=== PATIENT | female | born 1955 | race American Indian/Alaskan Native ===

== ENCOUNTER 2016-12-26 00:27 | Emergency (ER) | payer MEDICARE, MEDICAID ==
[2016-12-26] MEDS ORDERED: Morphine 2 MG/ML Syringe IVPUSH ONE (00:45)
[2016-12-26] MEDS ORDERED: Sodium Chloride 0.9% 250 ML IV SCH (00:45)
[2016-12-26 00:46] VITALS: BP 116/73
--- NOTE | 2016-12-26 00:49 | EDM.PDOC ---
ED HISTORY OF PRESENT ILLNESS - General Chief Complaint: General Stated Complaint: CHEST,BACK,SHOULDER PAIN PROBLEMS BREATHING Time Seen by Provider: 12/26/16 00:44 Source of Information: Reports: Patient History Limitations: Reports: No limitations - History of Present Illness INITIAL COMMENTS - FREE TEXT/NARRATIVE: 60 yo [place] Female w/ PMHx. Renal failure and Anemia. Pt. recently had blood transfusion last week for severe anemia Symptom Onset Date: 12/25/16 Symptom Onset Time: 17:00 Timing/Duration: Reports: Hour(s): Severity: moderate Location, General: Reports: chest Quality: Reports: Ache Worsens with: Reports: Breathing Associated Symptoms (General): Reports: shortness of breath - Related Data Allergies/ADRs: Allergies Allergy/AdvReac Type Severity Reaction Status Date / Time lidocaine Allergy Intermediate Swelling Verified 12/26/16 00:46 amoxicillin trihydrate Allergy Rash Verified 12/26/16 00:46 [From Amoxil] latex Allergy Rash Verified 12/26/16 00:46 lisinopril Allergy Headache Verified 12/26/16 00:46 Home Meds: Home Meds Bumetanide 2 mg PO BID 12/21/15 [History] atorvaSTATin [Lipitor] 20 mg PO BEDTIME 12/21/15 [History] Calcium Acetate [Phoslo] 2 cap PO TID 03/29/16 [History] Insulin Aspart [Novolog Flexpen] 5 unit SQ ASDIRECTED PRN 05/17/16 [History] Metoprolol Succinate [Toprol XL 100mg] 100 mg PO BID 05/17/16 [History] Diltiazem HCl [Cartia Xt] 1 tab PO DAILY 06/26/16 [History] Amarilys.Dialysis Soln28 &Ico 7.5% [Extraneal Icodextrin Dialysis] 1,500 ml IP BEDTIME 08/31/16 [History] Valsartan [Diovan] 80 mg PO DAILY 08/31/16 [History] Acetaminophen [Tylenol] 325 mg PO Q6H PRN 11/03/16 [History] Calcitriol [Rocaltrol] 1 cap PO DAILY 11/03/16 [History] Mupirocin Cream [Bactroban Crm] 1 applic TOP DAILY 11/03/16 [History] Warfarin Sodium [Jantoven] 2.5 mg PO DAILY 11/03/16 [History] amLODIPine [Norvasc] 10 mg PO DAILY 11/03/16 [History] hydrALAZINE [Apresoline] 50 mg PO DAILY 11/03/16 [History] Past Medical History HEENT History: Reports: Impaired vision Cardiovascular History: Reports: Afib, CAD, Heart Failure, High cholesterol, Hypertension, Pacemaker, Other (see below) Other Cardiovascular History: hx of bilateral lower extremity edema Respiratory History: Reports: SOB Other Respiratory History: From CHF Gastrointestinal History: Reports: Other (see below) Other Gastrointestinal History: gastroparesis diabeticorum Genitourinary History: Reports: Dialysis, Diabetic nephropathy, Other (see below ) Other Genitourinary History: chronic kidney disease stage 4, nephrotic syndrome [employer] History: Reports: Other OB/BYN History: 5 nvd Musculoskeletal History: Reports: Arthritis, Other (see below) Other Musculoskeletal History: 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 lower leg. Dry and scaley about 3inches in diameter. Non draining. Also has dry area to left marie area. 1 diameter to left marie area. - Infectious Disease History Infectious Disease History: Reports: Chicken pox - Past Surgical History Other HEENT Surgeries/Procedures: eye surgery for tear Cardiovascular Surgical History: Reports: Other (see below) Other Cardiovascular Surgeries/Procedures: angiogram GI Surgical History: Reports: Appendectomy, Colonoscopy Social & Family History - Family History Family Medical History: Noncontributory Cardiac: Reports: [place] Other Cardiac Family History: father from [place] in his 50s Endocrine/Metabolic: Reports: Diabetes, type II Other Hematologic Family History: mother has h/o DVT and is on blood thinners - per pt report - Tobacco Use Smoking Status *Q: Never Smoker Years of Tobacco use: 20 Packs/Tins Daily: 0.2 Used Tobacco, but Quit: Yes Month Tobacco Last Used: december Second Hand Smoke Exposure: No - Caffeine Use Caffeine Use: Reports: None - Recreational Drug Use Recreational Drug Use: No - Living Situation & Occupation Living situation: Reports: with family Occupation: employed ED ROS GENERAL - Review of Systems Review Of Systems: See Below Constitutional: Reports: no symptoms, malaise, weakness HEENT: Reports: No symptoms Respiratory: Reports: Pleuritic Chest Pain Cardiovascular: Reports: No symptoms Endocrine: Reports: no symptoms GI/Abdominal: Reports: No symptoms : Reports: no symptoms Musculoskeletal: Reports: no symptoms Skin: Reports: no symptoms Neurological: Reports: No Symptoms Psychiatric: Reports: No symptoms Hematologic/Lymphatic: Reports: no symptoms Immunologic: Reports: no symptoms ED EXAM, GENERAL - Physical Exam Exam: See Below Exam Limited By: No limitations General Appearance: alert, no apparent distress Eye Exam: bilateral eye: PERRL Ears: normal external exam Nose: normal inspection Throat/Mouth: Normal inspection Head: atraumatic, normocephalic Neck: normal inspection, supple Respiratory/Chest: no respiratory distress, normal breath sounds, no accessory muscle use Cardiovascular: normal peripheral pulses, tachycardia GI/Abdominal: normal bowel sounds Back Exam: normal inspection, full range of motion Extremities: normal inspection, normal range of motion Neurological: alert, oriented, CN II-XII intact Psychiatric: normal affect, normal mood Skin Exam: Warm, Dry Lymphatic: no adenopathy Course - Vital Signs Last Recorded V/S: Last Vital Signs Temp 36.3 C 12/26/16 00:30 Pulse 120 H 12/26/16 00:30 Resp 22 H 12/26/16 00:30 BP 116/73 12/26/16 00:30 Pulse Ox 100 12/26/16 00:30 - Orders/Labs/Meds Labs: Laboratory Tests 12/26/16 12/26/16 12/26/16 Range/Units 01:04 01:04 01:04 WBC 9.8 (5.0-10.0) 10^3/uL RBC 3.14 L (4.2-5.4) 10^6/uL Hgb 9.8 L (12.0-16.0) g/dL Hct 29.8 L (37.0-47.0) % MCV 94.9 (80-100) fL MCH 31.2 (27.0-34.0) pg MCHC 32.9 L (33.0-35.0) g/dL Plt Count 143 L (150-450) 10^3/uL Neut % (Auto) 81.6 H (42.2-75.2) % Lymph % (Auto) 6.3 L (20.5-50.1) % Oliver % (Auto) 10.1 H (2-8) % Eos % (Auto) 1.7 (1.0-3.0) % Baso % (Auto) 0.3 (0.0-1.0) % D-Dimer, Quantitative 655 H (0-400) ng/mL Sodium 133 L (135-145) mmol/L Potassium 4.3 (3.6-5.0) mmol/L Chloride 95 L (101-111) mmol/L Carbon Dioxide 25.0 (21.0-31.0) mmol/L Anion Gap 17.3 BUN 75 H (7-18) mg/dL Creatinine 10.2 H (0.6-1.3) mg/dL Est Cr Clr Drug Dosing TNP Estimated GFR (MDRD) 4 BUN/Creatinine Ratio 7.35 Glucose 237 H (74-105) mg/dL Lactic Acid (0.5-2.2) mmol/L Calcium 8.3 L (8.4-10.2) mg/dl Total Bilirubin 0.7 (0.2-1.0) mg/dL AST 17 (10-42) IU/L ALT 16 (10-60) IU/L Alkaline Phosphatase 132 H (42-121) IU/L B-Natriuretic Peptide 2790 H (0-100) pg/ml Total Protein 7.2 (6.7-8.2) g/dl Albumin 3.7 (3.2-5.5) g/dl Globulin 3.5 Albumin/Globulin Ratio 1.06 12/26/16 Range/Units 01:04 WBC (5.0-10.0) 10^3/uL RBC (4.2-5.4) 10^6/uL Hgb (12.0-16.0) g/dL Hct (37.0-47.0) % MCV (80-100) fL MCH (27.0-34.0) pg MCHC (33.0-35.0) g/dL Plt Count (150-450) 10^3/uL Neut % (Auto) (42.2-75.2) % Lymph % (Auto) (20.5-50.1) % Oliver % (Auto) (2-8) % Eos % (Auto) (1.0-3.0) % Baso % (Auto) (0.0-1.0) % D-Dimer, Quantitative (0-400) ng/mL Sodium (135-145) mmol/L Potassium (3.6-5.0) mmol/L Chloride (101-111) mmol/L Carbon Dioxide (21.0-31.0) mmol/L Anion Gap BUN (7-18) mg/dL Creatinine (0.6-1.3) mg/dL Est Cr Clr Drug Dosing Estimated GFR (MDRD) BUN/Creatinine Ratio Glucose (74-105) mg/dL Lactic Acid 1.3 (0.5-2.2) mmol/L Calcium (8.4-10.2) mg/dl Total Bilirubin (0.2-1.0) mg/dL AST (10-42) IU/L ALT (10-60) IU/L Alkaline Phosphatase (42-121) IU/L B-Natriuretic Peptide (0-100) pg/ml Total Protein (6.7-8.2) g/dl Albumin (3.2-5.5) g/dl Globulin Albumin/Globulin Ratio Meds: Medications Discontinued Medications Generic Name Dose Route Start Last Admin Trade Name Alexq PRN Reason Stop Dose Admin Sodium Chloride 250 mls @ 50 mls/hr 12/26/16 00:45 12/26/16 01:06 Normal Saline IV 50 mls/hr ASDIRECTED BERYL Administration Morphine Sulfate 2 mg 12/26/16 00:45 12/26/16 01:07 Morphine IVPUSH 12/26/16 00:46 2 mg ONETIME ONE Administration Departure - Departure Time of Disposition: 02:05 Disposition: DC/Tfer to Other 70 Reason for Transfer *Q: Other Condition: fair Clinical Impression: Renal failure, Elevated d-dimer Pulmonary edema Qualifiers: Chronicity: acute Qualified Code(s): J81.0 - Acute pulmonary edema Referrals: Carmen Chino MD [Primary Care Provider] - Forms: Interfacility Transfer EMTALA, ED Department Discharge
[2016-12-26 01:32] LABS: CHLORIDE,CL 95 mmol/L (101-111); SODIUM,NA 133 mmol/L (135-145)
--- NOTE | 2017-01-16 08:17 | EKG ---
12/26/2016- MARINA GORDON - This is a 12-lead EKG. This is showing atrial fibrillation with ventricular rate 127 beats per minute. No significant ST-T changes with left axis deviation. [facility] /[id number] MTDD
== END 2016-12-26 02:50 | disposition other institution (70) ==
LOC: DL.ED 00:27
DX: I13.0 Hypertensive heart and chronic kidney disease with heart failure and stage 1 through stage 4 chronic kidney disease, or unspecified chronic kidney disease (principal); N18.4 Chronic kidney disease, stage 4 (severe); I50.9 Heart failure, unspecified; R79.1 Abnormal coagulation profile; D63.1 Anemia in chronic kidney disease; I48.91 Unspecified atrial fibrillation; I25.10 Atherosclerotic heart disease of native coronary artery without angina pectoris; Z90.49 Acquired absence of other specified parts of digestive tract; E78.00 Pure hypercholesterolemia, unspecified; E11.21 Type 2 diabetes mellitus with diabetic nephropathy; Z79.4 Long term (current) use of insulin; Z79.01 Long term (current) use of anticoagulants; Z79.899 Other long term (current) drug therapy; Z91.040 Latex allergy status; Z88.8 Allergy status to other drugs, medicaments and biological substances; Z88.1 Allergy status to other antibiotic agents
CPT/HCPCS: 36415; 71020; 80053; 83605; 83880; 85025; 85379; 87040; 96361; 96374; 99285; J2270; J7050

== ENCOUNTER 2017-02-19 16:13 | Emergency (ER) | payer MEDICARE, MEDICAID ==
[2017-02-19 16:24] VITALS: BP 147/80
--- NOTE | 2017-02-19 16:26 | EDM.PDOC ---
ED HPI GENERAL MEDICAL PROBLEM - General Chief Complaint: General Time Seen by Provider: 02/19/17 16:17 Source of Information: Reports: Patient - History of Present Illness INITIAL COMMENTS - FREE TEXT/NARRATIVE: Aracely Ceballos is a 61 year old female with a past medical history of afib, CAD , CHF, HTN, pacemaker, DMT2, CKD Stage 4 on dialysis, arthritis, gastroparesis, and anemia presenting to the ED via ambulance with abdominal pain and bilateral shoulder pain. Aracely has a peritoneal dialysis line and she tells me it needs to be drained. She has her supplies with her and initiates drainage in the ED. She reports having the peritoneal dialysis line for the last one year. She does her dialysis at home every 3 hours. She reports increased swelling in her bilateral extremities. The pain in her abdomen is generalized and has been worse over the last one hour. Her shoulder pain correlates with the same time of onset (last one hour). She notices the pain is worse with use of the red peritoneal dialysis bags versus the green bags. Bilateral Shoulder Pain Score (Numeric/FACES): 10 - Related Data Allergies Allergy/AdvReac Type Severity Reaction Status Date / Time lidocaine Allergy Intermediate Swelling Verified 02/19/17 16:18 amoxicillin trihydrate Allergy Rash Verified 02/19/17 16:18 [From Amoxil] latex Allergy Rash Verified 02/19/17 16:18 lisinopril Allergy Headache Verified 02/19/17 16:18 Home Meds: Home Meds Bumetanide 2 mg PO BID 12/21/15 [History] atorvaSTATin [Lipitor] 20 mg PO BEDTIME 12/21/15 [History] Calcium Acetate [Phoslo] 2 cap PO TID 03/29/16 [History] Insulin Aspart [Novolog Flexpen] 5 unit SQ ASDIRECTED PRN 05/17/16 [History] Metoprolol Succinate [Toprol XL 100mg] 100 mg PO BID 05/17/16 [History] Diltiazem HCl [Cartia Xt] 1 tab PO DAILY 06/26/16 [History] Amarilys.Dialysis Soln28 &Ico 7.5% [Extraneal Icodextrin Dialysis] 1,500 ml IP BEDTIME 08/31/16 [History] Valsartan [Diovan] 80 mg PO DAILY 08/31/16 [History] Acetaminophen [Tylenol] 325 mg PO Q6H PRN 11/03/16 [History] Calcitriol [Rocaltrol] 1 cap PO DAILY 11/03/16 [History] Mupirocin Cream [Bactroban Crm] 1 applic TOP DAILY 11/03/16 [History] Warfarin Sodium [Jantoven] 2.5 mg PO DAILY 11/03/16 [History] amLODIPine [Norvasc] 10 mg PO DAILY 11/03/16 [History] hydrALAZINE [Apresoline] 50 mg PO DAILY 11/03/16 [History] Past Medical History HEENT History: Reports: Impaired vision Cardiovascular History: Reports: Afib, CAD, Heart Failure, High cholesterol, Hypertension, Pacemaker, Other (see below) Other Cardiovascular History: hx of bilateral lower extremity edema Respiratory History: Reports: SOB Other Respiratory History: From CHF Gastrointestinal History: Reports: Other (see below) Other Gastrointestinal History: gastroparesis diabeticorum Genitourinary History: Reports: Dialysis, Diabetic nephropathy, Other (see below ) Other Genitourinary History: chronic kidney disease stage 4, nephrotic syndrome [employer] History: Reports: Other OB/BYN History: 5 nvd Musculoskeletal History: Reports: Arthritis, Other (see below) Other Musculoskeletal History: 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 lower leg. Dry and scaley about 3inches in diameter. Non draining. Also has dry area to left marie area. 1 diameter to left marie area. - Infectious Disease History Infectious Disease History: Reports: Chicken pox - Past Surgical History Other HEENT Surgeries/Procedures: eye surgery for tear Cardiovascular Surgical History: Reports: Other (see below) Other Cardiovascular Surgeries/Procedures: angiogram GI Surgical History: Reports: Appendectomy, Colonoscopy Social & Family History - Family History Family Medical History: Noncontributory Cardiac: Reports: [place] Other Cardiac Family History: father from [place] in his 50s Endocrine/Metabolic: Reports: Diabetes, type II Other Hematologic Family History: mother has h/o DVT and is on blood thinners - per pt report - Tobacco Use Smoking Status *Q: Never Smoker Years of Tobacco use: 20 Packs/Tins Daily: 0.2 Used Tobacco, but Quit: Yes Month Tobacco Last Used: december Second Hand Smoke Exposure: No - Caffeine Use Caffeine Use: Reports: None - Recreational Drug Use Recreational Drug Use: No - Living Situation & Occupation Living situation: Reports: with family Occupation: employed ED ROS GENERAL - Review of Systems Review Of Systems: See Below Constitutional: Reports: malaise, weakness. Denies: fever, chills HEENT: Reports: No symptoms Respiratory: Reports: Shortness of Breath. Denies: Wheezing, Pleuritic Chest Pain, Cough, Sputum Cardiovascular: Reports: Dyspnea on exertion, Edema. Denies: Chest pain Endocrine: Reports: no symptoms GI/Abdominal: Reports: Other (see HPI) : Reports: no symptoms Musculoskeletal: Reports: shoulder pain (bilateral upper shoulder pain R>L) Skin: Reports: rash Neurological: Reports: No Symptoms Psychiatric: Reports: No symptoms Hematologic/Lymphatic: Reports: no symptoms, anemia (history of anemia) Immunologic: Reports: no symptoms ED EXAM, GENERAL - Physical Exam Exam: See Below Exam Limited By: Other (pain) General Appearance: alert, severe distress (tachypnea due to pain; moaning in pain) Eye Exam: bilateral eye: PERRL Ears: normal external exam Nose: normal inspection, normal mucosa Throat/Mouth: Normal inspection, Normal oropharynx Head: atraumatic, normocephalic Neck: supple, non-tender Respiratory/Chest: decreased breath sounds (throughout), crackles, rales ( bilateral bases), other (tachypnea that responded to fentanyl for pain control) . No: rhonchi, wheezing, stridor Cardiovascular: regular rate, rhythm (following fentanyl) GI/Abdominal: normal bowel sounds, soft, tender (surrounding the peritoneal dialysis line), other (large scaling patches around the dialysis line without erythema or drainage; appears dry). No: distended, rebound Extremities: other (2+ pitting edema; scaling annular rashes throughout) Neurological: alert, oriented, CN II-XII intact Psychiatric: other (once pain is controlled mood is normal) Skin Exam: Rash Lymphatic: no adenopathy EKG INTERPRETATION EKG Interpretation Comments: Initial EKG showed what appeared to afib with rate of 126; difficult to see any p waves due to rapid rate Fentanyl administered for pain and rate decreased into the 80s with repeat EKG showed NSR Course - Vital Signs Last Recorded V/S: Last Vital Signs Temp 97.6 F 02/19/17 16:23 Pulse 134 H 02/19/17 16:23 Resp 25 H 02/19/17 16:23 BP 147/80 H 02/19/17 16:23 Pulse Ox 100 02/19/17 16:23 - Orders/Labs/Meds Orders: Active Orders 24 hr Category Date Time Status EKG 12 Lead [EKG Documentation Completion] [RC] ROUTINE Care 02/19/17 17:32 Active EKG 12 Lead [EKG Documentation Completion] [RC] STAT Care 02/19/17 17:00 Active Chest 1V Frontal [CR] Urgent Exams 02/19/17 17:04 Taken Labs: Laboratory Tests 02/19/17 02/19/17 02/19/17 Range/Units 16:55 16:55 16:55 WBC 5.6 (5.0-10.0) 10^3/uL RBC 3.64 L (4.2-5.4) 10^6/uL Hgb 11.0 L (12.0-16.0) g/dL Hct 34.3 L (37.0-47.0) % MCV 94.2 (80-100) fL MCH 30.2 (27.0-34.0) pg MCHC 32.1 L (33.0-35.0) g/dL Plt Count 162 (150-450) 10^3/uL Neut % (Auto) 70.0 (42.2-75.2) % Lymph % (Auto) 12.7 L (20.5-50.1) % Delta % (Auto) 7.5 (2-8) % Eos % (Auto) 9.1 H (1.0-3.0) % Baso % (Auto) 0.7 (0.0-1.0) % Sodium 136 (135-145) mmol/L Potassium 4.1 (3.6-5.0) mmol/L Chloride 99 L (101-111) mmol/L Carbon Dioxide 20.0 L (21.0-31.0) mmol/L Anion Gap 21.1 BUN 71 H (7-18) mg/dL Creatinine 10.2 H (0.6-1.3) mg/dL Est Cr Clr Drug Dosing 5.06 mL/min Estimated GFR (MDRD) 4 BUN/Creatinine Ratio 6.96 Glucose 194 H (74-105) mg/dL Lactic Acid 2.1 (0.5-2.2) mmol/L Calcium 8.1 L (8.4-10.2) mg/dl Total Bilirubin 1.0 (0.2-1.0) mg/dL AST 20 (10-42) IU/L ALT 13 (10-60) IU/L Alkaline Phosphatase 138 H (42-121) IU/L Ammonia (11-35) umol/L B-Natriuretic Peptide (0-100) pg/ml Total Protein 6.6 L (6.7-8.2) g/dl Albumin 3.2 (3.2-5.5) g/dl Globulin 3.4 Albumin/Globulin Ratio 0.94 02/19/17 02/19/17 Range/Units 16:55 17:15 WBC (5.0-10.0) 10^3/uL RBC (4.2-5.4) 10^6/uL Hgb (12.0-16.0) g/dL Hct (37.0-47.0) % MCV (80-100) fL MCH (27.0-34.0) pg MCHC (33.0-35.0) g/dL Plt Count (150-450) 10^3/uL Neut % (Auto) (42.2-75.2) % Lymph % (Auto) (20.5-50.1) % Delta % (Auto) (2-8) % Eos % (Auto) (1.0-3.0) % Baso % (Auto) (0.0-1.0) % Sodium (135-145) mmol/L Potassium (3.6-5.0) mmol/L Chloride (101-111) mmol/L Carbon Dioxide (21.0-31.0) mmol/L Anion Gap BUN (7-18) mg/dL Creatinine (0.6-1.3) mg/dL Est Cr Clr Drug Dosing mL/min Estimated GFR (MDRD) BUN/Creatinine Ratio Glucose (74-105) mg/dL Lactic Acid (0.5-2.2) mmol/L Calcium (8.4-10.2) mg/dl Total Bilirubin (0.2-1.0) mg/dL AST (10-42) IU/L ALT (10-60) IU/L Alkaline Phosphatase (42-121) IU/L Ammonia 15 (11-35) umol/L B-Natriuretic Peptide 4290 H (0-100) pg/ml Total Protein (6.7-8.2) g/dl Albumin (3.2-5.5) g/dl Globulin Albumin/Globulin Ratio Meds: Medications Discontinued Medications Generic Name Dose Route Start Last Admin Trade Name Freq PRN Reason Stop Dose Admin Fentanyl 50 mcg 02/19/17 16:27 02/19/17 17:00 Sublimaze IVPUSH 02/19/17 16:28 50 mcg ONETIME ONE Administration Departure - Departure Time of Disposition: 17:51 Disposition: Home, Self-Care 01 Condition: fair Clinical Impression: Peritoneal irritation Instructions: Peritoneal Dialysis, [id number] Forms: ED Department Discharge Additional Instructions: Please keep your follow-up appointment with Dr. Chino on Monday. Please call Dr. Street office on Monday to get his recommendations on your peritoneal dialysis bags. You may use your PRN nausea medications at home if needed. Please return to the ED for fever or if pain returns. - My Orders Last 24 Hours: My Active Orders 02/19/17 17:00 EKG 12 Lead [EKG Documentation Completion] [RC] STAT 02/19/17 17:04 Chest 1V Frontal [CR] Urgent - Assessment/Plan Last 24 Hours: My Active Orders 02/19/17 17:00 EKG 12 Lead [EKG Documentation Completion] [RC] STAT 02/19/17 17:04 Chest 1V Frontal [CR] Urgent Assessment:: peritoneal irritation Plan: Aracely is presenting with signs/symptoms of an aseptic peritoneal irritation. She has abdominal pain radiating to the bilateral shoulders relieved by fentanyl and peritoneal drainage (patient performed with help of her granddaughters). She does not have SIRS criteria or elevation of the WBCs or lactic acid. Her BNP is elevated above her baseline but her chest x-ray is clear. She is improved and appropriate for discharge with close outpatient management. She has an appointment with Dr. Chino on [place] and she will contact Dr. Rodriguez's office tomorrow regarding her dialysis bags. Questions were answered and she and her son were comfortable with the plan.
[2017-02-19] MEDS ORDERED: fentaNYL 100 MCG/2 ML SDV IVPUSH ONE (16:27)
--- NOTE | 2017-02-21 13:51 | EKG ---
02/19/2017 - MARINA GORDON - TIME: 1659 hours. Shows atrial fibrillation with rapid ventricular response. Heart rate of 143. No significant ST elevation or ST depression noted on this 12-lead EKG. Questionable ST depression in lead V3, but does not meet the criteria, nonspecific changes. [facility] /[id number]
--- NOTE | 2017-02-21 14:18 | EKG ---
02/19/2017 - MARINA GORDON - TIME: 1706 hours. Twelve-lead EKG shows normal sinus rhythm with a heart rate of 87. No significant ST elevation or ST depression noted on this 12-lead EKG. [facility] /[id number]
== END 2017-02-19 18:07 | disposition home or self-care (01) ==
LOC: DL.ED 16:13
DX: K65.9 Peritonitis, unspecified (principal); I48.91 Unspecified atrial fibrillation; I25.10 Atherosclerotic heart disease of native coronary artery without angina pectoris; I13.0 Hypertensive heart and chronic kidney disease with heart failure and stage 1 through stage 4 chronic kidney disease, or unspecified chronic kidney disease; N18.4 Chronic kidney disease, stage 4 (severe); D63.1 Anemia in chronic kidney disease; I50.9 Heart failure, unspecified; E78.00 Pure hypercholesterolemia, unspecified; M19.90 Unspecified osteoarthritis, unspecified site; E11.21 Type 2 diabetes mellitus with diabetic nephropathy; Z79.4 Long term (current) use of insulin; Z79.01 Long term (current) use of anticoagulants; Z79.899 Other long term (current) drug therapy; Z90.49 Acquired absence of other specified parts of digestive tract; Z91.040 Latex allergy status; Z88.8 Allergy status to other drugs, medicaments and biological substances; Z88.1 Allergy status to other antibiotic agents
CPT/HCPCS: 36415; 71010; 80053; 82140; 83605; 83880; 85025; 93005; 93010; 96374; 99283; J3010; 99284

== ENCOUNTER 2017-03-14 19:28 | Emergency (ER) | payer MEDICARE, MEDICAID ==
[2017-03-14 21:43] VITALS: BP 150/66
[2017-03-14] MEDS ORDERED: Ondansetron 4 MG/2 ML SDV IV ONE (21:48)
[2017-03-14] MEDS ORDERED: fentaNYL 100 MCG/2 ML SDV IVPUSH ONE ×2 (21:51→23:22)
[2017-03-14 22:41] LABS: CHLORIDE,CL 96 mmol/L (101-111); SODIUM,NA 133 mmol/L (135-145)
[2017-03-14] MEDS ORDERED: Bumetanide 1 MG/4 ML MDV IVPUSH ONE (23:26)
[2017-03-15] MEDS ORDERED: fentaNYL 100 MCG/2 ML SDV IVPUSH ONE (01:39)
--- NOTE | 2017-03-15 01:49 | EDM.PDOC ---
ED HPI GENERAL MEDICAL PROBLEM - General Chief Complaint: Abdominal Pain Stated Complaint: TROUBLE BREATHING Time Seen by Provider: 03/14/17 21:41 Source of Information: Reports: Patient History Limitations: Reports: No Limitations - History of Present Illness INITIAL COMMENTS - FREE TEXT/NARRATIVE: ED with complaint of abdominal pain radiating to chest, worse with movement, describes as sharp. Pain worsening over past week, no fever, Was seen recenntly by Dr. Ac. Notes high phosphate levels. Onset: Gradual Abdominal Pain Score (Numeric/FACES): 8 - Related Data Allergies Allergy/AdvReac Type Severity Reaction Status Date / Time lidocaine Allergy Intermediate Swelling Verified 03/14/17 23:05 amoxicillin trihydrate Allergy Rash Verified 03/14/17 23:05 [From Amoxil] latex Allergy Rash Verified 03/14/17 23:05 lisinopril Allergy Headache Verified 03/14/17 23:05 Home Meds: Home Meds Bumetanide 2 mg PO BID 12/21/15 [History] Calcium Acetate [Phoslo] 2 cap PO TID 03/29/16 [History] Insulin Aspart [Novolog Flexpen] 5 unit SQ ASDIRECTED PRN 05/17/16 [History] Metoprolol Succinate [Toprol XL 100mg] 75 mg PO BID 05/17/16 [History] Diltiazem HCl [Cartia Xt] 1 tab PO DAILY 06/26/16 [History] Amarilys.Dialysis Soln28 &Ico 7.5% [Extraneal Icodextrin Dialysis] 1,500 ml IP BEDTIME 08/31/16 [History] Valsartan [Diovan] 80 mg PO DAILY 08/31/16 [History] Acetaminophen [Tylenol] 325 mg PO Q6H PRN 11/03/16 [History] Calcitriol [Rocaltrol] 2 cap PO DAILY 11/03/16 [History] Mupirocin Cream [Bactroban Crm] 1 applic TOP DAILY 11/03/16 [History] amLODIPine [Norvasc] 10 mg PO DAILY 11/03/16 [History] Metoclopramide [Reglan] 1 tab PO TIDAC 03/14/17 [History] Sodium Bicarbonate 1 tab PO BID 03/14/17 [History] Warfarin Sodium [Jantoven] 1.5 tab PO DAILY 03/14/17 [History] Past Medical History HEENT History: Reports: Impaired Vision Cardiovascular History: Reports: Afib, CAD, Heart Failure, High Cholesterol, Hypertension, Pacemaker, Other (See Below) Other Cardiovascular History: hx of bilateral lower extremity edema Respiratory History: Reports: SOB Other Respiratory History: From CHF Gastrointestinal History: Reports: Other (See Below) Other Gastrointestinal History: gastroparesis diabeticorum Genitourinary History: Reports: Dialysis, Diabetic Nephropathy, Other (See Below ) Other Genitourinary History: chronic kidney disease stage 4, nephrotic syndrome INFORMATION SYSTEMS MANAGER 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 lower leg. Dry and scaley about 3inches in diameter. Non draining. Also has dry area to left marie area. 1 diameter to left marie area. - Infectious Disease History Infectious Disease History: Reports: Chicken Pox - Past Surgical History Cardiovascular Surgical History: Reports: Other (See Below) Dermatological Surgical History: Reports: Skin Biopsy Social & Family History - Family History Family Medical History: Noncontributory Cardiac: Reports: [place] Other Cardiac Family History: father from [place] in his 50s Endocrine/Metabolic: Reports: Diabetes, type II Other Hematologic Family History: mother has h/o DVT and is on blood thinners - per pt report - Tobacco Use Smoking Status *Q: Unknown Ever Smoked Years of Tobacco use: 20 Packs/Tins Daily: 0.2 Used Tobacco, but Quit: Yes Month Tobacco Last Used: december Second Hand Smoke Exposure: No - Caffeine Use Caffeine Use: Reports: None - Recreational Drug Use Recreational Drug Use: No - Living Situation & Occupation Living situation: Reports: with Family Occupation: Employed [employer] [facility] [employer] [facility] GENER[facility] - Review of Systems Review Of Systems: See Below Constitutional: Reports: No Symptoms, Decreased Appetite HEENT: Reports: No Symptoms Respiratory: Reports: Shortness of Breath Cardiovascular: Reports: Dyspnea on Exertion, Other (chronic atrial fibrillation ) GI/Abdominal: Reports: Abdominal Pain, Anorexia, Decreased Appetite, Nausea, Vomiting : Reports: No Symptoms Musculoskeletal: Reports: Other (generalized pain) Skin: Reports: No Symptoms Neurological: Reports: No Symptoms ED EXAM, GI/ABD - Physical Exam Exam: See Below General Appearance: Alert, Moderate Distress (colicky type pain) Eyes: Bilateral: EOMI Ears: Normal External Exam Nose: Normal Inspection Throat/Mouth: Normal Inspection Head: Atraumatic, Normocephalic Neck: Normal Inspection Respiratory/Chest: No Respiratory Distress, Decreased Breath Sounds (bases), Rales (fine bases). No: Rhonchi, Wheezing Cardiovascular: Normal Peripheral Pulses, Tachycardia (on admission, decreased 80's after administration of pain medication), Irregularly Irregular GI/Abdominal: Normal Bowel Sounds, Soft, Tenderness (general), Other (pertoneal diaysis shunt). No: Distention, Guarding, Rebound, Rigidity Back Exam: Normal Inspection, Full Range of Motion Extremities: Pedal Edema (left greater than right) Neurological: Alert, Oriented Psychiatric: Anxious Skin Exam: Warm, Dry, Other (annular plaques to abdomen and lower legs). No: Jaundice Course - Vital Signs Last Recorded V/S: Last Vital Signs Temp 97.4 F 03/14/17 21:42 Pulse 88 03/14/17 21:42 Resp 20 03/14/17 21:42 BP 150/66 H 03/14/17 21:42 Pulse Ox 100 03/14/17 21:42 - Orders/Labs/Meds Orders: Active Orders 24 hr Category Date Time Status EKG 12 Lead [EKG Documentation Completion] [RC] URGENT Care 03/14/17 21:48 Active CULTURE BLOOD [BC] Stat Lab 03/14/17 22:10 Results CULTURE BLOOD [BC] Stat Lab 03/14/17 22:12 Received Blood Culture x2 Reflex Set [OM.PC] Stat Oth 03/14/17 21:49 Ordered Labs: Laboratory Tests 03/14/17 03/14/17 03/14/17 Range/Units 22:10 22:12 22:12 WBC 8.3 (5.0-10.0) 10^3/uL RBC 3.77 L (4.2-5.4) 10^6/uL Hgb 11.3 L (12.0-16.0) g/dL Hct 35.7 L (37.0-47.0) % MCV 94.7 (80-100) fL MCH 30.0 (27.0-34.0) pg MCHC 31.7 L (33.0-35.0) g/dL Plt Count 160 (150-450) 10^3/uL Neut % (Auto) 76.1 H (42.2-75.2) % Lymph % (Auto) 9.6 L (20.5-50.1) % [place] % (Auto) 11.4 H (2-8) % Eos % (Auto) 2.7 (1.0-3.0) % Baso % (Auto) 0.2 (0.0-1.0) % PT 11.1 (9.0-12.0) SEC INR 1.1 (0.9-1.2) D-Dimer, Quantitative (0-400) ng/mL Sodium 133 L (135-145) mmol/L Potassium 4.3 (3.6-5.0) mmol/L Chloride 96 L (101-111) mmol/L Carbon Dioxide 24.0 (21.0-31.0) mmol/L Anion Gap 17.3 BUN 61 H (7-18) mg/dL Creatinine 10.4 H (0.6-1.3) mg/dL Est Cr Clr Drug Dosing TNP Estimated GFR (MDRD) 4 BUN/Creatinine Ratio 5.86 Glucose 183 H (74-105) mg/dL Lactic Acid (0.5-2.2) mmol/L Calcium 8.4 (8.4-10.2) mg/dl Total Bilirubin 0.7 (0.2-1.0) mg/dL AST 18 (10-42) IU/L ALT 19 (10-60) IU/L Alkaline Phosphatase 137 H (42-121) IU/L Troponin I 0.04 H* (0.00-0.02) ng/ml B-Natriuretic Peptide 3050 H (0-100) pg/ml Total Protein 6.5 L (6.7-8.2) g/dl Albumin 3.3 (3.2-5.5) g/dl Globulin 3.2 Albumin/Globulin Ratio 1.03 Amylase 6 L (28-100) U/L Lipase 30 (22-51) U/L Urine Color (YELLOW) Urine Appearance (CLEAR) Urine pH (5.0-9.0) Ur Specific [place] (1.005-1.030) Urine Protein (NEGATIVE) Urine Glucose (UA) (NEGATIVE) Urine Ketones (NEGATIVE) Urine Occult Blood (NEGATIVE) Urine Nitrite (NEGATIVE) Urine Bilirubin (NEGATIVE) Urine Urobilinogen (0.2-1.0) mg/dL Ur Leukocyte Esterase (NEGATIVE) Urine RBC /HPF Urine WBC (0-5/HPF) /HPF Ur Epithelial Cells /HPF Urine Bacteria (0-FEW/HPF) /HPF 03/14/17 03/14/17 03/14/17 Range/Units 22:12 22:50 22:54 WBC (5.0-10.0) 10^3/uL RBC (4.2-5.4) 10^6/uL Hgb (12.0-16.0) g/dL Hct (37.0-47.0) % MCV (80-100) fL MCH (27.0-34.0) pg MCHC (33.0-35.0) g/dL Plt Count (150-450) 10^3/uL Neut % (Auto) (42.2-75.2) % Lymph % (Auto) (20.5-50.1) % [place] % (Auto) (2-8) % Eos % (Auto) (1.0-3.0) % Baso % (Auto) (0.0-1.0) % PT (9.0-12.0) SEC INR (0.9-1.2) D-Dimer, Quantitative 902 H (0-400) ng/mL Sodium (135-145) mmol/L Potassium (3.6-5.0) mmol/L Chloride (101-111) mmol/L Carbon Dioxide (21.0-31.0) mmol/L Anion Gap BUN (7-18) mg/dL Creatinine (0.6-1.3) mg/dL Est Cr Clr Drug Dosing Estimated GFR (MDRD) BUN/Creatinine Ratio Glucose (74-105) mg/dL Lactic Acid 2.1 (0.5-2.2) mmol/L Calcium (8.4-10.2) mg/dl Total Bilirubin (0.2-1.0) mg/dL AST (10-42) IU/L ALT (10-60) IU/L Alkaline Phosphatase (42-121) IU/L Troponin I (0.00-0.02) ng/ml B-Natriuretic Peptide (0-100) pg/ml Total Protein (6.7-8.2) g/dl Albumin (3.2-5.5) g/dl Globulin Albumin/Globulin Ratio Amylase (28-100) U/L Lipase (22-51) U/L Urine Color Yellow (YELLOW) Urine Appearance Clear (CLEAR) Urine pH 8.5 (5.0-9.0) Ur Specific [place] 1.020 (1.005-1.030) Urine Protein >=300 H (NEGATIVE) Urine Glucose (UA) 250 H (NEGATIVE) Urine Ketones Negative (NEGATIVE) Urine Occult Blood Trace-intact H (NEGATIVE) Urine Nitrite Negative (NEGATIVE) Urine Bilirubin Negative (NEGATIVE) Urine Urobilinogen 0.2 (0.2-1.0) mg/dL Ur Leukocyte Esterase Negative (NEGATIVE) Urine RBC 0-5 /HPF Urine WBC 0-5 (0-5/HPF) /HPF Ur Epithelial Cells Occasional /HPF Urine Bacteria Occasional (0-FEW/HPF) /HPF Meds: Medications Discontinued Medications Generic Name Dose Route Start Last Admin Trade Name Freq PRN Reason Stop Dose Admin Bumetanide 1 mg 03/14/17 23:26 03/15/17 00:09 Bumex IVPUSH 03/14/17 23:27 1 mg ONETIME ONE Administration Fentanyl 50 mcg 03/14/17 21:51 03/14/17 22:23 Sublimaze IVPUSH 03/14/17 21:52 50 mcg ONETIME ONE Administration Fentanyl 25 mcg 03/14/17 23:22 03/14/17 23:59 Sublimaze IVPUSH 03/14/17 23:23 25 mcg ONETIME ONE Administration Fentanyl 25 mcg 03/15/17 01:39 03/15/17 01:51 Sublimaze IVPUSH 03/15/17 01:40 25 mcg ONETIME ONE Administration Ondansetron HCl 4 mg 03/14/17 21:48 03/14/17 22:24 Zofran IV 03/14/17 21:49 4 mg ONETIME ONE Administration - Radiology Interpretation Free Text/Narrative:: CT abdomen, mild pancreatitis, bilateral pleural effusions, tiny right pericardial effusion - Re-Assessments/Exams Free Text/Narrative Re-Assessment/Exam: 03/15/17 02:01 Vitals remain stable, Atrial fib rate controlled following initial pain medication. Pain colicky type. No vomiting. family here. Peretoneal drainge done by son prior to CT. TC dr Kam, accepting of patient in transfer, further eval and management. Tx via [facility]. Departure - Departure Time of Disposition: 02:30 Disposition: DC/Tfer to Acute Hospital 02 Condition: fair Clinical Impression: Peritoneal dialysis catheter in place, Pericardial effusion, Bilateral pleural effusion, Chronic atrial fibrillation, Elevated troponin Pancreatitis Qualifiers: Chronicity: acute Pancreatitis type: unspecified pancreatitis type Acute pancreatitis complication: unspecified Qualified Code(s): K85.90 - Acute pancreatitis without necrosis or infection, unspecified Abdominal pain Qualifiers: Abdominal location: lower abdomen, unspecified Qualified Code(s): R10.30 - Lower abdominal pain, unspecified - Discharge Information Forms: ED Department Discharge - My Orders Last 24 Hours: My Active Orders 03/14/17 21:48 EKG 12 Lead [EKG Documentation Completion] [RC] URGENT 03/14/17 21:49 Blood Culture x2 Reflex Set [OM.PC] Stat 03/14/17 22:10 CULTURE BLOOD [BC] Stat 03/14/17 22:12 CULTURE BLOOD [BC] Stat - Assessment/Plan Last 24 Hours: My Active Orders 03/14/17 21:48 EKG 12 Lead [EKG Documentation Completion] [RC] URGENT 03/14/17 21:49 Blood Culture x2 Reflex Set [OM.PC] Stat 03/14/17 22:10 CULTURE BLOOD [BC] Stat 03/14/17 22:12 CULTURE BLOOD [BC] Stat
--- NOTE | 2017-03-15 12:06 | EKG ---
03/14/2017 - MARINA GORDON I reviewed the EKG and agree with the machine's reading. [facility] /[id number]
== END 2017-03-15 02:38 ==
LOC: DL.ED 19:28
DX: K85.90 Acute pancreatitis without necrosis or infection, unspecified (principal); I48.91 Unspecified atrial fibrillation; I13.0 Hypertensive heart and chronic kidney disease with heart failure and stage 1 through stage 4 chronic kidney disease, or unspecified chronic kidney disease; E78.00 Pure hypercholesterolemia, unspecified; I50.9 Heart failure, unspecified; N18.4 Chronic kidney disease, stage 4 (severe); E11.9 Type 2 diabetes mellitus without complications; Z99.2 Dependence on renal dialysis; Z88.8 Allergy status to other drugs, medicaments and biological substances; Z88.1 Allergy status to other antibiotic agents
CPT/HCPCS: 36415; 71010; 74176; 80053; 81001; 82150; 83605; 83690; 83880; 84484; 85025; 85379; 85610; 87040; 93005; 93010; 96374; 96375; 96376; 99285; J2405; J3010; S0171

== ENCOUNTER 2017-04-08 15:17 | Emergency (ER) | payer MEDICARE, MEDICAID ==
--- NOTE | 2017-04-08 15:22 | EDM.PDOC ---
ED HPI GENERAL MEDICAL PROBLEM - General Chief Complaint: Respiratory Problem Stated Complaint: TONYA, [id number] Time Seen by Provider: 04/08/17 15:22 Source of Information: Reports: Patient, RN, RN Notes Reviewed History Limitations: Reports: No Limitations - History of Present Illness INITIAL COMMENTS - FREE TEXT/NARRATIVE: Complains of mild cold symptoms last week and increasing cough since yesterday. She feels her cough is wet but no sputum comes up. 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 Denies fever. Admits to chills. Feels very anxious. Denies chest pain, but complaining of sharp pain with breathing and coughing. - Related Data Allergies Allergy/AdvReac Type Severity Reaction Status Date / Time lidocaine Allergy Intermediate Swelling Verified 04/08/17 15:22 amoxicillin trihydrate Allergy Rash Verified 04/08/17 15:22 [From Amoxil] latex Allergy Rash Verified 04/08/17 15:22 lisinopril Allergy Headache Verified 04/08/17 15:22 Home Meds: Home Meds Bumetanide 2 mg PO BID 12/21/15 [History] Calcium Acetate [Phoslo] 2 cap PO TID 03/29/16 [History] Insulin Aspart [Novolog Flexpen] 5 unit SQ ASDIRECTED PRN 05/17/16 [History] Metoprolol Succinate [Toprol XL 100mg] 75 mg PO BID 05/17/16 [History] Diltiazem HCl [Cartia Xt] 1 tab PO DAILY 06/26/16 [History] Amarilys.Dialysis Soln28 &Ico 7.5% [Extraneal Icodextrin Dialysis] 1,500 ml IP BEDTIME 08/31/16 [History] Valsartan [Diovan] 80 mg PO DAILY 08/31/16 [History] Acetaminophen [Tylenol] 325 mg PO Q6H PRN 11/03/16 [History] Calcitriol [Rocaltrol] 2 cap PO DAILY 11/03/16 [History] Mupirocin Cream [Bactroban Crm] 1 applic TOP DAILY 11/03/16 [History] amLODIPine [Norvasc] 10 mg PO DAILY 11/03/16 [History] Metoclopramide [Reglan] 1 tab PO TIDAC 03/14/17 [History] Sodium Bicarbonate 1 tab PO BID 03/14/17 [History] Warfarin Sodium [Jantoven] 1.5 tab PO DAILY 03/14/17 [History] Past Medical History HEENT History: Reports: Impaired Vision Cardiovascular History: Reports: Afib, CAD, Heart Failure, High Cholesterol, Hypertension, Pacemaker, Other (See Below) Other Cardiovascular History: hx of bilateral lower extremity edema Respiratory History: Reports: SOB Other Respiratory History: From CHF Gastrointestinal History: Reports: Other (See Below) Other Gastrointestinal History: gastroparesis diabeticorum Genitourinary History: Reports: Dialysis, Diabetic Nephropathy, Other (See Below ) Other Genitourinary History: chronic kidney disease stage 4, nephrotic syndrome 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 lower leg. Dry and scaley about 3inches in diameter. Non draining. Also has dry area to left marie area. 1 diameter to left marie area. - Infectious Disease History Infectious Disease History: Reports: Chicken Pox - Past Surgical History Cardiovascular Surgical History: Reports: Other (See Below) Dermatological Surgical History: Reports: Skin Biopsy Social & Family History - Family History Family Medical History: Noncontributory Cardiac: Reports: [place] Other Cardiac Family History: father from [place] in his 50s Endocrine/Metabolic: Reports: Diabetes, type II Other Hematologic Family History: mother has h/o DVT and is on blood thinners - per pt report - Tobacco Use Smoking Status *Q: Unknown Ever Smoked Years of Tobacco use: 20 Packs/Tins Daily: 0.2 Used Tobacco, but Quit: Yes Month Tobacco Last Used: december Second Hand Smoke Exposure: No - Caffeine Use Caffeine Use: Reports: None - Recreational Drug Use Recreational Drug Use: No - Living Situation & Occupation Living situation: Reports: with Family Occupation: Employed ED ROS GENERAL - Review of Systems Review Of Systems: ROS reveals no pertinent complaints other than HPI. ED EXAM, GENERAL - Physical Exam Exam: See Below Exam Limited By: No Limitations General Appearance: Anxious, Other (chronically ill appearing. ) Eye Exam: Bilateral Eye: Normal Inspection Ears: Normal External Exam, Normal Canal, Hearing Grossly Normal, Normal TMs Nose: Normal Inspection, Normal Mucosa, No Blood Throat/Mouth: Normal Inspection, Normal Lips, Normal Teeth, Normal Gums, Normal Oropharynx, Normal Voice, No Airway Compromise Head: Atraumatic, Normocephalic Neck: Normal Inspection, Supple, Non-Tender, Full Range of Motion Respiratory/Chest: No Respiratory Distress, Rales (bibasilar), Other (decreased breath sounds in bilateral bases with wheezing, rhonchi and moist cough. ) Cardiovascular: Tachycardia, Irregularly Irregular GI/Abdominal: Normal Bowel Sounds, Soft, Non-Tender, No Organomegaly, No Distention, No Abnormal Bruit, No Mass (Female) Exam: Deferred Rectal (Female) Exam: Deferred Back Exam: Normal Inspection, Full Range of Motion, NT Extremities: Other (bilateral pitting edema, 1+ left, trace right.) Neurological: Alert, Oriented, CN II-XII Intact, Normal Cognition, Normal Gait, Normal Reflexes, No Motor/Sensory Deficits Psychiatric: Anxious Skin Exam: Other (chronic psoriasis plaques.) EKG INTERPRETATION EKG Date: 04/08/17 Time: 15:26 Rhythm: a-fib Rate (beats/min): 144 [place]: LAD-left axis deviation QRS: other (abnormal R wave) ST-T: normal QT: prolonged (borderline) Course - Vital Signs Last Recorded V/S: Last Vital Signs Temp 36.1 C 04/08/17 16:28 Pulse 78 04/08/17 16:28 Resp 24 H 04/08/17 16:28 BP 150/63 H 04/08/17 16:28 Pulse Ox 100 04/08/17 16:28 - Orders/Labs/Meds Orders: Active Orders 24 hr Category Date Time Status EKG 12 Lead [EKG Documentation Completion] [RC] STAT Care 04/08/17 15:28 Active Peripheral IV Care [RC] . DIRECTED Care 04/08/17 15:29 Active Chest 1V Frontal [CR] Stat Exams 04/08/17 15:28 Ordered CULTURE BLOOD [BC] Stat Lab 04/08/17 15:29 Ordered CULTURE BLOOD [BC] Stat Lab 04/08/17 15:35 Received INR,PT,PROTHROMBIN TIME [COAG] Stat Lab 04/08/17 15:35 Received PTT,PARTIAL THROMBOPLSTIN TIME [COAG] Stat Lab 04/08/17 15:35 Received TSH ULTRASENSITIVE [CHEM] Stat Lab 04/08/17 15:35 Received UA W/MICROSCOPIC [URIN] Stat Lab 04/08/17 15:28 Uncollected Diltiazem [Cardizem] 100 mg Med 04/08/17 15:45 Active Sodium Chloride 0.9% [Normal Saline] 100 ml IV TITRATE Sodium Chloride 0.9% [Saline Flush] Med 04/08/17 15:28 Active 10 ml FLUSH ASDIRECTED PRN Blood Culture x2 Reflex Set [OM.PC] Stat Oth 04/08/17 15:28 Ordered Peripheral IV Insertion Adult [OM.PC] Stat Oth 04/08/17 15:28 Ordered RT Supplemental Oxygen Titration [RESPCARE] Stat Oth 04/08/17 15:28 Active Medication Orders Diltiazem HCl 100 mg/ Sodium (Chloride) 100 mls @ 10 mls/hr IV TITRATE BERYL; 10 MG/HR PRN Reason: Protocol Last Admin: 04/08/17 15:40 Dose: 10 mls/hr Sodium Chloride (Saline Flush) 10 ml FLUSH ASDIRECTED PRN PRN Reason: Keep Vein Open Last Admin: 04/08/17 15:52 Dose: 10 ml Admin: 04/08/17 15:35 Dose: 10 ml Labs: Laboratory Tests 04/08/17 04/08/17 04/08/17 Range/Units 15:35 15:35 15:35 WBC 3.4 L (5.0-10.0) 10^3/uL RBC 3.57 L (4.2-5.4) 10^6/uL Hgb 10.5 L (12.0-16.0) g/dL Hct 32.9 L (37.0-47.0) % MCV 92.2 (80-100) fL MCH 29.4 (27.0-34.0) pg MCHC 31.9 L (33.0-35.0) g/dL Plt Count 149 L (150-450) 10^3/uL Neut % (Auto) 66.5 (42.2-75.2) % Lymph % (Auto) 12.6 L (20.5-50.1) % [place] % (Auto) 16.5 H (2-8) % Eos % (Auto) 3.8 H (1.0-3.0) % Baso % (Auto) 0.6 (0.0-1.0) % Sodium 132 L (135-145) mmol/L Potassium 4.9 (3.6-5.0) mmol/L Chloride 94 L (101-111) mmol/L Carbon Dioxide 23.0 (21.0-31.0) mmol/L Anion Gap 19.9 BUN 61 H (7-18) mg/dL Creatinine 10.4 H (0.6-1.3) mg/dL Est Cr Clr Drug Dosing TNP Estimated GFR (MDRD) 4 BUN/Creatinine Ratio 5.86 Glucose 228 H (74-105) mg/dL Lactic Acid 1.8 (0.5-2.2) mmol/L Calcium 8.4 (8.4-10.2) mg/dl Magnesium 1.9 (1.8-2.5) mg/dL Total Bilirubin 0.7 (0.2-1.0) mg/dL AST 15 (10-42) IU/L ALT 12 (10-60) IU/L Alkaline Phosphatase 140 H (42-121) IU/L Troponin I 0.04 H* (0.00-0.02) ng/ml B-Natriuretic Peptide > 5000 H (0-100) pg/ml Total Protein 6.6 L (6.7-8.2) g/dl Albumin 3.2 (3.2-5.5) g/dl Globulin 3.4 Albumin/Globulin Ratio 0.94 Meds: Medications Generic Name Dose Route Start Last Admin Trade Name Freq PRN Reason Stop Dose Admin Diltiazem HCl 100 mg/ Sodium 100 mls @ 10 mls/hr 04/08/17 15:45 04/08/17 15: 40 Chloride IV 10 mls/hr TITRATE BERYL Administration Protocol 10 MG/HR Sodium Chloride 10 ml 04/08/17 15:28 04/08/17 15:52 Saline Flush FLUSH 10 ml ASDIRECTED PRN Administration Keep Vein Open Discontinued Medications Generic Name Dose Route Start Last Admin Trade Name Freq PRN Reason Stop Dose Admin Diltiazem HCl 20 mg 04/08/17 15:30 04/08/17 15:35 Diltiazem IVPUSH 04/08/17 15:31 20 mg ONETIME ONE Administration Lorazepam 0.5 mg 04/08/17 15:43 04/08/17 15:51 Ativan IVPUSH 04/08/17 15:44 0.5 mg ONETIME ONE Administration - Radiology Interpretation Free Text/Narrative:: Chest x-ray: Per rad report no active disease of the chest. - Re-Assessments/Exams Free Text/Narrative Re-Assessment/Exam: 04/08/17 16:28 Patient converted to sinus rhythm rate 70s after Diltiazem 20mg IVP and diltiazem drip at 10mg/hr. Departure - Departure Time of Disposition: 16:36 Disposition: DC/Tfer to Acute Hospital 02 Condition: serious Clinical Impression: Atrial fibrillation with rapid ventricular response, End stage renal disease on dialysis CHF (congestive heart failure) Qualifiers: Congestive heart failure type: unspecified congestive heart failure type Congestive heart failure chronicity: acute on chronic Qualified Code(s): I50.9 - Heart failure, unspecified - Discharge Information Forms: ED Department Discharge, Interfacility Transfer EMTALA - My Orders Last 24 Hours: My Active Orders 04/08/17 15:28 EKG 12 Lead [EKG Documentation Completion] [RC] STAT Chest 1V Frontal [CR] Stat UA W/MICROSCOPIC [URIN] Stat Sodium Chloride 0.9% [Saline Flush] 10 ml FLUSH ASDIRECTED PRN Blood Culture x2 Reflex Set [OM.PC] Stat Peripheral IV Insertion Adult [OM.PC] Stat RT Supplemental Oxygen Titration [RESPCARE] Stat 04/08/17 15:29 Peripheral IV Care [RC] . DIRECTED CULTURE BLOOD [BC] Stat 04/08/17 15:35 CULTURE BLOOD [BC] Stat INR,PT,PROTHROMBIN TIME [COAG] Stat PTT,PARTIAL THROMBOPLSTIN TIME [COAG] Stat TSH ULTRASENSITIVE [CHEM] Stat 04/08/17 15:45 Diltiazem [Cardizem] 100 mg Sodium Chloride 0.9% [Normal Saline] 100 ml IV TITRATE - Assessment/Plan Last 24 Hours: My Active Orders 04/08/17 15:28 EKG 12 Lead [EKG Documentation Completion] [RC] STAT Chest 1V Frontal [CR] Stat UA W/MICROSCOPIC [URIN] Stat Sodium Chloride 0.9% [Saline Flush] 10 ml FLUSH ASDIRECTED PRN Blood Culture x2 Reflex Set [OM.PC] Stat Peripheral IV Insertion Adult [OM.PC] Stat RT Supplemental Oxygen Titration [RESPCARE] Stat 04/08/17 15:29 Peripheral IV Care [RC] . DIRECTED CULTURE BLOOD [BC] Stat 04/08/17 15:35 CULTURE BLOOD [BC] Stat INR,PT,PROTHROMBIN TIME [COAG] Stat PTT,PARTIAL THROMBOPLSTIN TIME [COAG] Stat TSH ULTRASENSITIVE [CHEM] Stat 04/08/17 15:45 Diltiazem [Cardizem] 100 mg Sodium Chloride 0.9% [Normal Saline] 100 ml IV TITRATE
[2017-04-08] MEDS ORDERED: Diltiazem 25 MG/5 ML SDV IVPUSH ONE (15:30)
[2017-04-08] MEDS: Sodium Chloride 0.9% 10 ML Syringe FLUSH PRN ×2 (15:35→15:52)
[2017-04-08] MEDS: Diltiazem 100 MG in Sodium Chloride 0.9% 100 ML IV SCH ×2 (15:40→17:19)
[2017-04-08] MEDS ORDERED: LORazepam 2 MG/ML Syringe IVPUSH ONE ×2 (15:43→17:11)
[2017-04-08 16:09] LABS: CHLORIDE,CL 94 mmol/L (101-111); SODIUM,NA 132 mmol/L (135-145)
[2017-04-08 17:20] VITALS: BP 163/85
--- NOTE | 2017-05-01 08:49 | EKG ---
04/08/2017- MARINA GORDON - This is a standard 12-lead EKG showing atrial fibrillation with a ventricular rate 144 beats per minute. Left axis deviation borderline repolarization abnormality. Abnormal EKG. [facility] /[id number]
== END 2017-04-08 17:36 ==
LOC: DL.ED 15:17
DX: I48.91 Unspecified atrial fibrillation (principal); N18.6 End stage renal disease; I13.2 Hypertensive heart and chronic kidney disease with heart failure and with stage 5 chronic kidney disease, or end stage renal disease; I50.9 Heart failure, unspecified; I25.10 Atherosclerotic heart disease of native coronary artery without angina pectoris; E78.00 Pure hypercholesterolemia, unspecified; M19.90 Unspecified osteoarthritis, unspecified site; E11.21 Type 2 diabetes mellitus with diabetic nephropathy; Z99.2 Dependence on renal dialysis; Z95.0 Presence of cardiac pacemaker; Z79.4 Long term (current) use of insulin; Z79.01 Long term (current) use of anticoagulants; Z79.899 Other long term (current) drug therapy; Z88.1 Allergy status to other antibiotic agents; Z88.8 Allergy status to other drugs, medicaments and biological substances; Z91.040 Latex allergy status; Z86.2 Personal history of diseases of the blood and blood-forming organs and certain disorders involving the immune mechanism
CPT/HCPCS: 36415; 71010; 80053; 83605; 83735; 83880; 84443; 84484; 85025; 85610; 85730; 87040; 93005; 93010; 96365; 96366; 96375; 96376; 99285; J2060; J7050; 99284; J3490

== ENCOUNTER 2017-05-08 18:21 | Emergency (ER) | payer MEDICARE, MEDICAID ==
[2017-05-08] MEDS ORDERED: Albuterol/Ipratropium 3.0-0.5 MG/3 ML Neb Soln NEB ONE (18:54)
--- NOTE | 2017-05-08 19:03 | EDM.PDOC ---
ED HPI GENERAL MEDICAL PROBLEM - General Chief Complaint: Respiratory Problem Stated Complaint: HARD TO BREATH, [id number] Time Seen by Provider: 05/08/17 18:59 Source of Information: Reports: Patient History Limitations: Reports: No Limitations - History of Present Illness INITIAL COMMENTS - FREE TEXT/NARRATIVE: states does daily peritoneal dialysis at home q3h, last week got more swollen and called GF told her to use the red bag which is stronger than her usual green bag. but not working well and psat few days got more SOB and worsened swelling so came in today. denies chest pain but does hurt a little on deep breathing. also had pneumonia last month admitted @ GF. Bilateral Feet Pain Score (Numeric/FACES): 8 - Related Data Allergies Allergy/AdvReac Type Severity Reaction Status Date / Time lidocaine Allergy Intermediate Swelling Verified 04/08/17 15:22 amoxicillin trihydrate Allergy Rash Verified 04/08/17 15:22 [From Amoxil] latex Allergy Rash Verified 04/08/17 15:22 lisinopril Allergy Headache Verified 04/08/17 15:22 Home Meds: Home Meds Bumetanide 2 mg PO BID 12/21/15 [History] Calcium Acetate [Phoslo] 2 cap PO TID 03/29/16 [History] Insulin Aspart [Novolog Flexpen] 5 unit SQ ASDIRECTED PRN 05/17/16 [History] Metoprolol Succinate [Toprol XL 100mg] 75 mg PO BID 05/17/16 [History] Diltiazem HCl [Cartia Xt] 1 tab PO DAILY 06/26/16 [History] Amarilys.Dialysis Soln28 &Ico 7.5% [Extraneal Icodextrin Dialysis] 1,500 ml IP BEDTIME 08/31/16 [History] Valsartan [Diovan] 80 mg PO DAILY 08/31/16 [History] Acetaminophen [Tylenol] 325 mg PO Q6H PRN 11/03/16 [History] Calcitriol [Rocaltrol] 2 cap PO DAILY 11/03/16 [History] Mupirocin Cream [Bactroban Crm] 1 applic TOP DAILY 11/03/16 [History] amLODIPine [Norvasc] 10 mg PO DAILY 11/03/16 [History] Metoclopramide [Reglan] 1 tab PO TIDAC 03/14/17 [History] Sodium Bicarbonate 1 tab PO BID 03/14/17 [History] Warfarin Sodium [Jantoven] 1.5 tab PO DAILY 03/14/17 [History] Past Medical History HEENT History: Reports: Impaired Vision Cardiovascular History: Reports: Afib, CAD, Heart Failure, High Cholesterol, Hypertension, Pacemaker, Other (See Below) Other Cardiovascular History: hx of bilateral lower extremity edema Respiratory History: Reports: SOB Other Respiratory History: From CHF Gastrointestinal History: Reports: Other (See Below) Other Gastrointestinal History: gastroparesis diabeticorum Genitourinary History: Reports: Dialysis, Diabetic Nephropathy, Dialysis, Peritoneal, Other (See Below) Other Genitourinary History: chronic kidney disease stage 4, 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 lower leg. Dry and scaley about 3inches in diameter. Non draining. Also has dry area to left marie area. 1 diameter to left marie area. - Infectious Disease History Infectious Disease History: Reports: Chicken Pox - Past Surgical History Dermatological Surgical History: Reports: Skin Biopsy Social & Family History - Family History Family Medical History: Noncontributory Cardiac: Reports: [place] Other Cardiac Family History: father from [place] in his 50s Endocrine/Metabolic: Reports: Diabetes, type II Other Hematologic Family History: mother has h/o DVT and is on blood thinners - per pt report - Tobacco Use Smoking Status *Q: Never Smoker Years of Tobacco use: 20 Packs/Tins Daily: 0.2 Used Tobacco, but Quit: Yes Month Tobacco Last Used: december Second Hand Smoke Exposure: No - Caffeine Use Caffeine Use: Reports: None - Recreational Drug Use Recreational Drug Use: No - Living Situation & Occupation Living situation: Reports: with Family Occupation: Employed ED ROS GENERAL - Review of Systems Review Of Systems: ROS reveals no pertinent complaints other than HPI. ED EXAM, GENERAL - Physical Exam Exam: See Below Exam Limited By: No Limitations General Appearance: Alert, WD/WN, Mild Distress, Other (sob) Ears: Hearing Grossly Normal Throat/Mouth: Normal Voice, No Airway Compromise Head: Atraumatic Neck: Non-Tender, Full Range of Motion Respiratory/Chest: No Respiratory Distress, No Accessory Muscle Use, Rales, Rhonchi, Wheezing. No: Retractions, Splinting Cardiovascular: Regular Rate, Rhythm GI/Abdominal: Soft, Non-Tender Extremities: Pedal Edema, Increased Warmth, Other (3+ bilateral) Neurological: Alert, Normal Cognition, Normal Gait, No Motor/Sensory Deficits Psychiatric: Tearful Skin Exam: Warm, Dry Lymphatic: No Adenopathy Course - Vital Signs Last Recorded V/S: Last Vital Signs Temp 36.6 C 05/08/17 20:20 Pulse 76 05/08/17 20:20 Resp 20 05/08/17 20:20 BP 166/60 H 05/08/17 20:20 Pulse Ox 100 05/08/17 20:20 - Orders/Labs/Meds Orders: Active Orders 24 hr Category Date Time Status EKG 12 Lead [EKG Documentation Completion] [RC] STAT Care 05/08/17 18:42 Active RT Aerosol Therapy [RC] ASDIRECTED Care 05/08/17 18:55 Active Labs: Laboratory Tests 05/08/17 05/08/17 05/08/17 Range/Units 19:05 19:05 19:05 WBC 4.7 L (5.0-10.0) 10^3/uL RBC 3.13 L (4.2-5.4) 10^6/uL Hgb 9.4 L (12.0-16.0) g/dL Hct 29.3 L (37.0-47.0) % MCV 93.6 (80-100) fL MCH 30.0 (27.0-34.0) pg MCHC 32.1 L (33.0-35.0) g/dL Plt Count 151 (150-450) 10^3/uL Neut % (Auto) 58.7 (42.2-75.2) % Lymph % (Auto) 16.3 L (20.5-50.1) % [place] % (Auto) 15.4 H (2-8) % Eos % (Auto) 9.0 H (1.0-3.0) % Baso % (Auto) 0.6 (0.0-1.0) % Sodium 137 (135-145) mmol/L Potassium 5.1 H (3.6-5.0) mmol/L Chloride 96 L (101-111) mmol/L Carbon Dioxide 25.0 (21.0-31.0) mmol/L Anion Gap 21.1 BUN 67 H (7-18) mg/dL Creatinine 9.9 H (0.6-1.3) mg/dL Est Cr Clr Drug Dosing TNP Estimated GFR (MDRD) 4 BUN/Creatinine Ratio 6.76 Glucose 131 H (74-105) mg/dL Calcium 7.8 L (8.4-10.2) mg/dl Total Bilirubin 0.8 (0.2-1.0) mg/dL AST 16 (10-42) IU/L ALT 14 (10-60) IU/L Alkaline Phosphatase 204 H (42-121) IU/L Ammonia 24 (11-35) umol/L Troponin I 0.04 H* (0.00-0.02) ng/ml B-Natriuretic Peptide 3840 H (0-100) pg/ml Total Protein 6.4 L (6.7-8.2) g/dl Albumin 3.1 L (3.2-5.5) g/dl Globulin 3.3 Albumin/Globulin Ratio 0.94 Meds: Medications Discontinued Medications Generic Name Dose Route Start Last Admin Trade Name Freq PRN Reason Stop Dose Admin Albuterol/Ipratropium 3 ml 05/08/17 18:54 05/08/17 19:03 Duoneb 3.0-0.5 Mg/3 Ml NEB 05/08/17 18:55 3 ml ONETIME ONE Administration Furosemide 20 mg 05/08/17 19:14 05/08/17 19:32 Lasix IVPUSH 05/08/17 19:15 20 mg ONETIME ONE Administration Morphine Sulfate 2 mg 05/08/17 20:14 05/08/17 20:19 Morphine IVPUSH 05/08/17 20:15 2 mg ONETIME ONE Administration - Re-Assessments/Exams Free Text/Narrative Re-Assessment/Exam: 05/08/17 20:[address] Ko @ who kindly accepted Pt. Departure - Departure Time of Disposition: 20:22 Disposition: DC/Tfer to Acute Hospital 02 Condition: Fair Clinical Impression: CKD (chronic kidney disease) stage 4, GFR 15-29 ml/min CHF (congestive heart failure) Qualifiers: Congestive heart failure type: unspecified congestive heart failure type Congestive heart failure chronicity: acute on chronic Qualified Code(s): I50.9 - Heart failure, unspecified - Discharge Information Forms: Interfacility Transfer EMTALA - My Orders Last 24 Hours: My Active Orders 05/08/17 18:42 EKG 12 Lead [EKG Documentation Completion] [RC] STAT 05/08/17 18:55 RT Aerosol Therapy [RC] ASDIRECTED - Assessment/Plan Last 24 Hours: My Active Orders 05/08/17 18:42 EKG 12 Lead [EKG Documentation Completion] [RC] STAT 05/08/17 18:55 RT Aerosol Therapy [RC] ASDIRECTED
[2017-05-08] MEDS ORDERED: Furosemide 20 MG/2 ML VIAL IVPUSH ONE (19:14)
[2017-05-08 19:32] LABS: CHLORIDE,CL 96 mmol/L (101-111); SODIUM,NA 137 mmol/L (135-145)
[2017-05-08] MEDS ORDERED: Morphine 2 MG/ML Syringe IVPUSH ONE (20:14)
[2017-05-08 20:21] VITALS: BP 166/60
--- NOTE | 2017-05-09 14:04 | EKG ---
05/08/2017- MARINA GORDON - A 12-lead EKG shows normal sinus rhythm with no significant ST elevation or an ST depression, left axis deviation, heart rate of 63. [facility] /[id number]
== END 2017-05-08 21:11 ==
LOC: DL.ED 18:21
DX: I13.0 Hypertensive heart and chronic kidney disease with heart failure and stage 1 through stage 4 chronic kidney disease, or unspecified chronic kidney disease (principal); I50.9 Heart failure, unspecified; N18.4 Chronic kidney disease, stage 4 (severe); Z91.040 Latex allergy status; H54.7 Unspecified visual loss; I48.91 Unspecified atrial fibrillation; M19.90 Unspecified osteoarthritis, unspecified site; E78.00 Pure hypercholesterolemia, unspecified; E11.22 Type 2 diabetes mellitus with diabetic chronic kidney disease; E11.21 Type 2 diabetes mellitus with diabetic nephropathy; Z99.2 Dependence on renal dialysis; Z88.1 Allergy status to other antibiotic agents; Z88.8 Allergy status to other drugs, medicaments and biological substances; Z79.4 Long term (current) use of insulin; Z79.899 Other long term (current) drug therapy; Z79.01 Long term (current) use of anticoagulants; Z86.2 Personal history of diseases of the blood and blood-forming organs and certain disorders involving the immune mechanism
CPT/HCPCS: 36415; 71010; 80053; 82140; 83880; 84484; 85025; 93005; 93010; 94640; 96374; 96375; 99285; J1940; J2270

== ENCOUNTER 2017-06-14 17:18 | Emergency (ER) | payer MEDICARE, MEDICAID ==
--- NOTE | 2017-06-14 20:08 | EDM.PDOC ---
ED HPI GENERAL MEDICAL PROBLEM - General Chief Complaint: Lower Extremity Injury/Pain Stated Complaint: FEET PAIN, [id number] Time Seen by Provider: 06/14/17 20:00 Source of Information: Reports: Patient History Limitations: Reports: No Limitations - History of Present Illness INITIAL COMMENTS - FREE TEXT/NARRATIVE: ED with c/o bilateral foot pain worse with walking x 2 weeks. Unable to get in to see any one at clinic since PCP moved. Notes 27 # weight gain in last month. Perotoneal dialysis at home and last at 5pm. Trying tylenol 100mg every 4 -5 hours without relief. Patient SOB but states is not changed . Bilateral Feet Pain Score (Numeric/FACES): 10 - Related Data Allergies Allergy/AdvReac Type Severity Reaction Status Date / Time lidocaine Allergy Intermediate Swelling Verified 04/08/17 15:22 amoxicillin trihydrate Allergy Rash Verified 04/08/17 15:22 [From Amoxil] latex Allergy Rash Verified 04/08/17 15:22 lisinopril Allergy Headache Verified 04/08/17 15:22 Home Meds: Home Meds Bumetanide 2 mg PO BID 12/21/15 [History] Calcium Acetate [Phoslo] 2 cap PO BID 03/29/16 [History] Insulin Aspart [Novolog Flexpen] 5 unit SQ ASDIRECTED PRN 05/17/16 [History] Metoprolol Succinate [Toprol XL 100mg] 75 mg PO BID 05/17/16 [History] Amarilys.Dialysis Soln28 &Ico 7.5% [Extraneal Icodextrin Dialysis] 1,500 ml IP ASDIRECTED 08/31/16 [History] Acetaminophen [Tylenol] 325 mg PO Q6H PRN 11/03/16 [History] Calcitriol [Rocaltrol] 2 cap PO DAILY 11/03/16 [History] Mupirocin Cream [Bactroban Crm] 1 applic TOP DAILY 11/03/16 [History] amLODIPine [Norvasc] 10 mg PO DAILY 11/03/16 [History] Metoclopramide [Reglan] 1 tab PO TIDAC 03/14/17 [History] Sodium Bicarbonate 1 tab PO BID 03/14/17 [History] Past Medical History HEENT History: Reports: Impaired Vision Cardiovascular History: Reports: Afib, CAD, Heart Failure, High Cholesterol, Hypertension, Pacemaker, Other (See Below) Other Cardiovascular History: hx of bilateral lower extremity edema Respiratory History: Reports: SOB Other Respiratory History: From CHF Gastrointestinal History: Reports: Other (See Below) Other Gastrointestinal History: gastroparesis diabeticorum Genitourinary History: Reports: Dialysis, Diabetic Nephropathy, Dialysis, Peritoneal, Other (See Below) Other Genitourinary History: 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 lower leg. Dry and scaley about 3inches in diameter. Non draining. Also has dry area to left marie area. 1 diameter to left marie area. - Infectious Disease History Infectious Disease History: Reports: Chicken Pox - Past Surgical History Dermatological Surgical History: Reports: Skin Biopsy Social & Family History - Family History Family Medical History: Noncontributory Cardiac: Reports: [place] Other Cardiac Family History: father from [place] in his 50s Endocrine/Metabolic: Reports: Diabetes, type II Other Hematologic Family History: mother has h/o DVT and is on blood thinners - per pt report - Tobacco Use Smoking Status *Q: Never Smoker Years of Tobacco use: 20 Packs/Tins Daily: 0.2 Used Tobacco, but Quit: Yes Month Tobacco Last Used: december Second Hand Smoke Exposure: No - Caffeine Use Caffeine Use: Reports: None - Recreational Drug Use Recreational Drug Use: No - Living Situation & Occupation Living situation: Reports: with Family Occupation: Employed Review of Systems - Review of Systems Review Of Systems: See Below Constitutional: Reports: No Symptoms Eyes: Reports: No Symptoms Ears: Reports: No Symptoms Nose: Reports: No Symptoms Mouth/Throat: Reports: No Symptoms Respiratory: Reports: Shortness of Breath. Denies: Cough Cardiovascular: Reports: Edema, Irregular Heart Rate (hx of ). Denies: Chest Pain GI/Abdominal: Reports: No Symptoms Musculoskeletal: Reports: Foot Pain (bialteral) Skin: Reports: Change in Color (bilateral below ankle) Neurological: Reports: No Symptoms ED EXAM, GENERAL - Physical Exam Exam: See Below Exam Limited By: No Limitations General Appearance: Alert, Mild Distress, Moderate Distress (increased SOB with conversation, more animated when staff present. ) Eye Exam: Bilateral Eye: EOMI Ears: Normal External Exam Nose: Normal Inspection Throat/Mouth: Normal Inspection Head: Atraumatic, Normocephalic Respiratory/Chest: Rhonchi (bilateral mid to base), Wheezing (left). No: Retractions Cardiovascular: Normal Peripheral Pulses, Regular Rate, Rhythm Peripheral Pulses: 1+: Posterior Tibial (L), Posterior Tibial (R), Dorsalis Pedis (L), Dorsalis Pedis (R) GI/Abdominal: Normal Bowel Sounds Back Exam: Normal Inspection Extremities: Normal Inspection Neurological: Alert, Oriented, Normal Cognition Psychiatric: Anxious Skin Exam: Warm, Dry, Wound/Incision (psoritic patch left lower marie minimal erythema at base, scaling.) Course - Vital Signs Last Recorded V/S: Last Vital Signs Temp 97.4 F 06/14/17 22:20 Pulse 82 06/14/17 22:20 Resp 20 06/14/17 22:20 BP 172/61 H 06/14/17 22:20 Pulse Ox 99 06/14/17 22:20 - Orders/Labs/Meds Orders: Active Orders 24 hr Category Date Time Status EKG 12 Lead [EKG Documentation Completion] [RC] URGENT Care 06/14/17 21:40 Active RT Aerosol Therapy [RC] ASDIRECTED Care 06/14/17 21:52 Active CULTURE BLOOD [BC] Stat Lab 06/14/17 20:20 Received CULTURE BLOOD [BC] Stat Lab 06/14/17 20:21 Ordered Blood Culture x2 Reflex Set [OM.PC] Stat Oth 06/14/17 20:21 Ordered Labs: Laboratory Tests 06/14/17 06/14/17 06/14/17 Range/Units 20:20 20:20 20:20 WBC 4.7 L (5.0-10.0) 10^3/uL RBC 3.46 L (4.2-5.4) 10^6/uL Hgb 10.6 L (12.0-16.0) g/dL Hct 33.1 L (37.0-47.0) % MCV 95.7 (80-100) fL MCH 30.6 (27.0-34.0) pg MCHC 32.0 L (33.0-35.0) g/dL Plt Count 153 (150-450) 10^3/uL Neut % (Auto) 64.3 (42.2-75.2) % Lymph % (Auto) 16.9 L (20.5-50.1) % [place] % (Auto) 9.4 H (2-8) % Eos % (Auto) 8.1 H (1.0-3.0) % Baso % (Auto) 1.3 H (0.0-1.0) % PT 10.5 (9.0-12.0) SEC INR 1.0 (0.9-1.2) Sodium 136 (135-145) mmol/L Potassium 5.2 H (3.6-5.0) mmol/L Chloride 99 L (101-111) mmol/L Carbon Dioxide 22.0 (21.0-31.0) mmol/L Anion Gap 20.2 BUN 80 H (7-18) mg/dL Creatinine 11.2 H (0.6-1.3) mg/dL Est Cr Clr Drug Dosing 4.61 mL/min Estimated GFR (MDRD) 3 BUN/Creatinine Ratio 7.14 Glucose 164 H (74-105) mg/dL Lactic Acid (0.5-2.2) mmol/L Calcium 7.9 L (8.4-10.2) mg/dl Magnesium 2.0 (1.8-2.5) mg/dL Total Bilirubin 0.9 (0.2-1.0) mg/dL AST 18 (10-42) IU/L ALT 10 (10-60) IU/L Alkaline Phosphatase 175 H (42-121) IU/L Troponin I (0.00-0.02) ng/ml B-Natriuretic Peptide (0-100) pg/ml Total Protein 6.4 L (6.7-8.2) g/dl Albumin 3.3 (3.2-5.5) g/dl Globulin 3.1 Albumin/Globulin Ratio 1.06 06/14/17 06/14/17 06/14/17 Range/Units 20:20 20:20 20:20 WBC (5.0-10.0) 10^3/uL RBC (4.2-5.4) 10^6/uL Hgb (12.0-16.0) g/dL Hct (37.0-47.0) % MCV (80-100) fL MCH (27.0-34.0) pg MCHC (33.0-35.0) g/dL Plt Count (150-450) 10^3/uL Neut % (Auto) (42.2-75.2) % Lymph % (Auto) (20.5-50.1) % [place] % (Auto) (2-8) % Eos % (Auto) (1.0-3.0) % Baso % (Auto) (0.0-1.0) % PT (9.0-12.0) SEC INR (0.9-1.2) Sodium (135-145) mmol/L Potassium (3.6-5.0) mmol/L Chloride (101-111) mmol/L Carbon Dioxide (21.0-31.0) mmol/L Anion Gap BUN (7-18) mg/dL Creatinine (0.6-1.3) mg/dL Est Cr Clr Drug Dosing mL/min Estimated GFR (MDRD) BUN/Creatinine Ratio Glucose (74-105) mg/dL Lactic Acid 1.3 (0.5-2.2) mmol/L Calcium (8.4-10.2) mg/dl Magnesium (1.8-2.5) mg/dL Total Bilirubin (0.2-1.0) mg/dL AST (10-42) IU/L ALT (10-60) IU/L Alkaline Phosphatase (42-121) IU/L Troponin I 0.04 H* (0.00-0.02) ng/ml B-Natriuretic Peptide 4190 H (0-100) pg/ml Total Protein (6.7-8.2) g/dl Albumin (3.2-5.5) g/dl Globulin Albumin/Globulin Ratio Meds: Medications Discontinued Medications Generic Name Dose Route Start Last Admin Trade Name Freq PRN Reason Stop Dose Admin Albuterol 2.5 mg 06/14/17 21:52 06/14/17 21:55 Proventil Neb Soln NEB 06/14/17 21:53 2.5 mg ONETIME ONE Administration Morphine Sulfate 2 mg 08/16/17 21:51 06/14/17 21:55 Morphine IVPUSH 06/14/17 21:52 2 mg ONETIME ONE Administration Morphine Sulfate 2 mg 06/14/17 23:38 06/14/17 23:43 Morphine IVPUSH 06/14/17 23:39 2 mg ONETIME ONE Administration Oxycodone/Acetaminophen 1 tab 06/14/17 20:53 06/14/17 20:57 Percocet 325-5 Mg PO 06/14/17 20:54 1 tab ONETIME ONE Administration - Radiology Interpretation Free Text/Narrative:: TC consult Dr Nikhil Conteh, accepting of patient for further eval and management of CHF volume overload in dialysis patient. Patient denies improvement in pain in feet but is sitting upright conversing with family, . Does not appear to be in the degree of distress as was on presentation. Tx via [facility] Departure - Departure Time of Disposition: 23:06 Disposition: DC/Tfer to Acute Hospital 02 Condition: Fair Clinical Impression: Bilateral foot pain, Volume overload, CHF (congestive heart failure), End stage renal disease on dialysis - Discharge Information Referrals: PCP,None [Primary Care Provider] - Forms: ED Department Discharge - My Orders Last 24 Hours: My Active Orders 06/14/17 20:20 CULTURE BLOOD [BC] Stat 06/14/17 20:21 CULTURE BLOOD [BC] Stat Blood Culture x2 Reflex Set [OM.PC] Stat 06/14/17 21:40 EKG 12 Lead [EKG Documentation Completion] [RC] URGENT 06/14/17 21:52 RT Aerosol Therapy [RC] ASDIRECTED - Assessment/Plan Last 24 Hours: My Active Orders 06/14/17 20:20 CULTURE BLOOD [BC] Stat 06/14/17 20:21 CULTURE BLOOD [BC] Stat Blood Culture x2 Reflex Set [OM.PC] Stat 06/14/17 21:40 EKG 12 Lead [EKG Documentation Completion] [RC] URGENT 06/14/17 21:52 RT Aerosol Therapy [RC] ASDIRECTED
[2017-06-14] MEDS ORDERED: Acetaminophen/oxyCODONE 325-5 MG Tab PO ONE (20:53)
[2017-06-14] MEDS ORDERED: Morphine 2 MG/ML Syringe IVPUSH ONE ×2 (21:51→23:38)
[2017-06-14] MEDS ORDERED: Albuterol 0.083% 2.5 MG/3 ML Neb Soln NEB ONE (21:52)
[2017-06-14 22:21] VITALS: BP 172/61
--- NOTE | 2017-06-16 10:45 | EKG ---
06/14/2017- MARINA GORDON - EKG done on a 61-year-old female showing sinus rhythm with heart rate of 79 beats per minute. Normal intervals. No acute ST wave changes. [facility] /[id number]
== END 2017-06-14 23:47 ==
LOC: DL.ED 17:18
DX: M79.672 Pain in left foot (principal); M79.671 Pain in right foot; I13.2 Hypertensive heart and chronic kidney disease with heart failure and with stage 5 chronic kidney disease, or end stage renal disease; I50.9 Heart failure, unspecified; N18.6 End stage renal disease; H54.7 Unspecified visual loss; I48.91 Unspecified atrial fibrillation; I25.10 Atherosclerotic heart disease of native coronary artery without angina pectoris; E11.22 Type 2 diabetes mellitus with diabetic chronic kidney disease; E11.21 Type 2 diabetes mellitus with diabetic nephropathy; M19.90 Unspecified osteoarthritis, unspecified site; D63.1 Anemia in chronic kidney disease; Z88.1 Allergy status to other antibiotic agents; Z91.040 Latex allergy status; Z88.8 Allergy status to other drugs, medicaments and biological substances; Z79.4 Long term (current) use of insulin; Z79.899 Other long term (current) drug therapy; Z99.2 Dependence on renal dialysis
CPT/HCPCS: 36415; 71010; 73620; 80053; 83605; 83735; 83880; 84484; 85025; 85610; 87040; 93005; 93010; 94640; 96374; 96375; 99285; A9270; J2270; J7620

== ENCOUNTER 2017-08-24 19:38 | Emergency (ER) | payer MEDICARE, MEDICAID ==
[2017-08-24 19:44] VITALS: BP 145/59
--- NOTE | 2017-08-24 20:08 | EDM.PDOC ---
ED HPI GENERAL MEDICAL PROBLEM - General Chief Complaint: Abdominal Pain Stated Complaint: ABD PAIN Time Seen by Provider: 08/24/17 19:41 Source of Information: Reports: Patient History Limitations: Reports: No Limitations - History of Present Illness INITIAL COMMENTS - FREE TEXT/NARRATIVE: c/o sudden onset LLQ pain tonight. feels like something inside is torn. EMS gave fentenyl + MS en route. 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) Left Lower Abdomen Pain Score (Numeric/FACES): 9 - Related Data Allergies Allergy/AdvReac Type Severity Reaction Status Date / Time lidocaine Allergy Intermediate Swelling Verified 08/24/17 19:54 amoxicillin trihydrate Allergy Rash Verified 08/24/17 19:54 [From Amoxil] latex Allergy Rash Verified 08/24/17 19:54 lisinopril Allergy Headache Verified 08/24/17 19:54 Home Meds: Home Meds Bumetanide 2 mg PO BID 12/21/15 [History] Calcium Acetate [Phoslo] 2 cap PO BID 03/29/16 [History] Insulin Aspart [Novolog Flexpen] 5 unit SQ ASDIRECTED PRN 05/17/16 [History] Metoprolol Succinate [Toprol XL 100mg] 75 mg PO BID 05/17/16 [History] Amarilys.Dialysis Soln28 &Ico 7.5% [Extraneal Icodextrin Dialysis] 1,500 ml IP ASDIRECTED 08/31/16 [History] Acetaminophen [Tylenol] 325 mg PO Q6H PRN 11/03/16 [History] Calcitriol [Rocaltrol] 2 cap PO DAILY 11/03/16 [History] Mupirocin Cream [Bactroban Crm] 1 applic TOP DAILY 11/03/16 [History] amLODIPine [Norvasc] 10 mg PO DAILY 11/03/16 [History] Metoclopramide [Reglan] 1 tab PO TIDAC 03/14/17 [History] Sodium Bicarbonate 1 tab PO BID 03/14/17 [History] Past Medical History HEENT History: Reports: Impaired Vision Cardiovascular History: Reports: Afib, CAD, Heart Failure, High Cholesterol, Hypertension, Pacemaker, Other (See Below) Other Cardiovascular History: hx of bilateral lower extremity edema Respiratory History: Reports: SOB Other Respiratory History: From CHF Gastrointestinal History: Reports: Other (See Below) Other Gastrointestinal History: gastroparesis diabeticorum Genitourinary History: Reports: Dialysis, Diabetic Nephropathy, Dialysis, Peritoneal, Other (See Below) Other Genitourinary History: chronic kidney disease stage 4, nephrotic syndrome 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 lower leg. Dry and scaley about 3inches in diameter. Non draining. Also has dry area to left marie area. 1 diameter to left marie area. - Infectious Disease History Infectious Disease History: Reports: Chicken Pox - Past Surgical History Dermatological Surgical History: Reports: Skin Biopsy Social & Family History - Family History Family Medical History: Noncontributory Cardiac: Reports: [place] Other Cardiac Family History: father from [place] in his 50s Endocrine/Metabolic: Reports: Diabetes, type II Other Hematologic Family History: mother has h/o DVT and is on blood thinners - per pt report - Tobacco Use Smoking Status *Q: Unknown Ever Smoked Years of Tobacco use: 20 Packs/Tins Daily: 0.2 Used Tobacco, but Quit: Yes Month Tobacco Last Used: december Second Hand Smoke Exposure: No - Caffeine Use Caffeine Use: Reports: None - Recreational Drug Use Recreational Drug Use: No - Living Situation & Occupation Living situation: Reports: with Family Occupation: Employed ED ROS GENERAL - Review of Systems Review Of Systems: ROS reveals no pertinent complaints other than HPI. ED EXAM, GI/ABD - Physical Exam Exam: See Below Exam Limited By: No Limitations General Appearance: Alert, WD/WN, Mild Distress, Moderate Distress, Other ( crying) Ears: Hearing Grossly Normal Throat/Mouth: Normal Voice, No Airway Compromise Head: Atraumatic Neck: Non-Tender, Full Range of Motion Respiratory/Chest: No Respiratory Distress Cardiovascular: Regular Rate, Rhythm GI/Abdominal Exam: Guarding, Tender, Other (genralized LLQ>). No: Rigid, Rebound Neurological: Alert, Oriented, Normal Cognition, Normal Gait, No Motor/Sensory Deficits Psychiatric: Tearful Skin Exam: Warm, Dry, Normal Color Lymphatic: No Adenopathy Course - Vital Signs Last Recorded V/S: Last Vital Signs Temp 36.3 C 08/24/17 19:41 Pulse 67 08/24/17 19:41 Resp 24 H 08/24/17 19:41 BP 145/59 H 08/24/17 19:41 Pulse Ox 97 08/24/17 19:41 - Orders/Labs/Meds Orders: Active Orders 24 hr Category Date Time Status CULTURE BLOOD [BC] Stat Lab 08/24/17 19:52 Received Labs: Laboratory Tests 08/24/17 08/24/17 08/24/17 Range/Units 19:52 19:52 19:52 WBC 6.7 (5.0-10.0) 10^3/uL RBC 3.10 L (4.2-5.4) 10^6/uL Hgb 9.4 L (12.0-16.0) g/dL Hct 30.8 L (37.0-47.0) % MCV 99.4 D (80-100) fL MCH 30.3 (27.0-34.0) pg MCHC 30.5 L (33.0-35.0) g/dL Plt Count 218 (150-450) 10^3/uL Neut % (Auto) 74.2 (42.2-75.2) % Lymph % (Auto) 8.1 L (20.5-50.1) % [place] % (Auto) 10.3 H (2-8) % Eos % (Auto) 7.0 H (1.0-3.0) % Baso % (Auto) 0.4 (0.0-1.0) % Sodium 140 (135-145) mmol/L Potassium 6.1 H (3.6-5.0) mmol/L Chloride 100 L (101-111) mmol/L Carbon Dioxide 23.0 (21.0-31.0) mmol/L Anion Gap 23.1 BUN 67 H (7-18) mg/dL Creatinine 8.4 H D (0.6-1.3) mg/dL Est Cr Clr Drug Dosing 6.15 mL/min Estimated GFR (MDRD) 5 BUN/Creatinine Ratio 7.97 Glucose 139 H (74-105) mg/dL Lactic Acid 1.3 (0.5-2.2) mmol/L Calcium 7.3 L (8.4-10.2) mg/dl Total Bilirubin 0.8 (0.2-1.0) mg/dL AST 18 (10-42) IU/L ALT 12 (10-60) IU/L Alkaline Phosphatase 245 H (42-121) IU/L Total Protein 6.3 L (6.7-8.2) g/dl Albumin 2.9 L (3.2-5.5) g/dl Globulin 3.4 Albumin/Globulin Ratio 0.85 08/24/17 08/24/17 Range/Units 21:48 21:48 WBC 6.2 (5.0-10.0) 10^3/uL RBC 3.25 L (4.2-5.4) 10^6/uL Hgb 9.9 L (12.0-16.0) g/dL Hct 32.3 L (37.0-47.0) % MCV 99.4 (80-100) fL MCH 30.5 (27.0-34.0) pg MCHC 30.7 L (33.0-35.0) g/dL Plt Count 212 (150-450) 10^3/uL Neut % (Auto) 73.0 (42.2-75.2) % Lymph % (Auto) 9.2 L (20.5-50.1) % [place] % (Auto) 10.4 H (2-8) % Eos % (Auto) 6.8 H (1.0-3.0) % Baso % (Auto) 0.6 (0.0-1.0) % Sodium 138 (135-145) mmol/L Potassium 6.4 H (3.6-5.0) mmol/L Chloride 101 (101-111) mmol/L Carbon Dioxide 24.0 (21.0-31.0) mmol/L Anion Gap 19.4 BUN 67 H (7-18) mg/dL Creatinine 8.3 H (0.6-1.3) mg/dL Est Cr Clr Drug Dosing 6.22 mL/min Estimated GFR (MDRD) 5 BUN/Creatinine Ratio Glucose 216 H (74-105) mg/dL Lactic Acid (0.5-2.2) mmol/L Calcium 7.1 L (8.4-10.2) mg/dl Total Bilirubin (0.2-1.0) mg/dL AST (10-42) IU/L ALT (10-60) IU/L Alkaline Phosphatase (42-121) IU/L Total Protein (6.7-8.2) g/dl Albumin (3.2-5.5) g/dl Globulin Albumin/Globulin Ratio Meds: Medications Discontinued Medications Generic Name Dose Route Start Last Admin Trade Name Ezequiel PRN Reason Stop Dose Admin Cyclobenzaprine HCl 10 mg 08/24/17 22:21 08/24/17 22:26 Flexeril PO 08/24/17 22:22 10 mg ONETIME ONE Administration - Re-Assessments/Exams Free Text/Narrative Re-Assessment/Exam: 08/24/17 21:38 results discussed with who just finished her daily dialysis 20 minutes ago. 08/24/17 22:21 results discussed with pt who is feeling better except when she tries to sit up and sharp pain returns. Departure - Departure Time of Disposition: 22:33 Disposition: Home, Self-Care 01 Condition: Good Clinical Impression: Abdominal muscle strain Qualifiers: Encounter type: initial encounter Qualified Code(s): S39.011A - Strain of muscle, fascia and tendon of abdomen, initial encounter - Discharge Information Instructions: Abdominal Pain, Adult, [id number] Forms: ED Department Discharge Additional Instructions: 1) continue home meds 2) follow up at clinic or recheck as needed - My Orders Last 24 Hours: My Active Orders 08/24/17 19:52 CULTURE BLOOD [BC] Stat - Assessment/Plan Last 24 Hours: My Active Orders 08/24/17 19:52 CULTURE BLOOD [BC] Stat
[2017-08-24] MEDS ORDERED: Cyclobenzaprine 10 MG Tab PO ONE (22:21)
== END 2017-08-24 22:33 | disposition home or self-care (01) ==
LOC: DL.ED 19:38
DX: S39.011A Strain of muscle, fascia and tendon of abdomen, initial encounter (principal); I13.0 Hypertensive heart and chronic kidney disease with heart failure and stage 1 through stage 4 chronic kidney disease, or unspecified chronic kidney disease; I50.9 Heart failure, unspecified; E11.22 Type 2 diabetes mellitus with diabetic chronic kidney disease; N18.4 Chronic kidney disease, stage 4 (severe); D63.1 Anemia in chronic kidney disease; I25.10 Atherosclerotic heart disease of native coronary artery without angina pectoris; E78.00 Pure hypercholesterolemia, unspecified; Z88.1 Allergy status to other antibiotic agents; Z88.8 Allergy status to other drugs, medicaments and biological substances; Z91.040 Latex allergy status; Z79.4 Long term (current) use of insulin; Z79.899 Other long term (current) drug therapy
CPT/HCPCS: 36415; 74176; 80048; 80053; 83605; 85025; 87040; 99285; A9270; 99284

== ENCOUNTER 2017-08-28 20:00 | Emergency (ER) | payer MEDICARE, MEDICAID ==
[2017-08-28] MEDS ORDERED: LORazepam 1 MG Tab PO ONE (20:01)
[2017-08-28] MEDS ORDERED: Acetaminophen/HYDROcodone 325-10 MG Tab PO ONE (20:01)
[2017-08-28] MEDS ORDERED: Morphine 2 MG/ML Syringe IVPUSH ONE ×2 (20:27→21:40)
[2017-08-28 22:17] VITALS: BP 174/66
[2017-08-28] MEDS ORDERED: LORazepam 2 MG/ML Syringe IVPUSH ONE (22:52)
--- NOTE | 2017-08-28 23:20 | EDM.PDOC ---
ED HPI GENERAL MEDICAL PROBLEM - General Chief Complaint: Abdominal Pain Stated Complaint: HURTS BY TUBING Time Seen by Provider: 08/28/17 20:15 Source of Information: Reports: Patient History Limitations: Reports: No Limitations - History of Present Illness INITIAL COMMENTS - FREE TEXT/NARRATIVE: C/o left lower abdominal pain since Monday. has been unable to sleep. Has tried tylenol and not helping. Seen in ED on Monday and evaluated. Was tod to follow up in clinic and could not get in until later this week. Patient on peritoneal dialysis. Noted increased pain starting last night after sneezing. Describes feeling like a ball in lower abdomen. Worse with movement or touching area. Hurts to even have clothing or brief touching area. Denies fever or chills, Appetite ok. No vomiting. BM's normal. 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 Right Lower Abdomen Pain Score (Numeric/FACES): 8 - Related Data Allergies Allergy/AdvReac Type Severity Reaction Status Date / Time lidocaine Allergy Intermediate Swelling Verified 08/28/17 20:17 amoxicillin trihydrate Allergy Rash Verified 08/28/17 20:17 [From Amoxil] latex Allergy Rash Verified 08/28/17 20:17 lisinopril Allergy Headache Verified 08/28/17 20:17 Home Meds: Home Meds Bumetanide 2 mg PO BID 12/21/15 [History] Calcium Acetate [Phoslo] 2 cap PO BID 03/29/16 [History] Insulin Aspart [Novolog Flexpen] 5 unit SQ ASDIRECTED PRN 05/17/16 [History] Metoprolol Succinate [Toprol XL 100mg] 75 mg PO BID 05/17/16 [History] Amarilys.Dialysis Soln28 &Ico 7.5% [Extraneal Icodextrin Dialysis] 1,500 ml IP ASDIRECTED 08/31/16 [History] Acetaminophen [Tylenol] 1,000 mg PO Q6H PRN 11/03/16 [History] Calcitriol [Rocaltrol] 2 cap PO DAILY 11/03/16 [History] Mupirocin Cream [Bactroban Crm] 1 applic TOP DAILY 11/03/16 [History] amLODIPine [Norvasc] 10 mg PO DAILY 11/03/16 [History] Metoclopramide [Reglan] 1 tab PO TIDAC 03/14/17 [History] Sodium Bicarbonate 1 tab PO BID 03/14/17 [History] Past Medical History HEENT History: Reports: Cataract Cardiovascular History: Reports: Afib, CAD, Heart Failure, High Cholesterol, Hypertension, Pacemaker, Other (See Below) Other Cardiovascular History: hx of bilateral lower extremity edema Respiratory History: Reports: SOB Other Respiratory History: From CHF Gastrointestinal History: Reports: Other (See Below) Other Gastrointestinal History: gastroparesis diabeticorum Genitourinary History: Reports: Dialysis, Diabetic Nephropathy, Dialysis, Peritoneal, Other (See Below) Other Genitourinary History: chronic kidney disease stage 4, nephrotic syndrome 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 lower leg. Dry and scaley about 3inches in diameter. Non draining. Also has dry area to left marie area. 1 diameter to left marie area. - Infectious Disease History Infectious Disease History: Reports: Chicken Pox - Past Surgical History HEENT Surgical History: Reports: Cataract Surgery Dermatological Surgical History: Reports: Skin Biopsy Social & Family History - Family History Family Medical History: Noncontributory Cardiac: Reports: [place] Other Cardiac Family History: father from [place] in his 50s Endocrine/Metabolic: Reports: Diabetes, type II Other Hematologic Family History: mother has h/o DVT and is on blood thinners - per pt report - Tobacco Use Smoking Status *Q: Former Smoker Years of Tobacco use: 20 Packs/Tins Daily: 0.2 Used Tobacco, but Quit: Yes Month Tobacco Last Used: yrn Second Hand Smoke Exposure: No - Caffeine Use Caffeine Use: Reports: None - Recreational Drug Use Recreational Drug Use: No - Living Situation & Occupation Living situation: Reports: with Family Occupation: Employed ED ROS GENERAL - Review of Systems Review Of Systems: See Below Constitutional: Reports: No Symptoms HEENT: Reports: No Symptoms Respiratory: Reports: No Symptoms Cardiovascular: Reports: No Symptoms Endocrine: Reports: No Symptoms GI/Abdominal: Reports: Abdominal Pain (left lowerabdomen, pointing to lower left fatty aporon) : Reports: No Symptoms Musculoskeletal: Reports: No Symptoms Skin: Reports: No Symptoms Neurological: Reports: No Symptoms ED EXAM, GI/ABD - Physical Exam Exam: See Below Exam Limited By: No Limitations General Appearance: Alert, Moderate Distress, Obese Eyes: Bilateral: EOMI Ears: Normal External Exam Nose: Nasal Deformity Throat/Mouth: Normal Oropharynx Head: Atraumatic, Normocephalic Neck: Normal Inspection Respiratory/Chest: No Respiratory Distress, Decreased Breath Sounds (bases), Other (poor inspiratory effort) Cardiovascular: Regular Rate, Rhythm GI/Abdominal Exam: Normal Bowel Sounds (active throughout), Soft, Guarding, Tender (left lower with light touch to skin, reporduces pain. ), Other ( peritoneal dialysis catheter left abdomen) Extremities: Normal Inspection, Normal Range of Motion Neurological: Alert, Oriented, Normal Cognition Psychiatric: Anxious Skin Exam: Warm, Dry, Intact Course - Vital Signs Last Recorded V/S: Last Vital Signs Temp 96.2 F 08/28/17 20:09 Pulse 74 08/28/17 22:15 Resp 16 08/28/17 22:15 BP 174/66 H 08/28/17 22:15 Pulse Ox 90 L 08/28/17 22:15 - Orders/Labs/Meds Orders: Active Orders 24 hr Category Date Time Status CULTURE BLOOD [BC] Stat Lab 08/28/17 20:41 Received CULTURE BLOOD [BC] Stat Lab 08/28/17 21:55 Results Blood Culture x2 Reflex Set [OM.PC] Stat Oth 08/28/17 20:24 Ordered Labs: Laboratory Tests 08/28/17 08/28/17 08/28/17 Range/Units 20:41 20:41 20:41 WBC 6.2 (5.0-10.0) 10^3/uL RBC 3.15 L (4.2-5.4) 10^6/uL Hgb 9.6 L (12.0-16.0) g/dL Hct 30.7 L (37.0-47.0) % MCV 97.5 (80-100) fL MCH 30.5 (27.0-34.0) pg MCHC 31.3 L (33.0-35.0) g/dL Plt Count 205 (150-450) 10^3/uL Neut % (Auto) 71.1 (42.2-75.2) % Lymph % (Auto) 10.1 L (20.5-50.1) % [place] % (Auto) 9.5 H (2-8) % Eos % (Auto) 8.8 H (1.0-3.0) % Baso % (Auto) 0.5 (0.0-1.0) % Sodium 135 (135-145) mmol/L Potassium 6.6 H (3.6-5.0) mmol/L Chloride 98 L (101-111) mmol/L Carbon Dioxide 23.0 (21.0-31.0) mmol/L Anion Gap 20.6 BUN 73 H (7-18) mg/dL Creatinine 9.2 H (0.6-1.3) mg/dL Est Cr Clr Drug Dosing 5.62 mL/min Estimated GFR (MDRD) 4 BUN/Creatinine Ratio 7.93 Glucose 217 H (74-105) mg/dL Lactic Acid 1.2 (0.5-2.2) mmol/L Calcium 7.5 L (8.4-10.2) mg/dl Total Bilirubin 1.0 (0.2-1.0) mg/dL AST 20 (10-42) IU/L ALT 16 (10-60) IU/L Alkaline Phosphatase 259 H (42-121) IU/L Total Protein 6.6 L (6.7-8.2) g/dl Albumin 3.1 L (3.2-5.5) g/dl Globulin 3.5 Albumin/Globulin Ratio 0.89 Amylase 10 L (28-100) U/L Lipase 39 (22-51) U/L Meds: Medications Discontinued Medications Generic Name Dose Route Start Last Admin Trade Name Freq PRN Reason Stop Dose Admin Hydrocodone Bitart/Acetaminophen Confirm 08/28/17 23:25 08/28/17 23:35 [place] 325-10 Mg Administered 08/28/17 23:26 Not Given Dose 1 tab .ROUTE .STK-MED ONE Lorazepam 1 mg 08/28/17 22:52 08/28/17 23:00 Ativan IVPUSH 08/28/17 22:53 1 mg ONETIME ONE Administration Lorazepam Confirm 08/28/17 23:25 08/28/17 23:34 Ativan Administered 08/28/17 23:26 Not Given Dose 1 mg .ROUTE .STK-MED ONE Morphine Sulfate 2 mg 08/28/17 20:27 08/28/17 20:46 Morphine IVPUSH 08/28/17 20:28 2 mg ONETIME ONE Administration Morphine Sulfate 2 mg 08/28/17 21:40 08/28/17 21:58 Morphine IVPUSH 08/28/17 21:41 2 mg ONETIME ONE Administration - Radiology Interpretation Free Text/Narrative:: CT abdomen, no acute findings, Unchanged from previous. Departure - Departure Time of Disposition: 23:14 Disposition: Home, Self-Care 01 Condition: Fair Clinical Impression: Peritoneal dialysis catheter in place Abdominal pain Qualifiers: Abdominal location: left lower quadrant Qualified Code(s): R10.32 - Left lower quadrant pain - Discharge Information Referrals: PCP,Unobtain [Primary Care Provider] - Forms: ED Department Discharge Additional Instructions: ativan 1mg may repeat in 8 hours as needed for pain , anxiety #1 Hydrocodone 10/325 one in 6 hours if needed for severe pain Follow up in clinic in am if continued discomfort - My Orders Last 24 Hours: My Active Orders 08/28/17 20:24 Blood Culture x2 Reflex Set [OM.PC] Stat 08/28/17 20:41 CULTURE BLOOD [BC] Stat 08/28/17 21:55 CULTURE BLOOD [BC] Stat - Assessment/Plan Last 24 Hours: My Active Orders 08/28/17 20:24 Blood Culture x2 Reflex Set [OM.PC] Stat 08/28/17 20:41 CULTURE BLOOD [BC] Stat 08/28/17 21:55 CULTURE BLOOD [BC] Stat
[2017-08-28] MEDS ORDERED: LORazepam 1 MG Tab ONE (23:25)
[2017-08-28] MEDS ORDERED: Acetaminophen/HYDROcodone 325-10 MG Tab ONE (23:25)
== END 2017-08-28 23:44 | disposition home or self-care (01) ==
LOC: DL.ED 20:00
DX: R10.32 Left lower quadrant pain (principal); I13.0 Hypertensive heart and chronic kidney disease with heart failure and stage 1 through stage 4 chronic kidney disease, or unspecified chronic kidney disease; E11.22 Type 2 diabetes mellitus with diabetic chronic kidney disease; N18.4 Chronic kidney disease, stage 4 (severe); I50.9 Heart failure, unspecified; Z99.2 Dependence on renal dialysis; E78.00 Pure hypercholesterolemia, unspecified; Z87.891 Personal history of nicotine dependence; Z79.4 Long term (current) use of insulin; Z79.899 Other long term (current) drug therapy; Z88.1 Allergy status to other antibiotic agents; Z91.040 Latex allergy status; Z88.6 Allergy status to analgesic agent; Z98.890 Other specified postprocedural states
CPT/HCPCS: 36415; 74176; 80053; 82150; 83605; 83690; 85025; 87040; 96374; 96375; 96376; 99283; 99284; A9270; J2060; J2270

== ENCOUNTER 2017-09-04 00:37 | Emergency (ER) | payer MEDICARE, MEDICAID ==
--- NOTE | 2017-09-04 00:49 | EDM.PDOC ---
ED HPI GENERAL MEDICAL PROBLEM - General Chief Complaint: General Stated Complaint: AMBULANCE Time Seen by Provider: 09/04/17 00:47 Source of Information: Reports: Patient, EMS Notes Reviewed History Limitations: Reports: No Limitations - History of Present Illness INITIAL COMMENTS - FREE TEXT/NARRATIVE: 61 yo [place] Female c/o SOB, and Bilat Leg pain w/ chills since 6pm Bilateral Lower Leg Pain Score (Numeric/FACES): 8 - Related Data Allergies Allergy/AdvReac Type Severity Reaction Status Date / Time lidocaine Allergy Intermediate Swelling Verified 09/04/17 00:47 amoxicillin trihydrate Allergy Rash Verified 09/04/17 00:47 [From Amoxil] latex Allergy Rash Verified 09/04/17 00:47 lisinopril Allergy Headache Verified 09/04/17 00:47 Home Meds: Home Meds Bumetanide 2 mg PO BID 12/21/15 [History] Calcium Acetate [Phoslo] 2 cap PO BID 03/29/16 [History] Insulin Aspart [Novolog Flexpen] 5 unit SQ ASDIRECTED PRN 05/17/16 [History] Metoprolol Succinate [Toprol XL 100mg] 75 mg PO BID 05/17/16 [History] Amarilys.Dialysis Soln28 &Ico 7.5% [Extraneal Icodextrin Dialysis] 1,500 ml IP ASDIRECTED 08/31/16 [History] Acetaminophen [Tylenol] 1,000 mg PO Q6H PRN 11/03/16 [History] Calcitriol [Rocaltrol] 2 cap PO DAILY 11/03/16 [History] Mupirocin Cream [Bactroban Crm] 1 applic TOP DAILY 11/03/16 [History] amLODIPine [Norvasc] 10 mg PO DAILY 11/03/16 [History] Metoclopramide [Reglan] 1 tab PO TIDAC 03/14/17 [History] Sodium Bicarbonate 1 tab PO BID 03/14/17 [History] Past Medical History HEENT History: Reports: Cataract Cardiovascular History: Reports: Afib, CAD, Heart Failure, High Cholesterol, Hypertension, Pacemaker, Other (See Below) Other Cardiovascular History: hx of bilateral lower extremity edema Respiratory History: Reports: SOB Other Respiratory History: From CHF Gastrointestinal History: Reports: Other (See Below) Other Gastrointestinal History: gastroparesis diabeticorum Genitourinary History: Reports: Dialysis, Diabetic Nephropathy, Dialysis, Peritoneal, Other (See Below) Other Genitourinary History: chronic kidney disease stage 4, nephrotic syndrome 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 lower leg. Dry and scaley about 3inches in diameter. Non draining. Also has dry area to left marie area. 1 diameter to left marie area. - Infectious Disease History Infectious Disease History: Reports: Chicken Pox - Past Surgical History HEENT Surgical History: Reports: Cataract Surgery Dermatological Surgical History: Reports: Skin Biopsy Social & Family History - Family History Family Medical History: Noncontributory Cardiac: Reports: [place] Other Cardiac Family History: father from [place] in his 50s Endocrine/Metabolic: Reports: Diabetes, type II Other Hematologic Family History: mother has h/o DVT and is on blood thinners - per pt report - Tobacco Use Smoking Status *Q: Former Smoker Years of Tobacco use: 20 Packs/Tins Daily: 0.2 Used Tobacco, but Quit: Yes Month Tobacco Last Used: oct Second Hand Smoke Exposure: No - Caffeine Use Caffeine Use: Reports: None - Recreational Drug Use Recreational Drug Use: No - Living Situation & Occupation Living situation: Reports: with Family Occupation: Employed ED ROS GENERAL - Review of Systems Review Of Systems: See Below Constitutional: Reports: Malaise, Weakness, Decreased Appetite HEENT: Reports: No Symptoms Respiratory: Reports: Shortness of Breath Cardiovascular: Reports: No Symptoms Endocrine: Reports: No Symptoms GI/Abdominal: Reports: Abdominal Pain : Reports: No Symptoms Musculoskeletal: Reports: Leg Pain (bilat) Skin: Reports: No Symptoms Neurological: Reports: No Symptoms Psychiatric: Reports: Anxiety, Depression Hematologic/Lymphatic: Reports: No Symptoms Immunologic: Reports: No Symptoms ED EXAM, GENERAL - Physical Exam Exam: See Below Exam Limited By: No Limitations General Appearance: Alert, No Apparent Distress Eye Exam: Bilateral Eye: EOMI, PERRL Ears: Normal External Exam Nose: Normal Inspection Throat/Mouth: Normal Inspection Head: Atraumatic Neck: Normal Inspection Respiratory/Chest: No Respiratory Distress, Rales Cardiovascular: Normal Peripheral Pulses Peripheral Pulses: 2+: Radial (L), Radial (R) GI/Abdominal: Soft, No Abnormal Bruit, Abnormal Bowel Sounds Back Exam: Normal Inspection Extremities: Normal Inspection, Normal Range of Motion Neurological: Alert, Oriented, CN II-XII Intact, Normal Cognition Psychiatric: Anxious, Depressed Mood Skin Exam: Warm, Dry, Intact, Normal Color, No Rash Lymphatic: No Adenopathy Course - Vital Signs Last Recorded V/S: Last Vital Signs Temp 36.8 C 09/04/17 00:37 Pulse 77 09/04/17 00:37 Resp 20 09/04/17 00:37 BP 156/67 H 09/04/17 00:37 Pulse Ox 99 09/04/17 00:37 - Orders/Labs/Meds Orders: Active Orders 24 hr Category Date Time Status EKG 12 Lead [EKG Documentation Completion] [RC] STAT Care 09/04/17 01:59 Active CULTURE BLOOD [BC] Stat Lab 09/04/17 01:00 Results CULTURE BLOOD [BC] Stat Lab 09/04/17 01:08 Received DRUG SCREEN, URINE [URCHEM] Stat Lab 09/04/17 01:33 Uncollected UA W/MICROSCOPIC [URIN] Stat Lab 09/04/17 00:48 Uncollected Ondansetron [Zofran] Med 09/04/17 02:05 Once 4 mg IV ONETIME ONE Sodium Polystyrene Sulfonate [Kayexalate] Med 09/04/17 02:05 Once 45 gm PO NOW ONE Labs: Laboratory Tests 09/04/17 09/04/17 09/04/17 Range/Units 01:08 01:08 01:08 WBC 6.8 (5.0-10.0) 10^3/uL RBC 3.07 L (4.2-5.4) 10^6/uL Hgb 9.4 L (12.0-16.0) g/dL Hct 29.8 L (37.0-47.0) % MCV 97.1 (80-100) fL MCH 30.6 (27.0-34.0) pg MCHC 31.5 L (33.0-35.0) g/dL Plt Count 212 (150-450) 10^3/uL Neut % (Auto) 69.5 (42.2-75.2) % Lymph % (Auto) 11.2 L (20.5-50.1) % [place] % (Auto) 9.7 H (2-8) % Eos % (Auto) 9.0 H (1.0-3.0) % Baso % (Auto) 0.6 (0.0-1.0) % D-Dimer, Quantitative (0-400) ng/mL Sodium 138 (135-145) mmol/L Potassium 6.4 H (3.6-5.0) mmol/L Chloride 98 L (101-111) mmol/L Carbon Dioxide 23.0 (21.0-31.0) mmol/L Anion Gap 23.4 BUN 75 H (7-18) mg/dL Creatinine 9.0 H (0.6-1.3) mg/dL Est Cr Clr Drug Dosing 5.74 mL/min Estimated GFR (MDRD) 4 BUN/Creatinine Ratio 8.33 Glucose 123 H (74-105) mg/dL Lactic Acid 1.4 (0.5-2.2) mmol/L Calcium 7.3 L (8.4-10.2) mg/dl Total Bilirubin 0.7 (0.2-1.0) mg/dL AST 23 (10-42) IU/L ALT 19 (10-60) IU/L Alkaline Phosphatase 272 H (42-121) IU/L B-Natriuretic Peptide 3510 H (0-100) pg/ml Total Protein 6.8 (6.7-8.2) g/dl Albumin 3.0 L (3.2-5.5) g/dl Globulin 3.8 Albumin/Globulin Ratio 0.79 09/04/17 Range/Units 01:08 WBC (5.0-10.0) 10^3/uL RBC (4.2-5.4) 10^6/uL Hgb (12.0-16.0) g/dL Hct (37.0-47.0) % MCV (80-100) fL MCH (27.0-34.0) pg MCHC (33.0-35.0) g/dL Plt Count (150-450) 10^3/uL Neut % (Auto) (42.2-75.2) % Lymph % (Auto) (20.5-50.1) % [place] % (Auto) (2-8) % Eos % (Auto) (1.0-3.0) % Baso % (Auto) (0.0-1.0) % D-Dimer, Quantitative 2390 H (0-400) ng/mL Sodium (135-145) mmol/L Potassium (3.6-5.0) mmol/L Chloride (101-111) mmol/L Carbon Dioxide (21.0-31.0) mmol/L Anion Gap BUN (7-18) mg/dL Creatinine (0.6-1.3) mg/dL Est Cr Clr Drug Dosing mL/min Estimated GFR (MDRD) BUN/Creatinine Ratio Glucose (74-105) mg/dL Lactic Acid (0.5-2.2) mmol/L Calcium (8.4-10.2) mg/dl Total Bilirubin (0.2-1.0) mg/dL AST (10-42) IU/L ALT (10-60) IU/L Alkaline Phosphatase (42-121) IU/L B-Natriuretic Peptide (0-100) pg/ml Total Protein (6.7-8.2) g/dl Albumin (3.2-5.5) g/dl Globulin Albumin/Globulin Ratio Departure - Departure Time of Disposition: 02:12 Disposition: DC/Tfer to [facility] 02 Condition: Fair Clinical Impression: CKD (chronic kidney disease) stage 5, GFR less than 15 ml/min, Hyperkalemia, Elevated d-dimer Pulmonary edema Qualifiers: Chronicity: acute Qualified Code(s): J81.0 - Acute pulmonary edema - Discharge Information Forms: ED Department Discharge, Interfacility Transfer EMTALA - My Orders Last 24 Hours: My Active Orders 09/04/17 00:48 UA W/MICROSCOPIC [URIN] Stat 09/04/17 01:00 CULTURE BLOOD [BC] Stat 09/04/17 01:08 CULTURE BLOOD [BC] Stat 09/04/17 01:33 DRUG SCREEN, URINE [URCHEM] Stat 09/04/17 01:59 EKG 12 Lead [EKG Documentation Completion] [RC] STAT 09/04/17 02:05 Ondansetron [Zofran] 4 mg IV ONETIME ONE Sodium Polystyrene Sulfonate [Kayexalate] 45 gm PO NOW ONE - Assessment/Plan Last 24 Hours: My Active Orders 09/04/17 00:48 UA W/MICROSCOPIC [URIN] Stat 09/04/17 01:00 CULTURE BLOOD [BC] Stat 09/04/17 01:08 CULTURE BLOOD [BC] Stat 09/04/17 01:33 DRUG SCREEN, URINE [URCHEM] Stat 09/04/17 01:59 EKG 12 Lead [EKG Documentation Completion] [RC] STAT 09/04/17 02:05 Ondansetron [Zofran] 4 mg IV ONETIME ONE Sodium Polystyrene Sulfonate [Kayexalate] 45 gm PO NOW ONE
[2017-09-04] MEDS ORDERED: Ondansetron 4 MG/2 ML SDV IV ONE (02:05)
[2017-09-04] MEDS ORDERED: Sodium Polystyrene Sulfonate 15 GM/60 ML Susp 60 ML Bot PO ONE (02:05)
[2017-09-04 02:31] VITALS: BP 161/62
--- NOTE | 2017-09-05 11:53 | EKG ---
09/04/2017- MARINA GORDON - EKG done on a 61-year-old female showing sinus rhythm, heart rate of 77 beats per minute, left anterior fascicular block. No acute ST wave changes. [facility] /[id number]
== END 2017-09-04 02:48 ==
LOC: DL.ED 00:37
DX: J81.0 Acute pulmonary edema (principal); I13.2 Hypertensive heart and chronic kidney disease with heart failure and with stage 5 chronic kidney disease, or end stage renal disease; E11.22 Type 2 diabetes mellitus with diabetic chronic kidney disease; N18.5 Chronic kidney disease, stage 5; I50.9 Heart failure, unspecified; R79.1 Abnormal coagulation profile; E87.5 Hyperkalemia; E78.00 Pure hypercholesterolemia, unspecified; I25.10 Atherosclerotic heart disease of native coronary artery without angina pectoris; Z87.891 Personal history of nicotine dependence; Z79.4 Long term (current) use of insulin; Z99.2 Dependence on renal dialysis; Z79.899 Other long term (current) drug therapy; Z88.1 Allergy status to other antibiotic agents; Z88.8 Allergy status to other drugs, medicaments and biological substances; Z91.040 Latex allergy status; Z86.2 Personal history of diseases of the blood and blood-forming organs and certain disorders involving the immune mechanism
CPT/HCPCS: 36415; 71020; 80053; 83605; 83880; 85025; 85379; 87040; 93005; 93010; 96374; 99285; A9270; J2405

== ENCOUNTER 2017-11-07 16:37 | Emergency (ER) | payer MEDICARE, MEDICAID | END 2017-11-07 17:57 | disposition left against medical advice (07) | LOC: DL.ED 16:37 | DX: Z53.21 Procedure and treatment not carried out due to patient leaving prior to being seen by health care provider (principal) ==

== ENCOUNTER 2017-11-25 16:16 | Emergency (ER) | payer MEDICARE, MEDICAID ==
[2017-11-25] MEDS ORDERED: Sodium Chloride 0.9% 10 ML Syringe FLUSH PRN (16:31)
[2017-11-25] MEDS ORDERED: Diltiazem 25 MG/5 ML SDV IVPUSH ONE (16:34)
[2017-11-25] MEDS ORDERED: Diltiazem 25 MG/5 ML SDV ONE (16:47)
[2017-11-25] MEDS ORDERED: Diltiazem 100 MG in Sodium Chloride 0.9% 100 ML IV SCH (17:00)
[2017-11-25] MEDS ORDERED: Diltiazem 100 MG AdvVial ONE (17:07)
[2017-11-25] MEDS ORDERED: Sodium Chloride 0.9% 100 ML ONE (17:08)
[2017-11-25] MEDS ORDERED: Ondansetron 4 MG/2 ML SDV ONE (17:09)
[2017-11-25] MEDS ORDERED: Ondansetron 4 MG/2 ML SDV IV ONE (17:13)
[2017-11-25 17:16] VITALS: BP 132/74
[2017-11-25 17:52] LABS: ANION GAP 23.4
--- NOTE | 2017-11-29 07:38 | EDM.PDOC ---
ED HPI GENERAL MEDICAL PROBLEM - General Chief Complaint: Cardiovascular Problem Stated Complaint: BY AMBULANCE Time Seen by Provider: 11/25/17 16:35 Source of Information: Reports: Patient, EMS, EMS Notes Reviewed, RN, RN Notes Reviewed History Limitations: Reports: No Limitations - History of Present Illness INITIAL COMMENTS - FREE TEXT/NARRATIVE: Pt presents to ER with c/o chest pain and sob. She states she does peritoneal dialysis at home. She states she has not been feeling well for the past few days. Admits to chest pain, sob, fever/chills, N/V. Denies any diarrhea. Onset: Gradual Chest Pain Score (Numeric/FACES): 8 - Related Data Allergies Allergy/AdvReac Type Severity Reaction Status Date / Time lidocaine Allergy Intermediate Swelling Verified 11/25/17 16:42 amoxicillin trihydrate Allergy Rash Verified 11/25/17 16:42 [From Amoxil] latex Allergy Rash Verified 11/25/17 16:42 lisinopril Allergy Headache Verified 11/25/17 16:42 Home Meds: Home Meds Bumetanide 2 mg PO BID 12/21/15 [History] Calcium Acetate [Phoslo] 2 cap PO BID 03/29/16 [History] Insulin Aspart [Novolog Flexpen] 5 unit SQ ASDIRECTED PRN 05/17/16 [History] Metoprolol Succinate [Toprol XL 100mg] 75 mg PO BID 05/17/16 [History] Amarilys.Dialysis Soln28 &Ico 7.5% [Extraneal Icodextrin Dialysis] 1,500 ml IP ASDIRECTED 08/31/16 [History] Acetaminophen [Tylenol] 1,000 mg PO Q6H PRN 11/03/16 [History] Calcitriol [Rocaltrol] 2 cap PO DAILY 11/03/16 [History] Mupirocin Cream [Bactroban Crm] 1 applic TOP DAILY 11/03/16 [History] amLODIPine [Norvasc] 10 mg PO DAILY 11/03/16 [History] Metoclopramide [Reglan] 1 tab PO TIDAC 03/14/17 [History] Sodium Bicarbonate 1 tab PO BID 03/14/17 [History] Past Medical History HEENT History: Reports: Cataract Cardiovascular History: Reports: Afib, CAD, Heart Failure, High Cholesterol, Hypertension, Pacemaker, Other (See Below) Other Cardiovascular History: hx of bilateral lower extremity edema Respiratory History: Reports: SOB Other Respiratory History: From CHF Gastrointestinal History: Reports: Other (See Below) Other Gastrointestinal History: gastroparesis diabeticorum Genitourinary History: Reports: Dialysis, Diabetic Nephropathy, Dialysis, Peritoneal, Other (See Below) Other Genitourinary History: chronic kidney disease stage 4, nephrotic syndrome [employer] 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 lower leg. Dry and scaley about 3inches in diameter. Non draining. Also has dry area to left marie area. 1 diameter to left marie area. - Infectious Disease History Infectious Disease History: Reports: Chicken Pox - Past Surgical History HEENT Surgical History: Reports: Cataract Surgery Dermatological Surgical History: Reports: Skin Biopsy Social & Family History - Family History Family Medical History: Noncontributory Cardiac: Reports: [place] Other Cardiac Family History: father from [place] in his 50s Endocrine/Metabolic: Reports: Diabetes, type II Other Hematologic Family History: mother has h/o DVT and is on blood thinners - per pt report - Tobacco Use Smoking Status *Q: Never Smoker Years of Tobacco use: 20 Packs/Tins Daily: 0.2 Used Tobacco, but Quit: Yes Month Tobacco Last Used: oct Second Hand Smoke Exposure: No - Caffeine Use Caffeine Use: Reports: None - Recreational Drug Use Recreational Drug Use: No - Living Situation & Occupation Living situation: Reports: with Family Occupation: Employed ED ROS GENERAL - Review of Systems Review Of Systems: ROS reveals no pertinent complaints other than HPI. ED EXAM, GENERAL - Physical Exam Exam: See Below Exam Limited By: Other (anxiety) General Appearance: Alert, WD/WN, Anxious, Moderate Distress Eye Exam: Bilateral Eye: EOMI, Normal Inspection, PERRL Ears: Normal External Exam, Hearing Grossly Normal Nose: Normal Inspection Throat/Mouth: Normal Inspection, Normal Voice, No Airway Compromise Head: Atraumatic, Normocephalic Neck: Normal Inspection, Supple, Non-Tender, Full Range of Motion Respiratory/Chest: Respiratory Distress, Crackles (bilaterally) Cardiovascular: Normal Peripheral Pulses, Irregularly Irregular Peripheral Pulses: 1+: Radial (L), Radial (R) GI/Abdominal: Normal Bowel Sounds, No Distention, Other (peritoneal dialysis catheter in place, dressing clean and intact) (Female) Exam: Deferred Rectal (Female) Exam: Deferred Back Exam: Normal Inspection, Decreased Range of Motion Extremities: Normal Inspection, No Pedal Edema, Normal Capillary Refill, Limited Range of Motion Neurological: Alert, Oriented, CN II-XII Intact, Normal Cognition, No Motor/ Sensory Deficits Psychiatric: Anxious, Tearful Skin Exam: Warm, Other (small patches of open sores and discoloration all over the face. ). No: Intact Lymphatic: No Adenopathy EKG INTERPRETATION EKG Date: 11/25/17 Rhythm: A-Fib Course - Vital Signs Last Recorded V/S: Last Vital Signs Temp 99.1 F 11/25/17 16:33 Pulse 129 H 11/25/17 17:17 Resp 29 H 11/25/17 16:33 BP 132/74 11/25/17 17:17 Pulse Ox 95 11/25/17 16:33 - Orders/Labs/Meds Labs: Laboratory Tests 11/25/17 11/25/17 11/25/17 Range/Units 17:18 17:18 17:18 WBC 19.8 H (5.0-10.0) 10^3/uL RBC 3.23 L (4.2-5.4) 10^6/uL Hgb 9.7 L (12.0-16.0) g/dL Hct 30.2 L (37.0-47.0) % MCV 93.5 D (80-100) fL MCH 30.0 (27.0-34.0) pg MCHC 32.1 L (33.0-35.0) g/dL Plt Count 141 L (150-450) 10^3/uL Neut % (Auto) 93.9 H (42.2-75.2) % Lymph % (Auto) 2.2 L (20.5-50.1) % [place] % (Auto) 3.8 (2-8) % Eos % (Auto) 0.0 L (1.0-3.0) % Baso % (Auto) 0.1 (0.0-1.0) % Sodium 130 L (135-145) mmol/L Potassium 4.4 D (3.6-5.0) mmol/L Chloride 95 L (101-111) mmol/L Carbon Dioxide 16.0 L (21.0-31.0) mmol/L Anion Gap 23.4 BUN 76 H (7-18) mg/dL Creatinine 9.8 H (0.6-1.3) mg/dL Est Cr Clr Drug Dosing 4.83 mL/min Estimated GFR (MDRD) 4 BUN/Creatinine Ratio 7.75 Glucose 198 H (74-105) mg/dL Lactic Acid 5.1 H (0.5-2.2) mmol/L Calcium 7.1 L (8.4-10.2) mg/dl Magnesium 1.4 L (1.8-2.5) mg/dL Total Bilirubin 1.6 H (0.2-1.0) mg/dL AST 33 (10-42) IU/L ALT 19 (10-60) IU/L Alkaline Phosphatase 242 H (42-121) IU/L Troponin I 0.05 H* (0.00-0.02) ng/ml Total Protein 6.2 L (6.7-8.2) g/dl Albumin 3.1 L (3.2-5.5) g/dl Globulin 3.1 Albumin/Globulin Ratio 1.00 Ethyl Alcohol 5 mg/dL Meds: Medications Discontinued Medications Generic Name Dose Route Start Last Admin Trade Name Freq PRN Reason Stop Dose Admin Diltiazem HCl 25 mg 11/25/17 16:34 11/25/17 16:48 Diltiazem IVPUSH 11/25/17 16:35 25 mg ONETIME ONE Administration Diltiazem HCl Confirm 11/25/17 16:47 11/25/17 16:54 Diltiazem Administered 11/25/17 16:48 Not Given Dose 25 mg .ROUTE .STK-MED ONE Diltiazem HCl Confirm 11/25/17 17:07 11/25/17 17:17 Cardizem Administered 11/25/17 17:08 Not Given Dose 100 mg .ROUTE .STK-MED ONE Diltiazem HCl 100 mg/ Sodium 100 mls @ 5 mls/hr 11/25/17 17:00 11/25/17 17:15 Chloride IV 5 mg/hr TITRATE BERYL 5 mls/hr Protocol Administration 5 MG/HR Sodium Chloride Confirm 11/25/17 17:08 11/25/17 17:17 Normal Saline Administered 11/25/17 17:09 Not Given Dose 100 mls @ as directed .ROUTE .STK-MED ONE Ondansetron HCl Confirm 11/25/17 17:09 11/25/17 17:23 Zofran Administered 11/25/17 17:10 Not Given Dose 4 mg .ROUTE .STK-MED ONE Ondansetron HCl 4 mg 11/25/17 17:13 11/25/17 17:14 Zofran IV 11/25/17 17:14 4 mg ONETIME ONE Administration Sodium Chloride 10 ml 11/25/17 16:31 Saline Flush FLUSH ASDIRECTED PRN Keep Vein Open Departure - Departure Time of Disposition: 18:36 Disposition: DC/Tfer to Acute Hospital 02 Reason for Transfer *Q: Primary PCI Indicated Condition: Poor, Serious Clinical Impression: CKD (chronic kidney disease) stage 4, GFR 15-29 ml/min, Hyperkalemia, Atrial fibrillation with RVR Referrals: PCP,None [Primary Care Provider] - Forms: ED Department Discharge, Interfacility Transfer [facility]
--- NOTE | 2017-12-12 13:59 | EKG ---
11/25/2017 - MARINA GORDON - TIME: 6:06 p.m. EKG done on this 61-year-old female, shows junctional rhythm, left axis deviation. Heart rate of 76 beats per minute, prolonged QT interval. [facility] /[id number]
--- NOTE | 2017-12-12 14:01 | EKG ---
11/25/2017 - MARINA GORDON - TIME: 6:06 p.m. FINDINGS: EKG showed junctional rhythm, heart rate 76 beats per minute, left axis deviation, prolonged QT intervals. [facility] /[id number]
--- NOTE | 2017-12-12 14:26 | EKG ---
11/25/2017 - MARINA GORDON - TIME: 1646 hours. EKG done on a 61-year-old female, showing atrial flutter with 2:1 block. Heart rate of 131 beats per minute, left anterior fascicular block noted. Questionable ST depressions noted on inferior leads. [facility] /[id number]
== END 2017-11-25 18:28 ==
LOC: DL.ED 16:16
DX: I48.91 Unspecified atrial fibrillation (principal); I13.0 Hypertensive heart and chronic kidney disease with heart failure and stage 1 through stage 4 chronic kidney disease, or unspecified chronic kidney disease; I50.9 Heart failure, unspecified; N18.4 Chronic kidney disease, stage 4 (severe); D63.1 Anemia in chronic kidney disease; E87.5 Hyperkalemia; E11.22 Type 2 diabetes mellitus with diabetic chronic kidney disease; E11.21 Type 2 diabetes mellitus with diabetic nephropathy; Z88.8 Allergy status to other drugs, medicaments and biological substances; Z91.040 Latex allergy status; Z79.4 Long term (current) use of insulin; Z87.891 Personal history of nicotine dependence; Z99.2 Dependence on renal dialysis; Z79.899 Other long term (current) drug therapy
CPT/HCPCS: 36415; 71045; 80053; 83605; 83735; 84484; 85025; 87040; 87077; 93005; 93010; 99284; G0480; J2405; J3490; J7050

== ENCOUNTER 2017-12-20 16:42 | Emergency (ER) | payer MEDICARE, MEDICAID ==
[2017-12-20 16:54] VITALS: BP 168/71
[2017-12-20 17:29] LABS: CHLORIDE,CL 96 mmol/L (101-111); SODIUM,NA 133 mmol/L (135-145)
[2017-12-20] MEDS: Ondansetron 4 MG/2 ML SDV IV ONE (18:36)
[2017-12-20] MEDS: HYDROmorphone 0.5 MG/0.5 ML Syringe IVPUSH ONE (18:39)
--- NOTE | 2017-12-20 18:39 | EDM.PDOC ---
ED HPI GENERAL MEDICAL PROBLEM - General Chief Complaint: Lower Extremity Injury/Pain Stated Complaint: COMING FROM DIALYSIS Time Seen by Provider: 12/20/17 18:00 Source of Information: Reports: Patient, Provider History Limitations: Reports: No Limitations - History of Present Illness INITIAL COMMENTS - FREE TEXT/NARRATIVE: This 61 yo female patient reports to the ED from telemed with Dr. Barnhart. The patient reports she has been experiencing increased pain in her left calf over the past 1-2 weeks. The patient reports she has had nausea/vomiting over the past 2 days. The patient has been seen for the calf pain and had an ultrasound done on Monday (negative for clot). The patient reports she is supposed to have peritoneal dialysis tonight. Duration: Day(s): (nausea/vomiting), Week(s): (left calf pain) Location: Reports: Lower Extremity, Left Quality: Reports: Ache, Sharp Severity: Severe Improves with: Reports: None Worsens with: Reports: None Associated Symptoms: Reports: Nausea/Vomiting, Other (pain) Left Lower Leg Pain Score (Numeric/FACES): 9 - Related Data Allergies Allergy/AdvReac Type Severity Reaction Status Date / Time lidocaine Allergy Intermediate Swelling Verified 12/03/17 11:32 amoxicillin trihydrate Allergy Rash Verified 12/03/17 11:32 [From Amoxil] latex Allergy Rash Verified 12/03/17 11:32 lisinopril Allergy Headache Verified 12/03/17 11:32 Home Meds: Home Meds Bumetanide 2 mg PO BID 12/21/15 [History] Calcium Acetate [Phoslo] 2 cap PO BID 03/29/16 [History] Insulin Aspart [Novolog Flexpen] 5 unit SQ ASDIRECTED PRN 05/17/16 [History] Metoprolol Succinate [Toprol XL 100mg] 75 mg PO BID 05/17/16 [History] Amarilys.Dialysis Soln28 &Ico 7.5% [Extraneal Icodextrin Dialysis] 1,500 ml IP ASDIRECTED 08/31/16 [History] Acetaminophen [Tylenol] 1,000 mg PO Q6H PRN 11/03/16 [History] Calcitriol [Rocaltrol] 2 cap PO DAILY 11/03/16 [History] Mupirocin Cream [Bactroban Crm] 1 applic TOP DAILY 11/03/16 [History] amLODIPine [Norvasc] 10 mg PO DAILY 11/03/16 [History] Metoclopramide [Reglan] 1 tab PO TIDAC 03/14/17 [History] Sodium Bicarbonate 1 tab PO BID 03/14/17 [History] Past Medical History HEENT History: Reports: Cataract Cardiovascular History: Reports: Afib, CAD, Heart Failure, High Cholesterol, Hypertension, Pacemaker, Other (See Below) Other Cardiovascular History: hx of bilateral lower extremity edema Respiratory History: Reports: SOB Other Respiratory History: From CHF Gastrointestinal History: Reports: Other (See Below) Other Gastrointestinal History: gastroparesis diabeticorum Genitourinary History: Reports: Dialysis, Diabetic Nephropathy, Dialysis, Peritoneal, Other (See Below) Other Genitourinary History: chronic kidney disease stage 4, nephrotic syndrome SAND FILLER 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 lower leg. Dry and scaley about 3inches in diameter. Non draining. Also has dry area to left marie area. 1 diameter to left marie area. - Infectious Disease History Infectious Disease History: Reports: Chicken Pox Other Infectious Disease History: patient unsure - Past Surgical History HEENT Surgical History: Reports: Cataract Surgery Other Cardiovascular Surgeries/Procedures: Angiogram 2015 Oncologic Surgical History: Reports: None Dermatological Surgical History: Reports: Skin Biopsy Social & Family History - Family History Family Medical History: Noncontributory Cardiac: Reports: [place] Other Cardiac Family History: father from [place] in his 50s Endocrine/Metabolic: Reports: Diabetes, type II Other Hematologic Family History: mother has h/o DVT and is on blood thinners - per pt report - Tobacco Use Smoking Status *Q: Never Smoker Years of Tobacco use: 20 Packs/Tins Daily: 0.2 Used Tobacco, but Quit: Yes Month Tobacco Last Used: 20 years Second Hand Smoke Exposure: No - Caffeine Use Caffeine Use: Reports: None - Recreational Drug Use Recreational Drug Use: No - Living Situation & Occupation Living situation: Reports: with Family Occupation: Employed Review of Systems - Review of Systems Review Of Systems: ROS reveals no pertinent complaints other than HPI. ED EXAM, GENERAL - Physical Exam Exam: Not Obtained Exam Limited By: No Limitations General Appearance: Alert, WD/WN, Severe Distress Eye Exam: Bilateral Eye: EOMI, Normal Inspection, PERRL Ears: Normal External Exam, Normal Canal, Hearing Grossly Normal, Normal TMs Nose: Normal Inspection, Normal Mucosa, No Blood Throat/Mouth: Normal Inspection, Normal Lips, Normal Teeth, Normal Gums, Normal Oropharynx, Normal Voice, No Airway Compromise Head: Atraumatic, Normocephalic Neck: Normal Inspection, Supple, Non-Tender, Full Range of Motion Respiratory/Chest: No Respiratory Distress, Lungs Clear, Normal Breath Sounds, No Accessory Muscle Use, Chest Non-Tender Cardiovascular: Normal Peripheral Pulses, Regular Rate, Rhythm, No Edema, No Gallop, No JVD, No Murmur, No Rub GI/Abdominal: Normal Bowel Sounds, Soft, Non-Tender, No Organomegaly, No Distention, No Abnormal Bruit, No Mass (Female) Exam: Deferred Rectal (Female) Exam: Deferred Back Exam: Normal Inspection, Full Range of Motion, NT Extremities: Leg Pain (left calf pain) Neurological: Alert, Oriented, CN II-XII Intact, Normal Cognition, Normal Gait, Normal Reflexes, No Motor/Sensory Deficits Psychiatric: Normal Affect, Normal Mood Skin Exam: Warm, Dry, Intact, Normal Color, No Rash Lymphatic: No Adenopathy Course - Vital Signs Last Recorded V/S: Last Vital Signs Temp 36.8 C 12/20/17 16:48 Pulse 58 L 12/20/17 16:48 Resp 18 12/20/17 16:48 BP 168/71 H 12/20/17 16:48 Pulse Ox 95 12/20/17 16:48 - Orders/Labs/Meds Labs: Laboratory Tests 12/20/17 12/20/17 12/20/17 Range/Units 17:01 17:01 17:01 WBC 4.8 L (5.0-10.0) 10^3/uL RBC 3.46 L (4.2-5.4) 10^6/uL Hgb 10.6 L (12.0-16.0) g/dL Hct 33.9 L (37.0-47.0) % MCV 98.0 D (80-100) fL MCH 30.6 (27.0-34.0) pg MCHC 31.3 L (33.0-35.0) g/dL Plt Count 205 (150-450) 10^3/uL Neut % (Auto) 61.1 (42.2-75.2) % Lymph % (Auto) 16.3 L (20.5-50.1) % Ray % (Auto) 12.3 H (2-8) % Eos % (Auto) 8.8 H (1.0-3.0) % Baso % (Auto) 1.5 H (0.0-1.0) % Add Manual Diff Yes Neutrophils % (Manual) 65 (42-75) % Lymphocytes % (Manual) 19 L (20-50) % Monocytes % (Manual) 6 (2-8) % Eosinophils % (Manual) 10 H (1-3) % D-Dimer, Quantitative 1180 H (0-400) ng/mL Sodium 133 L (135-145) mmol/L Potassium 5.8 H (3.6-5.0) mmol/L Chloride 96 L (101-111) mmol/L Carbon Dioxide 21.0 (21.0-31.0) mmol/L Anion Gap 21.8 BUN 61 H (7-18) mg/dL Creatinine 10.4 H (0.6-1.3) mg/dL Est Cr Clr Drug Dosing 4.97 mL/min Estimated GFR (MDRD) 4 BUN/Creatinine Ratio 5.86 Glucose 116 H (74-105) mg/dL Calcium 7.7 L (8.4-10.2) mg/dl Total Bilirubin 1.3 H (0.2-1.0) mg/dL AST 19 (10-42) IU/L ALT 6 L (10-60) IU/L Alkaline Phosphatase 248 H (42-121) IU/L Troponin I 0.03 H* (0.00-0.02) ng/ml B-Natriuretic Peptide > 5000 H (0-100) pg/ml Total Protein 6.9 (6.7-8.2) g/dl Albumin 2.9 L (3.2-5.5) g/dl Globulin 4.0 Albumin/Globulin Ratio 0.73 Meds: Medications Discontinued Medications Generic Name Dose Route Start Last Admin Trade Name Ezequiel PRN Reason Stop Dose Admin Hydromorphone HCl 0.5 mg 12/20/17 18:21 Dilaudid IVPUSH 12/20/17 18:22 ONETIME ONE Ondansetron HCl 4 mg 12/20/17 18:21 Zofran IV 12/20/17 18:22 ONETIME ONE Departure - Departure Time of Disposition: 18:43 Disposition: DC/Tfer to Acute Hospital 02 Condition: Poor Clinical Impression: Pain of left calf, Hyperkalemia, Elevated d-dimer Kidney failure Qualifiers: Renal failure chronicity: chronic Chronic kidney disease stage: on chronic dialysis Qualified Code(s): N18.6 - End stage renal disease; Z99.2 - Dependence on renal dialysis; Z99.2 - Dependence on renal dialysis; Z99.2 - Dependence on renal dialysis; Z99.2 - Dependence on renal dialysis - Discharge Information Care Plan Goals: Discussed the examination, history and lab results with Dr. Alcala (Hospitalist with [facility] in [place]). Dr. Alcala accepted the patient for continued evaluation and management. The patient will be transported by [facility].
== END 2017-12-20 19:04 ==
LOC: DL.ED 16:42
DX: I13.2 Hypertensive heart and chronic kidney disease with heart failure and with stage 5 chronic kidney disease, or end stage renal disease (principal); N18.6 End stage renal disease; I50.9 Heart failure, unspecified; E87.5 Hyperkalemia; M79.605 Pain in left leg; R79.1 Abnormal coagulation profile; E11.22 Type 2 diabetes mellitus with diabetic chronic kidney disease; E78.00 Pure hypercholesterolemia, unspecified; Z88.1 Allergy status to other antibiotic agents; Z91.040 Latex allergy status; Z88.8 Allergy status to other drugs, medicaments and biological substances; Z79.899 Other long term (current) drug therapy; Z99.2 Dependence on renal dialysis
CPT/HCPCS: 36415; 80053; 83880; 84484; 85025; 85379; 96374; 96375; 99284; J1170; J2405

== ENCOUNTER 2018-01-08 20:43 | Emergency (ER) | payer MEDICARE, MEDICAID ==
[~2018-01-08 20:43] MED LIST: Sodium Chloride 0.9% 10 ML Syringe FLUSH PRN
[2018-01-08] MEDS ORDERED: HYDROmorphone 0.5 MG/0.5 ML Syringe IVPUSH ONE (21:19)
[2018-01-08] MEDS ORDERED: Ondansetron 4 MG/2 ML SDV IV ONE (21:20)
[2018-01-08] MEDS ORDERED: Albuterol/Ipratropium 3.0-0.5 MG/3 ML Neb Soln NEB ONE (21:21)
[2018-01-08 21:45] VITALS: BP 131/67
--- NOTE | 2018-01-08 22:24 | EDM.PDOC ---
ED HPI GENERAL MEDICAL PROBLEM - General Chief Complaint: Skin Complaint Stated Complaint: BY AMBULANCE Time Seen by Provider: 01/08/18 20:45 Source of Information: Reports: Patient, EMS, EMS Notes Reviewed, Family, RN, RN Notes Reviewed History Limitations: Reports: No Limitations - History of Present Illness INITIAL COMMENTS - FREE TEXT/NARRATIVE: Pt presents to the ER per [facility]. She states she has been having increased SOB. She states she was seen in the clinic last week by JASON Price. She states she was diagnosed with pneumonia and started on abx. She states the SOB has increasingly gotten worse, and c/o pain in the left lung area. She states she does Peritoneal dialysis at home. She admits to nausea, dry heaves, chills and sob. SHe denies cough, diarrhea, or fever. She also c/o pain to the left lower leg. Onset: Gradual Duration: Getting Worse Location: Reports: Lower Extremity, Left Quality: Reports: Pressure Severity: Moderate Improves with: Reports: None Worsens with: Reports: None Associated Symptoms: Reports: Fever/Chills, Nausea/Vomiting. Denies: Cough Treatments MUSEUM OR ZOO DIRECTOR: Reports: Acetaminophen Left Lower Leg Pain Score (Numeric/FACES): 6 - Related Data Allergies Allergy/AdvReac Type Severity Reaction Status Date / Time lidocaine Allergy Intermediate Swelling Verified 01/08/18 21:35 amoxicillin trihydrate Allergy Rash Verified 01/08/18 21:35 [From Amoxil] latex Allergy Rash Verified 01/08/18 21:35 lisinopril Allergy Headache Verified 01/08/18 21:35 Home Meds: Home Meds Bumetanide 2 mg PO BID 12/21/15 [History] Calcium Acetate [Phoslo] 2 cap PO BID 03/29/16 [History] Insulin Aspart [Novolog Flexpen] 5 unit SQ ASDIRECTED PRN 05/17/16 [History] Metoprolol Succinate [Toprol XL 100mg] 100 mg PO BID 05/17/16 [History] Amarilys.Dialysis Soln28 &Ico 7.5% [Extraneal Icodextrin Dialysis] 1,500 ml IP ASDIRECTED 08/31/16 [History] Acetaminophen [Tylenol] 1,000 mg PO Q6H PRN 11/03/16 [History] Mupirocin Cream [Bactroban Crm] 1 applic TOP DAILY 11/03/16 [History] Metoclopramide [Reglan] 1 tab PO TIDAC PRN 03/14/17 [History] Sodium Bicarbonate 1 tab PO BID 03/14/17 [History] Aspirin [Halfprin] 81 mg PO DAILY 01/08/18 [History] Doxycycline [Vibramycin] 100 mg PO DAILY 01/08/18 [History] Past Medical History HEENT History: Reports: Cataract Cardiovascular History: Reports: Afib, CAD, Heart Failure, High Cholesterol, Hypertension, Pacemaker, Other (See Below) Other Cardiovascular History: hx of bilateral lower extremity edema Respiratory History: Reports: SOB Other Respiratory History: From CHF Gastrointestinal History: Reports: Other (See Below) Other Gastrointestinal History: gastroparesis diabeticorum Genitourinary History: Reports: Dialysis, Diabetic Nephropathy, Dialysis, Peritoneal, Other (See Below) Other Genitourinary History: chronic kidney disease stage 4, nephrotic syndrome. also has a fistula in left arm. MANAGER PACU 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 lower leg. Dry and scaley about 3inches in diameter. Non draining. Also has dry area to left marie area. 1 diameter to left marie area. - Infectious Disease History Infectious Disease History: Reports: Chicken Pox Other Infectious Disease History: patient unsure - Past Surgical History HEENT Surgical History: Reports: Cataract Surgery Other Cardiovascular Surgeries/Procedures: Angiogram 2014 Oncologic Surgical History: Reports: None Dermatological Surgical History: Reports: Skin Biopsy Social & Family History - Family History Family Medical History: Noncontributory Cardiac: Reports: [place] Other Cardiac Family History: father from [place] in his 50s Endocrine/Metabolic: Reports: Diabetes, type II Other Hematologic Family History: mother has h/o DVT and is on blood thinners - per pt report - Tobacco Use Smoking Status *Q: Never Smoker Years of Tobacco use: 20 Packs/Tins Daily: 0.2 Used Tobacco, but Quit: Yes Month Tobacco Last Used: 20 years Second Hand Smoke Exposure: No - Caffeine Use Caffeine Use: Reports: None - Recreational Drug Use Recreational Drug Use: No - Living Situation & Occupation Living situation: Reports: with Family Occupation: Employed ED ROS GENERAL - Review of Systems Review Of Systems: ROS reveals no pertinent complaints other than HPI. ED EXAM, SKIN/RASH Exam: See Below Exam Limited By: No Limitations General Appearance: Alert, Moderate Distress Eye Exam: Bilateral Eye: EOMI, Normal Inspection, PERRL (4) Ears: Normal External Exam, Hearing Grossly Normal Nose: Normal Inspection Throat/Mouth: Normal Inspection, Normal Voice, No Airway Compromise Head: Atraumatic, Normocephalic Neck: Normal Inspection, Supple, Non-Tender, Limited Range of Motion Respiratory/Chest: Respiratory Distress, Rales (bilaterally) Cardiovascular: Normal Peripheral Pulses, Regular Rate, Rhythm, No Gallop, No JVD, No Murmur, No Rub Peripheral Pulses: 1+: Dorsalis Pedis (L), Dorsalis Pedis (R), 2+: Radial (L), Radial (R) GI/Abdominal: Normal Bowel Sounds, Soft, Non-Tender, No Organomegaly, No Distention, No Abnormal Bruit, No Mass, Other (PD catheter \) (Female) Exam: Deferred Rectal (Female) Exam: Deferred Back Exam: Normal Inspection, Full Range of Motion Extremities: Leg Pain (LLL), Limited Range of Motion, Increased Warmth ( Darkening of skin in lower legs bilaterally) Neurological: Alert, Oriented, CN II-XII Intact, Normal Cognition, Normal Reflexes, No Motor/Sensory Deficits Psychiatric: Normal Affect, Normal Mood Skin: Warm, Other (hyperpigmented spots on the face, multiple old scarring all over the body) Location, Skin: Generalized Characteristics: Macular, Patchy Lymphatic: No Adenopathy EKG INTERPRETATION EKG Date: 01/08/18 Time: 19:39 Rhythm: A-Flutter Rate (Beats/Min): 132 Comparison: Change From Previous EKG EKG Interpretation Comments: A flutter with 2:1 AV block, Prolonged QT interval Course - Vital Signs Last Recorded V/S: Last Vital Signs Temp 98 F 01/08/18 21:44 Pulse 120 H 01/08/18 21:44 Resp 27 H 01/08/18 21:44 BP 131/67 01/08/18 21:44 Pulse Ox 100 01/08/18 21:44 - Orders/Labs/Meds Orders: Active Orders 24 hr Category Date Time Status EKG Documentation Completion [RC] STAT Care 01/08/18 20:40 Active Peripheral IV Care [RC] . DIRECTED Care 01/08/18 20:43 Active RT Aerosol Therapy [RC] ASDIRECTED Care 01/08/18 21:21 Active CULTURE BLOOD [BC] Stat Lab 01/08/18 21:04 Received CULTURE BLOOD [BC] Stat Lab 01/08/18 21:10 Received Blood Culture x2 Reflex Set [OM.PC] Stat Oth 01/08/18 20:43 Ordered Peripheral IV Insertion Adult [OM.PC] Stat Oth 01/08/18 20:40 Ordered Labs: Laboratory Tests 01/08/18 01/08/18 01/08/18 Range/Units 21:04 21:04 21:04 WBC 6.2 (5.0-10.0) 10^3/uL RBC 3.26 L (4.2-5.4) 10^6/uL Hgb 9.9 L (12.0-16.0) g/dL Hct 31.4 L (37.0-47.0) % MCV 96.3 (80-100) fL MCH 30.4 (27.0-34.0) pg MCHC 31.5 L (33.0-35.0) g/dL Plt Count 187 (150-450) 10^3/uL Neut % (Auto) 67.7 (42.2-75.2) % Lymph % (Auto) 11.7 L (20.5-50.1) % [place] % (Auto) 11.1 H (2-8) % Eos % (Auto) 8.5 H (1.0-3.0) % Baso % (Auto) 1.0 (0.0-1.0) % PT 10.2 (9.0-12.0) SEC INR 1.0 (0.9-1.2) D-Dimer, Quantitative 1230 H (0-400) ng/mL Sodium 135 (135-145) mmol/L Potassium 4.8 (3.6-5.0) mmol/L Chloride 98 L (101-111) mmol/L Carbon Dioxide 24.0 (21.0-31.0) mmol/L Anion Gap 17.8 BUN 52 H (7-18) mg/dL Creatinine 9.0 H D (0.6-1.3) mg/dL Est Cr Clr Drug Dosing 5.67 mL/min Estimated GFR (MDRD) 4 BUN/Creatinine Ratio 5.77 Glucose 196 H (74-105) mg/dL Lactic Acid (0.5-2.2) mmol/L Calcium 7.4 L (8.4-10.2) mg/dl Total Bilirubin 0.8 (0.2-1.0) mg/dL AST 31 (10-42) IU/L ALT 19 (10-60) IU/L Alkaline Phosphatase 217 H (42-121) IU/L Troponin I 0.03 H* (0.00-0.02) ng/ml B-Natriuretic Peptide 4910 H (0-100) pg/ml Total Protein 6.2 L (6.7-8.2) g/dl Albumin 2.7 L (3.2-5.5) g/dl Globulin 3.5 Albumin/Globulin Ratio 0.77 03/12/18 Range/Units 21:04 WBC (5.0-10.0) 10^3/uL RBC (4.2-5.4) 10^6/uL Hgb (12.0-16.0) g/dL Hct (37.0-47.0) % MCV (80-100) fL MCH (27.0-34.0) pg MCHC (33.0-35.0) g/dL Plt Count (150-450) 10^3/uL Neut % (Auto) (42.2-75.2) % Lymph % (Auto) (20.5-50.1) % [place] % (Auto) (2-8) % Eos % (Auto) (1.0-3.0) % Baso % (Auto) (0.0-1.0) % PT (9.0-12.0) SEC INR (0.9-1.2) D-Dimer, Quantitative (0-400) ng/mL Sodium (135-145) mmol/L Potassium (3.6-5.0) mmol/L Chloride (101-111) mmol/L Carbon Dioxide (21.0-31.0) mmol/L Anion Gap BUN (7-18) mg/dL Creatinine (0.6-1.3) mg/dL Est Cr Clr Drug Dosing mL/min Estimated GFR (MDRD) BUN/Creatinine Ratio Glucose (74-105) mg/dL Lactic Acid 1.5 (0.5-2.2) mmol/L Calcium (8.4-10.2) mg/dl Total Bilirubin (0.2-1.0) mg/dL AST (10-42) IU/L ALT (10-60) IU/L Alkaline Phosphatase (42-121) IU/L Troponin I (0.00-0.02) ng/ml B-Natriuretic Peptide (0-100) pg/ml Total Protein (6.7-8.2) g/dl Albumin (3.2-5.5) g/dl Globulin Albumin/Globulin Ratio Meds: Medications Discontinued Medications Generic Name Dose Route Start Last Admin Trade Name Freq PRN Reason Stop Dose Admin Albuterol/Ipratropium 3 ml 01/08/18 21:21 01/08/18 21:26 Duoneb 3.0-0.5 Mg/3 Ml NEB 01/08/18 21:22 3 ml ONETIME ONE Administration Hydromorphone HCl 0.5 mg 01/08/18 21:19 01/08/18 21:25 Dilaudid IVPUSH 01/08/18 21:20 0.5 mg ONETIME ONE Administration Ondansetron HCl 4 mg 01/08/18 21:20 01/08/18 21:23 Zofran IV 01/08/18 21:21 4 mg ONETIME ONE Administration Sodium Chloride 10 ml 01/08/18 20:39 01/08/18 21:19 Saline Flush FLUSH 10 ml ASDIRECTED PRN Administration Keep Vein Open - Radiology Interpretation Free Text/Narrative:: Chest xray: Pulmonary edema new when compared to CR - Chest 1V Frontal 17:06 Possible small pleural effusions See rad report Departure - Departure Time of Disposition: 23:00 Disposition: DC/Tfer to Acute Hospital 02 Condition: Fair, Serious Clinical Impression: Elevated d-dimer, CKD (chronic kidney disease) stage 5, GFR less than 15 ml/min , Pleural effusion Acute exacerbation of CHF (congestive heart failure) Qualifiers: Heart failure type: unspecified Qualified Code(s): I50.9 - Heart failure, unspecified - Discharge Information Referrals: PCP,Unknown [Ordering Only Provider] - Forms: ED Department Discharge, Interfacility Transfer EMTALA - My Orders Last 24 Hours: My Active Orders 01/08/18 20:40 EKG Documentation Completion [RC] STAT Peripheral IV Insertion Adult [OM.PC] Stat 01/08/18 20:43 Peripheral IV Care [RC] . DIRECTED Blood Culture x2 Reflex Set [OM.PC] Stat 01/08/18 21:04 CULTURE BLOOD [BC] Stat 01/08/18 21:10 CULTURE BLOOD [BC] Stat 01/08/18 21:21 RT Aerosol Therapy [RC] ASDIRECTED - Assessment/Plan Last 24 Hours: My Active Orders 01/08/18 20:40 EKG Documentation Completion [RC] STAT Peripheral IV Insertion Adult [OM.PC] Stat 01/08/18 20:43 Peripheral IV Care [RC] . DIRECTED Blood Culture x2 Reflex Set [OM.PC] Stat 01/08/18 21:04 CULTURE BLOOD [BC] Stat 01/08/18 21:10 CULTURE BLOOD [BC] Stat 01/08/18 21:21 RT Aerosol Therapy [RC] ASDIRECTED
--- NOTE | 2018-01-10 09:21 | EKG ---
01/08/2018- MARINA GORDON - EKG per my reading shows atrial fibrillation at a rapid rate with a heart rate in the 130s. MOD /[id number]
== END 2018-01-08 22:50 ==
LOC: DL.ED 20:43
DX: I13.0 Hypertensive heart and chronic kidney disease with heart failure and stage 1 through stage 4 chronic kidney disease, or unspecified chronic kidney disease (principal); I50.9 Heart failure, unspecified; J90 Pleural effusion, not elsewhere classified; N18.4 Chronic kidney disease, stage 4 (severe); E11.21 Type 2 diabetes mellitus with diabetic nephropathy; E11.22 Type 2 diabetes mellitus with diabetic chronic kidney disease; E78.00 Pure hypercholesterolemia, unspecified; Z88.1 Allergy status to other antibiotic agents; Z91.040 Latex allergy status; Z88.8 Allergy status to other drugs, medicaments and biological substances; Z79.899 Other long term (current) drug therapy; Z79.4 Long term (current) use of insulin; Z79.82 Long term (current) use of aspirin; Z87.891 Personal history of nicotine dependence
CPT/HCPCS: 36415; 71045; 80053; 83605; 83880; 84484; 85025; 85379; 85610; 87040; 93005; 93010; 94640; 96374; 96375; 99285; J1170; J2405; J7050

== ENCOUNTER 2018-02-06 10:32 | Emergency (ER) | payer MEDICARE, MEDICAID ==
--- NOTE | 2018-02-06 10:34 | EDM.PDOC ---
ED HPI GENERAL MEDICAL PROBLEM - General Chief Complaint: Respiratory Problem Stated Complaint: in by [facility] AMB. SOB Time Seen by Provider: 02/06/18 10:32 Source of Information: Reports: Patient, EMS, Old Records, RN, RN Notes Reviewed History Limitations: Reports: No Limitations - History of Present Illness INITIAL COMMENTS - FREE TEXT/NARRATIVE: Arrives from home by ambulance with c/o SOB. Peritoneal dialysis pt with report of clear effluent run off. Denies fever, chills, or vomiting. Admits to dry cough, orthopnea, and chest pressure. However, pt states the chest pressure is chronic and has been evaluated many times over the past year or two. Pt was transferred to [facility] 01/08/18 with CHF/Pulm. edema. Onset: Gradual Duration: Chronic, Constant, Waxing/Waning Location: Reports: Chest Severity: Severe Improves with: Reports: None Worsens with: Reports: None Treatments RN ORTHOPAEDIC: Reports: Breathing Treatments, Oxygen Left Chest Pain Score (Numeric/FACES): 8 - Related Data Allergies Allergy/AdvReac Type Severity Reaction Status Date / Time lidocaine Allergy Intermediate Swelling Verified 01/08/18 21:35 amoxicillin trihydrate Allergy Rash Verified 01/08/18 21:35 [From Amoxil] latex Allergy Rash Verified 01/08/18 21:35 lisinopril Allergy Headache Verified 01/08/18 21:35 Home Meds: Home Meds Bumetanide 2 mg PO BID 12/21/15 [History] Calcium Acetate [Phoslo] 2 cap PO BID 03/29/16 [History] Insulin Aspart [Novolog Flexpen] 5 unit SQ ASDIRECTED PRN 05/17/16 [History] Metoprolol Succinate [Toprol XL 100mg] 100 mg PO BID 05/17/16 [History] Amarilys.Dialysis Soln28 &Ico 7.5% [Extraneal Icodextrin Dialysis] 1,500 ml IP ASDIRECTED 08/31/16 [History] Acetaminophen [Tylenol] 1,000 mg PO Q6H PRN 11/03/16 [History] Mupirocin Cream [Bactroban Crm] 1 applic TOP DAILY 11/03/16 [History] Metoclopramide [Reglan] 1 tab PO TIDAC PRN 03/14/17 [History] Sodium Bicarbonate 1 tab PO BID 03/14/17 [History] Aspirin [Halfprin] 81 mg PO DAILY 01/08/18 [History] Doxycycline [Vibramycin] 100 mg PO DAILY 01/08/18 [History] Past Medical History HEENT History: Reports: Cataract Cardiovascular History: Reports: Afib, CAD, Heart Failure, High Cholesterol, Hypertension, Pacemaker, Other (See Below) Other Cardiovascular History: hx of bilateral lower extremity edema Respiratory History: Reports: SOB Other Respiratory History: From CHF Gastrointestinal History: Reports: Other (See Below) Other Gastrointestinal History: gastroparesis diabeticorum Genitourinary History: Reports: Dialysis, Diabetic Nephropathy, Dialysis, Peritoneal, Other (See Below) Other Genitourinary History: chronic kidney disease stage 4, nephrotic syndrome 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 lower leg. Dry and scaley about 3inches in diameter. Non draining. Also has dry area to left marie area. 1 diameter to left marie area. - Infectious Disease History Infectious Disease History: Reports: Chicken Pox Other Infectious Disease History: patient unsure - Past Surgical History HEENT Surgical History: Reports: Cataract Surgery Other Cardiovascular Surgeries/Procedures: Angiogram 2015 Oncologic Surgical History: Reports: None Dermatological Surgical History: Reports: Skin Biopsy Social & Family History - Family History Family Medical History: Noncontributory Cardiac: Reports: [place] Other Cardiac Family History: father from [place] in his 50s Endocrine/Metabolic: Reports: Diabetes, type II Other Hematologic Family History: mother has h/o DVT and is on blood thinners - per pt report - Tobacco Use Smoking Status *Q: Never Smoker Years of Tobacco use: 20 Packs/Tins Daily: 0.2 Used Tobacco, but Quit: Yes Month/Year Tobacco Last Used: 20 years Second Hand Smoke Exposure: No - Caffeine Use Caffeine Use: Reports: None - Recreational Drug Use Recreational Drug Use: No - Living Situation & Occupation Living situation: Reports: with Family Occupation: Employed ED ROS GENERAL - Review of Systems Review Of Systems: ROS reveals no pertinent complaints other than HPI. ED EXAM, GENERAL - Physical Exam Exam: See Below Exam Limited By: No Limitations General Appearance: Alert, No Apparent Distress, Other (chronically ill, but non -toxic appearing) Eye Exam: Bilateral Eye: Normal Inspection Ears: Hearing Grossly Normal Nose: Normal Inspection Throat/Mouth: Normal Voice, No Airway Compromise Head: Atraumatic, Normocephalic Neck: Normal Inspection, Supple, Non-Tender, Full Range of Motion Respiratory/Chest: No Respiratory Distress, No Accessory Muscle Use, Decreased Breath Sounds, Crackles, Rales Cardiovascular: Regular Rate, Rhythm GI/Abdominal: Normal Bowel Sounds, Soft, No Distention, Tender (mild generalized tenderness). No: Guarding, Rigid, Rebound (Female) Exam: Deferred Rectal (Female) Exam: Deferred Extremities: Normal Range of Motion, Pedal Edema (+1 pitting B/L to lower legs) , Leg Pain (chronic/stable), Other (chronic B/L lower extremity venous statis changes). No: Monika's Sign Neurological: Alert, Oriented, Normal Cognition, No Motor/Sensory Deficits Psychiatric: Anxious Skin Exam: Warm, Dry, Intact, No Rash EKG INTERPRETATION EKG Date: 02/06/18 Time: 10:52 Rhythm: A-Fib Rate (Beats/Min): 109 [place]: Other (low voltage) P-Wave: Absent QRS: Normal (low voltage) ST-T: Other (nonspecific repol. abnl. lateral leads) QT: Prolonged Comparison: No Change Course - Vital Signs Last Recorded V/S: Last Vital Signs Temp 36.6 C 02/06/18 10:34 Pulse 87 02/06/18 10:34 Resp 22 H 02/06/18 10:34 BP 134/59 L 02/06/18 10:34 Pulse Ox 100 02/06/18 10:34 - Orders/Labs/Meds Orders: Active Orders 24 hr Category Date Time Status EKG 12 Lead [EKG Documentation Completion] [RC] STAT Care 02/06/18 10:37 Active Peripheral IV Care [RC] . DIRECTED Care 02/06/18 10:39 Active Chest 1V Frontal [CR] Stat Exams 02/06/18 10:37 Taken CULTURE BLOOD [BC] Stat Lab 02/06/18 10:44 Results CULTURE BLOOD [BC] Stat Lab 02/06/18 10:50 Received UA W/MICROSCOPIC [URIN] Stat Lab 02/06/18 11:35 Ordered Sodium Chloride 0.9% [Saline Flush] Med 02/06/18 10:36 Active 10 ml FLUSH ASDIRECTED PRN Blood Culture x2 Reflex Set [OM.PC] Stat Oth 02/06/18 10:37 Ordered Peripheral IV Insertion Adult [OM.PC] Stat Oth 02/06/18 10:37 Ordered Medication Orders Sodium Chloride (Saline Flush) 10 ml FLUSH ASDIRECTED PRN PRN Reason: Keep Vein Open Last Admin: 02/06/18 10:49 Dose: 10 ml Labs: Laboratory Tests 02/06/18 02/06/18 02/06/18 Range/Units 10:50 10:50 10:50 WBC 5.5 (5.0-10.0) 10^3/uL RBC 3.67 L (4.2-5.4) 10^6/uL Hgb 11.1 L (12.0-16.0) g/dL Hct 34.8 L (37.0-47.0) % MCV 94.8 (80-100) fL MCH 30.2 (27.0-34.0) pg MCHC 31.9 L (33.0-35.0) g/dL Plt Count 191 (150-450) 10^3/uL Neut % (Auto) 65.9 (42.2-75.2) % Lymph % (Auto) 14.8 L (20.5-50.1) % [place] % (Auto) 9.7 H (2-8) % Eos % (Auto) 8.9 H (1.0-3.0) % Baso % (Auto) 0.7 (0.0-1.0) % Sodium 138 (135-145) mmol/L Potassium 4.5 (3.6-5.0) mmol/L Chloride 100 L (101-111) mmol/L Carbon Dioxide 25.0 (21.0-31.0) mmol/L Anion Gap 17.5 BUN 54 H (7-18) mg/dL Creatinine 9.8 H (0.6-1.3) mg/dL Est Cr Clr Drug Dosing 5.21 mL/min Estimated GFR (MDRD) 4 BUN/Creatinine Ratio 5.51 Glucose 115 H (74-105) mg/dL Lactic Acid (0.5-2.2) mmol/L Calcium 7.6 L (8.4-10.2) mg/dl Total Bilirubin 0.9 (0.2-1.0) mg/dL AST 17 (10-42) IU/L ALT 12 (10-60) IU/L Alkaline Phosphatase 190 H (42-121) IU/L Creatine Kinase 187 H (26-174) IU/L Creatine Kinase Index 2.2 (0-2.4) % CK-MB (CK-2) 4.10 (0.4-4.7) ng/mL Troponin I 0.02 (0.00-0.02) ng/ml B-Natriuretic Peptide > 5000 H (0-100) pg/ml Total Protein 6.3 L (6.7-8.2) g/dl Albumin 2.9 L (3.2-5.5) g/dl Globulin 3.4 Albumin/Globulin Ratio 0.85 04/10/18 Range/Units 10:50 WBC (5.0-10.0) 10^3/uL RBC (4.2-5.4) 10^6/uL Hgb (12.0-16.0) g/dL Hct (37.0-47.0) % MCV (80-100) fL MCH (27.0-34.0) pg MCHC (33.0-35.0) g/dL Plt Count (150-450) 10^3/uL Neut % (Auto) (42.2-75.2) % Lymph % (Auto) (20.5-50.1) % [place] % (Auto) (2-8) % Eos % (Auto) (1.0-3.0) % Baso % (Auto) (0.0-1.0) % Sodium (135-145) mmol/L Potassium (3.6-5.0) mmol/L Chloride (101-111) mmol/L Carbon Dioxide (21.0-31.0) mmol/L Anion Gap BUN (7-18) mg/dL Creatinine (0.6-1.3) mg/dL Est Cr Clr Drug Dosing mL/min Estimated GFR (MDRD) BUN/Creatinine Ratio Glucose (74-105) mg/dL Lactic Acid 1.0 (0.5-2.2) mmol/L Calcium (8.4-10.2) mg/dl Total Bilirubin (0.2-1.0) mg/dL AST (10-42) IU/L ALT (10-60) IU/L Alkaline Phosphatase (42-121) IU/L Creatine Kinase (26-174) IU/L Creatine Kinase Index (0-2.4) % CK-MB (CK-2) (0.4-4.7) ng/mL Troponin I (0.00-0.02) ng/ml B-Natriuretic Peptide (0-100) pg/ml Total Protein (6.7-8.2) g/dl Albumin (3.2-5.5) g/dl Globulin Albumin/Globulin Ratio Meds: Medications Generic Name Dose Route Start Last Admin Trade Name Freq PRN Reason Stop Dose Admin Sodium Chloride 10 ml 02/06/18 10:36 02/06/18 10:49 Saline Flush FLUSH 10 ml ASDIRECTED PRN Administration Keep Vein Open Discontinued Medications Generic Name Dose Route Start Last Admin Trade Name Freq PRN Reason Stop Dose Admin Bumetanide 1 mg 02/06/18 11:13 02/06/18 11:33 Bumex IVPUSH 02/06/18 11:14 1 mg ONETIME ONE Administration - Radiology Interpretation Free Text/Narrative:: CXR: chronic cardiomegaly, increased pulm. vascular congestion, worse than previous study, suspicious solid mass at left lower lobe >doubled in size compared to 01/08/18 CXR per Rad. report. Departure - Departure Time of Disposition: 11:44 Disposition: DC/Tfer to Acute Hospital 02 Condition: Serious Clinical Impression: CHF, Congestive heart failure, Mass of lower lobe of left lung, End-stage renal disease on peritoneal dialysis Acute exacerbation of CHF (congestive heart failure) Qualifiers: Heart failure type: unspecified Qualified Code(s): I50.9 - Heart failure, unspecified Volume overload Qualifiers: Hypervolemia type: other Qualified Code(s): E87.79 - Other fluid overload - Discharge Information Forms: ED Department Discharge, Interfacility Transfer EMTALA - My Orders Last 24 Hours: My Active Orders 02/06/18 10:36 Sodium Chloride 0.9% [Saline Flush] 10 ml FLUSH ASDIRECTED PRN 02/06/18 10:37 EKG 12 Lead [EKG Documentation Completion] [RC] STAT Chest 1V Frontal [CR] Stat Blood Culture x2 Reflex Set [OM.PC] Stat Peripheral IV Insertion Adult [OM.PC] Stat 02/06/18 10:39 Peripheral IV Care [RC] . DIRECTED 02/06/18 10:44 CULTURE BLOOD [BC] Stat 02/06/18 10:50 CULTURE BLOOD [BC] Stat 02/06/18 11:35 UA W/MICROSCOPIC [URIN] Stat - Assessment/Plan Last 24 Hours: My Active Orders 02/06/18 10:36 Sodium Chloride 0.9% [Saline Flush] 10 ml FLUSH ASDIRECTED PRN 02/06/18 10:37 EKG 12 Lead [EKG Documentation Completion] [RC] STAT Chest 1V Frontal [CR] Stat Blood Culture x2 Reflex Set [OM.PC] Stat Peripheral IV Insertion Adult [OM.PC] Stat 02/06/18 10:39 Peripheral IV Care [RC] . DIRECTED 02/06/18 10:44 CULTURE BLOOD [BC] Stat 02/06/18 10:50 CULTURE BLOOD [BC] Stat 02/06/18 11:35 UA W/MICROSCOPIC [URIN] Stat
[2018-02-06] MEDS ORDERED: Sodium Chloride 0.9% 10 ML Syringe FLUSH PRN (10:36)
[2018-02-06 10:38] VITALS: BP 134/59
[2018-02-06] MEDS ORDERED: Bumetanide 1 MG/4 ML MDV IVPUSH ONE (11:13)
[2018-02-06 11:21] LABS: ANION GAP 17.5; CHLORIDE,CL 100 mmol/L (101-111); SODIUM,NA 138 mmol/L (135-145)
[2018-02-06] MEDS ORDERED: HYDROmorphone 0.5 MG/0.5 ML Syringe IVPUSH ONE (12:17)
--- NOTE | 2018-02-06 13:20 | CR ---
CLINICAL HISTORY: 62-year-old renal dialysis patient history of "CHF" now complaining of shortness of breath (orthopnea). INTERPRETATION: Abnormal. Bibasilar dependent new subpulmonic pleural fluid collections and generalized florid increased pulmon [place] venous congestion with cephalization since 25 November 2017 exam this patient with chronic mild ca rdiomegaly. Cardiac pacemaker leads intact. NOTE: Nodular mass lesion in the left lung that may have been present on 08 January 2018 exam but sligh tly larger today. Suggests considering CT scan after resolving patient's CHF. Underlying atelectasis or infiltrate poss ible in the right lung base as well. CONCLUSION: CHF.
--- NOTE | 2018-02-07 12:23 | EKG ---
02/06/2018 - MARINA GORDON - TIME: 10:32 a.m. After my reading, EKG shows atrial fibrillation. [facility] /[id number]
--- NOTE | 2018-02-07 12:41 | EKG ---
02/06/2018 - MARINA GORDON - TIME: 10:52 a.m. As per my reading, atrial fibrillation. [facility] /[id number]
== END 2018-02-06 12:28 ==
LOC: DL.ED 10:32
DX: I13.2 Hypertensive heart and chronic kidney disease with heart failure and with stage 5 chronic kidney disease, or end stage renal disease (principal); I50.9 Heart failure, unspecified; N18.6 End stage renal disease; E87.79 Other fluid overload; R91.8 Other nonspecific abnormal finding of lung field; E11.21 Type 2 diabetes mellitus with diabetic nephropathy; E11.22 Type 2 diabetes mellitus with diabetic chronic kidney disease; E78.00 Pure hypercholesterolemia, unspecified; Z88.8 Allergy status to other drugs, medicaments and biological substances; Z88.1 Allergy status to other antibiotic agents; Z91.040 Latex allergy status; Z79.899 Other long term (current) drug therapy; Z79.82 Long term (current) use of aspirin; Z79.4 Long term (current) use of insulin; Z87.891 Personal history of nicotine dependence
CPT/HCPCS: 36415; 71045; 80053; 81001; 82550; 82553; 83605; 83880; 84484; 85025; 87040; 93005; 93010; 96374; 96375; 99285; J1170; J7050; S0171

== ENCOUNTER 2018-03-06 09:46 | Emergency (ER) | payer MEDICARE, MEDICAID ==
--- NOTE | 2018-03-06 09:56 | EDM.PDOC ---
ED HPI GENERAL MEDICAL PROBLEM - General Chief Complaint: Chest Pain Stated Complaint: CHEST PAIN. IN BY AMB Time Seen by Provider: 03/06/18 09:56 Source of Information: Reports: Patient, EMS, EMS Notes Reviewed, RN, RN Notes Reviewed History Limitations: Reports: No Limitations - History of Present Illness INITIAL COMMENTS - FREE TEXT/NARRATIVE: Pt presents to ER per [facility] with c/o rapid heart rate, atrial fib, and chest pain , SOB. She states she awoke at 0300 with chest pain and felt that her heart rate was in atrial fib and rapid. She states the pain is worse this time than it has been in the past. She c/o a headache as well as nausea. She states she has had a fever and chills at home. Onset: Today, Sudden Head Pain Score (Numeric/FACES): 6 - Related Data Allergies Allergy/AdvReac Type Severity Reaction Status Date / Time lidocaine Allergy Intermediate Swelling Verified 01/08/18 21:35 amoxicillin trihydrate Allergy Rash Verified 01/08/18 21:35 [From Amoxil] latex Allergy Rash Verified 01/08/18 21:35 lisinopril Allergy Headache Verified 01/08/18 21:35 Home Meds: Home Meds Bumetanide 2 mg PO BID 12/21/15 [History] Calcium Acetate [Phoslo] 2 cap PO BID 03/29/16 [History] Insulin Aspart [Novolog Flexpen] 5 unit SQ ASDIRECTED PRN 05/17/16 [History] Metoprolol Succinate [Toprol XL 100mg] 100 mg PO BID 05/17/16 [History] Amarilys.Dialysis Soln28 &Ico 7.5% [Extraneal Icodextrin Dialysis] 1,500 ml IP ASDIRECTED 08/31/16 [History] Acetaminophen [Tylenol] 1,000 mg PO Q6H PRN 11/03/16 [History] Mupirocin Cream [Bactroban Crm] 1 applic TOP DAILY 11/03/16 [History] Metoclopramide [Reglan] 1 tab PO TIDAC PRN 03/14/17 [History] Sodium Bicarbonate 1 tab PO BID 03/14/17 [History] Aspirin [Halfprin] 81 mg PO DAILY 01/08/18 [History] Doxycycline [Vibramycin] 100 mg PO DAILY 01/08/18 [History] Past Medical History HEENT History: Reports: Cataract Cardiovascular History: Reports: Afib, CAD, Heart Failure, High Cholesterol, Hypertension, Pacemaker, Other (See Below) Other Cardiovascular History: hx of bilateral lower extremity edema Respiratory History: Reports: SOB Other Respiratory History: From CHF Gastrointestinal History: Reports: Other (See Below) Other Gastrointestinal History: gastroparesis diabeticorum Genitourinary History: Reports: Dialysis, Diabetic Nephropathy, Dialysis, Peritoneal, Other (See Below) Other Genitourinary History: chronic kidney disease stage 4, nephrotic syndrome 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 lower leg. Dry and scaley about 3inches in diameter. Non draining. Also has dry area to left marie area. 1 diameter to left marie area. - Infectious Disease History Infectious Disease History: Reports: Chicken Pox Other Infectious Disease History: patient unsure - Past Surgical History HEENT Surgical History: Reports: Cataract Surgery Other Cardiovascular Surgeries/Procedures: Angiogram 2015 Oncologic Surgical History: Reports: None Dermatological Surgical History: Reports: Skin Biopsy Social & Family History - Family History Family Medical History: Noncontributory Cardiac: Reports: [place] Other Cardiac Family History: father from [place] in his 50s Endocrine/Metabolic: Reports: Diabetes, type II Other Hematologic Family History: mother has h/o DVT and is on blood thinners - per pt report - Tobacco Use Smoking Status *Q: Never Smoker Years of Tobacco use: 20 Packs/Tins Daily: 0.2 Used Tobacco, but Quit: Yes Month/Year Tobacco Last Used: 20 years Second Hand Smoke Exposure: No - Caffeine Use Caffeine Use: Reports: None - Recreational Drug Use Recreational Drug Use: No - Living Situation & Occupation Living situation: Reports: with Family Occupation: Employed ED ROS GENERAL - Review of Systems Review Of Systems: ROS reveals no pertinent complaints other than HPI. ED EXAM, GENERAL - Physical Exam Exam: See Below Exam Limited By: No Limitations General Appearance: Alert, WD/WN, No Apparent Distress Eye Exam: Bilateral Eye: EOMI, Normal Inspection Ears: Normal External Exam, Hearing Grossly Normal Nose: Normal Inspection Throat/Mouth: Normal Inspection, Normal Voice, No Airway Compromise Head: Atraumatic, Normocephalic Neck: Normal Inspection, Supple, Non-Tender Respiratory/Chest: No Respiratory Distress, No Accessory Muscle Use, Decreased Breath Sounds, Crackles (bases bilat) Cardiovascular: Irregularly Irregular (atrial fib, rapid rate) Peripheral Pulses: 1+: Radial (L), Radial (R) GI/Abdominal: Normal Bowel Sounds, Soft, Non-Tender (Female) Exam: Deferred Rectal (Female) Exam: Deferred Back Exam: Normal Inspection Extremities: Normal Inspection, Normal Range of Motion, Non-Tender Neurological: Alert, Oriented, No Motor/Sensory Deficits Psychiatric: Normal Affect, Normal Mood Skin Exam: Warm, Dry, Other (open sores on the face, several) Lymphatic: No Adenopathy EKG INTERPRETATION EKG Date: 03/06/18 Time: 10:01 Rhythm: A-Fib Rate (Beats/Min): 112 Course - Vital Signs Last Recorded V/S: Last Vital Signs Temp 97.6 F 03/06/18 11:15 Pulse 91 03/06/18 11:15 Resp 20 03/06/18 11:15 BP 120/62 03/06/18 11:15 Pulse Ox 98 03/06/18 11:15 - Orders/Labs/Meds Orders: Active Orders 24 hr Category Date Time Status EKG Documentation Completion [RC] STAT Care 03/06/18 09:55 Active Peripheral IV Care [RC] . DIRECTED Care 03/06/18 09:55 Active CULTURE BLOOD [BC] Stat Lab 03/06/18 09:58 Results CULTURE BLOOD [BC] Stat Lab 03/06/18 10:03 Received INFLUENZA A+B AG SCREEN [RM] Stat Lab 03/06/18 10:37 Ordered Blood Culture x2 Reflex Set [OM.PC] Stat Oth 03/06/18 09:55 Ordered Peripheral IV Insertion Adult [OM.PC] Stat Oth 03/06/18 09:55 Ordered Labs: Laboratory Tests 03/06/18 03/06/18 03/06/18 Range/Units 10:03 10:03 10:03 WBC 6.9 (5.0-10.0) 10^3/uL RBC 3.50 L (4.2-5.4) 10^6/uL Hgb 10.6 L (12.0-16.0) g/dL Hct 33.1 L (37.0-47.0) % MCV 94.6 (80-100) fL MCH 30.3 (27.0-34.0) pg MCHC 32.0 L (33.0-35.0) g/dL Plt Count 209 (150-450) 10^3/uL Neut % (Auto) 73.4 (42.2-75.2) % Lymph % (Auto) 10.5 L (20.5-50.1) % [place] % (Auto) 8.2 H (2-8) % Eos % (Auto) 7.3 H (1.0-3.0) % Baso % (Auto) 0.6 (0.0-1.0) % PT 10.4 (9.0-12.0) SEC INR 1.0 (0.9-1.2) Sodium 136 (135-145) mmol/L Potassium 4.8 (3.6-5.0) mmol/L Chloride 99 L (101-111) mmol/L Carbon Dioxide 24.0 (21.0-31.0) mmol/L Anion Gap 17.8 BUN 58 H (7-18) mg/dL Creatinine 8.8 H (0.6-1.3) mg/dL Est Cr Clr Drug Dosing TNP Estimated GFR (MDRD) 5 BUN/Creatinine Ratio 6.59 Glucose 137 H (74-105) mg/dL Lactic Acid (0.5-2.2) mmol/L Calcium 8.1 L (8.4-10.2) mg/dl Total Bilirubin 0.7 (0.2-1.0) mg/dL AST 15 (10-42) IU/L ALT 10 (10-60) IU/L Alkaline Phosphatase 173 H (42-121) IU/L Creatine Kinase (26-174) IU/L Creatine Kinase Index (0-2.4) % CK-MB (CK-2) (0.4-4.7) ng/mL Troponin I 0.03 H* (0.00-0.02) ng/ml B-Natriuretic Peptide 4900 H (0-100) pg/ml Total Protein 6.1 L (6.7-8.2) g/dl Albumin 2.8 L (3.2-5.5) g/dl Globulin 3.3 Albumin/Globulin Ratio 0.85 03/06/18 03/06/18 Range/Units 10:03 10:03 WBC (5.0-10.0) 10^3/uL RBC (4.2-5.4) 10^6/uL Hgb (12.0-16.0) g/dL Hct (37.0-47.0) % MCV (80-100) fL MCH (27.0-34.0) pg MCHC (33.0-35.0) g/dL Plt Count (150-450) 10^3/uL Neut % (Auto) (42.2-75.2) % Lymph % (Auto) (20.5-50.1) % [place] % (Auto) (2-8) % Eos % (Auto) (1.0-3.0) % Baso % (Auto) (0.0-1.0) % PT (9.0-12.0) SEC INR (0.9-1.2) Sodium (135-145) mmol/L Potassium (3.6-5.0) mmol/L Chloride (101-111) mmol/L Carbon Dioxide (21.0-31.0) mmol/L Anion Gap BUN (7-18) mg/dL Creatinine (0.6-1.3) mg/dL Est Cr Clr Drug Dosing Estimated GFR (MDRD) BUN/Creatinine Ratio Glucose (74-105) mg/dL Lactic Acid 0.9 (0.5-2.2) mmol/L Calcium (8.4-10.2) mg/dl Total Bilirubin (0.2-1.0) mg/dL AST (10-42) IU/L ALT (10-60) IU/L Alkaline Phosphatase (42-121) IU/L Creatine Kinase 154 (26-174) IU/L Creatine Kinase Index 2.5 H (0-2.4) % CK-MB (CK-2) 3.90 (0.4-4.7) ng/mL Troponin I (0.00-0.02) ng/ml B-Natriuretic Peptide (0-100) pg/ml Total Protein (6.7-8.2) g/dl Albumin (3.2-5.5) g/dl Globulin Albumin/Globulin Ratio Meds: Medications Discontinued Medications Generic Name Dose Route Start Last Admin Trade Name Freq PRN Reason Stop Dose Admin Acetaminophen 650 mg 03/06/18 10:54 03/06/18 11:05 Tylenol PO 03/06/18 10:55 650 mg NOW ONE Administration Diltiazem HCl 20 mg 03/06/18 10:59 03/06/18 11:05 Diltiazem IVPUSH 03/06/18 11:00 20 mg ONETIME ONE Administration Morphine Sulfate 2 mg 03/06/18 10:21 03/06/18 10:31 Morphine IVPUSH 03/06/18 10:22 2 mg ONETIME ONE Administration Ondansetron HCl 4 mg 03/06/18 10:29 03/06/18 10:32 Zofran IV 03/06/18 10:30 4 mg ONETIME ONE Administration Sodium Chloride 10 ml 03/06/18 09:55 03/06/18 10:32 Saline Flush FLUSH 10 ml ASDIRECTED PRN Administration Keep Vein Open - Radiology Interpretation Free Text/Narrative:: Chest x-ray: Borderline cardiomegaly with large dependent subpulmonic pleural effusions new since Jun 14, 2017 See rad report Departure - Departure Time of Disposition: 11:13 Disposition: DC/Tfer to [facility] 02 Reason for Transfer *Q: Other Condition: Fair Clinical Impression: Elevated troponin, Peritoneal dialysis catheter in place CHF (congestive heart failure) Qualifiers: Heart failure type: unspecified Heart failure chronicity: chronic Qualified Code(s): I50.9 - Heart failure, unspecified Chest pain Qualifiers: Chest pain type: unspecified Qualified Code(s): R07.9 - Chest pain, unspecified Referrals: Nile Reed MD [Primary Care Provider] - Forms: ED Department Discharge, Interfacility Transfer [facility]OR[facility] - My Orders Last 24 Hours: My Active Orders 03/06/18 09:55 EKG Documentation Completion [RC] STAT Peripheral IV Care [RC] . DIRECTED Blood Culture x2 Reflex Set [OM.PC] Stat Peripheral IV Insertion Adult [OM.PC] Stat 03/06/18 09:58 CULTURE BLOOD [BC] Stat 03/06/18 10:03 CULTURE BLOOD [BC] Stat 03/06/18 10:37 INFLUENZA A+B AG SCREEN [RM] Stat - Assessment/Plan Last 24 Hours: My Active Orders 03/06/18 09:55 EKG Documentation Completion [RC] STAT Peripheral IV Care [RC] . DIRECTED Blood Culture x2 Reflex Set [OM.PC] Stat Peripheral IV Insertion Adult [OM.PC] Stat 03/06/18 09:58 CULTURE BLOOD [BC] Stat 03/06/18 10:03 CULTURE BLOOD [BC] Stat 03/06/18 10:37 INFLUENZA A+B AG SCREEN [RM] Stat
[2018-03-06] MEDS: Sodium Chloride 0.9% 10 ML Syringe FLUSH PRN ×2 (10:04→10:32)
[2018-03-06] MEDS ORDERED: Morphine 2 MG/ML Syringe IVPUSH ONE (10:21)
[2018-03-06] MEDS ORDERED: Ondansetron 4 MG/2 ML SDV IV ONE (10:29)
[2018-03-06 10:36] LABS: ANION GAP 17.8; CHLORIDE,CL 99 mmol/L (101-111); SODIUM,NA 136 mmol/L (135-145)
--- NOTE | 2018-03-06 10:41 | CR ---
CLINICAL HISTORY: 62-year-old female with history of heart disease and now chest pain. INTERPRETATION: Upright AP portable chest film abnormal, i.e., borderline cardiomegaly with large dep endent subpulmonic pleural effusions new since 14 June 2017 exam and increased when compared to sub sequent 08 January and 06 February 2018 films (pulmonary vascularity less congested than on 06 February 2018) . Cardiac pacemaker leads appear to be intact (external cardiac tech leads and oxygen cannula). No new lung mass, hilar lymphadenopathy or focal lobar pneumonia.
[2018-03-06] MEDS ORDERED: Acetaminophen 325 MG Tab PO ONE (10:54)
[2018-03-06] MEDS ORDERED: Diltiazem 25 MG/5 ML SDV IVPUSH ONE (10:59)
[2018-03-06 11:36] VITALS: BP 120/62
--- NOTE | 2018-03-08 07:20 | EKG ---
03/06/2018- MARINA GORDON - EKG per my reading shows atrial fibrillation with rapid ventricular rate with heart rate in the one teens. [facility] /[id number]
== END 2018-03-06 11:45 ==
LOC: DL.ED 09:46
DX: I13.0 Hypertensive heart and chronic kidney disease with heart failure and stage 1 through stage 4 chronic kidney disease, or unspecified chronic kidney disease (principal); I50.9 Heart failure, unspecified; N18.4 Chronic kidney disease, stage 4 (severe); R79.89 Other specified abnormal findings of blood chemistry; E11.21 Type 2 diabetes mellitus with diabetic nephropathy; E11.22 Type 2 diabetes mellitus with diabetic chronic kidney disease; I25.10 Atherosclerotic heart disease of native coronary artery without angina pectoris; E78.00 Pure hypercholesterolemia, unspecified; Z49.02 Encounter for fitting and adjustment of peritoneal dialysis catheter; Z79.4 Long term (current) use of insulin; Z88.1 Allergy status to other antibiotic agents; Z91.040 Latex allergy status; Z88.8 Allergy status to other drugs, medicaments and biological substances; Z79.899 Other long term (current) drug therapy; Z79.82 Long term (current) use of aspirin; Z87.891 Personal history of nicotine dependence
CPT/HCPCS: 36415; 71045; 80053; 82550; 82553; 83605; 83880; 84484; 85025; 85610; 87040; 87804; 93005; 93010; 96374; 96375; 99285; A9270; J2270; J2405; J3490; J7050

== ENCOUNTER 2018-03-09 23:26 | Emergency (ER) | payer MEDICARE, MEDICAID ==
[2018-03-10 00:01] VITALS: BP 140/51
--- NOTE | 2018-03-10 00:31 | EDM.PDOC ---
ED HPI GENERAL MEDICAL PROBLEM - General Chief Complaint: Abdominal Pain Stated Complaint: IN BY AMBULANCE Time Seen by Provider: 03/10/18 00:02 Source of Information: Reports: Patient, EMS, EMS Notes Reviewed, RN, RN Notes Reviewed History Limitations: Reports: No Limitations - History of Present Illness INITIAL COMMENTS - FREE TEXT/NARRATIVE: Pt presents to the ER per [facility] with c/o chest pains. She states the chest pains began this evening and did not let up. She states she was just released a few days ago from [facility]. Patient states that she had some SOB with the chest pains. Upon arrival the patient is sitting up at the bedside laughing and joking. She states the chest pain has resolved since arriving in the ER. Denies N/V/D, fever or chills. 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, IV/IO, Nitroglycerin - Related Data Allergies Allergy/AdvReac Type Severity Reaction Status Date / Time lidocaine Allergy Intermediate Swelling Verified 03/10/18 00:01 amoxicillin trihydrate Allergy Rash Verified 03/10/18 00:01 [From Amoxil] latex Allergy Rash Verified 03/10/18 00:01 lisinopril Allergy Headache Verified 03/10/18 00:01 Home Meds: Home Meds Bumetanide 2 mg PO BID 12/21/15 [History] Calcium Acetate [Phoslo] 2 cap PO BID 03/29/16 [History] Insulin Aspart [Novolog Flexpen] 5 unit SQ ASDIRECTED PRN 05/17/16 [History] Metoprolol Succinate [Toprol XL 100mg] 100 mg PO BID 05/17/16 [History] Amarilys.Dialysis Soln28 &Ico 7.5% [Extraneal Icodextrin Dialysis] 1,500 ml IP ASDIRECTED 08/31/16 [History] Acetaminophen [Tylenol] 1,000 mg PO Q6H PRN 11/03/16 [History] Mupirocin Cream [Bactroban Crm] 1 applic TOP DAILY 11/03/16 [History] Metoclopramide [Reglan] 1 tab PO TIDAC PRN 03/14/17 [History] Sodium Bicarbonate 1 tab PO BID 03/14/17 [History] Aspirin [Halfprin] 81 mg PO DAILY 01/08/18 [History] Doxycycline [Vibramycin] 100 mg PO DAILY 01/08/18 [History] Past Medical History HEENT History: Reports: Cataract Cardiovascular History: Reports: Afib, CAD, Heart Failure, High Cholesterol, Hypertension, Pacemaker, Other (See Below) Other Cardiovascular History: hx of bilateral lower extremity edema Respiratory History: Reports: SOB Other Respiratory History: From CHF Gastrointestinal History: Reports: Other (See Below) Other Gastrointestinal History: gastroparesis diabeticorum Genitourinary History: Reports: Dialysis, Diabetic Nephropathy, Dialysis, Peritoneal, Other (See Below) Other Genitourinary History: chronic kidney disease stage 4, nephrotic syndrome 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 lower leg. Dry and scaley about 3inches in diameter. Non draining. Also has dry area to left marie area. 1 diameter to left marie area. - Infectious Disease History Infectious Disease History: Reports: Chicken Pox Other Infectious Disease History: patient unsure - Past Surgical History HEENT Surgical History: Reports: Cataract Surgery Other Cardiovascular Surgeries/Procedures: Angiogram 2015 Oncologic Surgical History: Reports: None Dermatological Surgical History: Reports: Skin Biopsy Social & Family History - Family History Family Medical History: Noncontributory Cardiac: Reports: [place] Other Cardiac Family History: father from [place] in his 50s Endocrine/Metabolic: Reports: Diabetes, type II Other Hematologic Family History: mother has h/o DVT and is on blood thinners - per pt report - Tobacco Use Smoking Status *Q: Never Smoker - Caffeine Use Caffeine Use: Reports: None - Recreational Drug Use Recreational Drug Use: No - Living Situation & Occupation Living situation: Reports: with Family Occupation: Employed ED ROS GENERAL - Review of Systems Review Of Systems: ROS reveals no pertinent complaints other than HPI. ED EXAM, GENERAL - Physical Exam Exam: See Below Exam Limited By: No Limitations General Appearance: Alert, WD/WN, No Apparent Distress Eye Exam: Bilateral Eye: EOMI, Normal Inspection Ears: Normal External Exam, Hearing Grossly Normal Nose: Normal Inspection Throat/Mouth: Normal Inspection, Normal Voice, No Airway Compromise Head: Atraumatic, Normocephalic Neck: Normal Inspection, Supple, Non-Tender, Full Range of Motion Respiratory/Chest: No Respiratory Distress, No Accessory Muscle Use, Chest Non- Tender, Decreased Breath Sounds Cardiovascular: Normal Peripheral Pulses, Regular Rate, Rhythm, No Gallop, No JVD, No Murmur, No Rub Peripheral Pulses: 1+: Dorsalis Pedis (L), Dorsalis Pedis (R), 2+: Radial (L), Radial (R) GI/Abdominal: Normal Bowel Sounds, Soft, Non-Tender (Female) Exam: Deferred Rectal (Female) Exam: Deferred Back Exam: Normal Inspection, Decreased Range of Motion Extremities: Normal Inspection, Normal Range of Motion, Non-Tender, Pedal Edema (minimal) Neurological: Alert, Oriented, Normal Cognition Psychiatric: Normal Affect, Normal Mood Skin Exam: Warm, Dry, Intact, Normal Color Lymphatic: No Adenopathy EKG INTERPRETATION EKG Date: 03/09/18 Time: 23:24 Rhythm: NSR Rate (Beats/Min): 74 [place]: LAD-Left [place] Deviation P-Wave: Present QRS: Normal ST-T: Normal QT: Normal Comparison: No Change Course - Vital Signs Last Recorded V/S: Last Vital Signs Temp 98.2 F 03/09/18 23:54 Pulse 74 03/09/18 23:54 Resp 16 03/09/18 23:54 BP 140/51 L 03/09/18 23:54 Pulse Ox 94 L 03/09/18 23:54 - Orders/Labs/Meds Labs: Laboratory Tests 03/09/18 03/09/18 03/10/18 Range/Units 00:10 00:10 00:10 WBC 7.2 (5.0-10.0) 10^3/uL RBC 3.12 L (4.2-5.4) 10^6/uL Hgb 9.4 L (12.0-16.0) g/dL Hct 29.3 L (37.0-47.0) % MCV 93.9 (80-100) fL MCH 30.1 (27.0-34.0) pg MCHC 32.1 L (33.0-35.0) g/dL Plt Count 196 (150-450) 10^3/uL Neut % (Auto) 66.1 (42.2-75.2) % Lymph % (Auto) 12.4 L (20.5-50.1) % [place] % (Auto) 10.8 H (2-8) % Eos % (Auto) 10.1 H (1.0-3.0) % Baso % (Auto) 0.6 (0.0-1.0) % Sodium 134 L (135-145) mmol/L Potassium 4.4 (3.6-5.0) mmol/L Chloride 98 L (101-111) mmol/L Carbon Dioxide 23.0 (21.0-31.0) mmol/L Anion Gap 17.4 BUN 55 H (7-18) mg/dL Creatinine 8.5 H (0.6-1.3) mg/dL Est Cr Clr Drug Dosing 6.00 mL/min Estimated GFR (MDRD) 5 BUN/Creatinine Ratio 6.47 Glucose 151 H (74-105) mg/dL Calcium 7.2 L (8.4-10.2) mg/dl Total Bilirubin 0.7 (0.2-1.0) mg/dL AST 15 (10-42) IU/L ALT 8 L (10-60) IU/L Alkaline Phosphatase 238 H (42-121) IU/L Troponin I 0.03 H* (0.00-0.02) ng/ml B-Natriuretic Peptide 2680 H (0-100) pg/ml Total Protein 6.0 L (6.7-8.2) g/dl Albumin 2.7 L (3.2-5.5) g/dl Globulin 3.3 Albumin/Globulin Ratio 0.82 - Radiology Interpretation Free Text/Narrative:: Chest xray: IMPRESSION: Stable bibasilar areas of atelectasis and effusions The findings may be secondary to CHF Thank you for allowing us to participate in the care of your patient. Dictated and Authenticated by: Chaz Childs MD 03/10/2018 12:41 AM Central Time ([place] & [place]) See rad report Departure - Departure Time of Disposition: 01:13 Disposition: Home, Self-Care 01 Condition: Fair Clinical Impression: End-stage renal disease on peritoneal dialysis, Nonspecific chest pain Chronic kidney disease (CKD) Qualifiers: Chronic kidney disease stage: on chronic dialysis Qualified Code(s): N18.6 - End stage renal disease Pulmonary edema Qualifiers: Chronicity: acute Qualified Code(s): J81.0 - Acute pulmonary edema Instructions: Peritoneal Dialysis Information, [id number], Nonspecific Chest Pain, [id number] Forms: ED Department Discharge Additional Instructions: Follow up with your primary care facility
== END 2018-03-10 01:13 | disposition home or self-care (01) ==
LOC: DL.ED 23:26
DX: I13.2 Hypertensive heart and chronic kidney disease with heart failure and with stage 5 chronic kidney disease, or end stage renal disease (principal); I50.9 Heart failure, unspecified; J81.0 Acute pulmonary edema; E11.21 Type 2 diabetes mellitus with diabetic nephropathy; E11.22 Type 2 diabetes mellitus with diabetic chronic kidney disease; N18.4 Chronic kidney disease, stage 4 (severe); D63.1 Anemia in chronic kidney disease; E78.00 Pure hypercholesterolemia, unspecified; Z88.1 Allergy status to other antibiotic agents; Z91.040 Latex allergy status; Z88.8 Allergy status to other drugs, medicaments and biological substances; Z79.899 Other long term (current) drug therapy
CPT/HCPCS: 36415; 71045; 80053; 83880; 84484; 85025; 93005; 93010; 99285

== ENCOUNTER 2018-03-14 16:04 | Emergency (ER) | payer MEDICARE, MEDICAID ==
--- NOTE | 2018-03-14 17:36 | CR ---
Clinical history: 62-year-old female increased shortness of breath, fever and chills. Interpretation: Large bibasal or dependent subpulmonic pleural effusions as noted on recent film of 10 Mar 2018. Card iac pacemaker. Some new underlying right infrahilar atelectasis or infiltrate. Clinical? No new lung mass, hilar lymphadenopathy or other focal lobar consolidation.
[2018-03-14 17:38] LABS: CHLORIDE,CL 97 mmol/L (101-111); SODIUM,NA 135 mmol/L (135-145)
--- NOTE | 2018-03-14 17:39 | CR ---
Clinical history: 62-year-old female "crushed" third (middle) finger in wheelchair. Interpretation: Chronic mild arthritic changes involving the interphalangeal and DIP joints. Arteriovascular calcifications in the soft tissues (diabetic?). No sign of acute left middle or adjacent index/ring finger fracture. No finger dislocations.
[2018-03-14] MEDS ORDERED: Morphine 2 MG/ML Syringe IVPUSH ONE (17:58)
[2018-03-14] MEDS ORDERED: Sodium Chloride 0.9% 10 ML Syringe FLUSH PRN (17:58)
--- NOTE | 2018-03-14 18:22 | EDM.PDOC ---
Scribed by Christine Fallon 03/14/18 [id number] for Uyen Mays NP ED HPI GENERAL MEDICAL PROBLEM - General Chief Complaint: Respiratory Problem Stated Complaint: SOB. FINGER INJURY [phone] Time Seen by Provider: 03/14/18 16:45 Source of Information: Reports: Patient, RN, RN Notes Reviewed History Limitations: Reports: No Limitations - History of Present Illness INITIAL COMMENTS - FREE TEXT/NARRATIVE: Patient presents to the ER with complaint of increased shortness of breath, left flank pain and left middle finger pain. Patient states that she got her finger caught in a wheelchair this morning at the clinic. She is also having fever, chills and left flank pain. She has had one dialysis exchange today. Denies nausea, vomiting or diarrhea. Duration: Getting Worse Location: Reports: Chest, Abdomen (flank) Quality: Reports: Ache Severity: Moderate Improves with: Reports: None Worsens with: Reports: None Associated Symptoms: Reports: No Other Symptoms Left Leg Pain Score (Numeric/FACES): 9 - Related Data Allergies Allergy/AdvReac Type Severity Reaction Status Date / Time lidocaine Allergy Intermediate Swelling Verified 03/10/18 00:01 amoxicillin trihydrate Allergy Rash Verified 03/10/18 00:01 [From Amoxil] latex Allergy Rash Verified 03/10/18 00:01 lisinopril Allergy Headache Verified 03/10/18 00:01 Home Meds: Home Meds Bumetanide 2 mg PO BID 12/21/15 [History] Calcium Acetate [Phoslo] 2 cap PO BID 03/29/16 [History] Insulin Aspart [Novolog Flexpen] 5 unit SQ ASDIRECTED PRN 05/17/16 [History] Metoprolol Succinate [Toprol XL 100mg] 100 mg PO BID 05/17/16 [History] Amarilys.Dialysis Soln28 &Ico 7.5% [Extraneal Icodextrin Dialysis] 1,500 ml IP ASDIRECTED 08/31/16 [History] Acetaminophen [Tylenol] 1,000 mg PO Q6H PRN 11/03/16 [History] Mupirocin Cream [Bactroban Crm] 1 applic TOP DAILY 11/03/16 [History] Metoclopramide [Reglan] 1 tab PO TIDAC PRN 03/14/17 [History] Sodium Bicarbonate 1 tab PO BID 03/14/17 [History] Aspirin [Halfprin] 81 mg PO DAILY 01/08/18 [History] Doxycycline [Vibramycin] 100 mg PO DAILY 01/08/18 [History] Past Medical History HEENT History: Reports: Cataract Cardiovascular History: Reports: Afib, CAD, Heart Failure, High Cholesterol, Hypertension, Pacemaker, Other (See Below) Other Cardiovascular History: hx of bilateral lower extremity edema Respiratory History: Reports: SOB Other Respiratory History: From CHF Gastrointestinal History: Reports: Other (See Below) Other Gastrointestinal History: gastroparesis diabeticorum Genitourinary History: Reports: Dialysis, Diabetic Nephropathy, Dialysis, Peritoneal, Other (See Below) Other Genitourinary History: chronic kidney disease stage 4, nephrotic syndrome 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 lower leg. Dry and scaley about 3inches in diameter. Non draining. Also has dry area to left marie area. 1 diameter to left marie area. - Infectious Disease History Infectious Disease History: Reports: Chicken Pox Other Infectious Disease History: patient unsure - Past Surgical History HEENT Surgical History: Reports: Cataract Surgery Other Cardiovascular Surgeries/Procedures: Angiogram 2014 GI Surgical History: Reports: Appendectomy Oncologic Surgical History: Reports: None Dermatological Surgical History: Reports: Skin Biopsy Social & Family History - Family History Family Medical History: Noncontributory Cardiac: Reports: [place] Other Cardiac Family History: father from [place] in his 50s Endocrine/Metabolic: Reports: Diabetes, type II Other Hematologic Family History: mother has h/o DVT and is on blood thinners - per pt report - Tobacco Use Smoking Status *Q: Never Smoker - Caffeine Use Caffeine Use: Reports: None - Recreational Drug Use Recreational Drug Use: No - Living Situation & Occupation Living situation: Reports: with Family Occupation: Employed ED ROS GENERAL - Review of Systems Review Of Systems: ROS reveals no pertinent complaints other than HPI. ED EXAM, GENERAL - Physical Exam Exam: See Below Exam Limited By: No Limitations General Appearance: Alert, WD/WN, No Apparent Distress Eye Exam: Bilateral Eye: Normal Inspection Ears: Normal External Exam, Normal Canal, Hearing Grossly Normal, Normal TMs Nose: Normal Inspection, Normal Mucosa, No Blood Throat/Mouth: Normal Inspection, Normal Lips, Normal Teeth, Normal Gums, Normal Oropharynx, Normal Voice, No Airway Compromise Head: Atraumatic, Normocephalic Neck: Normal Inspection, Supple, Non-Tender, Full Range of Motion Respiratory/Chest: No Accessory Muscle Use, Crackles (throughout) GI/Abdominal: Other (left flank pain. CVA tenderness. Otherwise negative.) (Female) Exam: Deferred Rectal (Female) Exam: Deferred Back Exam: CVA Tenderness (L) Extremities: Normal Inspection, Normal Range of Motion, Non-Tender, No Pedal Edema, Normal Capillary Refill, Other (left middle finger shows no swelling or deformity. Skin is intact.) Neurological: Alert, Oriented, CN II-XII Intact, Normal Cognition, Normal Gait, Normal Reflexes, No Motor/Sensory Deficits Psychiatric: Normal Affect, Normal Mood Skin Exam: Other (open lesions over entire body at different stages of healing. ) Lymphatic: No Adenopathy EKG INTERPRETATION EKG Date: 03/14/18 Time: 17:00 Rhythm: A-Fib Rate (Beats/Min): 83 [place]: LAD-Left [place] Deviation Comparison: No Change Course - Vital Signs Last Recorded V/S: Last Vital Signs Temp 98.2 F 03/14/18 16:19 Pulse 80 03/14/18 16:19 Resp 16 03/14/18 16:19 BP 139/73 03/14/18 16:19 Pulse Ox 97 03/14/18 16:19 - Orders/Labs/Meds Orders: Active Orders 24 hr Category Date Time Status EKG Documentation Completion [RC] STAT Care 03/14/18 16:51 Active Peripheral IV Care [RC] . DIRECTED Care 03/14/18 17:58 Active CULTURE BLOOD [BC] Stat Lab 03/14/18 17:12 Results Sodium Chloride 0.9% [Saline Flush] Med 03/14/18 17:58 Active 10 ml FLUSH ASDIRECTED PRN Peripheral IV Insertion Adult [OM.PC] Stat Oth 03/14/18 17:58 Ordered Medication Orders Sodium Chloride (Saline Flush) 10 ml FLUSH ASDIRECTED PRN PRN Reason: Keep Vein Open Last Admin: 03/14/18 18:14 Dose: 10 ml Labs: Laboratory Tests 03/14/18 03/14/18 03/14/18 Range/Units 17:12 17:12 17:12 WBC 6.3 (5.0-10.0) 10^3/uL RBC 3.68 L (4.2-5.4) 10^6/uL Hgb 11.1 L D (12.0-16.0) g/dL Hct 34.4 L (37.0-47.0) % MCV 93.5 (80-100) fL MCH 30.2 (27.0-34.0) pg MCHC 32.3 L (33.0-35.0) g/dL Plt Count 209 (150-450) 10^3/uL Neut % (Auto) 70.1 (42.2-75.2) % Lymph % (Auto) 11.1 L (20.5-50.1) % [place] % (Auto) 10.3 H (2-8) % Eos % (Auto) 7.9 H (1.0-3.0) % Baso % (Auto) 0.6 (0.0-1.0) % Sodium 135 (135-145) mmol/L Potassium 5.2 H (3.6-5.0) mmol/L Chloride 97 L (101-111) mmol/L Carbon Dioxide 23.0 (21.0-31.0) mmol/L Anion Gap 20.2 BUN 69 H (7-18) mg/dL Creatinine 9.2 H (0.6-1.3) mg/dL Est Cr Clr Drug Dosing 5.54 mL/min Estimated GFR (MDRD) 4 BUN/Creatinine Ratio 7.50 Glucose 137 H (74-105) mg/dL Lactic Acid 1.1 (0.5-2.2) mmol/L Calcium 8.0 L (8.4-10.2) mg/dl Total Bilirubin 0.6 (0.2-1.0) mg/dL AST 16 (10-42) IU/L ALT 10 (10-60) IU/L Alkaline Phosphatase 217 H (42-121) IU/L Troponin I 0.03 H* (0.00-0.02) ng/ml B-Natriuretic Peptide > 5000 H (0-100) pg/ml Total Protein 7.0 (6.7-8.2) g/dl Albumin 3.2 (3.2-5.5) g/dl Globulin 3.8 Albumin/Globulin Ratio 0.84 Meds: Medications Generic Name Dose Route Start Last Admin Trade Name Freq PRN Reason Stop Dose Admin Sodium Chloride 10 ml 03/14/18 17:58 03/14/18 18:14 Saline Flush FLUSH 10 ml ASDIRECTED PRN Administration Keep Vein Open Discontinued Medications Generic Name Dose Route Start Last Admin Trade Name Freq PRN Reason Stop Dose Admin Morphine Sulfate 2 mg 03/14/18 17:58 03/14/18 18:13 Morphine IVPUSH 03/14/18 17:59 2 mg ONETIME ONE Administration - Radiology Interpretation Free Text/Narrative:: Left middle finger: Chronic mild arthritic changes involving the interphalanageal and DIP joints. See rad report. Chestx-ray: Large basal or dependent subpulmonic pleural effusions as noted on recent film of February. Some new underlying right infrahilar atelecasis or infiltrate. See rad report. - Re-Assessments/Exams Free Text/Narrative Re-Assessment/Exam: 03/14/18 18:15 Patient's case was discussed with Dr. Branham who agreed to accept the patient for transfer. Departure - Departure Time of Disposition: 18:16 Disposition: DC/Tfer to Acute Hospital 02 Condition: Fair Clinical Impression: CHF exacerbation, Renal failure - Discharge Information Referrals: Nile Reed MD [Primary Care Provider] - Forms: ED Department Discharge, Interfacility Transfer EMTALA - My Orders Last 24 Hours: My Active Orders 03/14/18 16:51 EKG Documentation Completion [RC] STAT 03/14/18 17:12 CULTURE BLOOD [BC] Stat 03/14/18 17:58 Peripheral IV Care [RC] . DIRECTED Sodium Chloride 0.9% [Saline Flush] 10 ml FLUSH ASDIRECTED PRN Peripheral IV Insertion Adult [OM.PC] Stat - Assessment/Plan Last 24 Hours: My Active Orders 03/14/18 16:51 EKG Documentation Completion [RC] STAT 03/14/18 17:12 CULTURE BLOOD [BC] Stat 03/14/18 17:58 Peripheral IV Care [RC] . DIRECTED Sodium Chloride 0.9% [Saline Flush] 10 ml FLUSH ASDIRECTED PRN Peripheral IV Insertion Adult [OM.PC] Stat I have read and agree with the documentation that has been completed regarding this visit. By signing this record, I attest that the documentation was completed in my physical presence and is an accurate record of the encounter.
[2018-03-14 18:32] VITALS: BP 140/76
== END 2018-03-14 18:55 ==
LOC: DL.ED 16:04
DX: I13.10 Hypertensive heart and chronic kidney disease without heart failure, with stage 1 through stage 4 chronic kidney disease, or unspecified chronic kidney disease (principal); N18.4 Chronic kidney disease, stage 4 (severe); I50.9 Heart failure, unspecified; E78.00 Pure hypercholesterolemia, unspecified; I25.10 Atherosclerotic heart disease of native coronary artery without angina pectoris; I48.91 Unspecified atrial fibrillation; E11.22 Type 2 diabetes mellitus with diabetic chronic kidney disease; E11.21 Type 2 diabetes mellitus with diabetic nephropathy; Z99.2 Dependence on renal dialysis; Z88.1 Allergy status to other antibiotic agents; Z91.040 Latex allergy status; Z79.82 Long term (current) use of aspirin; Z79.899 Other long term (current) drug therapy
CPT/HCPCS: 36415; 71046; 73140-F2; 80053; 83605; 83880; 84484; 85025; 87040; 93005; 93010; 99285; J2270; J7050

== ENCOUNTER 2018-03-28 10:17 | Emergency (ER) | payer MEDICARE, MEDICAID ==
[2018-03-28 10:57] VITALS: BP 141/78
--- NOTE | 2018-03-28 11:24 | EDM.PDOC ---
ED HPI GENERAL MEDICAL PROBLEM - General Chief Complaint: Respiratory Problem Stated Complaint: AMBULANCE / SOB Time Seen by Provider: 03/28/18 11:00 Source of Information: Reports: Patient, EMS History Limitations: Reports: No Limitations - History of Present Illness INITIAL COMMENTS - FREE TEXT/NARRATIVE: This 62 yo female patient was brought to the ED by [facility] due to increased shortness of breath. The patient reports her shortness of breath started last night. The patient also reports she has been having pain in her right posterior ribs and lung. The patient reports she did peritoneal dialysis today and took a pain medication, but she continues to feel ill. The patient reports she is unable to do Hemo dialysis due to it putting her into a. fib. Onset: Today (shortness of breath) Duration: Week(s): Location: Reports: Chest (right sided) Quality: Reports: Other Severity: Moderate Improves with: Reports: None Worsens with: Reports: None Context: Reports: Other Associated Symptoms: Reports: Shortness of Breath Right Upper Abdomen Pain Score (Numeric/FACES): 8 - Related Data Allergies Allergy/AdvReac Type Severity Reaction Status Date / Time lidocaine Allergy Intermediate Swelling Verified 03/10/18 00:01 amoxicillin trihydrate Allergy Rash Verified 03/10/18 00:01 [From Amoxil] latex Allergy Rash Verified 03/10/18 00:01 lisinopril Allergy Headache Verified 03/10/18 00:01 Home Meds: Home Meds Bumetanide 2 mg PO BID 12/21/15 [History] Calcium Acetate [Phoslo] 2 cap PO BID 03/29/16 [History] Insulin Aspart [Novolog Flexpen] 5 unit SQ ASDIRECTED PRN 05/17/16 [History] Metoprolol Succinate [Toprol XL 100mg] 100 mg PO BID 05/17/16 [History] Amarilys.Dialysis Soln28 &Ico 7.5% [Extraneal Icodextrin Dialysis] 1,500 ml IP ASDIRECTED 08/31/16 [History] Acetaminophen [Tylenol] 1,000 mg PO Q6H PRN 11/03/16 [History] Mupirocin Cream [Bactroban Crm] 1 applic TOP DAILY 11/03/16 [History] Metoclopramide [Reglan] 1 tab PO TIDAC PRN 03/14/17 [History] Sodium Bicarbonate 1 tab PO BID 03/14/17 [History] Aspirin [Halfprin] 81 mg PO DAILY 01/08/18 [History] Doxycycline [Vibramycin] 100 mg PO DAILY 01/08/18 [History] Past Medical History HEENT History: Reports: Cataract Cardiovascular History: Reports: Afib, CAD, Heart Failure, High Cholesterol, Hypertension, Pacemaker, Other (See Below) Other Cardiovascular History: hx of bilateral lower extremity edema Respiratory History: Reports: SOB Other Respiratory History: From CHF Gastrointestinal History: Reports: Other (See Below) Other Gastrointestinal History: gastroparesis diabeticorum Genitourinary History: Reports: Dialysis, Diabetic Nephropathy, Dialysis, Peritoneal, Other (See Below) Other Genitourinary History: chronic kidney disease stage 4, nephrotic syndrome 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 lower leg. Dry and scaley about 3inches in diameter. Non draining. Also has dry area to left marie area. 1 diameter to left marie area. - Infectious Disease History Infectious Disease History: Reports: Chicken Pox Other Infectious Disease History: patient unsure - Past Surgical History HEENT Surgical History: Reports: Cataract Surgery Other Cardiovascular Surgeries/Procedures: Angiogram 2014 GI Surgical History: Reports: Appendectomy Oncologic Surgical History: Reports: None Dermatological Surgical History: Reports: Skin Biopsy Social & Family History - Family History Family Medical History: Noncontributory Cardiac: Reports: [place] Other Cardiac Family History: father from [place] in his 50s Endocrine/Metabolic: Reports: Diabetes, type II Other Hematologic Family History: mother has h/o DVT and is on blood thinners - per pt report - Caffeine Use Caffeine Use: Reports: None - Living Situation & Occupation Living situation: Reports: with Family Occupation: Employed ED ROS GENERAL - Review of Systems Review Of Systems: ROS reveals no pertinent complaints other than HPI. ED EXAM, GENERAL - Physical Exam Exam: See Below Exam Limited By: No Limitations General Appearance: Alert, WD/WN, Moderate Distress Eye Exam: Bilateral Eye: EOMI, Normal Inspection, PERRL Ears: Normal External Exam, Normal Canal, Hearing Grossly Normal, Normal TMs Nose: Normal Inspection, Normal Mucosa, No Blood Throat/Mouth: Normal Inspection, Normal Lips, Normal Teeth, Normal Gums, Normal Oropharynx, Normal Voice, No Airway Compromise Head: Atraumatic, Normocephalic Neck: Normal Inspection, Supple, Non-Tender, Full Range of Motion Respiratory/Chest: Decreased Breath Sounds, Other (tenderness to the right posterior ribs) Cardiovascular: Normal Peripheral Pulses, Regular Rate, Rhythm, No Edema, No Gallop, No JVD, No Murmur, No Rub GI/Abdominal: Normal Bowel Sounds, Soft, Non-Tender, No Organomegaly, No Distention, No Abnormal Bruit, No Mass (Female) Exam: Deferred Rectal (Female) Exam: Deferred Back Exam: Normal Inspection, Full Range of Motion, NT Extremities: Normal Inspection, Normal Range of Motion, Non-Tender, Normal Capillary Refill, No Pedal Edema Neurological: Alert, Oriented, CN II-XII Intact, Normal Cognition, Normal Gait, Normal Reflexes, No Motor/Sensory Deficits Psychiatric: Depressed Mood, Flat Affect Skin Exam: Warm, Dry, Intact, Normal Color, No Rash Lymphatic: No Adenopathy Course - Vital Signs Last Recorded V/S: Last Vital Signs Temp 36.6 C 03/28/18 10:55 Pulse 140 H 03/28/18 10:55 Resp 24 H 03/28/18 10:55 BP 141/78 H 03/28/18 10:55 Pulse Ox 94 L 03/28/18 10:55 - Orders/Labs/Meds Orders: Active Orders 24 hr Category Date Time Status EKG Documentation Completion [RC] URGENT Care 03/28/18 11:10 Active CULTURE BLOOD [BC] Stat Lab 03/28/18 11:28 Results CULTURE BLOOD [BC] Stat Lab 03/28/18 11:36 Received Blood Culture x2 Reflex Set [OM.PC] Stat Oth 03/28/18 11:12 Ordered Labs: Laboratory Tests 03/28/18 03/28/18 03/28/18 Range/Units 11:28 11:28 11:28 WBC 6.3 (5.0-10.0) 10^3/uL RBC 3.25 L (4.2-5.4) 10^6/uL Hgb 9.9 L (12.0-16.0) g/dL Hct 30.5 L (37.0-47.0) % MCV 93.8 (80-100) fL MCH 30.5 (27.0-34.0) pg MCHC 32.5 L (33.0-35.0) g/dL Plt Count 177 (150-450) 10^3/uL Neut % (Auto) 74.9 (42.2-75.2) % Lymph % (Auto) 10.1 L (20.5-50.1) % [place] % (Auto) 8.6 H (2-8) % Eos % (Auto) 5.6 H (1.0-3.0) % Baso % (Auto) 0.8 (0.0-1.0) % Sodium 134 L (135-145) mmol/L Potassium 5.5 H (3.6-5.0) mmol/L Chloride 98 L (101-111) mmol/L Carbon Dioxide 22.0 (21.0-31.0) mmol/L Anion Gap 19.5 BUN 75 H (7-18) mg/dL Creatinine 10.4 H D (0.6-1.3) mg/dL Est Cr Clr Drug Dosing 4.90 mL/min Estimated GFR (MDRD) 4 BUN/Creatinine Ratio 7.21 Glucose 101 (74-105) mg/dL Lactic Acid (0.5-2.2) mmol/L Calcium 8.5 (8.4-10.2) mg/dl Total Bilirubin 1.0 (0.2-1.0) mg/dL AST 19 (10-42) IU/L ALT 18 (10-60) IU/L Alkaline Phosphatase 163 H (42-121) IU/L Troponin I 0.03 H* (0.00-0.02) ng/ml B-Natriuretic Peptide > 5000 H (0-100) pg/ml Total Protein 6.4 L (6.7-8.2) g/dl Albumin 2.9 L (3.2-5.5) g/dl Globulin 3.5 Albumin/Globulin Ratio 0.83 //18 Range/Units 11:28 WBC (5.0-10.0) 10^3/uL RBC (4.2-5.4) 10^6/uL Hgb (12.0-16.0) g/dL Hct (37.0-47.0) % MCV (80-100) fL MCH (27.0-34.0) pg MCHC (33.0-35.0) g/dL Plt Count (150-450) 10^3/uL Neut % (Auto) (42.2-75.2) % Lymph % (Auto) (20.5-50.1) % [place] % (Auto) (2-8) % Eos % (Auto) (1.0-3.0) % Baso % (Auto) (0.0-1.0) % Sodium (135-145) mmol/L Potassium (3.6-5.0) mmol/L Chloride (101-111) mmol/L Carbon Dioxide (21.0-31.0) mmol/L Anion Gap BUN (7-18) mg/dL Creatinine (0.6-1.3) mg/dL Est Cr Clr Drug Dosing mL/min Estimated GFR (MDRD) BUN/Creatinine Ratio Glucose (74-105) mg/dL Lactic Acid 1.0 (0.5-2.2) mmol/L Calcium (8.4-10.2) mg/dl Total Bilirubin (0.2-1.0) mg/dL AST (10-42) IU/L ALT (10-60) IU/L Alkaline Phosphatase (42-121) IU/L Troponin I (0.00-0.02) ng/ml B-Natriuretic Peptide (0-100) pg/ml Total Protein (6.7-8.2) g/dl Albumin (3.2-5.5) g/dl Globulin Albumin/Globulin Ratio Meds: Medications Discontinued Medications Generic Name Dose Route Start Last Admin Trade Name Freq PRN Reason Stop Dose Admin Hydromorphone HCl 0.5 mg 03/28/18 12:56 Dilaudid IVPUSH 03/28/18 12:57 ONETIME ONE Departure - Departure Time of Disposition: 13:00 Disposition: Home, Self-Care 01 Condition: Fair Clinical Impression: CKD (chronic kidney disease) requiring chronic dialysis Chronic back pain Qualifiers: Back pain location: low back pain Back pain laterality: right Sciatica presence : without sciatica Qualified Code(s): M54.5 - Low back pain; G89.29 - Other chronic pain - Discharge Information Instructions: Chronic Back Pain, Chronic Kidney Disease, Adult, [id number] Forms: ED Department Discharge Care Plan Goals: The patient was advised of the examination and lab results during the visit. The patient was given pain medication for her back pain. The patient was encouraged to follow-up with her primary care facility for continued evaluation and management. - My Orders Last 24 Hours: My Active Orders 03/28/18 11:10 EKG Documentation Completion [RC] URGENT 03/28/18 11:12 Blood Culture x2 Reflex Set [OM.PC] Stat 03/28/18 11:28 CULTURE BLOOD [BC] Stat 03/28/18 11:36 CULTURE BLOOD [BC] Stat - Assessment/Plan Last 24 Hours: My Active Orders 03/28/18 11:10 EKG Documentation Completion [RC] URGENT 03/28/18 11:12 Blood Culture x2 Reflex Set [OM.PC] Stat 03/28/18 11:28 CULTURE BLOOD [BC] Stat 03/28/18 11:36 CULTURE BLOOD [BC] Stat
[2018-03-28] MEDS: HYDROmorphone 0.5 MG/0.5 ML Syringe IVPUSH ONE (13:20)
--- NOTE | 2018-03-30 09:59 | EKG ---
03/28/2018 - MARINA GORDON - TIME: 11:37 a.m. FINDINGS: EKG shows a heart rate of 126 beats per minute. It shows atrial flutter with variable conduction. [facility] /[id number]
== END 2018-03-28 13:40 | disposition home or self-care (01) ==
LOC: DL.ED 10:17
DX: I13.0 Hypertensive heart and chronic kidney disease with heart failure and stage 1 through stage 4 chronic kidney disease, or unspecified chronic kidney disease (principal); E11.22 Type 2 diabetes mellitus with diabetic chronic kidney disease; N18.4 Chronic kidney disease, stage 4 (severe); I50.9 Heart failure, unspecified; G89.29 Other chronic pain; Z99.2 Dependence on renal dialysis; Z79.4 Long term (current) use of insulin; Z79.899 Other long term (current) drug therapy; Z88.1 Allergy status to other antibiotic agents; Z91.040 Latex allergy status; Z88.8 Allergy status to other drugs, medicaments and biological substances
CPT/HCPCS: 36415; 80053; 83605; 83880; 84484; 85025; 87040; 93005; 93010; 96374; 99283; 99284; J1170

== ENCOUNTER 2018-04-08 22:23 | Emergency (ER) | payer MEDICARE, MEDICAID ==
[2018-04-08 22:13] VITALS: BP 149/67
--- NOTE | 2018-04-08 22:23 | EDM.PDOC ---
ED HPI GENERAL MEDICAL PROBLEM - General Chief Complaint: Respiratory Problem Stated Complaint: AMBULANCE Time Seen by Provider: 04/08/18 22:15 Source of Information: Reports: Patient History Limitations: Reports: No Limitations - History of Present Illness INITIAL COMMENTS - FREE TEXT/NARRATIVE: This 62 yo female patient was brought to the ED by [facility] due to increased shortness of breath. The patient reports her symptoms started this evening at 2000. The patient reports she took a dose of her grandson's inhaler, but there was no symptom improvement. The patient reports she had dialysis today at 1800. The patient was last seen in the ED on 03/28/18 for low back pain and on for exacerbation of CHF (transferred to [facility] in [place]). 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 Left Middle Back Pain Score (Numeric/FACES): 7 - Related Data Allergies Allergy/AdvReac Type Severity Reaction Status Date / Time lidocaine Allergy Intermediate Swelling Verified 03/10/18 00:01 amoxicillin trihydrate Allergy Rash Verified 03/10/18 00:01 [From Amoxil] latex Allergy Rash Verified 03/10/18 00:01 lisinopril Allergy Headache Verified 03/10/18 00:01 Home Meds: Home Meds Bumetanide 2 mg PO BID 12/21/15 [History] Calcium Acetate [Phoslo] 2 cap PO BID 03/29/16 [History] Insulin Aspart [Novolog Flexpen] 5 unit SQ ASDIRECTED PRN 05/17/16 [History] Metoprolol Succinate [Toprol XL 100mg] 100 mg PO BID 05/17/16 [History] Amarilys.Dialysis Soln28 &Ico 7.5% [Extraneal Icodextrin Dialysis] 1,500 ml IP ASDIRECTED 08/31/16 [History] Acetaminophen [Tylenol] 1,000 mg PO Q6H PRN 11/03/16 [History] Mupirocin Cream [Bactroban Crm] 1 applic TOP DAILY 11/03/16 [History] Metoclopramide [Reglan] 1 tab PO TIDAC PRN 03/14/17 [History] Sodium Bicarbonate 1 tab PO BID 03/14/17 [History] Aspirin [Halfprin] 81 mg PO DAILY 01/08/18 [History] Doxycycline [Vibramycin] 100 mg PO DAILY 01/08/18 [History] Past Medical History HEENT History: Reports: Cataract Cardiovascular History: Reports: Afib, CAD, Heart Failure, High Cholesterol, Hypertension, Pacemaker, Other (See Below) Other Cardiovascular History: hx of bilateral lower extremity edema Respiratory History: Reports: SOB Other Respiratory History: From CHF Gastrointestinal History: Reports: Other (See Below) Other Gastrointestinal History: gastroparesis diabeticorum Genitourinary History: Reports: Dialysis, Diabetic Nephropathy, Dialysis, Peritoneal, Other (See Below) Other Genitourinary History: chronic kidney disease stage 4, nephrotic syndrome 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 lower leg. Dry and scaley about 3inches in diameter. Non draining. Also has dry area to left marie area. 1 diameter to left marie area. - Infectious Disease History Infectious Disease History: Reports: Chicken Pox Other Infectious Disease History: patient unsure - Past Surgical History HEENT Surgical History: Reports: Cataract Surgery Other Cardiovascular Surgeries/Procedures: Angiogram 2014 GI Surgical History: Reports: Appendectomy Oncologic Surgical History: Reports: None Dermatological Surgical History: Reports: Skin Biopsy Social & Family History - Family History Family Medical History: Noncontributory Cardiac: Reports: [place] Other Cardiac Family History: father from [place] in his 50s Endocrine/Metabolic: Reports: Diabetes, type II Other Hematologic Family History: mother has h/o DVT and is on blood thinners - per pt report - Tobacco Use Smoking Status *Q: Current Status Unknown Second Hand Smoke Exposure: No - Caffeine Use Caffeine Use: Reports: None - Recreational Drug Use Recreational Drug Use: No - Living Situation & Occupation Living situation: Reports: with Family Occupation: Employed ED ROS GENERAL - Review of Systems Review Of Systems: ROS reveals no pertinent complaints other than HPI. ED EXAM, GENERAL - Physical Exam Exam: See Below Exam Limited By: No Limitations General Appearance: Alert, WD/WN, Moderate Distress Eye Exam: Bilateral Eye: EOMI, Normal Inspection, PERRL Ears: Normal External Exam, Normal Canal, Hearing Grossly Normal, Normal TMs Nose: Normal Inspection, Normal Mucosa, No Blood Throat/Mouth: Normal Inspection, Normal Lips, Normal Teeth, Normal Gums, Normal Oropharynx, Normal Voice, No Airway Compromise Head: Atraumatic, Normocephalic Neck: Normal Inspection, Supple, Non-Tender, Full Range of Motion Respiratory/Chest: No Respiratory Distress, No Accessory Muscle Use, Chest Non- Tender, Decreased Breath Sounds (throughout) Cardiovascular: Normal Peripheral Pulses, Regular Rate, Rhythm, No Edema, No Gallop, No JVD, No Murmur, No Rub GI/Abdominal: Normal Bowel Sounds, Soft, Non-Tender, No Organomegaly, No Distention, No Abnormal Bruit, No Mass (Female) Exam: Deferred Rectal (Female) Exam: Deferred Back Exam: Normal Inspection, Full Range of Motion, NT Extremities: Normal Inspection, Normal Range of Motion, Non-Tender, Normal Capillary Refill, No Pedal Edema Neurological: Alert, Oriented, CN II-XII Intact, Normal Cognition, Normal Gait, Normal Reflexes, No Motor/Sensory Deficits Psychiatric: Normal Affect, Normal Mood Skin Exam: Warm, Dry, Intact, Normal Color, No Rash Lymphatic: No Adenopathy Course - Vital Signs Last Recorded V/S: Last Vital Signs Temp 36.8 C 04/08/18 22:03 Pulse 72 04/08/18 22:03 Resp 18 04/08/18 22:03 BP 149/67 H 04/08/18 22:03 Pulse Ox 97 04/08/18 22:03 - Orders/Labs/Meds Orders: Active Orders 24 hr Category Date Time Status EKG Documentation Completion [RC] URGENT Care 04/08/18 22:14 Active Chest 2V [CR] Urgent Exams 04/08/18 22:15 Taken CULTURE BLOOD [BC] Stat Lab 04/08/18 22:22 Received CULTURE BLOOD [BC] Stat Lab 04/08/18 22:27 Received UA W/MICROSCOPIC [URIN] Stat Lab 04/08/18 22:14 Ordered Blood Culture x2 Reflex Set [OM.PC] Stat Oth 04/08/18 22:14 Ordered Labs: Laboratory Tests 04/08/18 04/08/18 04/08/18 Range/Units 22:22 22:22 22:22 WBC 7.0 (5.0-10.0) 10^3/uL RBC 3.32 L (4.2-5.4) 10^6/uL Hgb 10.1 L (12.0-16.0) g/dL Hct 31.0 L (37.0-47.0) % MCV 93.4 (80-100) fL MCH 30.4 (27.0-34.0) pg MCHC 32.6 L (33.0-35.0) g/dL Plt Count 195 (150-450) 10^3/uL Neut % (Auto) 73.1 (42.2-75.2) % Lymph % (Auto) 9.8 L (20.5-50.1) % [place] % (Auto) 10.2 H (2-8) % Eos % (Auto) 6.0 H (1.0-3.0) % Baso % (Auto) 0.9 (0.0-1.0) % Sodium (135-145) mmol/L Potassium (3.6-5.0) mmol/L Chloride (101-111) mmol/L Carbon Dioxide (21.0-31.0) mmol/L Anion Gap BUN (7-18) mg/dL Creatinine (0.6-1.3) mg/dL Est Cr Clr Drug Dosing mL/min Estimated GFR (MDRD) BUN/Creatinine Ratio Glucose (74-105) mg/dL Lactic Acid 0.9 (0.5-2.2) mmol/L Calcium (8.4-10.2) mg/dl Total Bilirubin (0.2-1.0) mg/dL AST (10-42) IU/L ALT (10-60) IU/L Alkaline Phosphatase (42-121) IU/L Troponin I (0.00-0.02) ng/ml B-Natriuretic Peptide > 5000 H (0-100) pg/ml Total Protein (6.7-8.2) g/dl Albumin (3.2-5.5) g/dl Globulin Albumin/Globulin Ratio 06/10/18 Range/Units 22:22 WBC (5.0-10.0) 10^3/uL RBC (4.2-5.4) 10^6/uL Hgb (12.0-16.0) g/dL Hct (37.0-47.0) % MCV (80-100) fL MCH (27.0-34.0) pg MCHC (33.0-35.0) g/dL Plt Count (150-450) 10^3/uL Neut % (Auto) (42.2-75.2) % Lymph % (Auto) (20.5-50.1) % [place] % (Auto) (2-8) % Eos % (Auto) (1.0-3.0) % Baso % (Auto) (0.0-1.0) % Sodium 136 (135-145) mmol/L Potassium 5.3 H (3.6-5.0) mmol/L Chloride 97 L (101-111) mmol/L Carbon Dioxide 24.0 (21.0-31.0) mmol/L Anion Gap 20.3 BUN 73 H (7-18) mg/dL Creatinine 11.4 H (0.6-1.3) mg/dL Est Cr Clr Drug Dosing 3.72 mL/min Estimated GFR (MDRD) 3 BUN/Creatinine Ratio 6.40 Glucose 127 H (74-105) mg/dL Lactic Acid (0.5-2.2) mmol/L Calcium 7.5 L (8.4-10.2) mg/dl Total Bilirubin 0.6 (0.2-1.0) mg/dL AST 16 (10-42) IU/L ALT 13 (10-60) IU/L Alkaline Phosphatase 182 H (42-121) IU/L Troponin I 0.02 (0.00-0.02) ng/ml B-Natriuretic Peptide (0-100) pg/ml Total Protein 6.5 L (6.7-8.2) g/dl Albumin 2.8 L (3.2-5.5) g/dl Globulin 3.7 Albumin/Globulin Ratio 0.76 Departure - Departure Time of Disposition: 23:16 Disposition: Home, Self-Care 01 Condition: Fair Clinical Impression: Acute exacerbation of CHF (congestive heart failure) Qualifiers: Heart failure type: unspecified Qualified Code(s): I50.9 - Heart failure, unspecified - Discharge Information Forms: ED Department Discharge Care Plan Goals: The patient was advised of the examination, lab and x-ray results during the visit. The patient was encouraged to turn on the air conditioning at her home to reduce some of the humidity. The patient should follow-up with her primary care facility this week for continued evaluation and further treatment. If the patient has any additional symptoms or concerns, the patient should visit her primary care facility or return to the emergency department. - My Orders Last 24 Hours: My Active Orders 04/08/18 22:14 EKG Documentation Completion [RC] URGENT UA W/MICROSCOPIC [URIN] Stat Blood Culture x2 Reflex Set [OM.PC] Stat 04/08/18 22:15 Chest 2V [CR] Urgent 04/08/18 22:22 CULTURE BLOOD [BC] Stat 04/08/18 22:27 CULTURE BLOOD [BC] Stat - Assessment/Plan Last 24 Hours: My Active Orders 04/08/18 22:14 EKG Documentation Completion [RC] URGENT UA W/MICROSCOPIC [URIN] Stat Blood Culture x2 Reflex Set [OM.PC] Stat 04/08/18 22:15 Chest 2V [CR] Urgent 04/08/18 22:22 CULTURE BLOOD [BC] Stat 04/08/18 22:27 CULTURE BLOOD [BC] Stat
--- NOTE | 2018-04-10 18:21 | EKG ---
04/08/2018 - MARINA GORDON - TIME: 10:34 p.m. FINDINGS: Sinus rhythm at 63, borderline right axis deviation. [facility] /[id number]
== END 2018-04-08 23:25 | disposition home or self-care (01) ==
LOC: DL.ED 22:23
DX: I13.0 Hypertensive heart and chronic kidney disease with heart failure and stage 1 through stage 4 chronic kidney disease, or unspecified chronic kidney disease (principal); I50.9 Heart failure, unspecified; E11.21 Type 2 diabetes mellitus with diabetic nephropathy; E11.22 Type 2 diabetes mellitus with diabetic chronic kidney disease; N18.4 Chronic kidney disease, stage 4 (severe); E78.00 Pure hypercholesterolemia, unspecified; Z88.1 Allergy status to other antibiotic agents; Z91.040 Latex allergy status; Z88.8 Allergy status to other drugs, medicaments and biological substances; Z79.4 Long term (current) use of insulin; Z79.899 Other long term (current) drug therapy; Z79.82 Long term (current) use of aspirin
CPT/HCPCS: 36415; 71046; 80053; 83605; 83880; 84484; 85025; 87040; 99284; 99285

== ENCOUNTER 2018-04-29 20:55 | Emergency (ER) | payer MEDICARE, MEDICAID ==
[2018-04-29 21:12] VITALS: BP 130/72
[2018-04-29] MEDS ORDERED: Bumetanide 1 MG/4 ML MDV IVPUSH ONE (21:21)
[2018-04-29] MEDS ORDERED: Aspirin 81 MG Tab.Chew ONE (21:34)
[2018-04-29 22:01] LABS: ANION GAP 17.1; CHLORIDE,CL 97 mmol/L (101-111); SODIUM,NA 134 mmol/L (135-145)
[2018-04-29] MEDS ORDERED: Morphine 4 MG/ML Syringe IVPUSH ONE (22:08)
[2018-04-30] MEDS ORDERED: Aspirin 81 MG Tab.Chew PO SCH (08:00)
--- NOTE | 2018-05-01 07:18 | EDM.PDOC ---
ED HPI GENERAL MEDICAL PROBLEM - General Chief Complaint: Respiratory Problem Stated Complaint: by ambulance Time Seen by Provider: 04/29/18 21:10 Source of Information: Reports: Patient, EMS History Limitations: Reports: No Limitations - History of Present Illness INITIAL COMMENTS - FREE TEXT/NARRATIVE: ED via [facility] with c/o feeling SOB, pain to left chesta nd pain around dialysis catheter when up right. Peritoneal dialysis. Sob similar to recent. Staes water pill, decreased as not putting out much urine. White thick strands in dialysis tubing. Stated whe has been trying to call someone but no one calls her back. - Related Data Allergies Allergy/AdvReac Type Severity Reaction Status Date / Time lidocaine Allergy Intermediate Swelling Verified 03/10/18 00:01 amoxicillin trihydrate Allergy Rash Verified 03/10/18 00:01 [From Amoxil] latex Allergy Rash Verified 03/10/18 00:01 lisinopril Allergy Headache Verified 03/10/18 00:01 Home Meds: Home Meds Bumetanide 2 mg PO BID 12/21/15 [History] Calcium Acetate [Phoslo] 2 cap PO BID 03/29/16 [History] Insulin Aspart [Novolog Flexpen] 5 unit SQ ASDIRECTED PRN 05/17/16 [History] Metoprolol Succinate [Toprol XL 100mg] 100 mg PO BID 05/17/16 [History] Amarilys.Dialysis Soln28 &Ico 7.5% [Extraneal Icodextrin Dialysis] 1,500 ml IP ASDIRECTED 08/31/16 [History] Acetaminophen [Tylenol] 1,000 mg PO Q6H PRN 11/03/16 [History] Mupirocin Cream [Bactroban Crm] 1 applic TOP DAILY 11/03/16 [History] Metoclopramide [Reglan] 1 tab PO TIDAC PRN 03/14/17 [History] Sodium Bicarbonate 1 tab PO BID 03/14/17 [History] Aspirin [Halfprin] 81 mg PO DAILY 01/08/18 [History] Doxycycline [Vibramycin] 100 mg PO DAILY 01/08/18 [History] Past Medical History HEENT History: Reports: Cataract Cardiovascular History: Reports: Afib, CAD, Heart Failure, High Cholesterol, Hypertension, Pacemaker, Other (See Below) Other Cardiovascular History: hx of bilateral lower extremity edema Respiratory History: Reports: SOB Other Respiratory History: From CHF Gastrointestinal History: Reports: Other (See Below) Other Gastrointestinal History: gastroparesis diabeticorum Genitourinary History: Reports: Dialysis, Diabetic Nephropathy, Dialysis, Peritoneal, Other (See Below) Other Genitourinary History: chronic kidney disease stage 4, nephrotic syndrome BREAKDOWN MAN History: Reports: Other BREAKDOWN MAN History: 5 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 lower leg. Dry and scaley about 3inches in diameter. Non draining. Also has dry area to left marie area. 1 diameter to left marie area. - Infectious Disease History Infectious Disease History: Reports: Chicken Pox Other Infectious Disease History: patient unsure - Past Surgical History HEENT Surgical History: Reports: Cataract Surgery Other Cardiovascular Surgeries/Procedures: Angiogram 2014 GI Surgical History: Reports: Appendectomy Oncologic Surgical History: Reports: None Dermatological Surgical History: Reports: Skin Biopsy Social & Family History - Family History Family Medical History: Noncontributory Cardiac: Reports: [place] Other Cardiac Family History: father from [place] in his 50s Endocrine/Metabolic: Reports: Diabetes, type II Other Hematologic Family History: mother has h/o DVT and is on blood thinners - per pt report - Tobacco Use Smoking Status *Q: Unknown Ever Smoked Second Hand Smoke Exposure: No - Caffeine Use Caffeine Use: Reports: None - Recreational Drug Use Recreational Drug Use: No - Living Situation & Occupation Living situation: Reports: with Family Occupation: Employed ED ROS GENERAL - Review of Systems Review Of Systems: ROS reveals no pertinent complaints other than HPI. ED EXAM, GENERAL - Physical Exam Exam: See Below Exam Limited By: No Limitations General Appearance: Alert, No Apparent Distress Eye Exam: Bilateral Eye: EOMI Ears: Normal External Exam Ear Exam: Bilateral Ear: TM Dull Nose: Normal Inspection Throat/Mouth: Normal Inspection Head: Atraumatic, Normocephalic Respiratory/Chest: No Respiratory Distress, Lungs Clear, Normal Breath Sounds Cardiovascular: Normal Peripheral Pulses, Regular Rate, Rhythm. No: No Edema (1 +) GI/Abdominal: Normal Bowel Sounds, Soft, Tender (left mid abdomen around catheter, worse while sitting upright) Back Exam: Normal Inspection, Full Range of Motion Extremities: Normal Inspection Neurological: Alert, Oriented, Normal Cognition Psychiatric: Normal Affect, Normal Mood Skin Exam: Warm, Dry, Intact, Normal Color, No Rash Course - Vital Signs Last Recorded V/S: Last Vital Signs Temp 97.7 F 04/29/18 21:11 Pulse 125 H 04/29/18 21:11 Resp 24 H 04/29/18 21:11 BP 130/72 04/29/18 21:11 Pulse Ox 97 04/29/18 21:11 - Orders/Labs/Meds Labs: Laboratory Tests 04/29/18 04/29/18 04/29/18 Range/Units 21:25 21:25 21:25 WBC 6.0 (5.0-10.0) 10^3/uL RBC 3.36 L (4.2-5.4) 10^6/uL Hgb 10.3 L (12.0-16.0) g/dL Hct 31.5 L (37.0-47.0) % MCV 93.8 (80-100) fL MCH 30.7 (27.0-34.0) pg MCHC 32.7 L (33.0-35.0) g/dL Plt Count 179 (150-450) 10^3/uL Neut % (Auto) 74.6 (42.2-75.2) % Lymph % (Auto) 10.7 L (20.5-50.1) % [place] % (Auto) 9.3 H (2-8) % Eos % (Auto) 4.7 H (1.0-3.0) % Baso % (Auto) 0.7 (0.0-1.0) % PT 10.0 (9.0-12.0) SEC INR 1.0 (0.9-1.2) Sodium 134 L (135-145) mmol/L Potassium 4.1 (3.6-5.0) mmol/L Chloride 97 L (101-111) mmol/L Carbon Dioxide 24.0 (21.0-31.0) mmol/L Anion Gap 17.1 BUN 64 H (7-18) mg/dL Creatinine 9.7 H D (0.6-1.3) mg/dL Est Cr Clr Drug Dosing 5.26 mL/min Estimated GFR (MDRD) 4 BUN/Creatinine Ratio 6.59 Glucose 186 H (74-105) mg/dL Calcium 8.0 L (8.4-10.2) mg/dl Total Bilirubin 0.6 (0.2-1.0) mg/dL AST 18 (10-42) IU/L ALT 12 (10-60) IU/L Alkaline Phosphatase 191 H (42-121) IU/L CK-MB (CK-2) (0.4-4.7) ng/mL Troponin I 0.03 H* (0.00-0.02) ng/ml B-Natriuretic Peptide > 5000 H (0-100) pg/ml Total Protein 6.0 L (6.7-8.2) g/dl Albumin 2.8 L (3.2-5.5) g/dl Globulin 3.2 Albumin/Globulin Ratio 0.88 04/29/18 Range/Units 21:25 WBC (5.0-10.0) 10^3/uL RBC (4.2-5.4) 10^6/uL Hgb (12.0-16.0) g/dL Hct (37.0-47.0) % MCV (80-100) fL MCH (27.0-34.0) pg MCHC (33.0-35.0) g/dL Plt Count (150-450) 10^3/uL Neut % (Auto) (42.2-75.2) % Lymph % (Auto) (20.5-50.1) % [place] % (Auto) (2-8) % Eos % (Auto) (1.0-3.0) % Baso % (Auto) (0.0-1.0) % PT (9.0-12.0) SEC INR (0.9-1.2) Sodium (135-145) mmol/L Potassium (3.6-5.0) mmol/L Chloride (101-111) mmol/L Carbon Dioxide (21.0-31.0) mmol/L Anion Gap BUN (7-18) mg/dL Creatinine (0.6-1.3) mg/dL Est Cr Clr Drug Dosing mL/min Estimated GFR (MDRD) BUN/Creatinine Ratio Glucose (74-105) mg/dL Calcium (8.4-10.2) mg/dl Total Bilirubin (0.2-1.0) mg/dL AST (10-42) IU/L ALT (10-60) IU/L Alkaline Phosphatase (42-121) IU/L CK-MB (CK-2) 4.90 H (0.4-4.7) ng/mL Troponin I (0.00-0.02) ng/ml B-Natriuretic Peptide (0-100) pg/ml Total Protein (6.7-8.2) g/dl Albumin (3.2-5.5) g/dl Globulin Albumin/Globulin Ratio Meds: Medications Discontinued Medications Generic Name Dose Route Start Last Admin Trade Name Alexq PRN Reason Stop Dose Admin Aspirin 162 mg 04/30/18 08:00 [facility] Confirm 04/29/18 21:34 04/29/18 21:38 Aspirin Administered 04/29/18 21:35 162 mg Dose Administration 162 mg .ROUTE .STK-MED ONE Bumetanide 1 mg 04/29/18 21:21 04/29/18 22:25 Bumex IVPUSH 04/29/18 21:22 1 mg ONETIME ONE Administration Morphine Sulfate 2 mg 04/29/18 22:08 04/29/18 22:25 Morphine IVPUSH 04/29/18 22:09 2 mg ONETIME ONE Administration Departure - Departure Time of Disposition: 23:45 Disposition: DC/Tfer to Acute Hospital 02 Condition: Good Clinical Impression: Chronic atrial fibrillation, End stage renal disease on dialysis, Nonspecific chest pain, Pulmonary edema with congestive heart failure Diabetes Qualifiers: Diabetes mellitus type: other specified (including ROBIN) Diabetes mellitus complication status: with kidney complications Diabetes mellitus complication detail: with nephropathy - Discharge Information Referrals: PCP,None [Primary Care Provider] - Forms: ED Department Discharge
--- NOTE | 2018-05-01 11:46 | EKG ---
04/29/2018 - MARINA GORDON - TIME: 2109 hours FINDINGS: EKG shows atrial fibrillation with rapid ventricular response. Has nonspecific T- and ST-segment changes. [facility] /[id number]
== END 2018-04-29 23:49 ==
LOC: DL.ED 20:55
DX: I48.2 Chronic atrial fibrillation (principal); I13.2 Hypertensive heart and chronic kidney disease with heart failure and with stage 5 chronic kidney disease, or end stage renal disease; E11.22 Type 2 diabetes mellitus with diabetic chronic kidney disease; N18.6 End stage renal disease; I50.1 Left ventricular failure, unspecified; Z99.2 Dependence on renal dialysis; E78.00 Pure hypercholesterolemia, unspecified; Z79.82 Long term (current) use of aspirin; Z79.4 Long term (current) use of insulin; Z79.899 Other long term (current) drug therapy; Z88.8 Allergy status to other drugs, medicaments and biological substances; Z91.040 Latex allergy status
CPT/HCPCS: 36415; 71045; 71250; 74176; 80053; 82553; 83880; 84484; 85025; 85610; 96374; 96375; 99284; 99285; A9270; J2270; S0171

== ENCOUNTER 2018-05-08 10:55 | Emergency (ER) | payer MEDICARE, MEDICAID ==
--- NOTE | 2018-05-08 11:06 | EDM.PDOC ---
ED HPI GENERAL MEDICAL PROBLEM - General Chief Complaint: Respiratory Problem Stated Complaint: AMBULANCE Time Seen by Provider: 05/08/18 11:05 Source of Information: Reports: Patient, EMS, Old Records, RN, RN Notes Reviewed History Limitations: Reports: No Limitations - History of Present Illness INITIAL COMMENTS - FREE TEXT/NARRATIVE: Pt arrives from home by ambulance with c/o progressively worsening shortness of breath, productive cough with thick green sputum, and chest pain. Pt was found by paramedics to be afebrile, with labored breathing and oxygen saturation of 82 % on room air. Pt was seen here on 04/29/18 and transferred to [facility] for dyspnea, CHF, and chest pain. She is unsure if she has had a fever or not. Denies N/V or abdominal pain. Pt states her peritoneal dialysis run off fluid has been clear. Duration: Chronic, Constant, Getting Worse Location: Reports: Chest Quality: Reports: Same as Previous Episode Severity: Severe Improves with: Reports: None Worsens with: Reports: None Associated Symptoms: Reports: No Other Symptoms Left Chest Pain Score (Numeric/FACES): 8 - Related Data Allergies Allergy/AdvReac Type Severity Reaction Status Date / Time lidocaine Allergy Intermediate Swelling Verified 05/08/18 11:29 amoxicillin trihydrate Allergy Rash Verified 05/08/18 11:29 [From Amoxil] latex Allergy Rash Verified 05/08/18 11:29 lisinopril Allergy Headache Verified 05/08/18 11:29 Home Meds: Home Meds Bumetanide 2 mg PO BID 12/21/15 [History] Calcium Acetate [Phoslo] 2 cap PO BID 03/29/16 [History] Insulin Aspart [Novolog Flexpen] 5 unit SQ ASDIRECTED PRN 05/17/16 [History] Metoprolol Succinate [Toprol XL 100mg] 100 mg PO BID 05/17/16 [History] Amarilys.Dialysis Soln28 &Ico 7.5% [Extraneal Icodextrin Dialysis] 1,500 ml IP ASDIRECTED 08/31/16 [History] Acetaminophen [Tylenol] 1,000 mg PO Q6H PRN 11/03/16 [History] Mupirocin Cream [Bactroban Crm] 1 applic TOP DAILY 11/03/16 [History] Metoclopramide [Reglan] 1 tab PO TIDAC PRN 03/14/17 [History] Sodium Bicarbonate 1 tab PO BID 03/14/17 [History] Aspirin [Halfprin] 81 mg PO DAILY 01/08/18 [History] Doxycycline [Vibramycin] 100 mg PO DAILY 01/08/18 [History] Past Medical History HEENT History: Reports: Cataract Cardiovascular History: Reports: Afib, CAD, Heart Failure, High Cholesterol, Hypertension, Pacemaker, Other (See Below) Other Cardiovascular History: hx of bilateral lower extremity edema Respiratory History: Reports: Pneumonia, Recurrent, SOB Other Respiratory History: From CHF Gastrointestinal History: Reports: Other (See Below) Other Gastrointestinal History: gastroparesis diabeticorum Genitourinary History: Reports: Dialysis, Diabetic Nephropathy, Dialysis, Peritoneal, Other (See Below) Other Genitourinary History: chronic kidney disease stage 4, nephrotic syndrome 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 lower leg. Dry and scaley about 3inches in diameter. Non draining. Also has dry area to left marie area. 1 diameter to left marie area. - Infectious Disease History Infectious Disease History: Reports: Chicken Pox Other Infectious Disease History: patient unsure - Past Surgical History HEENT Surgical History: Reports: Cataract Surgery Other Cardiovascular Surgeries/Procedures: Angiogram 2014 GI Surgical History: Reports: Appendectomy Oncologic Surgical History: Reports: None Dermatological Surgical History: Reports: Skin Biopsy Social & Family History - Family History Family Medical History: Noncontributory Cardiac: Reports: [place] Other Cardiac Family History: father from [place] in his 50s Endocrine/Metabolic: Reports: Diabetes, type II Other Hematologic Family History: mother has h/o DVT and is on blood thinners - per pt report - Caffeine Use Caffeine Use: Reports: None - Living Situation & Occupation Living situation: Reports: with Family Occupation: Employed ED ROS GENERAL - Review of Systems Review Of Systems: ROS reveals no pertinent complaints other than HPI. ED EXAM, GENERAL - Physical Exam Exam: See Below Exam Limited By: No Limitations General Appearance: Alert, Anxious, Other (chronically ill, but not toxic appearing) Eye Exam: Bilateral Eye: Normal Inspection Nose: Normal Inspection, Normal Mucosa, No Blood Throat/Mouth: Normal Lips, Normal Oropharynx, Normal Voice, No Airway Compromise Head: Atraumatic, Normocephalic Neck: Normal Inspection, Supple, Non-Tender, Full Range of Motion. No: Lymphadenopathy (L), Lymphadenopathy (R) Respiratory/Chest: No Respiratory Distress, No Accessory Muscle Use, Decreased Breath Sounds (Rt>Left), Crackles, Rales, Wheezing Cardiovascular: Tachycardia, Irregularly Irregular GI/Abdominal: Normal Bowel Sounds, Soft, Non-Tender, No Distention. No: Guarding, Rigid, Rebound (Female) Exam: Deferred Rectal (Female) Exam: Deferred Extremities: Normal Range of Motion, Non-Tender, Pedal Edema Neurological: Alert, Oriented, Normal Cognition, No Motor/Sensory Deficits, Other (generalized weakness) Psychiatric: Anxious Skin Exam: Warm, Dry, Intact, Other (chronic/stable dry skin with hyperpigmented lesions) EKG INTERPRETATION EKG Date: 05/08/18 Time: 11:10 Rhythm: A-Fib Rate (Beats/Min): 123 [place]: LAD-Left [place]nam Deviation P-Wave: Absent QRS: Other (low voltage) ST-T: Normal QT: Prolonged (borderline) Comparison: No Change Course - Vital Signs Last Recorded V/S: Last Vital Signs Temp 37.7 C 05/08/18 11:17 Pulse 136 H 05/08/18 11:17 Resp 18 05/08/18 11:17 BP 146/66 H 05/08/18 11:17 Pulse Ox 97 05/08/18 11:17 Oxygen Sat 88% on RA on arrival. - Orders/Labs/Meds Orders: Active Orders 24 hr Category Date Time Status EKG 12 Lead [EKG Documentation Completion] [RC] STAT Care 05/08/18 11:07 Active Peripheral IV Care [RC] . DIRECTED Care 05/08/18 11:08 Active RT Aerosol Therapy [RC] ASDIRECTED Care 05/08/18 11:07 Active CBC WITH AUTO DIFF [HEME] Stat Lab 05/08/18 11:20 Results CULTURE BLOOD [BC] Stat Lab 05/08/18 11:20 Received CULTURE BLOOD [BC] Stat Lab 05/08/18 11:24 Results MANUAL DIFFERENTIAL QA/NC [HEME] Stat Lab 05/08/18 11:20 Results UA W/MICROSCOPIC [URIN] Stat Lab 05/08/18 11:08 Ordered Sodium Chloride 0.9% [Saline Flush] Med 05/08/18 11:08 Active 10 ml FLUSH ASDIRECTED PRN Blood Culture x2 Reflex Set [OM.PC] Stat Oth 05/08/18 11:08 Ordered Peripheral IV Insertion Adult [OM.PC] Stat Ot 05/08/18 11:07 Ordered Medication Orders Sodium Chloride (Saline Flush) 10 ml FLUSH ASDIRECTED PRN PRN Reason: Keep Vein Open Last Admin: 05/08/18 11:39 Dose: 10 ml Labs: Laboratory Tests 05/08/18 05/08/18 05/08/18 Range/Units 11:20 11:20 11:20 WBC 3.2 L (5.0-10.0) 10^3/uL RBC 3.04 L (4.2-5.4) 10^6/uL Hgb 9.2 L (12.0-16.0) g/dL Hct 28.8 L (37.0-47.0) % MCV 94.7 (80-100) fL MCH 30.3 (27.0-34.0) pg MCHC 31.9 L (33.0-35.0) g/dL Plt Count 147 L (150-450) 10^3/uL Neut % (Auto) 56.9 (42.2-75.2) % Lymph % (Auto) 12.1 L (20.5-50.1) % [place] % (Auto) 22.3 H (2-8) % Eos % (Auto) 8.4 H (1.0-3.0) % Baso % (Auto) 0.3 (0.0-1.0) % Add Manual Diff Yes PT 10.7 (9.0-12.0) SEC INR 1.1 (0.9-1.2) APTT 27.3 (22.0-34.0) SEC Sodium 132 L (135-145) mmol/L Potassium 4.0 (3.6-5.0) mmol/L Chloride 95 L (101-111) mmol/L Carbon Dioxide 23.0 (21.0-31.0) mmol/L Anion Gap 18.0 BUN 64 H (7-18) mg/dL Creatinine 10.1 H (0.6-1.3) mg/dL Est Cr Clr Drug Dosing 5.05 mL/min Estimated GFR (MDRD) 4 BUN/Creatinine Ratio 6.33 Glucose 100 (74-105) mg/dL Lactic Acid (0.5-2.2) mmol/L Calcium 7.9 L (8.4-10.2) mg/dl Magnesium 1.9 (1.8-2.5) mg/dL Total Bilirubin 0.7 (0.2-1.0) mg/dL AST 18 (10-42) IU/L ALT 13 (10-60) IU/L Alkaline Phosphatase 130 H (42-121) IU/L Creatine Kinase (26-174) IU/L Creatine Kinase Index (0-2.4) % CK-MB (CK-2) (0.4-4.7) ng/mL Troponin I 0.03 H* (0.00-0.02) ng/ml B-Natriuretic Peptide 4390 H (0-100) pg/ml Total Protein 5.8 L (6.7-8.2) g/dl Albumin 2.6 L (3.2-5.5) g/dl Globulin 3.2 Albumin/Globulin Ratio 0.81 05/08/18 05/08/18 Range/Units 11:20 11:20 WBC (5.0-10.0) 10^3/uL RBC (4.2-5.4) 10^6/uL Hgb (12.0-16.0) g/dL Hct (37.0-47.0) % MCV (80-100) fL MCH (27.0-34.0) pg MCHC (33.0-35.0) g/dL Plt Count (150-450) 10^3/uL Neut % (Auto) (42.2-75.2) % Lymph % (Auto) (20.5-50.1) % [place] % (Auto) (2-8) % Eos % (Auto) (1.0-3.0) % Baso % (Auto) (0.0-1.0) % Add Manual Diff PT (9.0-12.0) SEC INR (0.9-1.2) APTT (22.0-34.0) SEC Sodium (135-145) mmol/L Potassium (3.6-5.0) mmol/L Chloride (101-111) mmol/L Carbon Dioxide (21.0-31.0) mmol/L Anion Gap BUN (7-18) mg/dL Creatinine (0.6-1.3) mg/dL Est Cr Clr Drug Dosing mL/min Estimated GFR (MDRD) BUN/Creatinine Ratio Glucose (74-105) mg/dL Lactic Acid 0.8 (0.5-2.2) mmol/L Calcium (8.4-10.2) mg/dl Magnesium (1.8-2.5) mg/dL Total Bilirubin (0.2-1.0) mg/dL AST (10-42) IU/L ALT (10-60) IU/L Alkaline Phosphatase (42-121) IU/L Creatine Kinase 245 H (26-174) IU/L Creatine Kinase Index 1.4 (0-2.4) % CK-MB (CK-2) 3.50 (0.4-4.7) ng/mL Troponin I (0.00-0.02) ng/ml B-Natriuretic Peptide (0-100) pg/ml Total Protein (6.7-8.2) g/dl Albumin (3.2-5.5) g/dl Globulin Albumin/Globulin Ratio Meds: Medications Generic Name Dose Route Start Last Admin Trade Name Freq PRN Reason Stop Dose Admin Sodium Chloride 10 ml 05/08/18 11:08 05/08/18 11:39 Saline Flush FLUSH 10 ml ASDIRECTED PRN Administration Keep Vein Open Discontinued Medications Generic Name Dose Route Start Last Admin Trade Name Freq PRN Reason Stop Dose Admin Albuterol/Ipratropium 3 ml 05/08/18 11:07 05/08/18 11:16 Duoneb 3.0-0.5 Mg/3 Ml NEB 05/08/18 11:08 3 ml ONETIME ONE Administration Bumetanide 1 mg 05/08/18 12:08 Bumex IVPUSH 05/08/18 12:09 ONETIME ONE Morphine Sulfate 2 mg 05/08/18 12:08 Morphine IVPUSH 05/08/18 12:09 ONETIME ONE - Radiology Interpretation Free Text/Narrative:: CXR: generalized pulmonary venous congestoin with bibasilar subpulmonic pleural effusions, chronic CHF per Rad. report. Departure - Departure Time of Disposition: 12:23 Disposition: DC/Tfer to Acute Hospital 02 Condition: Serious Clinical Impression: Pleural effusion, Peritoneal dialysis catheter in place, End-stage renal disease on peritoneal dialysis, Chronic atrial fibrillation Acute exacerbation of CHF (congestive heart failure) Qualifiers: Heart failure type: unspecified Qualified Code(s): I50.9 - Heart failure, unspecified Volume overload Qualifiers: Hypervolemia type: other Qualified Code(s): E87.79 - Other fluid overload - Discharge Information Forms: ED Department Discharge, Interfacility Transfer EMTALA - My Orders Last 24 Hours: My Active Orders 05/08/18 11:07 EKG 12 Lead [EKG Documentation Completion] [RC] STAT RT Aerosol Therapy [RC] ASDIRECTED Peripheral IV Insertion Adult [OM.PC] Stat 05/08/18 11:08 Peripheral IV Care [RC] . DIRECTED UA W/MICROSCOPIC [URIN] Stat Sodium Chloride 0.9% [Saline Flush] 10 ml FLUSH ASDIRECTED PRN Blood Culture x2 Reflex Set [OM.PC] Stat 05/08/18 11:20 CBC WITH AUTO DIFF [HEME] Stat CULTURE BLOOD [BC] Stat MANUAL DIFFERENTIAL QA/NC [HEME] Stat 05/08/18 11:24 CULTURE BLOOD [BC] Stat - Assessment/Plan Last 24 Hours: My Active Orders 05/08/18 11:07 EKG 12 Lead [EKG Documentation Completion] [RC] STAT RT Aerosol Therapy [RC] ASDIRECTED Peripheral IV Insertion Adult [OM.PC] Stat 05/08/18 11:08 Peripheral IV Care [RC] . DIRECTED UA W/MICROSCOPIC [URIN] Stat Sodium Chloride 0.9% [Saline Flush] 10 ml FLUSH ASDIRECTED PRN Blood Culture x2 Reflex Set [OM.PC] Stat 05/08/18 11:20 CBC WITH AUTO DIFF [HEME] Stat CULTURE BLOOD [BC] Stat MANUAL DIFFERENTIAL QA/NC [HEME] Stat 05/08/18 11:24 CULTURE BLOOD [BC] Stat
[2018-05-08] MEDS ORDERED: Albuterol/Ipratropium 3.0-0.5 MG/3 ML Neb Soln NEB ONE (11:07)
[2018-05-08] MEDS ORDERED: Sodium Chloride 0.9% 10 ML Syringe FLUSH PRN (11:08)
[2018-05-08 11:18] VITALS: BP 146/66
--- NOTE | 2018-05-08 12:02 | CR ---
Clinical history: 62-year-old dyspneic female in the hospital emergency department. Interpretation: Abnormal. Upright AP portable chest film demonstrates generalized pulmonary venous congestion with cephalizatio n of flow and chronic bibasilar dependent subpulmonic pleural effusions that were evident on April 30 018 exam i.e. chronic CHF. Borderline cardiomegaly (cardiac pacemaker and leads unchanged). "Ascites and anasarca" documented on CT scan 29 April 2018. No new lung mass, hilar lymphadenopathy or focal lobar pneumonia.
[2018-05-08] MEDS ORDERED: Morphine 2 MG/ML Syringe IVPUSH ONE (12:08)
[2018-05-08] MEDS ORDERED: Bumetanide 1 MG/4 ML MDV IVPUSH ONE (12:08)
--- NOTE | 2018-05-09 13:29 | EKG ---
05/08/2018 - MARINA GORDON - TIME: 11:00 a.m. FINDINGS: EKG shows a heart rate of 123 beats per minute, atrial fibrillation rhythm. [facility] /[id number]
== END 2018-05-08 13:07 ==
LOC: DL.ED 10:55
DX: J90 Pleural effusion, not elsewhere classified (principal); E11.22 Type 2 diabetes mellitus with diabetic chronic kidney disease; I13.2 Hypertensive heart and chronic kidney disease with heart failure and with stage 5 chronic kidney disease, or end stage renal disease; I50.9 Heart failure, unspecified; N18.6 End stage renal disease; E11.40 Type 2 diabetes mellitus with diabetic neuropathy, unspecified; E87.79 Other fluid overload; I48.2 Chronic atrial fibrillation; Z99.2 Dependence on renal dialysis; E78.00 Pure hypercholesterolemia, unspecified; F41.9 Anxiety disorder, unspecified; D64.9 Anemia, unspecified; Z79.82 Long term (current) use of aspirin; Z79.899 Other long term (current) drug therapy; Z91.040 Latex allergy status; Z88.8 Allergy status to other drugs, medicaments and biological substances; Z88.1 Allergy status to other antibiotic agents; Z79.4 Long term (current) use of insulin
CPT/HCPCS: 36415; 71045; 80053; 82550; 82553; 83605; 83735; 83880; 84484; 85025; 85610; 85730; 87040; 93005; 93010; 94640; 96374; 96375; 99284; 99285; J2270; J7050; S0171

== ENCOUNTER 2018-06-11 21:40 | Emergency (ER) | payer MEDICARE, MEDICAID ==
[2018-06-11] MEDS ORDERED: Albuterol 0.083% 2.5 MG/3 ML Neb Soln ONE (22:00)
[2018-06-11] MEDS ORDERED: Albuterol 0.083% 2.5 MG/3 ML Neb Soln NEB ONE (22:01)
[2018-06-11] MEDS: Bumetanide 1 MG/4 ML MDV IVPUSH ONE ×2 (22:13→23:57)
[2018-06-11] MEDS ORDERED: Morphine 2 MG/ML Syringe IVPUSH ONE (22:20)
[2018-06-11] MEDS ORDERED: Aspirin 81 MG Tab.Chew PO ONE (22:24)
[2018-06-11] MEDS ORDERED: Nitroglycerin 0.4 MG Tab.SL SL ONE (22:24)
[2018-06-11] MEDS ORDERED: Aspirin 81 MG Tab.Chew ONE (22:25)
[2018-06-11] MEDS ORDERED: Nitroglycerin 0.4 MG Tab.SL ONE (22:25)
[2018-06-11 22:26] LABS: ANION GAP 20.7; CHLORIDE,CL 98 mmol/L (101-111); SODIUM,NA 136 mmol/L (135-145)
[2018-06-11] MEDS ORDERED: Ondansetron 4 MG/2 ML SDV ONE (22:29)
[2018-06-11] MEDS ORDERED: Ondansetron 4 MG/2 ML SDV IV ONE (22:29)
[2018-06-11] MEDS ORDERED: LORazepam 2 MG/ML Syringe IVPUSH ONE (22:30)
[2018-06-11 22:37] VITALS: BP 176/70
[2018-06-11] MEDS ORDERED: Sodium Polystyrene Sulfonate 15 GM/60 ML Susp 60 ML Bot PO ONE (22:48)
[2018-06-11] MEDS ORDERED: Nitroglycerin/D5W 25 MG/250 ML BOTTLE IV SCH ×2 (23:00)
--- NOTE | 2018-06-11 23:28 | EDM.PDOC ---
ED HPI GENERAL MEDICAL PROBLEM - General Chief Complaint: Respiratory Problem Stated Complaint: BROUGHT BY AMBULANCE Time Seen by Provider: 06/11/18 21:50 Source of Information: Reports: Patient, EMS, RN Notes Reviewed History Limitations: Reports: No Limitations - History of Present Illness INITIAL COMMENTS - FREE TEXT/NARRATIVE: ED via [facility] with c/o difficulty breathing, starting yesterday. Recent hospital stay for CHF with [facility] , reports while there, something was "burned on her heart " so she wouldn't fill up again. No fever or cough, Pain left chest, sharp jabbing, Home from hospital on , was told yesterday to increase to 2 liters, Did not help. Leg swelling is "good". No fever . No vomiting. Peritoneal dialysis, run earlier today. Chest Pain Score (Numeric/FACES): 8 - Related Data Allergies Allergy/AdvReac Type Severity Reaction Status Date / Time lidocaine Allergy Intermediate Swelling Verified 06/11/18 21:55 amoxicillin trihydrate Allergy Rash Verified 06/11/18 21:55 [From Amoxil] latex Allergy Rash Verified 06/11/18 21:55 lisinopril Allergy Headache Verified 06/11/18 21:55 Home Meds: Home Meds Bumetanide 2 mg PO BID 12/21/15 [History] Calcium Acetate [Phoslo] 2 cap PO BID 03/29/16 [History] Insulin Aspart [Novolog Flexpen] 5 unit SQ ASDIRECTED PRN 05/17/16 [History] Metoprolol Succinate [Toprol XL 100mg] 100 mg PO BID 05/17/16 [History] Amarilys.Dialysis Soln28 &Ico 7.5% [Extraneal Icodextrin Dialysis] 1,500 ml IP ASDIRECTED 08/31/16 [History] Acetaminophen [Tylenol] 1,000 mg PO Q6H PRN 11/03/16 [History] Mupirocin Cream [Bactroban Crm] 1 applic TOP DAILY 11/03/16 [History] Metoclopramide [Reglan] 1 tab PO TIDAC PRN 03/14/17 [History] Sodium Bicarbonate 1 tab PO BID 03/14/17 [History] Aspirin [Halfprin] 81 mg PO DAILY 01/08/18 [History] Doxycycline [Vibramycin] 100 mg PO DAILY 01/08/18 [History] Past Medical History HEENT History: Reports: Cataract Cardiovascular History: Reports: Afib, CAD, Heart Failure, High Cholesterol, Hypertension, Pacemaker, Other (See Below) Other Cardiovascular History: hx of bilateral lower extremity edema Respiratory History: Reports: Pneumonia, Recurrent, SOB Other Respiratory History: From CHF Gastrointestinal History: Reports: Other (See Below) Other Gastrointestinal History: gastroparesis diabeticorum Genitourinary History: Reports: Dialysis, Diabetic Nephropathy, Dialysis, Peritoneal, Other (See Below) Other Genitourinary History: chronic kidney disease stage 4, nephrotic syndrome 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 lower leg. Dry and scaley about 3inches in diameter. Non draining. Also has dry area to left marie area. 1 diameter to left marie area. - Infectious Disease History Infectious Disease History: Reports: Chicken Pox Other Infectious Disease History: patient unsure - Past Surgical History HEENT Surgical History: Reports: Cataract Surgery Other Cardiovascular Surgeries/Procedures: Angiogram 2014 GI Surgical History: Reports: Appendectomy Oncologic Surgical History: Reports: None Dermatological Surgical History: Reports: Skin Biopsy Social & Family History - Family History Family Medical History: Noncontributory Cardiac: Reports: [place] Other Cardiac Family History: father from [place] in his 50s Endocrine/Metabolic: Reports: Diabetes, type II Other Hematologic Family History: mother has h/o DVT and is on blood thinners - per pt report - Tobacco Use Smoking Status *Q: Never Smoker - Caffeine Use Caffeine Use: Reports: None - Recreational Drug Use Recreational Drug Use: No - Living Situation & Occupation Living situation: Reports: with Family Occupation: Employed ED [facility] GENERAL - Review of Systems Review Of Systems: See Below Constitutional: Reports: No Symptoms HEENT: Reports: No Symptoms Respiratory: Reports: Shortness of Breath, Pleuritic Chest Pain Cardiovascular: Reports: Chest Pain, Dyspnea on Exertion. Denies: Edema GI/Abdominal: Reports: No Symptoms : Reports: No Symptoms Musculoskeletal: Reports: No Symptoms Skin: Reports: No Symptoms Neurological: Reports: No Symptoms ED EXAM, GENERAL - Physical Exam Exam: See Below Exam Limited By: No Limitations General Appearance: Alert, Moderate Distress Eye Exam: Bilateral Eye: EOMI, PERRL Ears: Normal External Exam Nose: Normal Inspection Throat/Mouth: Normal Inspection Head: Atraumatic, Normocephalic Neck: Normal Inspection, Full Range of Motion Respiratory/Chest: Decreased Breath Sounds (mid), Rales (mid) Cardiovascular: JVD, Other (paced) GI/Abdominal: Normal Bowel Sounds Extremities: Pedal Edema (1+ ) Neurological: Alert, Oriented, Normal Cognition Psychiatric: Anxious Skin Exam: Warm, Dry, Intact Course - Vital Signs Last Recorded V/S: Last Vital Signs Temp 97.2 F 06/11/18 21:42 Pulse 108 H 06/11/18 22:36 Resp 26 H 06/11/18 22:36 BP 176/70 H 06/11/18 22:36 Pulse Ox 95 06/11/18 22:36 - Orders/Labs/Meds Orders: Active Orders 24 hr Category Date Time Status EKG 12 Lead [EKG Documentation Completion] [RC] STAT Care 06/11/18 21:52 Active RT Aerosol Therapy [RC] ASDIRECTED Care 06/11/18 22:01 Active Chest 1V Frontal [CR] Urgent Exams 06/11/18 21:50 Taken Labs: Laboratory Tests 06/11/18 06/11/18 06/11/18 Range/Units 22:00 22:00 22:00 WBC 8.5 (5.0-10.0) 10^3/uL RBC 3.20 L (4.2-5.4) 10^6/uL Hgb 9.6 L (12.0-16.0) g/dL Hct 30.3 L (37.0-47.0) % MCV 94.7 (80-100) fL MCH 30.0 (27.0-34.0) pg MCHC 31.7 L (33.0-35.0) g/dL Plt Count 197 (150-450) 10^3/uL Neut % (Auto) 73.6 (42.2-75.2) % Lymph % (Auto) 10.8 L (20.5-50.1) % [place] % (Auto) 7.4 (2-8) % Eos % (Auto) 7.8 H (1.0-3.0) % Baso % (Auto) 0.4 (0.0-1.0) % ABG pH (7.35-7.45) ABG pCO2 (35-45) mmHg ABG pO2 (70-100) mmHg ABG HCO3 (22-26) mmol/L ABG O2 Saturation (95-100) % ABG Base Excess ((-2)-(+3)) mmol/L Loc Test O2 Delivery Device Sodium 136 (135-145) mmol/L Potassium 5.7 H (3.6-5.0) mmol/L Chloride 98 L (101-111) mmol/L Carbon Dioxide 23.0 (21.0-31.0) mmol/L Anion Gap 20.7 BUN 76 H (7-18) mg/dL Creatinine 9.7 H (0.6-1.3) mg/dL Est Cr Clr Drug Dosing 5.26 mL/min Estimated GFR (MDRD) 4 BUN/Creatinine Ratio 7.83 Glucose 151 H (74-105) mg/dL Calcium 8.0 L (8.4-10.2) mg/dl Total Bilirubin 0.8 (0.2-1.0) mg/dL AST 26 (10-42) IU/L ALT 21 (10-60) IU/L Alkaline Phosphatase 289 H (42-121) IU/L CK-MB (CK-2) 4.10 (0.4-4.7) ng/mL Troponin I 0.06 H* (0.00-0.02) ng/ml B-Natriuretic Peptide > 5000 H (0-100) pg/ml Total Protein 7.0 (6.7-8.2) g/dl Albumin 3.0 L (3.2-5.5) g/dl Globulin 4.0 Albumin/Globulin Ratio 0.75 06/11/ Range/Units 22:49 WBC (5.0-10.0) 10^3/uL RBC (4.2-5.4) 10^6/uL Hgb (12.0-16.0) g/dL Hct (37.0-47.0) % MCV (80-100) fL MCH (27.0-34.0) pg MCHC (33.0-35.0) g/dL Plt Count (150-450) 10^3/uL Neut % (Auto) (42.2-75.2) % Lymph % (Auto) (20.5-50.1) % [place] % (Auto) (2-8) % Eos % (Auto) (1.0-3.0) % Baso % (Auto) (0.0-1.0) % ABG pH 7.38 (7.35-7.45) ABG pCO2 37 (35-45) mmHg ABG pO2 71 (70-100) mmHg ABG HCO3 21.1 L (22-26) mmol/L ABG O2 Saturation 93 L (95-100) % ABG Base Excess -3 L ((-2)-(+3)) mmol/L Loc Test Performed O2 Delivery Device Nasal cannula Sodium (135-145) mmol/L Potassium (3.6-5.0) mmol/L Chloride (101-111) mmol/L Carbon Dioxide (21.0-31.0) mmol/L Anion Gap BUN (7-18) mg/dL Creatinine (0.6-1.3) mg/dL Est Cr Clr Drug Dosing mL/min Estimated GFR (MDRD) BUN/Creatinine Ratio Glucose (74-105) mg/dL Calcium (8.4-10.2) mg/dl Total Bilirubin (0.2-1.0) mg/dL AST (10-42) IU/L ALT (10-60) IU/L Alkaline Phosphatase (42-121) IU/L CK-MB (CK-2) (0.4-4.7) ng/mL Troponin I (0.00-0.02) ng/ml B-Natriuretic Peptide (0-100) pg/ml Total Protein (6.7-8.2) g/dl Albumin (3.2-5.5) g/dl Globulin Albumin/Globulin Ratio Meds: Medications Discontinued Medications Generic Name Dose Route Start Last Admin Trade Name Freq PRN Reason Stop Dose Admin Albuterol 2.5 mg 06/11/18 22:01 06/11/18 22:13 Proventil Neb Soln NEB 06/11/18 22:02 2.5 mg ONETIME ONE Administration Albuterol Confirm 08/13/18 22:00 06/11/18 22:13 Proventil Neb Soln Administered 06/11/18 22:01 Not Given Dose 2.5 mg .ROUTE .STK-MED ONE Aspirin 324 mg 06/11/18 22:24 06/11/18 22:25 Aspirin PO 06/11/18 22:25 324 mg ONETIME ONE Administration Aspirin Confirm 06/11/18 22:25 06/11/18 22:30 Aspirin Administered 06/11/18 22:26 Not Given Dose 324 mg .ROUTE .STK-MED ONE Bumetanide 1 mg 06/11/18 22:02 06/11/18 23:57 Bumex IVPUSH 06/11/18 22:03 Not Given ONETIME ONE Nitroglycerin/Dextrose 25 mg in 250 mls @ 6 mls/hr 06/11/18 23:00 06/11/18 22 :59 Nitroglycerin 25 Mg/D5w 250 Ml IV 10 mcg/min TITRATE BERYL 6 mls/hr Administration Protocol 10 MCG/MIN Nitroglycerin/Dextrose 25 mg in 250 mls @ 6 mls/hr 06/11/18 23:00 Nitroglycerin 25 Mg/D5w 250 Ml IV TITRATE BERYL Protocol 10 MCG/MIN Lorazepam 1 mg 06/11/18 22:30 06/11/18 22:34 Ativan IVPUSH 06/11/18 22:31 1 mg ONETIME ONE Administration Morphine Sulfate 2 mg 06/11/18 22:20 06/11/18 22:22 Morphine IVPUSH 06/11/18 22:21 2 mg ONETIME ONE Administration Nitroglycerin 0.4 mg 06/11/18 22:24 06/11/18 22:32 Nitrostat SL 06/11/18 22:25 0.4 mg ONETIME ONE Administration Nitroglycerin Confirm 06/11/18 22:25 06/11/18 22:31 Nitrostat Administered 06/11/18 22:26 Not Given Dose 0.4 mg .ROUTE .STK-MED ONE Ondansetron HCl 4 mg 06/11/18 22:29 06/11/18 22:31 Zofran IV 06/11/18 22:30 4 mg ONETIME ONE Administration Ondansetron HCl Confirm 06/11/18 22:29 06/11/18 22:31 Zofran Administered 06/11/18 22:30 Not Given Dose 4 mg .ROUTE .STK-MED ONE Sodium Polystyrene Sulfonate 15 gm 06/11/18 22:48 06/11/18 23:07 Kayexalate PO 06/11/18 22:49 15 gm ONETIME ONE Administration - Re-Assessments/Exams Free Text/Narrative Re-Assessment/Exam: 06/12/18 00:50 Dr Branham accepting of patient, Tx via [facility]. Patient improved at time of tx, Pain relived, respirations easy diminished, fine crackels. Light dozing, arouses easily Departure - Departure Time of Disposition: 23:31 Disposition: DC/Tfer to Acute Hospital 02 Condition: Good Clinical Impression: Hypoxemia, CKD (chronic kidney disease) stage 5, GFR less than 15 ml/min, Bilateral pleural effusion, Peritoneal dialysis catheter in place Acute exacerbation of CHF (congestive heart failure) Qualifiers: Heart failure type: unspecified Qualified Code(s): I50.9 - Heart failure, unspecified Dyspnea Qualifiers: Dyspnea type: unspecified Qualified Code(s): R06.00 - Dyspnea, unspecified Chest pain Qualifiers: Chest pain type: unspecified Qualified Code(s): R07.9 - Chest pain, unspecified - Discharge Information *PRESCRIPTION DRUG MONITORING PROGRAM REVIEWED*: Not Applicable Referrals: PCP,None [Primary Care Provider] - Forms: ED Department Discharge - My Orders Last 24 Hours: My Active Orders 06/11/18 21:50 Chest 1V Frontal [CR] Urgent 06/11/18 21:52 EKG 12 Lead [EKG Documentation Completion] [RC] STAT 06/11/18 22:01 RT Aerosol Therapy [RC] ASDIRECTED - Assessment/Plan Last 24 Hours: My Active Orders 06/11/18 21:50 Chest 1V Frontal [CR] Urgent 06/11/18 21:52 EKG 12 Lead [EKG Documentation Completion] [RC] STAT 06/11/18 22:01 RT Aerosol Therapy [RC] ASDIRECTED
[2018-06-11 23:47] LABS: O2 DELIVERY DEVICE NASAL CANNULA
[2018-06-11 23:48] LABS: ALLEN TEST PERFORMED; BASE EXCESS ARTERIAL -3 mmol/L ((-2)-(+3)); BICARBONATE,ARTERIAL 21.1 mmol/L (22-26); O2 SATURATION ARTERIAL 93 % (95-100); PCO2 ARTERIAL 37 mmHg (35-45); PO2 ARTERIAL 71 mmHg (70-100)
--- NOTE | 2018-06-13 08:53 | EKG ---
06/11/2018- MARINA GORDON - FINDINGS: A 12-lead EKG shows atrial-sensed ventricular-paced complex. No further evaluation at this time. [facility] /[id number]
== END 2018-06-11 23:36 ==
LOC: DL.ED 21:40
DX: I13.2 Hypertensive heart and chronic kidney disease with heart failure and with stage 5 chronic kidney disease, or end stage renal disease (principal); E11.22 Type 2 diabetes mellitus with diabetic chronic kidney disease; N18.5 Chronic kidney disease, stage 5; I50.9 Heart failure, unspecified; J90 Pleural effusion, not elsewhere classified; E11.21 Type 2 diabetes mellitus with diabetic nephropathy; E78.00 Pure hypercholesterolemia, unspecified; I48.91 Unspecified atrial fibrillation; D64.9 Anemia, unspecified; Z79.4 Long term (current) use of insulin; Z99.2 Dependence on renal dialysis; Z79.82 Long term (current) use of aspirin; Z79.899 Other long term (current) drug therapy; Z88.8 Allergy status to other drugs, medicaments and biological substances; Z88.1 Allergy status to other antibiotic agents; Z91.040 Latex allergy status
CPT/HCPCS: 36415; 36600; 71045; 80053; 82553; 82803; 83880; 84484; 85025; 93005; 93010; 94640; 96365; 96375; 99284; 99285; A9270; J2060; J2270; J2405; J3490; J7620

== ENCOUNTER 2018-06-14 01:45 | Emergency (ER) | payer MEDICARE, MEDICAID ==
[~2018-06-14 01:45] MED LIST changes: +Ondansetron 4 MG/2 ML SDV IV ONE; -Sodium Chloride 0.9% 10 ML Syringe FLUSH PRN; +fentaNYL 100 MCG/2 ML SDV IVPUSH ONE
--- NOTE | 2018-06-14 01:45 | EDM.PDOC ---
"ED HPI GENERAL MEDICAL PROBLEM - General Chief Complaint: Back Pain or Injury Stated Complaint: IN BY AMBULANCE Time Seen by Provider: 06/14/18 01:39 Source of Information: Reports: Patient, EMS History Limitations: Reports: No Limitations - History of Present Illness INITIAL COMMENTS - FREE TEXT/NARRATIVE: ED via [facility] with c/o mid to low back pain, Just discharged from hospital today in [place], Stopped to eat, dropped some food and bent over to pick it up felt something pop in back, tried tylenol not helping, Nauseated and vomiting from pain. Left Lower Back Pain Score (Numeric/FACES): 7 - Related Data Allergies Allergy/AdvReac Type Severity Reaction Status Date / Time lidocaine Allergy Intermediate Swelling Verified 06/14/18 02:46 amoxicillin trihydrate Allergy Rash Verified 06/14/18 02:46 [From Amoxil] latex Allergy Rash Verified 06/14/18 02:46 lisinopril Allergy Headache Verified 06/14/18 02:46 Home Meds: Home Meds Bumetanide 2 mg PO BID 12/21/15 [History] Calcium Acetate [Phoslo] 2 cap PO BID 03/29/16 [History] Insulin Aspart [Novolog Flexpen] 5 unit SQ ASDIRECTED PRN 05/17/16 [History] Metoprolol Succinate [Toprol XL 100mg] 100 mg PO BID 05/17/16 [History] Amarilys.Dialysis Soln28 &Ico 7.5% [Extraneal Icodextrin Dialysis] 1,500 ml IP ASDIRECTED 08/31/16 [History] Acetaminophen [Tylenol] 1,000 mg PO Q6H PRN 11/03/16 [History] Mupirocin Cream [Bactroban Crm] 1 applic TOP DAILY 11/03/16 [History] Metoclopramide [Reglan] 1 tab PO TIDAC PRN 03/14/17 [History] Sodium Bicarbonate 1 tab PO BID 03/14/17 [History] Aspirin [Halfprin] 81 mg PO DAILY 01/08/18 [History] Doxycycline [Vibramycin] 100 mg PO DAILY 01/08/18 [History] Past Medical History HEENT History: Reports: Cataract Cardiovascular History: Reports: Afib, CAD, Heart Failure, High Cholesterol, Hypertension, Pacemaker, Other (See Below) Other Cardiovascular History: hx of bilateral lower extremity edema Respiratory History: Reports: Pneumonia, Recurrent, SOB Other Respiratory History: From CHF Gastrointestinal History: Reports: Other (See Below) Other Gastrointestinal History: gastroparesis diabeticorum Genitourinary History: Reports: Dialysis, Diabetic Nephropathy, Dialysis, Peritoneal, Other (See Below) Other Genitourinary History: chronic kidney disease stage 4, nephrotic syndrome 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 lower leg. Dry and scaley about 3inches in diameter. Non draining. Also has dry area to left marie area. 1 diameter to left marie area. - Infectious Disease History Infectious Disease History: Reports: Chicken Pox Other Infectious Disease History: patient unsure - Past Surgical History HEENT Surgical History: Reports: Cataract Surgery Other Cardiovascular Surgeries/Procedures: Angiogram 2014 GI Surgical History: Reports: Appendectomy Oncologic Surgical History: Reports: None Dermatological Surgical History: Reports: Skin Biopsy Social & Family History - Family History Family Medical History: Noncontributory Cardiac: Reports: [place] Other Cardiac Family History: father from [place] in his 50s Endocrine/Metabolic: Reports: Diabetes, type II Other Hematologic Family History: mother has h/o DVT and is on blood thinners - per pt report - Caffeine Use Caffeine Use: Reports: None - Living Situation & Occupation Living situation: Reports: with Family Occupation: Employed ED ROS GENERAL - Review of Systems Review Of Systems: ROS reveals no pertinent complaints other than HPI. ED EXAM,LOWER BACK PAIN/INJURY - Physical Exam Exam: See Below Exam Limited By: No Limitations General Appearance: Alert, Moderate Distress Eye Exam: Bilateral Eye: PERRL Ears: Normal External Exam Nose: Normal Inspection Throat/Mouth: Normal Inspection Head: Atraumatic, Normocephalic Neck: Normal Inspection Respiratory/Chest: No Respiratory Distress, Lungs Clear Cardiovascular: Normal Peripheral Pulses, Regular Rate, Rhythm GI/Abdominal: Normal Bowel Sounds, Soft Back Exam: Full Range of Motion, Muscle Spasm, Paraspinal Tenderness, Vertebral Tenderness (mid thoracic to lumbar) Extremities: Normal Inspection, Normal Range of Motion. No: Pedal Edema Neurological: Alert, Oriented x 3, Straight Leg Raise (L), Straight Leg Raise (R ). No: Saddle Anesthesia Psychiatric: Anxious Skin Exam: Warm, Dry, Normal Color, Wound/Incision (right lower anterior marie healing ulcer, pink central area, dry 2cm) Course - Vital Signs Last Recorded V/S: Last Vital Signs Temp 98 F 06/14/18 02:22 Pulse 80 06/14/18 02:22 Resp 21 H 06/14/18 02:22 BP 160/64 H 06/14/18 02:22 Pulse Ox 96 06/14/18 02:22 - Orders/Labs/Meds Orders: Active Orders 24 hr Category Date Time Status Lumbar Spine wo Cont [CT] Urgent Exams 06/14/18 02:53 Taken Thoracic Spine wo Cont [CT] Urgent Exams 06/14/18 02:53 Taken Labs: Laboratory Tests 06/14/18 06/14/18 Range/Units 01:45 01:45 WBC 7.2 (5.0-10.0) 10^3/uL RBC 4.22 (4.2-5.4) 10^6/uL Hgb 12.5 D (12.0-16.0) g/dL Hct 38.7 (37.0-47.0) % MCV 91.7 D (80-100) fL MCH 29.6 (27.0-34.0) pg MCHC 32.3 L (33.0-35.0) g/dL Plt Count 170 (150-450) 10^3/uL Neut % (Auto) 64.5 (42.2-75.2) % Lymph % (Auto) 14.5 L (20.5-50.1) % [place] % (Auto) 14.1 H (2-8) % Eos % (Auto) 6.3 H (1.0-3.0) % Baso % (Auto) 0.6 (0.0-1.0) % Sodium 138 (135-145) mmol/L Potassium 3.9 D (3.6-5.0) mmol/L Chloride 94 L (101-111) mmol/L Carbon Dioxide 30.0 (21.0-31.0) mmol/L Anion Gap 17.9 BUN 20 H D (7-18) mg/dL Creatinine 3.7 H D (0.6-1.3) mg/dL Est Cr Clr Drug Dosing TNP Estimated GFR (MDRD) 12 BUN/Creatinine Ratio 5.40 Glucose 116 H (74-105) mg/dL Calcium 8.2 L (8.4-10.2) mg/dl Total Bilirubin 2.8 H (0.2-1.0) mg/dL AST 30 (10-42) IU/L ALT 18 (10-60) IU/L Alkaline Phosphatase 214 H (42-121) IU/L Troponin I 0.04 H* (0.00-0.02) ng/ml Total Protein 7.3 (6.7-8.2) g/dl Albumin 3.1 L (3.2-5.5) g/dl Globulin 4.2 Albumin/Globulin Ratio 0.74 Meds: Medications Discontinued Medications Generic Name Dose Route Start Last Admin Trade Name Ezequiel PRN Reason Stop Dose Admin Hydrocodone Bitart/Acetaminophen Confirm 06/14/18 05:04 Hext 325-5 Mg Administered 06/14/18 05:05 Dose 1 tab .ROUTE .STK-MED ONE Fentanyl 25 mcg 06/14/18 01:34 06/14/18 02:28 Sublimaze IVPUSH 06/14/18 01:35 25 mcg ONETIME ONE Administration Fentanyl 25 mcg 06/14/18 03:10 06/14/18 03:16 Sublimaze IVPUSH 06/14/18 03:11 25 mcg ONETIME ONE Administration Lorazepam 1 mg 06/14/18 01:46 06/14/18 02:36 Ativan IVPUSH 06/14/18 01:47 1 mg ONETIME ONE Administration Lorazepam 1 mg 06/14/18 03:19 06/14/18 03:39 Ativan IVPUSH 06/14/18 03:20 1 mg ONETIME ONE Administration Lorazepam Confirm 06/14/18 05:04 Ativan Administered 06/14/18 05:05 Dose 0.5 mg .ROUTE .STK-MED ONE Ondansetron HCl 4 mg 06/14/18 01:34 06/14/18 02:35 Zofran IV 06/14/18 01:35 4 mg ONETIME ONE Administration - Radiology Interpretation Free Text/Narrative:: EXAM: CT Lumbar Spine Without Intravenous Contrast CLINICAL HISTORY: 62 years old, female; Pain; Low back pain; Additional info: Pain in the lower back down the left side, felt a pop TECHNIQUE: Axial computed tomography images of the lumbar spine without intravenous contrast. All CT scans at this facility use at least one of these dose optimization techniques: automated exposure control; mA and/or kV adjustment per patient size (includes targeted exams where dose is matched to clinical indication); or iterative reconstruction. Coronal and sagittal reformatted images were created and reviewed. COMPARISON: No relevant prior studies available. FINDINGS: Vertebrae: Diffuse lumbar spondylosis with loss of disc space height from L1-S1 most severe at L4- 5 No acute fracture or dislocation Discs/spinal canal/neural foramina: Moderate degenerative canal stenosis L4-5 secondary to annular bulging anteriorly as well as hypertrophic facets posteriorly Soft tissues: Unremarkable. IMPRESSION: No acute fracture dislocation Moderate degenerative canal stenosis L4-5 Peritoneal dialysis catheter noted in the pelvis [facility] | Final Radiology Report CONFIDENTIALITY STATEMENT This report is intended only for use by the referring physician, and only in accordance with law. If you received this in error, call [phone]. Page 2 of 2 Small bilateral pleural effusions No evidence for large disc herniation Thank you for allowing us to participate in the care of your patient. Dictated and Authenticated by: Chaz Childs MD 06/14/2018 4:32 AM Central Time ([place] & [place]) MARINA ZURITA Age: 62Years F Date: 06/14/2018 SSN: -- : [id number] Study: CT SPINE THORACIC WO Requesting Physician: TONY PARKS Images: [id number] Addl Studies: Provided Clinical History: pain mid back, greater on the left than right pain in the lower back down the left side, felt a pop Contrast: Without Contrast Medium: Contrast Amount: Contrast Method: Page 1 of 2 EXAM: CT Thoracic Spine Without Intravenous Contrast CLINICAL HISTORY: 62 years old, female; Pain; Pain in thoracic spine; Other: Pain mid back greater on the left side than right, bent over and felt a pop; Additional info: Pain mid back, greater on the left than right. Pain in the lower back down the left side, felt a pop. TECHNIQUE: Axial computed tomography images of the thoracic spine without intravenous contrast. All CT scans at this facility use at least one of these dose optimization techniques: automated exposure control; mA and/or kV adjustment per patient size (includes targeted exams where dose is matched to clinical indication); or iterative reconstruction. Coronal and sagittal reformatted images were created and reviewed. COMPARISON: No relevant prior studies available. FINDINGS: Vertebrae: Mild kyphotic deformity in the midthoracic spine No acute fracture. Discs/spinal canal/neural foramina: No acute fracture dislocation or disc herniation No spinal canal stenosis. Soft tissues: Unremarkable. Lungs: 2.2 cm nodule right upper lung field Pleural space: Bilateral pleural effusions are noted IMPRESSION: No evidence for fracture dislocation or subluxation [facility] GORDON | Final Radiology Report CONFIDENTIALITY STATEMENT This report is intended only for use by the referring physician, and only in accordance with law. If you received this in error, call [phone]. Page 2 of 2 No evidence for disc herniation or cord compression 2.2 cm solid nodule right upper lobe Bilateral pleural effusions - Re-Assessments/Exams Free Text/Narrative Re-Assessment/Exam: 06/14/18 06:40 Awake reports pain improved, still noted with movement. States has not slept so well in long time. Will notify son to come for patient. Departure - Departure Time of Disposition: 04:21 Disposition: Home, Self-Care 01 Condition: Good Clinical Impression: Back pain Qualifiers: Back pain location: low back pain Chronicity: acute Back pain laterality: bilateral Sciatica presence: without sciatica Qualified Code(s): M54.5 - Low back pain - Discharge Information Instructions: Back Pain, Adult Forms: ED Department Discharge Additional Instructions: warm pack to back rest tylenol 650mg every 4 hours mild to moderate back pain hydrocodone 5/325 one every 6 hours as needed moderate to severe back pain #6 lorazepam 0.5mg one every 6 hours as needed fro severe back spasm #6 Follow up in not improving Dialysis Monday as scheduled - My Orders Last 24 Hours: My Active Orders 06/14/18 02:53 Lumbar Spine wo Cont [CT] Urgent Thoracic Spine wo Cont [CT] Urgent - Assessment/Plan Last 24 Hours: My Active Orders 06/14/18 02:53 Lumbar Spine wo Cont [CT] Urgent Thoracic Spine wo Cont [CT] Urgent"
[2018-06-14] MEDS ORDERED: LORazepam 0.5 MG Tab PO ONE (01:46)
[2018-06-14] MEDS ORDERED: LORazepam 2 MG/ML Syringe IVPUSH ONE ×2 (01:46→03:19)
[2018-06-14] MEDS ORDERED: Acetaminophen/HYDROcodone 325-10 MG Tab PO ONE (01:46)
[2018-06-14 02:11] LABS: ANION GAP 17.9; CHLORIDE,CL 94 mmol/L (101-111); SODIUM,NA 138 mmol/L (135-145)
[2018-06-14] MEDS ORDERED: fentaNYL 100 MCG/2 ML SDV IVPUSH ONE (03:10)
[2018-06-14] MEDS ORDERED: LORazepam 0.5 MG Tab ONE (05:04)
[2018-06-14] MEDS ORDERED: Acetaminophen/HYDROcodone 325-5 MG Tab ONE (05:04)
[2018-06-14 06:42] VITALS: BP 157/68
[2018-06-14] MEDS ORDERED: Ondansetron 4 MG/2 ML SDV IV ONE (06:59)
== END 2018-06-14 07:28 | disposition home or self-care (01) ==
LOC: DL.ED 01:45
DX: M54.5 Low back pain (principal); I13.0 Hypertensive heart and chronic kidney disease with heart failure and stage 1 through stage 4 chronic kidney disease, or unspecified chronic kidney disease; E11.22 Type 2 diabetes mellitus with diabetic chronic kidney disease; N18.4 Chronic kidney disease, stage 4 (severe); I50.9 Heart failure, unspecified; E11.21 Type 2 diabetes mellitus with diabetic nephropathy; E11.43 Type 2 diabetes mellitus with diabetic autonomic (poly)neuropathy; K31.84 Gastroparesis; Z79.4 Long term (current) use of insulin; Z79.82 Long term (current) use of aspirin; Z79.899 Other long term (current) drug therapy; Z91.040 Latex allergy status; Z88.1 Allergy status to other antibiotic agents; Z88.8 Allergy status to other drugs, medicaments and biological substances
CPT/HCPCS: 36415; 72128; 72131; 80053; 84484; 85025; 96374; 96375; 96376; 99284; A9270; J2060; J2405; J3010

== ENCOUNTER 2018-06-17 09:51 | Emergency (ER) | payer MEDICARE, MEDICAID ==
[2018-06-17 09:46] VITALS: BP 157/63
--- NOTE | 2018-06-17 09:48 | EDM.PDOC ---
ED HPI GENERAL MEDICAL PROBLEM - General Stated Complaint: IN BY AMBULANCE Time Seen by Provider: 06/17/18 09:26 Source of Information: Reports: Patient, EMS, EMS Notes Reviewed, RN, RN Notes Reviewed History Limitations: Reports: No Limitations - History of Present Illness INITIAL COMMENTS - FREE TEXT/NARRATIVE: Pt to ER with c/o chest pain and SOB. She also c/o back pain. She states she was seen in the ER on for the back pain. States she bent over to pick something up and hurt her back. She states her last hemodialysis in [place] was Monday. Patient admits to N/V, chest pain, SOB, chills. Denies diarrhea or fever. Patient moaning in pain. Onset: Gradual Duration: Constant, Getting Worse Location: Reports: Chest, Back Quality: Reports: Pressure, Sharp Severity: Moderate Improves with: Reports: None Worsens with: Reports: None Associated Symptoms: Reports: Chest Pain, Cough, Fever/Chills, Nausea/Vomiting, Shortness of Breath, Weakness Back Pain Score (Numeric/FACES): 8 - Related Data Allergies Allergy/AdvReac Type Severity Reaction Status Date / Time lidocaine Allergy Intermediate Swelling Verified 06/17/18 09:43 amoxicillin trihydrate Allergy Rash Verified 06/17/18 09:43 [From Amoxil] latex Allergy Rash Verified 06/17/18 09:43 lisinopril Allergy Headache Verified 06/17/18 09:43 Home Meds: Home Meds Bumetanide 2 mg PO BID 12/21/15 [History] Calcium Acetate [Phoslo] 2 cap PO BID 03/29/16 [History] Insulin Aspart [Novolog Flexpen] 5 unit SQ ASDIRECTED PRN 05/17/16 [History] Metoprolol Succinate [Toprol XL 100mg] 100 mg PO BID 05/17/16 [History] Acetaminophen [Tylenol] 1,000 mg PO Q6H PRN 11/03/16 [History] Mupirocin Cream [Bactroban Crm] 1 applic TOP DAILY 11/03/16 [History] Metoclopramide [Reglan] 1 tab PO TIDAC PRN 03/14/17 [History] Sodium Bicarbonate 1 tab PO BID 03/14/17 [History] Aspirin [Halfprin] 81 mg PO DAILY 01/08/18 [History] Doxycycline [Vibramycin] 100 mg PO DAILY 01/08/18 [History] Past Medical History HEENT History: Reports: Cataract Cardiovascular History: Reports: Afib, CAD, Heart Failure, High Cholesterol, Hypertension, Pacemaker, Other (See Below) Other Cardiovascular History: hx of bilateral lower extremity edema Respiratory History: Reports: Pneumonia, Recurrent, SOB Other Respiratory History: From CHF Gastrointestinal History: Reports: Other (See Below) Other Gastrointestinal History: gastroparesis diabeticorum Genitourinary History: Reports: Dialysis, Diabetic Nephropathy, Dialysis, Peritoneal, Other (See Below) Other Genitourinary History: chronic kidney disease stage 4, nephrotic syndrome 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 lower leg. Dry and scaley about 3inches in diameter. Non draining. Also has dry area to left marie area. 1 diameter to left marie area. - Infectious Disease History Infectious Disease History: Reports: Chicken Pox Other Infectious Disease History: patient unsure - Past Surgical History HEENT Surgical History: Reports: Cataract Surgery Other Cardiovascular Surgeries/Procedures: Angiogram 2014 GI Surgical History: Reports: Appendectomy Oncologic Surgical History: Reports: None Dermatological Surgical History: Reports: Skin Biopsy Social & Family History - Family History Family Medical History: Noncontributory Cardiac: Reports: [place] Other Cardiac Family History: father from [place] in his 50s Endocrine/Metabolic: Reports: Diabetes, type II Other Hematologic Family History: mother has h/o DVT and is on blood thinners - per pt report - Caffeine Use Caffeine Use: Reports: None - Living Situation & Occupation Living situation: Reports: with Family Occupation: Employed ED ROS GENERAL - Review of Systems Review Of Systems: ROS reveals no pertinent complaints other than HPI. ED EXAM, GENERAL - Physical Exam Exam: See Below Exam Limited By: No Limitations General Appearance: Alert, WD/WN, Moderate Distress Eye Exam: Bilateral Eye: EOMI, Normal Inspection Ears: Normal External Exam, Hearing Grossly Normal Nose: Normal Inspection Throat/Mouth: Normal Inspection, Normal Lips, Normal Teeth, Normal Gums, Normal Oropharynx, Normal Voice, No Airway Compromise Head: Atraumatic, Normocephalic Neck: Normal Inspection, Supple, Non-Tender, Full Range of Motion Respiratory/Chest: Decreased Breath Sounds, Crackles (bases bilaterally). No: No Respiratory Distress, Lungs Clear, Normal Breath Sounds, No Accessory Muscle Use, Chest Non-Tender Cardiovascular: Normal Peripheral Pulses, Irregularly Irregular Peripheral Pulses: 1+: Radial (L), Radial (R), Dorsalis Pedis (L), Dorsalis Pedis (R) GI/Abdominal: Normal Bowel Sounds, Soft, Non-Tender (Female) Exam: Deferred Rectal (Female) Exam: Deferred Back Exam: Normal Inspection, Decreased Range of Motion, Paraspinal Tenderness, Vertebral Tenderness Extremities: Normal Inspection, Normal Range of Motion, Non-Tender, No Pedal Edema, Normal Capillary Refill Neurological: Alert, Oriented Psychiatric: Anxious, Tearful Skin Exam: Warm, Dry, Other (Multiple open and healed sores in the skin from excema) Lymphatic: No Adenopathy EKG INTERPRETATION EKG Date: 06/17/18 Time: 10:09 Rhythm: Other (atrial sensed, ventricular paced) Rate (Beats/Min): 87 Comparison: No Change Course - Vital Signs Last Recorded V/S: Last Vital Signs Temp 97.9 F 06/17/18 09:45 Pulse 90 06/17/18 09:45 Resp 17 06/17/18 09:45 BP 157/63 H 06/17/18 09:45 Pulse Ox 99 06/17/18 09:45 - Orders/Labs/Meds Orders: Active Orders 24 hr Category Date Time Status EKG Documentation Completion [RC] STAT Care 06/17/18 09:46 Active Peripheral IV Care [RC] . DIRECTED Care 06/17/18 09:47 Active Peripheral IV Insertion Adult [OM.PC] Stat Oth 06/17/18 09:45 Ordered Labs: Laboratory Tests 06/17/18 06/17/18 Range/Units 09:57 09:57 WBC 7.9 (5.0-10.0) 10^3/uL RBC 3.67 L (4.2-5.4) 10^6/uL Hgb 11.0 L D (12.0-16.0) g/dL Hct 34.5 L (37.0-47.0) % MCV 94.0 (80-100) fL MCH 30.0 (27.0-34.0) pg MCHC 31.9 L (33.0-35.0) g/dL Plt Count 167 (150-450) 10^3/uL Neut % (Auto) 70.2 (42.2-75.2) % Lymph % (Auto) 11.9 L (20.5-50.1) % [place] % (Auto) 10.9 H (2-8) % Eos % (Auto) 6.5 H (1.0-3.0) % Baso % (Auto) 0.5 (0.0-1.0) % Sodium 138 (135-145) mmol/L Potassium 4.2 (3.6-5.0) mmol/L Chloride 96 L (101-111) mmol/L Carbon Dioxide 29.0 (21.0-31.0) mmol/L Anion Gap 17.2 BUN 36 H (7-18) mg/dL Creatinine 5.5 H D (0.6-1.3) mg/dL Est Cr Clr Drug Dosing 8.88 mL/min Estimated GFR (MDRD) 8 BUN/Creatinine Ratio 6.54 Glucose 121 H (74-105) mg/dL Calcium 8.3 L (8.4-10.2) mg/dl Total Bilirubin 0.7 (0.2-1.0) mg/dL AST 26 (10-42) IU/L ALT 17 (10-60) IU/L Alkaline Phosphatase 191 H (42-121) IU/L Troponin I 0.08 H* (0.00-0.02) ng/ml B-Natriuretic Peptide 4230 H (0-100) pg/ml Total Protein 6.6 L (6.7-8.2) g/dl Albumin 2.9 L (3.2-5.5) g/dl Globulin 3.7 Albumin/Globulin Ratio 0.78 Meds: Medications Discontinued Medications Generic Name Dose Route Start Last Admin Trade Name Freq PRN Reason Stop Dose Admin Morphine Sulfate 2 mg 06/17/18 11:12 06/17/18 11:24 Morphine IVPUSH 06/17/18 11:13 2 mg ONETIME ONE Administration Morphine Sulfate Confirm 06/17/18 11:21 06/17/18 11:37 Morphine Administered 06/17/18 11:22 Not Given Dose 4 mg .ROUTE .STK-MED ONE Ondansetron HCl 4 mg 06/17/18 11:12 06/17/18 11:24 Zofran IV 06/17/18 11:13 4 mg ONETIME ONE Administration Sodium Chloride 10 ml 06/17/18 09:45 06/17/18 11:24 Saline Flush FLUSH 10 ml ASDIRECTED PRN Administration Keep Vein Open - Radiology Interpretation Free Text/Narrative:: Chest xray: Abnormal, chronic CHF, but unchanged from last exam in April. See rad report - Re-Assessments/Exams Free Text/Narrative Re-Assessment/Exam: 06/18/18 08:57 Discussed patient case with Dr. Miller who agreed to accept the patient for transfer. Departure - Departure Time of Disposition: 11:35 Disposition: DC/Tfer to [facility] 02 Reason for Transfer *Q: Other Condition: Fair Clinical Impression: Acute exacerbation of CHF (congestive heart failure) Qualifiers: Heart failure type: unspecified Qualified Code(s): I50.9 - Heart failure, unspecified Chronic kidney disease (CKD) Qualifiers: Chronic kidney disease stage: on chronic dialysis Qualified Code(s): N18.6 - End stage renal disease Referrals: PCP,Unobtain [Primary Care Provider] - Forms: ED Department Discharge, Interfacility Transfer EMTEUGENIA - My Orders Last 24 Hours: My Active Orders 06/17/18 09:45 Peripheral IV Insertion Adult [OM.PC] Stat 06/17/18 09:46 EKG Documentation Completion [RC] STAT 06/17/18 09:47 Peripheral IV Care [RC] . DIRECTED - Assessment/Plan Last 24 Hours: My Active Orders 06/17/18 09:45 Peripheral IV Insertion Adult [OM.PC] Stat 06/17/18 09:46 EKG Documentation Completion [RC] STAT 06/17/18 09:47 Peripheral IV Care [RC] . DIRECTED
[~2018-06-17 09:51] MED LIST changes: -Ondansetron 4 MG/2 ML SDV IV ONE; +Sodium Chloride 0.9% 10 ML Syringe FLUSH PRN; -fentaNYL 100 MCG/2 ML SDV IVPUSH ONE
[2018-06-17 10:25] LABS: ANION GAP 17.2
[2018-06-17] MEDS ORDERED: Ondansetron 4 MG/2 ML SDV IV ONE (11:12)
[2018-06-17] MEDS ORDERED: Morphine 2 MG/ML Syringe IVPUSH ONE (11:12)
[2018-06-17] MEDS ORDERED: Morphine 4 MG/ML Syringe ONE (11:21)
== END 2018-06-17 11:35 ==
LOC: DL.ED 09:51
DX: I13.0 Hypertensive heart and chronic kidney disease with heart failure and stage 1 through stage 4 chronic kidney disease, or unspecified chronic kidney disease (principal); I50.9 Heart failure, unspecified; E11.22 Type 2 diabetes mellitus with diabetic chronic kidney disease; N18.4 Chronic kidney disease, stage 4 (severe); D63.1 Anemia in chronic kidney disease; Z88.1 Allergy status to other antibiotic agents; Z79.899 Other long term (current) drug therapy; Z91.040 Latex allergy status
CPT/HCPCS: 36415; 71045; 80053; 83880; 84484; 85025; 93005; 93010; 96374; 96375; 99285; J2270; J2405; J7050; 99284

== ENCOUNTER 2018-06-25 10:22 | Emergency (ER) | payer MEDICARE, MEDICAID ==
[2018-06-25 10:35] VITALS: BP 169/57
[2018-06-25 10:44] LABS: BASE EXCESS ARTERIAL 6 mmol/L ((-2)-(+3)); BICARBONATE,ARTERIAL 28.8 mmol/L (22-26); O2 DELIVERY DEVICE ROOM AIR; O2 SATURATION ARTERIAL 86 % (95-100); PCO2 ARTERIAL 37 mmHg (35-45); PO2 ARTERIAL 51 mmHg (70-100)
[2018-06-25 10:45] LABS: O2 FLOW RATE 2
[2018-06-25 10:46] LABS: ALLEN TEST POSITIVE
[2018-06-25 11:06] LABS: ANION GAP 18.1; CHLORIDE,CL 95 mmol/L (101-111); SODIUM,NA 138 mmol/L (135-145)
--- NOTE | 2018-06-25 11:31 | EDM.PDOC ---
ED HPI GENERAL MEDICAL PROBLEM - General Chief Complaint: Respiratory Problem Stated Complaint: IN BY AMBULANCE Time Seen by Provider: 06/25/18 11:00 Source of Information: Reports: Patient History Limitations: Reports: Respiratory Distress - History of Present Illness INITIAL COMMENTS - FREE TEXT/NARRATIVE: This 62 yo female patient was brought to the ED by [facility] due to increased shortness of breath. The patient reports her shortness of breath started to get worse last night, but this morning she could not move due to breathing difficulties. [facility] placed the patient on BiPap which seemed to improve her symptoms. The patient is a dialysis patient, is scheduled for dialysis today with her last dialysis being on Monday. Onset Date: 06/24/18 Duration: Constant, Getting Worse Location: Reports: Chest Quality: Reports: Other Severity: Severe Improves with: Reports: None Worsens with: Reports: None Associated Symptoms: Reports: Chest Pain Lower Back Pain Score (Numeric/FACES): 6 - Related Data Allergies Allergy/AdvReac Type Severity Reaction Status Date / Time lidocaine Allergy Intermediate Swelling Verified 06/25/18 10:47 amoxicillin trihydrate Allergy Rash Verified 06/25/18 10:47 [From Amoxil] latex Allergy Rash Verified 06/25/18 10:47 lisinopril Allergy Headache Verified 06/25/18 10:47 Home Meds: Home Meds Bumetanide 2 mg PO BID 12/21/15 [History] Calcium Acetate [Phoslo] 2 cap PO BID 03/29/16 [History] Insulin Aspart [Novolog Flexpen] 5 unit SQ ASDIRECTED PRN 05/17/16 [History] Metoprolol Succinate [Toprol XL 100mg] 100 mg PO BID 05/17/16 [History] Acetaminophen [Tylenol] 1,000 mg PO Q6H PRN 11/03/16 [History] Mupirocin Cream [Bactroban Crm] 1 applic TOP DAILY 11/03/16 [History] Metoclopramide [Reglan] 1 tab PO TIDAC PRN 03/14/17 [History] Sodium Bicarbonate 1 tab PO BID 03/14/17 [History] Aspirin [Halfprin] 81 mg PO DAILY 01/08/18 [History] Doxycycline [Vibramycin] 100 mg PO DAILY 01/08/18 [History] Past Medical History HEENT History: Reports: Cataract Cardiovascular History: Reports: Afib, CAD, Heart Failure, High Cholesterol, Hypertension, Pacemaker, Other (See Below) Other Cardiovascular History: hx of bilateral lower extremity edema Respiratory History: Reports: Pneumonia, Recurrent, SOB Other Respiratory History: From CHF Gastrointestinal History: Reports: Other (See Below) Other Gastrointestinal History: gastroparesis diabeticorum Genitourinary History: Reports: Dialysis, Diabetic Nephropathy, Dialysis, Peritoneal, Other (See Below) Other Genitourinary History: chronic kidney disease stage 4, nephrotic syndrome 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 lower leg. Dry and scaley about 3inches in diameter. Non draining. Also has dry area to left marie area. 1 diameter to left marie area. - Infectious Disease History Infectious Disease History: Reports: Chicken Pox Other Infectious Disease History: patient unsure - Past Surgical History HEENT Surgical History: Reports: Cataract Surgery Other Cardiovascular Surgeries/Procedures: Angiogram 2014 GI Surgical History: Reports: Appendectomy Oncologic Surgical History: Reports: None Dermatological Surgical History: Reports: Skin Biopsy Social & Family History - Family History Family Medical History: Noncontributory Cardiac: Reports: [place] Other Cardiac Family History: father from [place] in his 50s Endocrine/Metabolic: Reports: Diabetes, type II Other Hematologic Family History: mother has h/o DVT and is on blood thinners - per pt report - Tobacco Use Smoking Status *Q: Unknown Ever Smoked - Caffeine Use Caffeine Use: Reports: None - Recreational Drug Use Recreational Drug Use: No - Living Situation & Occupation Living situation: Reports: with Family Occupation: Employed ED ROS GENERAL - Review of Systems Review Of Systems: ROS reveals no pertinent complaints other than HPI. ED EXAM, GENERAL - Physical Exam Exam: See Below Exam Limited By: No Limitations General Appearance: Alert, Severe Distress Eye Exam: Bilateral Eye: EOMI, Normal Inspection, PERRL Ears: Normal External Exam, Normal Canal, Hearing Grossly Normal, Normal TMs Nose: Normal Inspection, Normal Mucosa, No Blood Throat/Mouth: Normal Inspection, Normal Lips, Normal Teeth, Normal Gums, Normal Oropharynx, Normal Voice, No Airway Compromise Head: Atraumatic, Normocephalic Neck: Normal Inspection, Supple, Non-Tender, Full Range of Motion Respiratory/Chest: Decreased Breath Sounds, Rhonchi, Wheezing Cardiovascular: Normal Peripheral Pulses, Regular Rate, Rhythm, No Edema, No Gallop, No JVD, No Murmur, No Rub GI/Abdominal: Normal Bowel Sounds, Soft, Non-Tender, No Organomegaly, No Distention, No Abnormal Bruit, No Mass (Female) Exam: Deferred Rectal (Female) Exam: Deferred Extremities: Normal Range of Motion Neurological: Alert, Oriented Psychiatric: Normal Affect, Normal Mood Lymphatic: No Adenopathy Course - Vital Signs Last Recorded V/S: Last Vital Signs Temp 36.6 C 06/25/18 10:34 Pulse 84 06/25/18 10:34 Resp 38 H 06/25/18 10:34 BP 169/57 H 06/25/18 10:34 Pulse Ox 96 06/25/18 10:34 - Orders/Labs/Meds Orders: Active Orders 24 hr Category Date Time Status BIPAP [RT BiPAP/CPAP] [RC] ASDIRECTED Care 06/25/18 10:26 Active EKG Documentation Completion [RC] URGENT Care 06/25/18 10:24 Active Chest 1V Frontal [CR] Urgent Exams 06/25/18 10:24 Ordered Labs: Laboratory Tests 06/25/18 06/25/18 06/25/18 Range/Units 10:26 10:38 10:38 WBC 7.2 (5.0-10.0) 10^3/uL RBC 3.81 L (4.2-5.4) 10^6/uL Hgb 11.4 L (12.0-16.0) g/dL Hct 36.0 L (37.0-47.0) % MCV 94.5 (80-100) fL MCH 29.9 (27.0-34.0) pg MCHC 31.7 L (33.0-35.0) g/dL Plt Count 201 (150-450) 10^3/uL Neut % (Auto) 72.2 (42.2-75.2) % Lymph % (Auto) 12.4 L (20.5-50.1) % [place] % (Auto) 8.5 H (2-8) % Eos % (Auto) 6.3 H (1.0-3.0) % Baso % (Auto) 0.6 (0.0-1.0) % ABG pH 7.50 H (7.35-7.45) ABG pCO2 37 (35-45) mmHg ABG pO2 51 L (70-100) mmHg ABG HCO3 28.8 H (22-26) mmol/L ABG O2 Saturation 86 L (95-100) % ABG Base Excess 6 H ((-2)-(+3)) mmol/L Loc Test Positive O2 Delivery Device Room air Oxygen Flow Rate 2 Sodium (135-145) mmol/L Potassium (3.6-5.0) mmol/L Chloride (101-111) mmol/L Carbon Dioxide (21.0-31.0) mmol/L Anion Gap BUN (7-18) mg/dL Creatinine (0.6-1.3) mg/dL Est Cr Clr Drug Dosing Estimated GFR (MDRD) BUN/Creatinine Ratio Glucose (74-105) mg/dL Calcium (8.4-10.2) mg/dl Total Bilirubin (0.2-1.0) mg/dL AST (10-42) IU/L ALT (10-60) IU/L Alkaline Phosphatase (42-121) IU/L Troponin I (0.00-0.02) ng/ml B-Natriuretic Peptide > 5000 H (0-100) pg/ml Total Protein (6.7-8.2) g/dl Albumin (3.2-5.5) g/dl Globulin Albumin/Globulin Ratio 06/25/ Range/Units 10:38 WBC (5.0-10.0) 10^3/uL RBC (4.2-5.4) 10^6/uL Hgb (12.0-16.0) g/dL Hct (37.0-47.0) % MCV (80-100) fL MCH (27.0-34.0) pg MCHC (33.0-35.0) g/dL Plt Count (150-450) 10^3/uL Neut % (Auto) (42.2-75.2) % Lymph % (Auto) (20.5-50.1) % [place] % (Auto) (2-8) % Eos % (Auto) (1.0-3.0) % Baso % (Auto) (0.0-1.0) % ABG pH (7.35-7.45) ABG pCO2 (35-45) mmHg ABG pO2 (70-100) mmHg ABG HCO3 (22-26) mmol/L ABG O2 Saturation (95-100) % ABG Base Excess ((-2)-(+3)) mmol/L Loc Test O2 Delivery Device Oxygen Flow Rate Sodium 138 (135-145) mmol/L Potassium 4.1 (3.6-5.0) mmol/L Chloride 95 L (101-111) mmol/L Carbon Dioxide 29.0 (21.0-31.0) mmol/L Anion Gap 18.1 BUN 33 H (7-18) mg/dL Creatinine 7.0 H D (0.6-1.3) mg/dL Est Cr Clr Drug Dosing TNP Estimated GFR (MDRD) 6 BUN/Creatinine Ratio 4.71 Glucose 116 H (74-105) mg/dL Calcium 8.9 (8.4-10.2) mg/dl Total Bilirubin 1.3 H (0.2-1.0) mg/dL AST 24 (10-42) IU/L ALT 14 (10-60) IU/L Alkaline Phosphatase 153 H (42-121) IU/L Troponin I 0.03 H* (0.00-0.02) ng/ml B-Natriuretic Peptide (0-100) pg/ml Total Protein 6.9 (6.7-8.2) g/dl Albumin 3.4 (3.2-5.5) g/dl Globulin 3.5 Albumin/Globulin Ratio 0.97 Departure - Departure Time of Disposition: 11:37 Disposition: DC/Tfer to Acute Hospital 02 Condition: Serious Clinical Impression: Acute respiratory disease, CKD (chronic kidney disease) stage 4, GFR 15-29 ml/ min, Elevated troponin - Discharge Information *PRESCRIPTION DRUG MONITORING PROGRAM REVIEWED*: Not Applicable *COPY OF PRESCRIPTION DRUG MONITORING REPORT IN PATIENT BIENVENIDO: Not Applicable Forms: Interfacility Transfer EMTALA Care Plan Goals: Discussed the patient's history, examination, lab, x-ray and treatment history with Dr. León. Dr. León accepted the patient for continued evaluation and further treatment. The patient will be transported by [facility]. - My Orders Last 24 Hours: My Active Orders 06/25/18 10:24 EKG Documentation Completion [RC] URGENT Chest 1V Frontal [CR] Urgent 06/25/18 10:26 BIPAP [RT BiPAP/CPAP] [RC] ASDIRECTED - Assessment/Plan Last 24 Hours: My Active Orders 06/25/18 10:24 EKG Documentation Completion [RC] URGENT Chest 1V Frontal [CR] Urgent 06/25/18 10:26 BIPAP [RT BiPAP/CPAP] [RC] ASDIRECTED
--- NOTE | 2018-06-25 11:51 | CR ---
CLINICAL HISTORY: 62-year-old female in the emergency department with shortness of breath. INTERPRETATION: Markedly abnormal with increased right lower lobe consolidation since 17 June 2018 exam. Chronic cardiomegaly and large dependent bibasilar pleural effusions that were evident on earlier exa m this patient with cardiac pacemaker (leads intact). Pulmonary vascularity less congested today and no current cephalization of flow (large bibasilar effu sions). Asymmetric new right lower lobe consolidation suggesting possible underlying pneumonitis (aspiration? ). Infarct?
--- NOTE | 2018-06-26 16:59 | EKG ---
06/25/2018 - MARINA GORDON - TIME: 10:53 a.m. FINDINGS: Atrial fibrillation and ventricular paced rhythm at 72. [facility] /[id number]
== END 2018-06-25 12:04 ==
LOC: DL.ED 10:22
DX: J06.9 Acute upper respiratory infection, unspecified (principal); I13.0 Hypertensive heart and chronic kidney disease with heart failure and stage 1 through stage 4 chronic kidney disease, or unspecified chronic kidney disease; I50.9 Heart failure, unspecified; N18.4 Chronic kidney disease, stage 4 (severe); E11.22 Type 2 diabetes mellitus with diabetic chronic kidney disease; D63.1 Anemia in chronic kidney disease; R79.89 Other specified abnormal findings of blood chemistry; Z88.8 Allergy status to other drugs, medicaments and biological substances; Z91.040 Latex allergy status; Z79.899 Other long term (current) drug therapy
CPT/HCPCS: 36415; 36600; 71045; 80053; 82803; 83880; 84484; 85025; 93005; 93010; 94660; 99284; 99285

== ENCOUNTER 2018-11-08 23:12 | Emergency (ER) | payer MEDICARE, MEDICAID ==
[2018-11-08] MEDS ORDERED: LORazepam 2 MG/ML Syringe IVPUSH ONE (23:19)
[2018-11-08] MEDS ORDERED: Sodium Chloride 0.9% 10 ML Syringe FLUSH PRN (23:19)
[2018-11-08 23:34] VITALS: BP 150/70
[2018-11-08 23:51] LABS: ANION GAP 21.3
--- NOTE | 2018-11-09 00:32 | EDM.PDOC ---
ED HPI GENERAL MEDICAL PROBLEM - General Chief Complaint: Chest Pain Stated Complaint: AMBULANCE-UNKNOWN Time Seen by Provider: 11/08/18 23:20 Source of Information: Reports: Patient, EMS, EMS Notes Reviewed, RN, RN Notes Reviewed History Limitations: Reports: No Limitations - History of Present Illness INITIAL COMMENTS - FREE TEXT/NARRATIVE: Pt to ER per [facility] with c/o SOB and right sided chest pain. She states she felt fine all day, then this evening began having the right sided chest pain and back pain. Pain became worse about 1 hour prior to arrival. Pt states her oxygen at home was not helping. She states she was discharged from [facility] on Monday where she was hospitalized for pneumonia, and had chest tubes placed. She was also hospitalized 3 weeks prior to that for pneumonia. Pt states last dialysis was on 11/07/18. She is due for dialysis on 11/09/18. Pt admits to chills , chest pain, SOB, N/V/D. Denies fever. Onset: Today Chest Pain Score (Numeric/FACES): 10 - Related Data Allergies Allergy/AdvReac Type Severity Reaction Status Date / Time lidocaine Allergy Intermediate Swelling Verified 08/24/18 11:26 amoxicillin trihydrate Allergy Rash Verified 08/24/18 11:26 [From Amoxil] latex Allergy Rash Verified 08/24/18 11:26 lisinopril Allergy Headache Verified 08/24/18 11:26 Home Meds: Home Meds Insulin Aspart [Novolog Flexpen] 5 unit SQ ASDIRECTED PRN 05/17/16 [History] Acetaminophen [Tylenol] 1,000 mg PO Q6H PRN 11/03/16 [History] Mupirocin Cream [Bactroban Crm] 1 applic TOP DAILY 11/03/16 [History] Sodium Bicarbonate 1 tab PO BID 03/14/17 [History] Aspirin [Halfprin] 81 mg PO DAILY 01/08/18 [History] predniSONE [Prednisone] 20 mg PO DAILY #6 tablet 08/24/18 [Rx] Carvedilol [Coreg] 12.5 mg PO BIDMEALS 10/01/18 [History] Sevelamer Carbonate [Renvela] 800 mg PO TIDMEALS 10/01/18 [History] rOPINIRole [Requip] 0.25 mg PO TID 10/01/18 [History] Past Medical History HEENT History: Reports: Cataract Cardiovascular History: Reports: Afib, CAD, Heart Failure, High Cholesterol, Hypertension, Pacemaker, Other (See Below) Other Cardiovascular History: hx of bilateral lower extremity edema Respiratory History: Reports: Pneumonia, Recurrent, SOB Other Respiratory History: From CHF Gastrointestinal History: Reports: Other (See Below) Other Gastrointestinal History: gastroparesis diabeticorum Genitourinary History: Reports: Dialysis, Diabetic Nephropathy, Dialysis, Peritoneal, Other (See Below) Other Genitourinary History: chronic kidney disease stage 4, nephrotic syndrome 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 lower leg. Dry and scaley about 3inches in diameter. Non draining. Also has dry area to left marie area. 1 diameter to left marie area. - Infectious Disease History Infectious Disease History: Reports: Chicken Pox Other Infectious Disease History: patient unsure - Past Surgical History HEENT Surgical History: Reports: Cataract Surgery Other Cardiovascular Surgeries/Procedures: Angiogram 2014 GI Surgical History: Reports: Appendectomy Oncologic Surgical History: Reports: None Dermatological Surgical History: Reports: Skin Biopsy Social & Family History - Family History Family Medical History: Noncontributory Cardiac: Reports: [place] Other Cardiac Family History: father from [place] in his 50s Endocrine/Metabolic: Reports: Diabetes, type II Other Hematologic Family History: mother has h/o DVT and is on blood thinners - per pt report - Tobacco Use Smoking Status *Q: Never Smoker - Caffeine Use Caffeine Use: Reports: None - Recreational Drug Use Recreational Drug Use: No - Living Situation & Occupation Living situation: Reports: with Family Occupation: Employed ED ROS GENERAL - Review of Systems Review Of Systems: ROS reveals no pertinent complaints other than HPI. ED EXAM, GENERAL - Physical Exam Exam: See Below Exam Limited By: Language Barrier General Appearance: Alert, WD/WN, Moderate Distress Eye Exam: Bilateral Eye: EOMI, Normal Inspection Ears: Normal External Exam, Hearing Grossly Normal Nose: Normal Inspection Throat/Mouth: Normal Inspection, Normal Voice, No Airway Compromise Head: Atraumatic, Normocephalic Neck: Normal Inspection, Supple, Non-Tender, Full Range of Motion Respiratory/Chest: Decreased Breath Sounds, Crackles, Rales, Rhonchi, Accessory Muscle Use, Other (right chest wall pain) Cardiovascular: Normal Peripheral Pulses, Irregularly Irregular. No: Regular Rate, Rhythm Peripheral Pulses: 2+: Radial (L), Radial (R) GI/Abdominal: Normal Bowel Sounds, Soft, Non-Tender (Female) Exam: Deferred Rectal (Female) Exam: Deferred Back Exam: Normal Inspection, Decreased Range of Motion Extremities: Normal Inspection, Non-Tender, No Pedal Edema, Normal Capillary Refill, Limited Range of Motion Neurological: Alert, Oriented Psychiatric: Anxious, Tearful Skin Exam: Warm, Dry, Other (scarring all over the body, some small open sores. ) Lymphatic: No Adenopathy EKG INTERPRETATION EKG Date: 11/08/18 Time: 23:36 Rhythm: A-Fib Rate (Beats/Min): 72 Comparison: No Change Course - Vital Signs Last Recorded V/S: Last Vital Signs Temp 98.5 F 11/08/18 23:12 Pulse 84 11/08/18 23:12 Resp 19 11/08/18 23:12 BP 150/70 H 11/08/18 23:12 Pulse Ox 96 11/08/18 23:12 - Orders/Labs/Meds Orders: Active Orders 24 hr Category Date Time Status EKG Documentation Completion [RC] STAT Care 11/08/18 23:18 Active Peripheral IV Care [RC] . DIRECTED Care 11/08/18 23:19 Active Peripheral IV Insertion Adult [OM.PC] Stat Oth 11/08/18 23:18 Ordered Labs: Laboratory Tests 11/08/18 11/08/18 Range/Units 23:25 23:25 WBC 6.4 (5.0-10.0) 10^3/uL RBC 3.27 L (4.2-5.4) 10^6/uL Hgb 10.0 L (12.0-16.0) g/dL Hct 31.6 L (37.0-47.0) % MCV 96.6 (80-100) fL MCH 30.6 (27.0-34.0) pg MCHC 31.6 L (33.0-35.0) g/dL Plt Count 224 (150-450) 10^3/uL Neut % (Auto) 68.1 (42.2-75.2) % Lymph % (Auto) 15.0 L (20.5-50.1) % [place] % (Auto) 10.6 H (2-8) % Eos % (Auto) 5.8 H (1.0-3.0) % Baso % (Auto) 0.5 (0.0-1.0) % Sodium 139 (135-145) mmol/L Potassium 4.3 (3.6-5.0) mmol/L Chloride 96 L (101-111) mmol/L Carbon Dioxide 26.0 (21.0-31.0) mmol/L Anion Gap 21.3 BUN 40 H (7-18) mg/dL Creatinine 5.6 H (0.6-1.3) mg/dL Est Cr Clr Drug Dosing 9.11 mL/min Estimated GFR (MDRD) 8 BUN/Creatinine Ratio 7.14 Glucose 117 H (74-105) mg/dL Calcium 8.2 L (8.4-10.2) mg/dl Total Bilirubin 1.5 H (0.2-1.0) mg/dL AST 33 (10-42) IU/L ALT 17 (10-60) IU/L Alkaline Phosphatase 194 H (42-121) IU/L Troponin I 0.03 H* (0.00-0.02) ng/ml B-Natriuretic Peptide 4570 H (0-100) pg/ml Total Protein 6.8 (6.7-8.2) g/dl Albumin 3.5 (3.2-5.5) g/dl Globulin 3.3 Albumin/Globulin Ratio 1.06 Meds: Medications Discontinued Medications Generic Name Dose Route Start Last Admin Trade Name Freq PRN Reason Stop Dose Admin Lorazepam 1 mg 11/08/18 23:19 11/08/18 23:43 Ativan IVPUSH 11/08/18 23:20 1 mg ONETIME ONE Administration Lorazepam 1 mg 11/09/18 00:57 11/09/18 01:06 Ativan IVPUSH 11/09/18 00:58 1 mg ONETIME ONE Administration Sodium Chloride 10 ml 11/08/18 23:19 11/08/18 23:43 Saline Flush FLUSH 10 ml ASDIRECTED PRN Administration Keep Vein Open - Radiology Interpretation Free Text/Narrative:: Chest xray: FINDINGS: Tubes, catheters and devices: There is a bipolar pacemaker in place with its lead wires intact. Lungs: Unremarkable. No consolidation. Pleural space: There are bilateral pleural effusions. The effusions are smaller as compared to prior chest x-ray. Heart/Mediastinum: There is cardiomegaly and aortic arch atherosclerosis. Bones/joints: Unremarkable. IMPRESSION: 1. Bipolar pacemaker in place with the lead wires intact. 2. Bilateral pleural effusions. The effusions are smaller as compared to prior chest x-ray. The effusions may be from congestive heart failure. 3. Cardiomegaly and aortic arch atherosclerosis. Thank you for allowing us to participate in the care of your patient. Dictated and Authenticated by: Rony Mandel DO 11/09/2018 12:27 AM Central Time ([place] & [place]) See Rad report - Re-Assessments/Exams Free Text/Narrative Re-Assessment/Exam: 11/09/18 06:20 Pt case discussed with Dr. Tejeda who agreed to accept the patient for transfer. Departure - Departure Time of Disposition: 01:11 Disposition: DC/Tfer to Acute Hospital 02 Condition: Fair, Serious Clinical Impression: Pleural effusion, SOB (shortness of breath), Right-sided chest wall pain Chronic kidney disease Qualifiers: Chronic kidney disease stage: on chronic dialysis Qualified Code(s): N18.6 - End stage renal disease - Discharge Information *PRESCRIPTION DRUG MONITORING PROGRAM REVIEWED*: No *COPY OF PRESCRIPTION DRUG MONITORING REPORT IN PATIENT BIENVENIDO: No Referrals: PCP,None [Primary Care Provider] - Forms: ED Department Discharge, Interfacility Transfer EMTALA - My Orders Last 24 Hours: My Active Orders 11/08/18 23:18 EKG Documentation Completion [RC] STAT Peripheral IV Insertion Adult [OM.PC] Stat 11/08/18 23:19 Peripheral IV Care [RC] . DIRECTED - Assessment/Plan Last 24 Hours: My Active Orders 11/08/18 23:18 EKG Documentation Completion [RC] STAT Peripheral IV Insertion Adult [OM.PC] Stat 11/08/18 23:19 Peripheral IV Care [RC] . DIRECTED
[2018-11-09] MEDS ORDERED: LORazepam 2 MG/ML Syringe IVPUSH ONE (00:57)
== END 2018-11-09 01:35 ==
LOC: DL.ED 23:12
DX: I13.2 Hypertensive heart and chronic kidney disease with heart failure and with stage 5 chronic kidney disease, or end stage renal disease (principal); I50.9 Heart failure, unspecified; N18.6 End stage renal disease; R07.89 Other chest pain; I48.91 Unspecified atrial fibrillation; E11.21 Type 2 diabetes mellitus with diabetic nephropathy; E11.22 Type 2 diabetes mellitus with diabetic chronic kidney disease; D63.1 Anemia in chronic kidney disease; D50.9 Iron deficiency anemia, unspecified; E78.00 Pure hypercholesterolemia, unspecified; Z99.2 Dependence on renal dialysis; Z88.5 Allergy status to narcotic agent; Z88.1 Allergy status to other antibiotic agents; Z91.040 Latex allergy status; Z79.4 Long term (current) use of insulin; Z79.82 Long term (current) use of aspirin; Z79.899 Other long term (current) drug therapy
CPT/HCPCS: 36415; 71045; 80053; 83880; 84484; 85025; 93005; 96374; 96376; 99285; J2060

== ENCOUNTER 2018-11-26 09:48 | Emergency (ER) | payer MEDICARE, MEDICAID ==
--- NOTE | 2018-11-26 10:42 | EDM.PDOC ---
ED HPI GENERAL MEDICAL PROBLEM - General Chief Complaint: Respiratory Problem Stated Complaint: ALMBULANCE Time Seen by Provider: 11/26/18 10:30 Source of Information: Reports: Patient History Limitations: Reports: No Limitations - History of Present Illness INITIAL COMMENTS - FREE TEXT/NARRATIVE: This 62 yo female patient reports to the ED with increased shortness of breath ( started at 0500 this morning) and left axilla pain (infiltrated about 2 weeks ago during dialysis). The patient reports she has not been able to get into her primary care facility due to frequent hospitalizations. The patient reports she did see her manager ship last week and was advised every thing in her heart is good. The patient reports she has been experiencing increased pain in her left arm and can not take the pain any longer. The patient reports she had dialysis last week (Monday) and is due for dialysis again today. Onset: Today Duration: Constant, Getting Worse Location: Reports: Chest, Upper Extremity, Left Quality: Reports: Ache, Sharp Severity: Severe Improves with: Reports: None Worsens with: Reports: None Context: Reports: Other Associated Symptoms: Reports: Shortness of Breath Left Chest Pain Score (Numeric/FACES): 7 Left Arm Pain Score (Numeric/FACES): 9 - Related Data Allergies Allergy/AdvReac Type Severity Reaction Status Date / Time lidocaine Allergy Intermediate Swelling Verified 08/24/18 11:26 amoxicillin trihydrate Allergy Rash Verified 08/24/18 11:26 [From Amoxil] latex Allergy Rash Verified 08/24/18 11:26 lisinopril Allergy Headache Verified 08/24/18 11:26 Home Meds: Home Meds Insulin Aspart [Novolog Flexpen] 5 unit SQ ASDIRECTED PRN 05/17/16 [History] Acetaminophen [Tylenol] 1,000 mg PO Q6H PRN 11/03/16 [History] Mupirocin Cream [Bactroban Crm] 1 applic TOP DAILY 11/03/16 [History] Sodium Bicarbonate 1 tab PO BID 03/14/17 [History] Aspirin [Halfprin] 81 mg PO DAILY 01/08/18 [History] predniSONE [Prednisone] 20 mg PO DAILY #6 tablet 08/24/18 [Rx] Carvedilol [Coreg] 12.5 mg PO BIDMEALS 10/01/18 [History] Sevelamer Carbonate [Renvela] 800 mg PO TIDMEALS 10/01/18 [History] rOPINIRole [Requip] 0.25 mg PO TID 10/01/18 [History] Past Medical History HEENT History: Reports: Cataract Cardiovascular History: Reports: Afib, CAD, Heart Failure, High Cholesterol, Hypertension, Pacemaker, Other (See Below) Other Cardiovascular History: hx of bilateral lower extremity edema Respiratory History: Reports: Pneumonia, Recurrent, SOB Other Respiratory History: From CHF Gastrointestinal History: Reports: Other (See Below) Other Gastrointestinal History: gastroparesis diabeticorum Genitourinary History: Reports: Dialysis, Diabetic Nephropathy, Dialysis, Peritoneal, Other (See Below) Other Genitourinary History: chronic kidney disease stage 4, nephrotic syndrome 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 lower leg. Dry and scaley about 3inches in diameter. Non draining. Also has dry area to left marie area. 1 diameter to left marie area. - Infectious Disease History Infectious Disease History: Reports: Chicken Pox Other Infectious Disease History: patient unsure - Past Surgical History HEENT Surgical History: Reports: Cataract Surgery Other Cardiovascular Surgeries/Procedures: Angiogram 2014 GI Surgical History: Reports: Appendectomy Oncologic Surgical History: Reports: None Dermatological Surgical History: Reports: Skin Biopsy Social & Family History - Family History Family Medical History: Noncontributory Cardiac: Reports: [place] Other Cardiac Family History: father from [place] in his 50s Endocrine/Metabolic: Reports: Diabetes, type II Other Hematologic Family History: mother has h/o DVT and is on blood thinners - per pt report - Tobacco Use Smoking Status *Q: Former Smoker Used Tobacco, but Quit: Yes Month/Year Tobacco Last Used: 2012 - Caffeine Use Caffeine Use: Reports: None - Recreational Drug Use Recreational Drug Use: No - Living Situation & Occupation Living situation: Reports: with Family Occupation: Employed ED ROS GENERAL - Review of Systems Review Of Systems: ROS reveals no pertinent complaints other than HPI. ED EXAM, GENERAL - Physical Exam Exam: See Below Exam Limited By: No Limitations General Appearance: Alert, WD/WN, Moderate Distress Eye Exam: Bilateral Eye: EOMI, Normal Inspection, PERRL Ears: Normal External Exam, Normal Canal, Hearing Grossly Normal, Normal TMs Nose: Normal Inspection, Normal Mucosa, No Blood Throat/Mouth: Normal Inspection, Normal Lips, Normal Teeth, Normal Gums, Normal Oropharynx, Normal Voice, No Airway Compromise Head: Atraumatic, Normocephalic Neck: Normal Inspection, Supple, Non-Tender, Full Range of Motion Respiratory/Chest: Decreased Breath Sounds (bilateral lower lobes), Prolonged Expiration, Other (left sided chest wall pain) Cardiovascular: Normal Peripheral Pulses, Regular Rate, Rhythm, No Edema, No Gallop, No JVD, No Murmur, No Rub GI/Abdominal: Normal Bowel Sounds, Soft, Non-Tender, No Organomegaly, No Distention, No Abnormal Bruit, No Mass (Female) Exam: Deferred Rectal (Female) Exam: Deferred Back Exam: Normal Inspection Extremities: Arm Pain (left axilla pain (2 weeks)) Neurological: Alert, Oriented, CN II-XII Intact, Normal Cognition Psychiatric: Normal Affect, Normal Mood Skin Exam: Warm, Dry, Intact, Normal Color, No Rash Lymphatic: No Adenopathy Course - Vital Signs Last Recorded V/S: Last Vital Signs Temp 36.4 C 11/26/18 11:59 Pulse 80 11/26/18 11:59 Resp 22 H 11/26/18 11:59 BP 152/79 H 11/26/18 11:59 Pulse Ox 100 11/26/18 09:48 - Orders/Labs/Meds Orders: Active Orders 24 hr Category Date Time Status EKG 12 Lead [EKG Documentation Completion] [RC] STAT Care 11/26/18 09:57 Active RT Aerosol Therapy [RC] ASDIRECTED Care 11/26/18 12:01 Ordered CULTURE BLOOD [BC] Stat Lab 11/26/18 10:12 Results Labs: Laboratory Tests 11/26/18 11/26/18 11/26/18 Range/Units 10:34 10:43 10:43 WBC (5.0-10.0) 10^3/uL RBC (4.2-5.4) 10^6/uL Hgb (12.0-16.0) g/dL Hct (37.0-47.0) % MCV (80-100) fL MCH (27.0-34.0) pg MCHC (33.0-35.0) g/dL Plt Count (150-450) 10^3/uL Neut % (Auto) (42.2-75.2) % Lymph % (Auto) (20.5-50.1) % [place] % (Auto) (2-8) % Eos % (Auto) (1.0-3.0) % Baso % (Auto) (0.0-1.0) % D-Dimer, Quantitative (0-400) ng/mL Sodium 136 (135-145) mmol/L Potassium 5.8 H D (3.6-5.0) mmol/L Chloride 96 L (101-111) mmol/L Carbon Dioxide 23.0 (21.0-31.0) mmol/L Anion Gap 22.8 BUN 56 H (7-18) mg/dL Creatinine 7.5 H D (0.6-1.3) mg/dL Est Cr Clr Drug Dosing 6.80 mL/min Estimated GFR (MDRD) 6 BUN/Creatinine Ratio 7.46 Glucose 117 H (74-105) mg/dL Lactic Acid 1.2 (0.5-2.2) mmol/L Calcium 8.5 (8.4-10.2) mg/dl Total Bilirubin 2.1 H (0.2-1.0) mg/dL AST 42 (10-42) IU/L ALT 33 (10-60) IU/L Alkaline Phosphatase 194 H (42-121) IU/L Troponin I 0.03 H* (0.00-0.02) ng/ml B-Natriuretic Peptide 3740 H (0-100) pg/ml Total Protein 6.4 L (6.7-8.2) g/dl Albumin 3.2 (3.2-5.5) g/dl Globulin 3.2 Albumin/Globulin Ratio 1.00 11/26/18 11/26/18 Range/Units 10:43 10:43 WBC 6.1 (5.0-10.0) 10^3/uL RBC 3.20 L (4.2-5.4) 10^6/uL Hgb 9.6 L (12.0-16.0) g/dL Hct 30.0 L (37.0-47.0) % MCV 93.8 (80-100) fL MCH 30.0 (27.0-34.0) pg MCHC 32.0 L (33.0-35.0) g/dL Plt Count 246 (150-450) 10^3/uL Neut % (Auto) 80.4 H (42.2-75.2) % Lymph % (Auto) 10.6 L (20.5-50.1) % [place] % (Auto) 6.2 (2-8) % Eos % (Auto) 2.3 (1.0-3.0) % Baso % (Auto) 0.5 (0.0-1.0) % D-Dimer, Quantitative 2800 H (0-400) ng/mL Sodium (135-145) mmol/L Potassium (3.6-5.0) mmol/L Chloride (101-111) mmol/L Carbon Dioxide (21.0-31.0) mmol/L Anion Gap BUN (7-18) mg/dL Creatinine (0.6-1.3) mg/dL Est Cr Clr Drug Dosing mL/min Estimated GFR (MDRD) BUN/Creatinine Ratio Glucose (74-105) mg/dL Lactic Acid (0.5-2.2) mmol/L Calcium (8.4-10.2) mg/dl Total Bilirubin (0.2-1.0) mg/dL AST (10-42) IU/L ALT (10-60) IU/L Alkaline Phosphatase (42-121) IU/L Troponin I (0.00-0.02) ng/ml B-Natriuretic Peptide (0-100) pg/ml Total Protein (6.7-8.2) g/dl Albumin (3.2-5.5) g/dl Globulin Albumin/Globulin Ratio Meds: Medications Discontinued Medications Generic Name Dose Route Start Last Admin Trade Name Freq PRN Reason Stop Dose Admin Albuterol/Ipratropium 3 ml 11/26/18 12:01 Duoneb 3.0-0.5 Mg/3 Ml NEB 11/26/18 12:02 ONETIME ONE Hydromorphone HCl 0.5 mg 01/28/19 11:05 11/26/18 11:10 Dilaudid IVPUSH 11/26/18 11:06 0.5 mg ONETIME ONE Administration Departure - Departure Time of Disposition: 12:09 Disposition: DC/Tfer to Acute Hospital 02 Condition: Fair Clinical Impression: CHF, Congestive heart failure, Hyperkalemia Chronic kidney disease Qualifiers: Chronic kidney disease stage: on chronic dialysis Qualified Code(s): N18.6 - End stage renal disease - Discharge Information *PRESCRIPTION DRUG MONITORING PROGRAM REVIEWED*: Not Applicable *COPY OF PRESCRIPTION DRUG MONITORING REPORT IN PATIENT BIENVENIDO: Not Applicable Forms: Interfacility Transfer EMTALA Care Plan Goals: Discussed the patient's history, examination, lab, EKG and treatments with Dr. Anne. Dr. Anne accepted the patient for continued evaluation and management as an inpatient at [facility] in [place]. The patient will be transported by [facility]. - My Orders Last 24 Hours: My Active Orders 11/26/18 09:57 EKG 12 Lead [EKG Documentation Completion] [RC] STAT 11/26/18 10:12 CULTURE BLOOD [BC] Stat 11/26/18 12:01 RT Aerosol Therapy [RC] ASDIRECTED - Assessment/Plan Last 24 Hours: My Active Orders 11/26/18 09:57 EKG 12 Lead [EKG Documentation Completion] [RC] STAT 11/26/18 10:12 CULTURE BLOOD [BC] Stat 11/26/18 12:01 RT Aerosol Therapy [RC] ASDIRECTED
[2018-11-26] MEDS ORDERED: HYDROmorphone 1 MG/ML Syringe IVPUSH ONE (11:05)
[2018-11-26 11:12] LABS: ANION GAP 22.8
[2018-11-26 12:00] VITALS: BP 152/79
[2018-11-26] MEDS ORDERED: Albuterol/Ipratropium 3.0-0.5 MG/3 ML Neb Soln NEB ONE (12:01)
== END 2018-11-26 12:55 ==
LOC: DL.ED 09:48
DX: I13.0 Hypertensive heart and chronic kidney disease with heart failure and stage 1 through stage 4 chronic kidney disease, or unspecified chronic kidney disease (principal); I50.9 Heart failure, unspecified; N18.4 Chronic kidney disease, stage 4 (severe); E87.5 Hyperkalemia; E11.40 Type 2 diabetes mellitus with diabetic neuropathy, unspecified; E11.22 Type 2 diabetes mellitus with diabetic chronic kidney disease; Z88.8 Allergy status to other drugs, medicaments and biological substances; Z79.4 Long term (current) use of insulin; Z87.891 Personal history of nicotine dependence
CPT/HCPCS: 36415; 71045; 80053; 83605; 83880; 84484; 85025; 85379; 87040; 93005; 94640; 94660; 96374; 99285; J1170; 99284; J7620-GY

== ENCOUNTER 2019-01-06 17:47 | Emergency (ER) | payer MEDICARE, MEDICAID ==
[2019-01-06 18:14] VITALS: BP 139/72
[2019-01-06 18:46] LABS: ANION GAP 19.3
--- NOTE | 2019-01-06 19:25 | EDM.PDOC ---
ED HPI GENERAL MEDICAL PROBLEM - General Chief Complaint: Chest Pain Stated Complaint: AMBULANCE Time Seen by Provider: 01/06/19 19:00 Source of Information: Reports: Patient History Limitations: Reports: No Limitations - History of Present Illness INITIAL COMMENTS - FREE TEXT/NARRATIVE: This 63 yo female patient reports to the ED with an initial complaint of left sided chest pain radiating to her left arm. The patient was treated with nitro and now reports left upper abdominal pain. The patient is a dialysis patient ( MWF) with her last dialysis on Monday. The patient initially reports her pain started at 1700. The patient reported at the time of assessment that her chest pain was almost gone, but her abdominal pain is much worse. Onset: Today Duration: Constant, Getting Worse Location: Reports: Chest, Abdomen Quality: Reports: Other Severity: Severe Improves with: Reports: None Worsens with: Reports: None Associated Symptoms: Reports: No Other Symptoms Chest Pain Score (Numeric/FACES): 9 - Related Data Allergies Allergy/AdvReac Type Severity Reaction Status Date / Time lidocaine Allergy Intermediate Swelling Verified 01/06/19 18:14 amoxicillin trihydrate Allergy Rash Verified 01/06/19 18:14 [From Amoxil] latex Allergy Rash Verified 01/06/19 18:14 lisinopril Allergy Headache Verified 01/06/19 18:14 Home Meds: Home Meds Insulin Aspart [Novolog Flexpen] 5 unit SQ ASDIRECTED PRN 05/17/16 [History] Acetaminophen [Tylenol] 1,000 mg PO Q6H PRN 11/03/16 [History] Mupirocin Cream [Bactroban Crm] 1 applic TOP DAILY 11/03/16 [History] Sodium Bicarbonate 1 tab PO BID 03/14/17 [History] Aspirin [Halfprin] 324 mg PO DAILY 01/08/18 [History] Carvedilol [Coreg] 12.5 mg PO BIDMEALS 10/01/18 [History] Sevelamer Carbonate [Renvela] 800 mg PO TIDMEALS 10/01/18 [History] rOPINIRole [Requip] 0.25 mg PO TID 10/01/18 [History] Past Medical History HEENT History: Reports: Cataract Cardiovascular History: Reports: Afib, CAD, Heart Failure, High Cholesterol, Hypertension, Pacemaker, Other (See Below) Other Cardiovascular History: hx of bilateral lower extremity edema Respiratory History: Reports: Pneumonia, Recurrent, SOB Other Respiratory History: From CHF Gastrointestinal History: Reports: Other (See Below) Other Gastrointestinal History: gastroparesis diabeticorum Genitourinary History: Reports: Dialysis, Diabetic Nephropathy, Dialysis, Peritoneal, Other (See Below) Other Genitourinary History: chronic kidney disease stage 4, nephrotic syndrome , is on dialysis 3 days a week, Monday, Monday, Monday in [place] GRIP BOSS History: Reports: Other GRIP BOSS History: 5 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 lower leg. Dry and scaley about 3inches in diameter. Non draining. Also has dry area to left marie area. 1 diameter to left marie area. - Infectious Disease History Infectious Disease History: Reports: Chicken Pox Other Infectious Disease History: patient unsure - Past Surgical History HEENT Surgical History: Reports: Cataract Surgery Other Cardiovascular Surgeries/Procedures: Angiogram 2015 GI Surgical History: Reports: Appendectomy Oncologic Surgical History: Reports: None Dermatological Surgical History: Reports: Skin Biopsy Social & Family History - Family History Family Medical History: Noncontributory Cardiac: Reports: [place] Other Cardiac Family History: father from [place] in his 50s Endocrine/Metabolic: Reports: Diabetes, type II Other Hematologic Family History: mother has h/o DVT and is on blood thinners - per pt report - Tobacco Use Smoking Status *Q: Never Smoker Second Hand Smoke Exposure: No - Caffeine Use Caffeine Use: Reports: None - Recreational Drug Use Recreational Drug Use: No - Living Situation & Occupation Living situation: Reports: with Family Occupation: Employed ED ROS GENERAL - Review of Systems Review Of Systems: ROS reveals no pertinent complaints other than HPI. ED EXAM, GENERAL - Physical Exam Exam: See Below Exam Limited By: No Limitations General Appearance: Alert, WD/WN, Moderate Distress Eye Exam: Bilateral Eye: EOMI, Normal Inspection, PERRL Ears: Normal External Exam, Normal Canal, Hearing Grossly Normal, Normal TMs Nose: Normal Inspection, Normal Mucosa, No Blood Throat/Mouth: Normal Inspection, Normal Lips, Normal Teeth, Normal Gums, Normal Oropharynx, Normal Voice, No Airway Compromise Head: Atraumatic, Normocephalic Neck: Normal Inspection, Supple, Non-Tender, Full Range of Motion Respiratory/Chest: No Respiratory Distress, Lungs Clear, Normal Breath Sounds, No Accessory Muscle Use, Chest Non-Tender Cardiovascular: Normal Peripheral Pulses, Regular Rate, Rhythm, No Edema, No Gallop, No JVD, No Murmur, No Rub GI/Abdominal: Tender (LUQ) (Female) Exam: Deferred Rectal (Female) Exam: Deferred Back Exam: Normal Inspection Extremities: Normal Inspection, Normal Range of Motion, Non-Tender, Normal Capillary Refill, No Pedal Edema Neurological: Alert, Oriented, CN II-XII Intact, Normal Cognition, Normal Gait, Normal Reflexes, No Motor/Sensory Deficits Psychiatric: Normal Affect, Normal Mood Skin Exam: Warm, Dry, Intact, Normal Color, No Rash Lymphatic: No Adenopathy Course - Vital Signs Last Recorded V/S: Last Vital Signs Temp 36.3 C 01/06/19 18:05 Pulse 87 01/06/19 18:05 Resp 20 01/06/19 18:05 BP 139/72 01/06/19 18:05 Pulse Ox 97 01/06/19 18:05 - Orders/Labs/Meds Orders: Active Orders 24 hr Category Date Time Status EKG 12 Lead [EKG Documentation Completion] [RC] URGENT Care 01/06/19 18:41 Active DRUG SCREEN URINE BIORAD [URCHEM] Stat Lab 01/06/19 19:08 Ordered UA RFX RIGO AND CULT IF INDIC [URIN] Urgent Lab 01/06/19 19:08 Ordered Labs: Laboratory Tests 01/06/19 01/06/19 01/06/19 Range/Units 18:20 18:20 18:20 WBC 4.8 L (5.0-10.0) 10^3/uL RBC 3.01 L (4.2-5.4) 10^6/uL Hgb 9.3 L (12.0-16.0) g/dL Hct 29.9 L (37.0-47.0) % MCV 99.3 D (80-100) fL MCH 30.9 (27.0-34.0) pg MCHC 31.1 L (33.0-35.0) g/dL Plt Count 200 (150-450) 10^3/uL Neut % (Auto) 72.2 (42.2-75.2) % Lymph % (Auto) 10.9 L (20.5-50.1) % [place] % (Auto) 11.5 H (2-8) % Eos % (Auto) 4.4 H (1.0-3.0) % Baso % (Auto) 1.0 (0.0-1.0) % D-Dimer, Quantitative 1960 H (0-400) ng/mL Sodium 138 (135-145) mmol/L Potassium 3.3 L D (3.6-5.0) mmol/L Chloride 96 L (101-111) mmol/L Carbon Dioxide 26.0 (21.0-31.0) mmol/L Anion Gap 19.3 BUN 47 H (7-18) mg/dL Creatinine 5.4 H D (0.6-1.3) mg/dL Est Cr Clr Drug Dosing 9.33 mL/min Estimated GFR (MDRD) 8 BUN/Creatinine Ratio 8.70 Glucose 164 H (74-105) mg/dL Calcium 7.7 L (8.4-10.2) mg/dl Total Bilirubin 1.7 H (0.2-1.0) mg/dL AST 26 (10-42) IU/L ALT 19 (10-60) IU/L Alkaline Phosphatase 224 H (42-121) IU/L Troponin I 0.03 H* (0.00-0.02) ng/ml Total Protein 6.6 L (6.7-8.2) g/dl Albumin 3.3 (3.2-5.5) g/dl Globulin 3.3 Albumin/Globulin Ratio 1.00 Meds: Medications Discontinued Medications Generic Name Dose Route Start Last Admin Trade Name Freq PRN Reason Stop Dose Admin Morphine Sulfate 2 mg 01/06/19 20:18 01/06/19 20:23 Morphine IVPUSH 01/06/19 20:19 2 mg ONETIME ONE Administration Departure - Departure Time of Disposition: 21:04 Disposition: DC/Tfer to Acute Hospital 02 Reason for Transfer *Q: Other Condition: Fair Clinical Impression: Bilateral pleural effusion, CKD (chronic kidney disease) stage 5, GFR less than 15 ml/min Referrals: PCP,Unobtain [Ordering Only Provider] - Forms: Interfacility Transfer EMTALA Care Plan Goals: Discussed the patient's history, examination, lab, EKG and CT results with Dr. Branham. Dr. Branham accepted the patient for continued evaluation and management as an inpatient at [facility] in [place]. The patient will be transported by [facility].
[2019-01-06] MEDS ORDERED: Morphine 2 MG/ML Syringe IVPUSH ONE (20:18)
== END 2019-01-06 21:35 ==
LOC: DL.ED 17:47
DX: J90 Pleural effusion, not elsewhere classified (principal); I13.0 Hypertensive heart and chronic kidney disease with heart failure and stage 1 through stage 4 chronic kidney disease, or unspecified chronic kidney disease; I50.9 Heart failure, unspecified; N18.5 Chronic kidney disease, stage 5; E11.22 Type 2 diabetes mellitus with diabetic chronic kidney disease; Z88.8 Allergy status to other drugs, medicaments and biological substances; Z91.040 Latex allergy status
CPT/HCPCS: 36415; 74176; 80053; 84484; 85025; 85379; 93005; 96374; 99285; J2270

== ENCOUNTER 2019-01-15 23:52 | Emergency (ER) | payer MEDICARE, MEDICAID ==
[2019-01-16] MEDS ORDERED: Sodium Chloride 0.9% 10 ML Syringe FLUSH PRN (00:09)
[2019-01-16] MEDS ORDERED: HYDROmorphone 1 MG/ML Syringe IVPUSH ONE (00:11)
[2019-01-16 00:53] LABS: ANION GAP 20.7
[2019-01-16] MEDS ORDERED: Ondansetron 4 MG/2 ML SDV IV ONE (00:55)
--- NOTE | 2019-01-16 01:21 | EDM.PDOC ---
ED HPI GENERAL MEDICAL PROBLEM - General Chief Complaint: Abdominal Pain Stated Complaint: AMBULANCE-UNKNOWN Time Seen by Provider: 01/15/19 23:52 Source of Information: Reports: Patient, EMS, EMS Notes Reviewed, RN, RN Notes Reviewed History Limitations: Reports: No Limitations, Other (Patient in pain) - History of Present Illness INITIAL COMMENTS - FREE TEXT/NARRATIVE: Pt to the ER per [facility] with c/o pain in the right anterior chest that wraps around under the right arm. Patient states her "lung" hurts. Patient is on chronic hemodialysis, and last dialyzed on Monday, she is due for dialysis on Monday. Patient states she has been feeling well, but had a sudden onset of pain in the right chest. She denies cough, fever, chills, N/V/D. Onset: Today, Sudden Duration: Constant, Getting Worse Location: Reports: Chest Quality: Reports: Sharp, Stabbing Severity: Moderate Improves with: Reports: None Worsens with: Reports: None Right Upper Abdomen Pain Score (Numeric/FACES): 10 - Related Data Allergies Allergy/AdvReac Type Severity Reaction Status Date / Time lidocaine Allergy Intermediate Swelling Verified 01/16/19 00:02 amoxicillin trihydrate Allergy Rash Verified 01/16/19 00:02 [From Amoxil] latex Allergy Rash Verified 01/16/19 00:02 lisinopril Allergy Headache Verified 01/16/19 00:02 Home Meds: Home Meds Insulin Aspart [Novolog Flexpen] 5 unit SQ ASDIRECTED PRN 05/17/16 [History] Acetaminophen [Tylenol] 1,000 mg PO Q6H PRN 11/03/16 [History] Mupirocin Cream [Bactroban Crm] 1 applic TOP DAILY 11/03/16 [History] Sodium Bicarbonate 1 tab PO BID 03/14/17 [History] Aspirin [Halfprin] 324 mg PO DAILY 01/08/18 [History] Carvedilol [Coreg] 12.5 mg PO BIDMEALS 10/01/18 [History] Sevelamer Carbonate [Renvela] 800 mg PO TIDMEALS 10/01/18 [History] rOPINIRole [Requip] 0.25 mg PO TID 10/01/18 [History] Past Medical History HEENT History: Reports: Cataract Cardiovascular History: Reports: Afib, CAD, Heart Failure, High Cholesterol, Hypertension, Pacemaker, Other (See Below) Other Cardiovascular History: hx of bilateral lower extremity edema Respiratory History: Reports: Pneumonia, Recurrent, SOB Other Respiratory History: From CHF Gastrointestinal History: Reports: Other (See Below) Other Gastrointestinal History: gastroparesis diabeticorum Genitourinary History: Reports: Dialysis, Diabetic Nephropathy, Dialysis, Peritoneal, Other (See Below) Other Genitourinary History: chronic kidney disease stage 4, nephrotic syndrome , is on dialysis 3 days a week, Monday, Monday, Monday in [place] THREE KNIFE TRIMMER History: Reports: Other THREE KNIFE TRIMMER History: 5 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 lower leg. Dry and scaley about 3inches in diameter. Non draining. Also has dry area to left marie area. 1 diameter to left marie area. - Infectious Disease History Infectious Disease History: Reports: Chicken Pox Other Infectious Disease History: patient unsure - Past Surgical History HEENT Surgical History: Reports: Cataract Surgery Other Cardiovascular Surgeries/Procedures: Angiogram 2014 GI Surgical History: Reports: Appendectomy Oncologic Surgical History: Reports: None Dermatological Surgical History: Reports: Skin Biopsy Social & Family History - Family History Family Medical History: Noncontributory Cardiac: Reports: [place] Other Cardiac Family History: father from [place] in his 50s Endocrine/Metabolic: Reports: Diabetes, type II Other Hematologic Family History: mother has h/o DVT and is on blood thinners - per pt report - Tobacco Use Smoking Status *Q: Current Every Day Smoker Years of Tobacco use: 40 Packs/Tins Daily: 0.5 Second Hand Smoke Exposure: Yes - Caffeine Use Caffeine Use: Reports: Coffee - Recreational Drug Use Recreational Drug Use: No - Living Situation & Occupation Living situation: Reports: with Family Occupation: Employed ED ROS GENERAL - Review of Systems Review Of Systems: ROS reveals no pertinent complaints other than HPI. ED EXAM, GENERAL - Physical Exam Exam: See Below Exam Limited By: No Limitations General Appearance: Alert, WD/WN, Moderate Distress Eye Exam: Bilateral Eye: EOMI, Normal Inspection Ears: Normal External Exam, Hearing Grossly Normal Nose: Normal Inspection Throat/Mouth: Normal Inspection, Normal Voice, No Airway Compromise Head: Atraumatic, Normocephalic Neck: Normal Inspection, Supple, Non-Tender, Full Range of Motion Respiratory/Chest: Decreased Breath Sounds, Crackles, Rales, Rhonchi, Other ( tender right anterior wall, to under right arm) Cardiovascular: Normal Peripheral Pulses, Regular Rate, Rhythm, No Edema, No Gallop, No JVD, No Rub, Systolic Murmur Peripheral Pulses: 2+: Radial (L), Radial (R) GI/Abdominal: Normal Bowel Sounds, Soft, Non-Tender (Female) Exam: Deferred Rectal (Female) Exam: Deferred Back Exam: Normal Inspection, Full Range of Motion, NT Extremities: Normal Inspection, Normal Range of Motion, Non-Tender, No Pedal Edema, Normal Capillary Refill, Other (dialysis fistula left upper arm) Neurological: Alert, Oriented, Normal Cognition Psychiatric: Anxious, Tearful Skin Exam: Warm, Dry, Other (multiple sores on face, extremities, trunk at various stages of healing.) Lymphatic: No Adenopathy Course - Vital Signs Last Recorded V/S: Last Vital Signs Temp 97.9 F 01/15/19 23:53 Pulse 77 01/16/19 01:15 Resp 28 H 01/15/19 23:53 BP 112/83 01/16/19 01:15 Pulse Ox 100 01/16/19 01:15 - Orders/Labs/Meds Labs: Laboratory Tests 01/16/19 01/16/19 Range/Units 00:03 00:03 WBC 4.6 L (5.0-10.0) 10^3/uL RBC 2.94 L (4.2-5.4) 10^6/uL Hgb 9.1 L (12.0-16.0) g/dL Hct 28.6 L (37.0-47.0) % MCV 97.3 (80-100) fL MCH 31.0 (27.0-34.0) pg MCHC 31.8 L (33.0-35.0) g/dL Plt Count 191 (150-450) 10^3/uL Neut % (Auto) 73.4 (42.2-75.2) % Lymph % (Auto) 10.5 L (20.5-50.1) % [place] % (Auto) 12.9 H (2-8) % Eos % (Auto) 2.8 (1.0-3.0) % Baso % (Auto) 0.4 (0.0-1.0) % Sodium 139 (135-145) mmol/L Potassium 3.7 (3.6-5.0) mmol/L Chloride 97 L (101-111) mmol/L Carbon Dioxide 25.0 (21.0-31.0) mmol/L Anion Gap 20.7 BUN 54 H (7-18) mg/dL Creatinine 5.8 H (0.6-1.3) mg/dL Est Cr Clr Drug Dosing 8.68 mL/min Estimated GFR (MDRD) 7 BUN/Creatinine Ratio 9.31 Glucose 105 (74-105) mg/dL Calcium 7.3 L (8.4-10.2) mg/dl Total Bilirubin 1.4 H (0.2-1.0) mg/dL AST 23 (10-42) IU/L ALT 19 (10-60) IU/L Alkaline Phosphatase 239 H (42-121) IU/L Troponin I 0.03 H* (0.00-0.02) ng/ml B-Natriuretic Peptide 2670 H (0-100) pg/ml Total Protein 6.7 (6.7-8.2) g/dl Albumin 3.4 (3.2-5.5) g/dl Globulin 3.3 Albumin/Globulin Ratio 1.03 Meds: Medications Discontinued Medications Generic Name Dose Route Start Last Admin Trade Name Freq PRN Reason Stop Dose Admin Hydromorphone HCl 1 mg 01/16/19 00:11 01/16/19 00:16 Dilaudid IVPUSH 01/16/19 00:12 1 mg ONETIME ONE Administration Ondansetron HCl 4 mg 01/16/19 00:55 01/16/19 00:58 Zofran IV 01/16/19 00:56 4 mg ONETIME ONE Administration Sodium Chloride 10 ml 01/16/19 00:09 01/16/19 00:16 Saline Flush FLUSH 10 ml ASDIRECTED PRN Administration Keep Vein Open - Radiology Interpretation Free Text/Narrative:: Chest xray: FINDINGS: Tubes, catheters and devices: Dual chamber pacemaker in good position Lungs: Unremarkable. No consolidation. Pleural space: Unremarkable. No pleural effusion. No pneumothorax. Heart/Mediastinum: Cardiomegaly with mild CHF and bilateral effusions Bones/joints: Unremarkable. IMPRESSION: Cardiomegaly with mild CHF and bilateral pleural effusions Thank you for allowing us to participate in the care of your patient. Dictated and Authenticated by: Chaz Childs MD 01/16/2019 1:19 AM Central Time ([place] & [place]) See rad report - Re-Assessments/Exams Free Text/Narrative Re-Assessment/Exam: 01/16/19 01:57 Discussed patient case with Dr. Santacruz who states the patient is able to be discharged home to follow up with dialysis tomorrow. Patient states the pain has lessened and she is feeling better and states she feels good enough to go home and go to dialysis tomorrow. Departure - Departure Time of Disposition: 01:55 Disposition: Home, Self-Care 01 Condition: Fair Clinical Impression: Elevated brain natriuretic peptide (BNP) level, CHF, Congestive heart failure, CKD (chronic kidney disease) stage 5, GFR less than 15 ml/min, Bilateral pleural effusion - Discharge Information *PRESCRIPTION DRUG MONITORING PROGRAM REVIEWED*: No *COPY OF PRESCRIPTION DRUG MONITORING REPORT IN PATIENT BIENVENIDO: No Instructions: Pleural Effusion Referrals: PCP,None [Primary Care Provider] - Forms: ED Department Discharge Additional Instructions: Follow up at dialysis tomorrow
[2019-01-16 01:30] VITALS: BP 112/83
== END 2019-01-16 02:05 | disposition home or self-care (01) ==
LOC: DL.ED 23:52
DX: I13.0 Hypertensive heart and chronic kidney disease with heart failure and stage 1 through stage 4 chronic kidney disease, or unspecified chronic kidney disease (principal); I50.9 Heart failure, unspecified; E11.22 Type 2 diabetes mellitus with diabetic chronic kidney disease; N18.4 Chronic kidney disease, stage 4 (severe); D63.1 Anemia in chronic kidney disease; E11.21 Type 2 diabetes mellitus with diabetic nephropathy; R79.89 Other specified abnormal findings of blood chemistry; J90 Pleural effusion, not elsewhere classified; I48.91 Unspecified atrial fibrillation; I25.10 Atherosclerotic heart disease of native coronary artery without angina pectoris; E78.00 Pure hypercholesterolemia, unspecified; Z88.1 Allergy status to other antibiotic agents; Z91.040 Latex allergy status; Z79.899 Other long term (current) drug therapy; Z88.8 Allergy status to other drugs, medicaments and biological substances; Z79.4 Long term (current) use of insulin; Z79.82 Long term (current) use of aspirin
CPT/HCPCS: 36415; 71045; 80053; 83880; 84484; 85025; 93005; 96374; 96375; 99285; J1170; J2405

== ENCOUNTER 2019-01-22 23:09 | Emergency (ER) | payer MEDICARE, MEDICAID ==
--- NOTE | 2019-01-22 23:11 | EDM.PDOC ---
ED HPI GENERAL MEDICAL PROBLEM - General Stated Complaint: AMBULANCE-UNKNOWN Time Seen by Provider: 01/22/19 23:11 Source of Information: Reports: Patient, EMS, EMS Notes Reviewed, RN, RN Notes Reviewed History Limitations: Reports: No Limitations - History of Present Illness INITIAL COMMENTS - FREE TEXT/NARRATIVE: Pt to ER per [facility] with c/o left sided chest pain that began shortly before being picked up by the ambulance. She states at 1900 tonight she was feeling a little more SOB. She states she did have dialysis yesterday. Family reported to EMS that she did not go to dialysis yesterday. Patient states she feels as if her stomach is bloated. Denies N/V/D, fever or chills. Onset: Today, Sudden Left Chest Pain Score (Numeric/FACES): 7 - Related Data Allergies Allergy/AdvReac Type Severity Reaction Status Date / Time lidocaine Allergy Intermediate Swelling Verified 01/16/19 00:02 amoxicillin trihydrate Allergy Rash Verified 01/16/19 00:02 [From Amoxil] latex Allergy Rash Verified 01/16/19 00:02 lisinopril Allergy Headache Verified 01/16/19 00:02 Home Meds: Home Meds Insulin Aspart [Novolog Flexpen] 5 unit SQ ASDIRECTED PRN 05/17/16 [History] Acetaminophen [Tylenol] 1,000 mg PO Q6H PRN 11/03/16 [History] Mupirocin Cream [Bactroban Crm] 1 applic TOP DAILY 11/03/16 [History] Sodium Bicarbonate 1 tab PO BID 03/14/17 [History] Aspirin [Halfprin] 324 mg PO DAILY 01/08/18 [History] Carvedilol [Coreg] 12.5 mg PO BIDMEALS 10/01/18 [History] Sevelamer Carbonate [Renvela] 800 mg PO TIDMEALS 10/01/18 [History] rOPINIRole [Requip] 0.25 mg PO TID 10/01/18 [History] Past Medical History HEENT History: Reports: Cataract Cardiovascular History: Reports: Afib, CAD, Heart Failure, High Cholesterol, Hypertension, Pacemaker, Other (See Below) Other Cardiovascular History: hx of bilateral lower extremity edema Respiratory History: Reports: Pneumonia, Recurrent, SOB Other Respiratory History: From CHF Gastrointestinal History: Reports: Other (See Below) Other Gastrointestinal History: gastroparesis diabeticorum Genitourinary History: Reports: Dialysis, Diabetic Nephropathy, Dialysis, Peritoneal, Other (See Below) Other Genitourinary History: chronic kidney disease stage 4, nephrotic syndrome , is on dialysis 3 days a week, Monday, Monday, Monday in [place] 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 lower leg. Dry and scaley about 3inches in diameter. Non draining. Also has dry area to left marie area. 1 diameter to left marie area. - Infectious Disease History Infectious Disease History: Reports: Chicken Pox Other Infectious Disease History: patient unsure - Past Surgical History HEENT Surgical History: Reports: Cataract Surgery Other Cardiovascular Surgeries/Procedures: Angiogram 2014 GI Surgical History: Reports: Appendectomy Oncologic Surgical History: Reports: None Dermatological Surgical History: Reports: Skin Biopsy Social & Family History - Family History Family Medical History: Noncontributory Cardiac: Reports: [place] Other Cardiac Family History: father from [place] in his 50s Endocrine/Metabolic: Reports: Diabetes, type II Other Hematologic Family History: mother has h/o DVT and is on blood thinners - per pt report - Caffeine Use Caffeine Use: Reports: Coffee - Living Situation & Occupation Living situation: Reports: with Family Occupation: Employed ED ROS GENERAL - Review of Systems Review Of Systems: ROS reveals no pertinent complaints other than HPI. ED EXAM, GENERAL - Physical Exam Exam: See Below Exam Limited By: No Limitations General Appearance: Alert, WD/WN, Moderate Distress Eye Exam: Bilateral Eye: EOMI, Normal Inspection Ears: Normal External Exam, Hearing Grossly Normal Nose: Normal Inspection Throat/Mouth: Normal Inspection, Normal Voice, No Airway Compromise Head: Atraumatic, Normocephalic Neck: Normal Inspection, Supple, Non-Tender, Full Range of Motion Respiratory/Chest: Respiratory Distress, Decreased Breath Sounds, Crackles ( bases bilaterally) Cardiovascular: Normal Peripheral Pulses, Regular Rate, Rhythm Peripheral Pulses: 1+: Radial (L), Radial (R) GI/Abdominal: Normal Bowel Sounds, Soft, Tender (Female) Exam: Deferred Rectal (Female) Exam: Deferred Back Exam: Normal Inspection, Full Range of Motion Extremities: Normal Inspection, Normal Range of Motion, Pedal Edema, Leg Pain ( edema +2, tender to touch lower extremities) Neurological: Alert, Oriented, CN II-XII Intact Psychiatric: Anxious, Tearful Skin Exam: Warm, Dry Lymphatic: No Adenopathy Course - Vital Signs Last Recorded V/S: Last Vital Signs Temp 97.9 F 01/22/19 23:09 Pulse 55 L 01/22/19 23:09 Resp 18 01/22/19 23:09 BP 136/52 L 01/22/19 23:09 Pulse Ox 95 01/22/19 23:09 - Orders/Labs/Meds Orders: Active Orders 24 hr Category Date Time Status Peripheral IV Care [RC] . DIRECTED Care 01/22/19 23:20 Active Sodium Chloride 0.9% [Saline Flush] Med 01/22/19 23:17 Active 10 ml FLUSH ASDIRECTED PRN Peripheral IV Insertion Adult [OM.PC] Stat Oth 01/22/19 23:17 Ordered Medication Orders Sodium Chloride (Saline Flush) 10 ml FLUSH ASDIRECTED PRN PRN Reason: Keep Vein Open Labs: Laboratory Tests 01/22/19 01/22/19 01/22/19 Range/Units 23:20 23:20 23:20 WBC 5.1 (5.0-10.0) 10^3/uL RBC 3.18 L (4.2-5.4) 10^6/uL Hgb 9.7 L (12.0-16.0) g/dL Hct 31.1 L (37.0-47.0) % MCV 97.8 (80-100) fL MCH 30.5 (27.0-34.0) pg MCHC 31.2 L (33.0-35.0) g/dL Plt Count 185 (150-450) 10^3/uL Neut % (Auto) 75.8 H (42.2-75.2) % Lymph % (Auto) 10.7 L (20.5-50.1) % [place] % (Auto) 9.9 H (2-8) % Eos % (Auto) 3.2 H (1.0-3.0) % Baso % (Auto) 0.4 (0.0-1.0) % PT 11.3 (9.0-12.0) SEC INR 1.1 (0.9-1.2) Sodium 141 (135-145) mmol/L Potassium 4.2 (3.6-5.0) mmol/L Chloride 100 L (101-111) mmol/L Carbon Dioxide 25.0 (21.0-31.0) mmol/L Anion Gap 20.2 BUN 46 H (7-18) mg/dL Creatinine 6.0 H (0.6-1.3) mg/dL Est Cr Clr Drug Dosing 8.39 mL/min Estimated GFR (MDRD) 7 BUN/Creatinine Ratio 7.66 Glucose 132 H (74-105) mg/dL Calcium 7.8 L (8.4-10.2) mg/dl Total Bilirubin 1.5 H (0.2-1.0) mg/dL AST 20 (10-42) IU/L ALT 15 (10-60) IU/L Alkaline Phosphatase 232 H (42-121) IU/L Troponin I (0.00-0.02) ng/ml B-Natriuretic Peptide (0-100) pg/ml Total Protein 6.6 L (6.7-8.2) g/dl Albumin 3.3 (3.2-5.5) g/dl Globulin 3.3 Albumin/Globulin Ratio 1.00 01/22/19 01/22/19 Range/Units 23:20 23:20 WBC (5.0-10.0) 10^3/uL RBC (4.2-5.4) 10^6/uL Hgb (12.0-16.0) g/dL Hct (37.0-47.0) % MCV (80-100) fL MCH (27.0-34.0) pg MCHC (33.0-35.0) g/dL Plt Count (150-450) 10^3/uL Neut % (Auto) (42.2-75.2) % Lymph % (Auto) (20.5-50.1) % [place] % (Auto) (2-8) % Eos % (Auto) (1.0-3.0) % Baso % (Auto) (0.0-1.0) % PT (9.0-12.0) SEC INR (0.9-1.2) Sodium (135-145) mmol/L Potassium (3.6-5.0) mmol/L Chloride (101-111) mmol/L Carbon Dioxide (21.0-31.0) mmol/L Anion Gap BUN (7-18) mg/dL Creatinine (0.6-1.3) mg/dL Est Cr Clr Drug Dosing mL/min Estimated GFR (MDRD) BUN/Creatinine Ratio Glucose (74-105) mg/dL Calcium (8.4-10.2) mg/dl Total Bilirubin (0.2-1.0) mg/dL AST (10-42) IU/L ALT (10-60) IU/L Alkaline Phosphatase (42-121) IU/L Troponin I 0.03 H* (0.00-0.02) ng/ml B-Natriuretic Peptide 4110 H (0-100) pg/ml Total Protein (6.7-8.2) g/dl Albumin (3.2-5.5) g/dl Globulin Albumin/Globulin Ratio Meds: Medications Generic Name Dose Route Start Last Admin Trade Name Freq PRN Reason Stop Dose Admin Sodium Chloride 10 ml 01/22/19 23:17 Saline Flush FLUSH ASDIRECTED PRN Keep Vein Open Discontinued Medications Generic Name Dose Route Start Last Admin Trade Name Freq PRN Reason Stop Dose Admin Lorazepam 1 mg 01/22/19 23:28 01/22/19 23:33 Ativan IVPUSH 01/22/19 23:29 1 mg ONETIME ONE Administration Sodium Chloride 10 ml 01/22/19 23:17 01/22/19 23:20 Saline Flush FLUSH 10 ml ASDIRECTED PRN Administration Keep Vein Open - Radiology Interpretation Free Text/Narrative:: Chest xray: FINDINGS: Tubes, catheters and devices: Dual chamber pacemaker in good position Lungs: Unremarkable. No consolidation. Pleural space: Unremarkable. No pleural effusion. No pneumothorax. Heart/Mediastinum: Cardiomegaly with moderate CHF and bilateral effusions Bones/joints: Unremarkable. IMPRESSION: Stable congestive heart failure changes Thank you for allowing us to participate in the care of your patient. Dictated and Authenticated by: Chaz Childs MD 01/23/2019 1:10 AM Central Time ([place] & [place]) See rad report Departure - Departure Time of Disposition: 01:37 Disposition: Home, Self-Care 01 Condition: Fair Clinical Impression: CKD (chronic kidney disease) stage 5, GFR less than 15 ml/min, Elevated troponin, SOB (shortness of breath), Nonspecific chest pain, Anxiety CHF (congestive heart failure) Qualifiers: Heart failure type: unspecified Heart failure chronicity: chronic Qualified Code(s): I50.9 - Heart failure, unspecified Instructions: Nonspecific Chest Pain, [id number] Forms: ED Department Discharge Additional Instructions: Call dialysis right away in the morning to set up a time to have her dialyze tomorrow. Make sure to make it to dialysis tomorrow Follow up with nephrology - My Orders Last 24 Hours: My Active Orders 01/22/19 23:17 Sodium Chloride 0.9% [Saline Flush] 10 ml FLUSH ASDIRECTED PRN Peripheral IV Insertion Adult [OM.PC] Stat 01/22/19 23:20 Peripheral IV Care [RC] . DIRECTED - Assessment/Plan Last 24 Hours: My Active Orders 01/22/19 23:17 Sodium Chloride 0.9% [Saline Flush] 10 ml FLUSH ASDIRECTED PRN Peripheral IV Insertion Adult [OM.PC] Stat 01/22/19 23:20 Peripheral IV Care [RC] . DIRECTED
[2019-01-22 23:13] VITALS: BP 136/52
[2019-01-22] MEDS ORDERED: Sodium Chloride 0.9% 10 ML Syringe FLUSH PRN ×2 (23:17)
[2019-01-22] MEDS ORDERED: LORazepam 2 MG/ML Syringe IVPUSH ONE (23:28)
[2019-01-22 23:51] LABS: ANION GAP 20.2
== END 2019-01-23 01:46 | disposition home or self-care (01) ==
LOC: DL.ED 23:09
DX: I13.0 Hypertensive heart and chronic kidney disease with heart failure and stage 1 through stage 4 chronic kidney disease, or unspecified chronic kidney disease (principal); I50.9 Heart failure, unspecified; N18.4 Chronic kidney disease, stage 4 (severe); I25.10 Atherosclerotic heart disease of native coronary artery without angina pectoris; I48.91 Unspecified atrial fibrillation; R07.89 Other chest pain; F41.9 Anxiety disorder, unspecified; E78.00 Pure hypercholesterolemia, unspecified; I11.0 Hypertensive heart disease with heart failure; E11.21 Type 2 diabetes mellitus with diabetic nephropathy; E11.22 Type 2 diabetes mellitus with diabetic chronic kidney disease; R79.89 Other specified abnormal findings of blood chemistry; Z88.8 Allergy status to other drugs, medicaments and biological substances; Z95.0 Presence of cardiac pacemaker; Z91.040 Latex allergy status; Z79.4 Long term (current) use of insulin; Z79.82 Long term (current) use of aspirin; Z79.899 Other long term (current) drug therapy
CPT/HCPCS: 36415; 71045; 80053; 83880; 84484; 85025; 85610; 96374; 99285; J2060

== ENCOUNTER 2019-02-11 20:26 | Emergency (ER) | payer MEDICARE, MEDICAID ==
[2019-02-11] MEDS ORDERED: Ondansetron 4 MG Tab.DIS PO ONE (20:27)
[2019-02-11] MEDS ORDERED: Sodium Chloride 0.9% 10 ML Syringe FLUSH PRN (20:54)
[2019-02-11] MEDS ORDERED: Morphine 2 MG/ML Syringe IVPUSH ONE (21:39)
[2019-02-11] MEDS ORDERED: Ondansetron 4 MG/2 ML SDV IV ONE (21:39)
[2019-02-11] MEDS ORDERED: Dicyclomine 20 MG/2 ML SDV IM ONE (22:43)
--- NOTE | 2019-02-11 22:46 | EDM.PDOC ---
ED HPI GENERAL MEDICAL PROBLEM - General Chief Complaint: Abdominal Pain Stated Complaint: CAN'T GO TO THE BATHROOM HURTS Time Seen by Provider: 02/11/19 21:09 Source of Information: Reports: Patient, Family, RN, RN Notes Reviewed History Limitations: Reports: No Limitations - History of Present Illness INITIAL COMMENTS - FREE TEXT/NARRATIVE: Pt to ER with her son with c/o severe left sided abdominal pain and several mushy bowel movements. She states the pain began about 4-5 hours ago. Patient states the BM's have been black with some blood when she wipes. She states she last had dialysis today. Denies any gastroenteritis, N/V/D with anyone else in the home. Son states the N/V/D, and abdominal pain has been going on for 6-8 weeks. He states he has taken her to the ER in [place] as well for the same thing and nothing acute was found. Onset: Today, Sudden Left Lower Abdomen Pain Score (Numeric/FACES): 10 - Related Data Allergies Allergy/AdvReac Type Severity Reaction Status Date / Time lidocaine Allergy Intermediate Swelling Verified 02/11/19 21:03 amoxicillin trihydrate Allergy Rash Verified 02/11/19 21:03 [From Amoxil] latex Allergy Rash Verified 02/11/19 21:03 lisinopril Allergy Headache Verified 02/11/19 21:03 Home Meds: Home Meds Insulin Aspart [Novolog Flexpen] 5 unit SQ ASDIRECTED PRN 05/17/16 [History] Acetaminophen [Tylenol] 1,000 mg PO Q6H PRN 11/03/16 [History] Sodium Bicarbonate 1 tab PO BID 03/14/17 [History] Aspirin [Halfprin] 324 mg PO DAILY 01/08/18 [History] Carvedilol [Coreg] 12.5 mg PO BIDMEALS 10/01/18 [History] Sevelamer Carbonate [Renvela] 800 mg PO TIDMEALS 10/01/18 [History] rOPINIRole [Requip] 0.25 mg PO TID 10/01/18 [History] Past Medical History HEENT History: Reports: Cataract Cardiovascular History: Reports: Afib, CAD, Heart Failure, High Cholesterol, Hypertension, Pacemaker, Other (See Below) Other Cardiovascular History: hx of bilateral lower extremity edema Respiratory History: Reports: Pneumonia, Recurrent, SOB Other Respiratory History: From CHF Gastrointestinal History: Reports: Other (See Below) Other Gastrointestinal History: gastroparesis diabeticorum Genitourinary History: Reports: Dialysis, Diabetic Nephropathy, Dialysis, Peritoneal, Other (See Below) Other Genitourinary History: chronic kidney disease stage 4, nephrotic syndrome , is on dialysis 3 days a week, Monday, Monday, Monday in [place] 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 lower leg. Dry and scaley about 3inches in diameter. Non draining. Also has dry area to left marie area. 1 diameter to left marie area. - Infectious Disease History Infectious Disease History: Reports: Chicken Pox Other Infectious Disease History: patient unsure - Past Surgical History HEENT Surgical History: Reports: Cataract Surgery Other Cardiovascular Surgeries/Procedures: Angiogram 2014 GI Surgical History: Reports: Appendectomy Oncologic Surgical History: Reports: None Dermatological Surgical History: Reports: Skin Biopsy Social & Family History - Family History Family Medical History: Noncontributory Cardiac: Reports: [place] Other Cardiac Family History: father from [place] in his 50s Endocrine/Metabolic: Reports: Diabetes, type II Other Hematologic Family History: mother has h/o DVT and is on blood thinners - per pt report - Tobacco Use Smoking Status *Q: Never Smoker - Caffeine Use Caffeine Use: Reports: None - Recreational Drug Use Recreational Drug Use: No - Living Situation & Occupation Living situation: Reports: with Family Occupation: Employed ED ROS GENERAL - Review of Systems Review Of Systems: ROS reveals no pertinent complaints other than HPI. ED EXAM, GI/ABD - Physical Exam Exam: See Below Exam Limited By: No Limitations General Appearance: Alert, WD/WN, Anxious, Moderate Distress Eyes: Bilateral: Normal Appearance, EOMI Ears: Normal External Exam, Hearing Grossly Normal Nose: Normal Inspection Throat/Mouth: Normal Inspection, Normal Voice, No Airway Compromise Head: Atraumatic, Normocephalic Neck: Normal Inspection, Supple, Non-Tender, Full Range of Motion Respiratory/Chest: No Respiratory Distress, Decreased Breath Sounds, Crackles ( bases bilaterally) Cardiovascular: Normal Peripheral Pulses, Regular Rate, Rhythm, No Edema, No Gallop, No JVD, No Murmur, No Rub GI/Abdominal Exam: Normal Bowel Sounds, Soft, Tender (RLQ, LLQ) (Female) Exam: Deferred Rectal (Female) Exam: Normal Exam, Normal Rectal Tone, Heme - Stool Back Exam: Normal Inspection, Full Range of Motion, NT Extremities: Normal Inspection, Normal Range of Motion, Non-Tender, Normal Capillary Refill, No Pedal Edema Neurological: Alert, Oriented, CN II-XII Intact, Normal Cognition, Normal Reflexes, No Motor/Sensory Deficits Psychiatric: Normal Affect, Normal Mood, Anxious Skin Exam: Warm, Dry, Intact, Normal Color, No Rash Lymphatic: No Adenopathy Course - Vital Signs Last Recorded V/S: Last Vital Signs Temp 97.2 F 02/11/19 22:52 Pulse 75 02/11/19 22:52 Resp 18 02/11/19 22:52 BP 126/60 02/11/19 22:52 Pulse Ox 96 02/11/19 22:52 - Orders/Labs/Meds Orders: Active Orders 24 hr Category Date Time Status EKG Documentation Completion [RC] STAT Care 02/11/19 20:56 Active Peripheral IV Care [RC] . DIRECTED Care 02/11/19 20:56 Active Sodium Chloride 0.9% [Saline Flush] Med 02/11/19 20:54 Active 10 ml FLUSH ASDIRECTED PRN Peripheral IV Insertion Adult [OM.PC] Stat Oth 02/11/19 20:55 Ordered Medication Orders Sodium Chloride (Saline Flush) 10 ml FLUSH ASDIRECTED PRN PRN Reason: Keep Vein Open Last Admin: 02/11/19 21:35 Dose: 10 ml Labs: Laboratory Tests 02/11/19 02/11/19 Range/Units 21:37 21:37 WBC 7.3 (5.0-10.0) 10^3/uL RBC 3.53 L (4.2-5.4) 10^6/uL Hgb 10.7 L (12.0-16.0) g/dL Hct 33.4 L (37.0-47.0) % MCV 94.6 D (80-100) fL MCH 30.3 (27.0-34.0) pg MCHC 32.0 L (33.0-35.0) g/dL Plt Count 184 (150-450) 10^3/uL Neut % (Auto) 80.7 H (42.2-75.2) % Lymph % (Auto) 4.8 L (20.5-50.1) % [place] % (Auto) 11.9 H (2-8) % Eos % (Auto) 2.2 (1.0-3.0) % Baso % (Auto) 0.4 (0.0-1.0) % Sodium 136 (135-145) mmol/L Potassium 4.0 (3.6-5.0) mmol/L Chloride 95 L (101-111) mmol/L Carbon Dioxide 24.0 (21.0-31.0) mmol/L Anion Gap 21.0 BUN 52 H (7-18) mg/dL Creatinine 6.9 H (0.6-1.3) mg/dL Est Cr Clr Drug Dosing 6.99 mL/min Estimated GFR (MDRD) 6 BUN/Creatinine Ratio 7.53 Glucose 96 (74-105) mg/dL Calcium 7.4 L (8.4-10.2) mg/dl Total Bilirubin 1.8 H (0.2-1.0) mg/dL AST 24 (10-42) IU/L ALT 13 (10-60) IU/L Alkaline Phosphatase 159 H (42-121) IU/L Troponin I 0.05 H* (0.00-0.02) ng/ml B-Natriuretic Peptide 3880 H (0-100) pg/ml Total Protein 6.7 (6.7-8.2) g/dl Albumin 3.4 (3.2-5.5) g/dl Globulin 3.3 Albumin/Globulin Ratio 1.03 Meds: Medications Generic Name Dose Route Start Last Admin Trade Name Freq PRN Reason Stop Dose Admin Sodium Chloride 10 ml 02/11/19 20:54 02/11/19 21:35 Saline Flush FLUSH 10 ml ASDIRECTED PRN Administration Keep Vein Open Discontinued Medications Generic Name Dose Route Start Last Admin Trade Name Freq PRN Reason Stop Dose Admin Dicyclomine HCl 20 mg 02/11/19 22:43 02/11/19 22:50 Bentyl IM 02/11/19 22:44 20 mg ONETIME ONE Administration Hydromorphone HCl 1 mg 02/11/19 23:17 02/11/19 23:25 Dilaudid IVPUSH 02/11/19 23:18 1 mg ONETIME ONE Administration Metoclopramide HCl 10 mg 02/12/19 00:00 02/12/19 00:03 Reglan IVPUSH 02/12/19 00:01 10 mg ONETIME ONE Administration Morphine Sulfate 2 mg 02/11/19 21:39 02/11/19 21:42 Morphine IVPUSH 02/11/19 21:40 2 mg ONETIME ONE Administration Ondansetron HCl 4 mg 02/11/19 21:39 02/11/19 21:42 Zofran IV 02/11/19 21:40 4 mg ONETIME ONE Administration - Radiology Interpretation Free Text/Narrative:: Abdomen/Pelvis CT wo contrast: FINDINGS: Lower thorax: There are small bilateral pleural effusions again seen. ABDOMEN: Liver: Normal. No mass. Gallbladder and bile ducts: Normal. No calcified stones. No ductal dilation. Pancreas: Normal. No ductal dilation. Spleen: Normal. No splenomegaly. Adrenals: Normal. No mass. Kidneys and ureters: Normal. No hydronephrosis. Stomach and bowel: A few diverticula are seen on the sigmoid colon. There are no inflammatory changes seen as is diverticulitis. There is mild bowel wall thickening of the sigmoid colon although the colon is nondistended. Appendix: No evidence of appendicitis. PELVIS: Bladder: Bladder wall is again seen although the bladder is nondistended. Cystitis cannot be excluded. Reproductive: Calcifications are seen within the uterus appearing stable compared with 01/06/2019. ABDOMEN and PELVIS: Intraperitoneal space: There is a moderate amount of ascites present so that present on 01/06/2019. Bones/joints: No acute fracture. No dislocation. Soft tissues: Subcutaneous edema is again seen. Vasculature: Calcifications are seen within the thoracic and abdominal aorta, iliac and femoral arteries bilaterally, branches of the celiac trunk and inferior mesenteric artery. Lymph nodes: Small superficial inguinal lymph nodes are seen bilaterally a low CT criteria for lymphadenopathy. Other findings: Strandy opacities are present in the lower hemithoraces likely represents. IMPRESSION: 1. There is stable ascites. 2. Stable bilateral pleural effusions 3. Probable mild bilateral basilar atelectasis 4. Bladder wall thickening is again seen, a finding that could represent cystitis. 5. Mild diverticulosis of the sigmoid colon without evidence of diverticulitis 6. Thickening of the sigmoid colonic wall although the colon is not distended. Thank you for allowing us to participate in the care of your patient. Dictated and Authenticated by: Real Batres MD 02/11/2019 10:38 PM Central Time ([place] & [place]) See rad report Departure - Departure Time of Disposition: 00:38 Disposition: Home, Self-Care 01 Condition: Fair Clinical Impression: Gastroenteritis, CKD (chronic kidney disease) stage 5, GFR less than 15 ml/min - Discharge Information *PRESCRIPTION DRUG MONITORING PROGRAM REVIEWED*: No *COPY OF PRESCRIPTION DRUG MONITORING REPORT IN PATIENT BIENVENIDO: No Instructions: Viral Gastroenteritis, Adult, [id number], Nausea and Vomiting, Adult, [id number], Abdominal Pain, Adult, [id number] Referrals: PCP,None [Primary Care Provider] - Forms: ED Department Discharge Additional Instructions: Follow up with your primary care facility - My Orders Last 24 Hours: My Active Orders 02/11/19 20:54 Sodium Chloride 0.9% [Saline Flush] 10 ml FLUSH ASDIRECTED PRN 02/11/19 20:55 Peripheral IV Insertion Adult [OM.PC] Stat 02/11/19 20:56 EKG Documentation Completion [RC] STAT Peripheral IV Care [RC] . DIRECTED - Assessment/Plan Last 24 Hours: My Active Orders 02/11/19 20:54 Sodium Chloride 0.9% [Saline Flush] 10 ml FLUSH ASDIRECTED PRN 02/11/19 20:55 Peripheral IV Insertion Adult [OM.PC] Stat 02/11/19 20:56 EKG Documentation Completion [RC] STAT Peripheral IV Care [RC] . DIRECTED
[2019-02-11] MEDS ORDERED: HYDROmorphone 1 MG/ML Syringe IVPUSH ONE (23:17)
[2019-02-12] MEDS ORDERED: Metoclopramide 10 MG/2 ML SDV IVPUSH ONE
[2019-02-12] MEDS ORDERED: Ondansetron 4 MG Tab.DIS ONE (00:44)
[2019-02-12 00:51] VITALS: BP 132/51
== END 2019-02-12 00:49 | disposition home or self-care (01) ==
LOC: DL.ED 20:26
DX: K52.9 Noninfective gastroenteritis and colitis, unspecified (principal); I13.2 Hypertensive heart and chronic kidney disease with heart failure and with stage 5 chronic kidney disease, or end stage renal disease; E11.22 Type 2 diabetes mellitus with diabetic chronic kidney disease; N18.5 Chronic kidney disease, stage 5; I50.9 Heart failure, unspecified; D63.1 Anemia in chronic kidney disease; E11.21 Type 2 diabetes mellitus with diabetic nephropathy; E78.00 Pure hypercholesterolemia, unspecified; Z91.040 Latex allergy status; Z88.8 Allergy status to other drugs, medicaments and biological substances; Z79.4 Long term (current) use of insulin; Z79.899 Other long term (current) drug therapy; Z79.82 Long term (current) use of aspirin
CPT/HCPCS: 36415; 74176; 80053; 82272; 83880; 84484; 85025; 93005; 96372; 96374; 96375; 99284-25; A9270-GY; J0500; J1170; J2270; J2405; J2765

== ENCOUNTER 2019-02-16 18:00 | Emergency (ER) | payer MEDICARE, MEDICAID ==
[2019-02-16 18:36] LABS: ANION GAP 18.3
[2019-02-16] MEDS ORDERED: LORazepam 2 MG/ML Syringe IVPUSH ONE (18:54)
--- NOTE | 2019-02-16 19:03 | EDM.PDOC ---
ED HPI GENERAL MEDICAL PROBLEM - General Chief Complaint: Chest Pain Stated Complaint: AMBULANCE Time Seen by Provider: 02/16/19 18:59 Source of Information: Reports: Patient History Limitations: Reports: No Limitations - History of Present Illness INITIAL COMMENTS - FREE TEXT/NARRATIVE: onset left CP this afternoon while watching TV feels like something squeezing in her chest. gives long h/o CP/SOB problems but tonight's Sx seems little bit different. states ativan seems to hep sometimes. Chest Pain Score (Numeric/FACES): 7 - Related Data Allergies Allergy/AdvReac Type Severity Reaction Status Date / Time lidocaine Allergy Intermediate Swelling Verified 02/16/19 18:04 amoxicillin trihydrate Allergy Rash Verified 02/16/19 18:04 [From Amoxil] latex Allergy Rash Verified 02/16/19 18:04 lisinopril Allergy Headache Verified 02/16/19 18:04 Home Meds: Home Meds Insulin Aspart [Novolog Flexpen] 5 unit SQ ASDIRECTED PRN 05/17/16 [History] Acetaminophen [Tylenol] 1,000 mg PO Q6H PRN 11/03/16 [History] Aspirin [Halfprin] 81 mg PO DAILY 01/08/18 [History] Carvedilol [Coreg] 12.5 mg PO BIDMEALS 10/01/18 [History] Sevelamer Carbonate [Renvela] 800 mg PO TIDMEALS 10/01/18 [History] rOPINIRole [Requip] 0.25 mg PO TID 10/01/18 [History] Past Medical History HEENT History: Reports: Cataract Cardiovascular History: Reports: Afib, CAD, Heart Failure, High Cholesterol, Hypertension, Pacemaker, Other (See Below) Other Cardiovascular History: hx of bilateral lower extremity edema Respiratory History: Reports: Pneumonia, Recurrent, SOB Other Respiratory History: From CHF Gastrointestinal History: Reports: Other (See Below) Other Gastrointestinal History: gastroparesis diabeticorum, ascites Genitourinary History: Reports: Dialysis, Diabetic Nephropathy, Dialysis, Peritoneal, Other (See Below) Other Genitourinary History: chronic kidney disease stage 4, nephrotic syndrome , is on dialysis 3 days a week, Monday, Monday, Monday in [place] 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 lower leg. Dry and scaley about 3inches in diameter. Non draining. Also has dry area to left marie area. 1 diameter to left marie area. - Infectious Disease History Infectious Disease History: Reports: Chicken Pox Other Infectious Disease History: patient unsure - Past Surgical History HEENT Surgical History: Reports: Cataract Surgery Other Cardiovascular Surgeries/Procedures: Angiogram 2014 GI Surgical History: Reports: Appendectomy Oncologic Surgical History: Reports: None Dermatological Surgical History: Reports: Skin Biopsy Social & Family History - Family History Family Medical History: Noncontributory Cardiac: Reports: [place] Other Cardiac Family History: father from [place] in his 50s Endocrine/Metabolic: Reports: Diabetes, type II Other Hematologic Family History: mother has h/o DVT and is on blood thinners - per pt report - Tobacco Use Smoking Status *Q: Former Smoker Used Tobacco, but Quit: Yes Month/Year Tobacco Last Used: 5 years ago Second Hand Smoke Exposure: No - Caffeine Use Caffeine Use: Reports: None - Recreational Drug Use Recreational Drug Use: No - Living Situation & Occupation Living situation: Reports: with Family Occupation: Employed ED ROS GENERAL - Review of Systems Review Of Systems: ROS reveals no pertinent complaints other than HPI. ED EXAM, GENERAL - Physical Exam Exam: See Below Exam Limited By: No Limitations General Appearance: Alert, WD/WN, Anxious, Mild Distress, Other (discomfort) Ears: Hearing Grossly Normal Throat/Mouth: Normal Voice, No Airway Compromise Head: Atraumatic Neck: Non-Tender, Full Range of Motion Respiratory/Chest: No Respiratory Distress, No Accessory Muscle Use, Rales, Rhonchi Cardiovascular: Regular Rate, Rhythm GI/Abdominal: Soft, Non-Tender Extremities: No Pedal Edema Neurological: Alert, Oriented, Normal Cognition, No Motor/Sensory Deficits Psychiatric: Anxious Skin Exam: Warm, Dry, Normal Color Lymphatic: No Adenopathy Course - Vital Signs Last Recorded V/S: Last Vital Signs Temp 37.0 C 04/20/19 18:07 Pulse 72 02/16/19 19:06 Resp 25 H 02/16/19 19:06 BP 135/76 02/16/19 19:06 Pulse Ox 99 02/16/19 19:06 - Orders/Labs/Meds Labs: Laboratory Tests 02/16/19 02/16/19 02/16/19 Range/Units 18:10 18:10 18:10 WBC 6.3 (5.0-10.0) 10^3/uL RBC 3.30 L (4.2-5.4) 10^6/uL Hgb 10.0 L (12.0-16.0) g/dL Hct 32.5 L (37.0-47.0) % MCV 98.5 D (80-100) fL MCH 30.3 (27.0-34.0) pg MCHC 30.8 L (33.0-35.0) g/dL Plt Count 187 (150-450) 10^3/uL D-Dimer, Quantitative 2510 H (0-400) ng/mL Sodium 140 (135-145) mmol/L Potassium 3.3 L (3.6-5.0) mmol/L Chloride 96 L (101-111) mmol/L Carbon Dioxide 29.0 (21.0-31.0) mmol/L Anion Gap 18.3 BUN 38 H (7-18) mg/dL Creatinine 5.5 H D (0.6-1.3) mg/dL Est Cr Clr Drug Dosing 9.16 mL/min Estimated GFR (MDRD) 8 BUN/Creatinine Ratio 6.90 Glucose 122 H (74-105) mg/dL Calcium 7.3 L (8.4-10.2) mg/dl Total Bilirubin 1.1 H (0.2-1.0) mg/dL AST 25 (10-42) IU/L ALT 12 (10-60) IU/L Alkaline Phosphatase 187 H (42-121) IU/L Troponin I 0.05 H* (0.00-0.02) ng/ml B-Natriuretic Peptide 3280 H (0-100) pg/ml Total Protein 6.4 L (6.7-8.2) g/dl Albumin 3.2 (3.2-5.5) g/dl Globulin 3.2 Albumin/Globulin Ratio 1.00 Meds: Medications Discontinued Medications Generic Name Dose Route Start Last Admin Trade Name Ezequiel PRN Reason Stop Dose Admin Hydrocodone Bitart/Acetaminophen 1 tab 02/16/19 20:00 02/16/19 20:05 [place] 325-10 Mg PO 02/16/19 20:01 1 tab ONETIME ONE Administration Lorazepam 1 mg 02/16/19 18:54 02/16/19 19:01 Ativan IVPUSH 02/16/19 18:55 1 mg ONETIME ONE Administration - Re-Assessments/Exams Free Text/Narrative Re-Assessment/Exam: 02/16/19 19:32 re-exam; s/p ativan = much better and pt wants to go home and declined transf to GF. Departure - Departure Time of Disposition: 20:00 Disposition: Home, Self-Care 01 Condition: Fair Clinical Impression: CKD (chronic kidney disease) stage 4, GFR 15-29 ml/min, End-stage renal disease on peritoneal dialysis, Left-sided chest wall pain, Atypical chest pain Instructions: Nonspecific Chest Pain, [id number] Forms: ED Department Discharge Additional Instructions: 1) rest 2) follow up with family doctor 3) recheck as needed
[2019-02-16 19:07] VITALS: BP 135/76
[2019-02-16] MEDS ORDERED: Acetaminophen/HYDROcodone 325-10 MG Tab PO ONE (20:00)
== END 2019-02-16 20:09 | disposition home or self-care (01) ==
LOC: DL.ED 18:00
DX: R07.89 Other chest pain (principal); I13.2 Hypertensive heart and chronic kidney disease with heart failure and with stage 5 chronic kidney disease, or end stage renal disease; I50.9 Heart failure, unspecified; N18.6 End stage renal disease; I48.91 Unspecified atrial fibrillation; E78.00 Pure hypercholesterolemia, unspecified; E11.21 Type 2 diabetes mellitus with diabetic nephropathy; E11.22 Type 2 diabetes mellitus with diabetic chronic kidney disease; Z91.040 Latex allergy status; Z88.4 Allergy status to anesthetic agent; Z88.1 Allergy status to other antibiotic agents; Z79.899 Other long term (current) drug therapy; Z87.891 Personal history of nicotine dependence; Z99.2 Dependence on renal dialysis; Z79.4 Long term (current) use of insulin
CPT/HCPCS: 36415; 71045; 80053; 83880; 84484; 85027; 85379; 93005; 96374; 99285; A9270; J2060

== ENCOUNTER 2019-03-01 23:29 | Emergency (ER) | payer MEDICARE, MEDICAID ==
[2019-03-01] MEDS ORDERED: LORazepam 2 MG/ML Syringe IVPUSH ONE (23:38)
[2019-03-01] MEDS ORDERED: Aspirin 81 MG Tab.Chew PO ONE (23:39)
[2019-03-02 00:35] LABS: ANION GAP 21.9
[2019-03-02 03:38] VITALS: BP 128/51
--- NOTE | 2019-03-02 03:51 | EDM.PDOC ---
ED HPI GENERAL MEDICAL PROBLEM - General Chief Complaint: General Stated Complaint: AMBULANCE-UNKNOWN Time Seen by Provider: 03/01/19 23:40 Source of Information: Reports: Patient, EMS History Limitations: Reports: No Limitations - History of Present Illness INITIAL COMMENTS - FREE TEXT/NARRATIVE: ED via [facility] with c/o diarrhea, since yesterday, watery stools. Did not go to dialysis. Tonight increasing SOB, aches all over, anxious chest pain, worse with movement and touch. No recent fevers. Treatments DRY COLOR TESTER: Reports: Aspirin, Nitroglycerin Generalized Pain Score (Numeric/FACES): 8 - Related Data Allergies Allergy/AdvReac Type Severity Reaction Status Date / Time lidocaine Allergy Intermediate Swelling Verified 02/16/19 18:04 amoxicillin trihydrate Allergy Rash Verified 02/16/19 18:04 [From Amoxil] latex Allergy Rash Verified 02/16/19 18:04 lisinopril Allergy Headache Verified 02/16/19 18:04 Home Meds: Home Meds Insulin Aspart [Novolog Flexpen] 5 unit SQ ASDIRECTED PRN 05/17/16 [History] Acetaminophen [Tylenol] 1,000 mg PO Q6H PRN 11/03/16 [History] Aspirin [Halfprin] 81 mg PO DAILY 01/08/18 [History] Carvedilol [Coreg] 12.5 mg PO BIDMEALS 10/01/18 [History] Sevelamer Carbonate [Renvela] 800 mg PO TIDMEALS 10/01/18 [History] rOPINIRole [Requip] 0.25 mg PO TID 10/01/18 [History] Past Medical History HEENT History: Reports: Cataract Cardiovascular History: Reports: Afib, CAD, Heart Failure, High Cholesterol, Hypertension, Pacemaker, Other (See Below) Other Cardiovascular History: hx of bilateral lower extremity edema Respiratory History: Reports: Pneumonia, Recurrent, SOB Other Respiratory History: From CHF Gastrointestinal History: Reports: Other (See Below) Other Gastrointestinal History: gastroparesis diabeticorum, ascites Genitourinary History: Reports: Dialysis, Diabetic Nephropathy, Dialysis, Peritoneal, Other (See Below) Other Genitourinary History: chronic kidney disease stage 4, nephrotic syndrome , is on dialysis 3 days a week, Monday, Monday, Monday in [place] 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 lower leg. Dry and scaley about 3inches in diameter. Non draining. Also has dry area to left marie area. 1 diameter to left marie area. - Infectious Disease History Infectious Disease History: Reports: Chicken Pox Other Infectious Disease History: patient unsure - Past Surgical History HEENT Surgical History: Reports: Cataract Surgery Other Cardiovascular Surgeries/Procedures: Angiogram 2014 GI Surgical History: Reports: Appendectomy Oncologic Surgical History: Reports: None Dermatological Surgical History: Reports: Skin Biopsy Social & Family History - Family History Family Medical History: Noncontributory Cardiac: Reports: [place] Other Cardiac Family History: father from [place] in his 50s Endocrine/Metabolic: Reports: Diabetes, type II Other Hematologic Family History: mother has h/o DVT and is on blood thinners - per pt report - Tobacco Use Smoking Status *Q: Never Smoker Second Hand Smoke Exposure: No - Caffeine Use Caffeine Use: Reports: None - Recreational Drug Use Recreational Drug Use: No - Living Situation & Occupation Living situation: Reports: with Family Occupation: Employed ED ROS GENERAL - Review of Systems Review Of Systems: See Below Constitutional: Reports: Malaise HEENT: Denies: No Symptoms Respiratory: Reports: Shortness of Breath. Denies: Cough, Sputum, Hemoptysis Cardiovascular: Reports: Dyspnea on Exertion GI/Abdominal: Reports: Abdominal Pain, Diarrhea (watery, no blood), Decreased Appetite. Denies: Vomiting Musculoskeletal: Reports: Other (generalized pain) ED EXAM, GENERAL - Physical Exam Exam: See Below Exam Limited By: No Limitations General Appearance: Alert, Anxious, Moderate Distress Eye Exam: Bilateral Eye: PERRL Ears: Normal External Exam Nose: Normal Inspection Throat/Mouth: Normal Inspection Head: Atraumatic, Normocephalic Neck: Normal Inspection Respiratory/Chest: Decreased Breath Sounds. No: Wheezing, Accessory Muscle Use Cardiovascular: Normal Peripheral Pulses, Regular Rate, Rhythm GI/Abdominal: Normal Bowel Sounds, Soft, Distended Rectal (Female) Exam: Normal Exam Extremities: Pedal Edema (1+) Neurological: Alert, Oriented, Normal Cognition Psychiatric: Anxious Skin Exam: Warm, Dry, Intact, No Rash, Other (dark pigmentation patchy) Course - Vital Signs Last Recorded V/S: Last Vital Signs Temp 97.6 F 03/02/19 03:37 Pulse 96 03/02/19 03:37 Resp 20 03/02/19 03:37 BP 128/51 L 03/02/19 03:37 Pulse Ox 98 03/02/19 03:37 - Orders/Labs/Meds Orders: Active Orders 24 hr Category Date Time Status Chest 1V Frontal [CR] Urgent Exams 03/02/19 00:05 Taken Labs: Laboratory Tests 03/01/19 03/01/19 03/01/19 Range/Units 23:50 23:50 23:50 WBC 5.7 (5.0-10.0) 10^3/uL RBC 3.52 L (4.2-5.4) 10^6/uL Hgb 10.6 L (12.0-16.0) g/dL Hct 33.3 L (37.0-47.0) % MCV 94.6 D (80-100) fL MCH 30.1 (27.0-34.0) pg MCHC 31.8 L (33.0-35.0) g/dL Plt Count 184 (150-450) 10^3/uL Neut % (Auto) 78.3 H (42.2-75.2) % Lymph % (Auto) 8.9 L (20.5-50.1) % Gordon % (Auto) 8.7 H (2-8) % Eos % (Auto) 3.8 H (1.0-3.0) % Baso % (Auto) 0.3 (0.0-1.0) % PT 11.1 (9.0-12.0) SEC INR 1.1 (0.9-1.2) Sodium 139 (135-145) mmol/L Potassium 3.9 (3.6-5.0) mmol/L Chloride 97 L (101-111) mmol/L Carbon Dioxide 24.0 (21.0-31.0) mmol/L Anion Gap 21.9 BUN 54 H (7-18) mg/dL Creatinine 6.9 H D (0.6-1.3) mg/dL Est Cr Clr Drug Dosing 7.30 mL/min Estimated GFR (MDRD) 6 BUN/Creatinine Ratio 7.82 Glucose 107 H (74-105) mg/dL Calcium 7.1 L (8.4-10.2) mg/dl Total Bilirubin 1.6 H (0.2-1.0) mg/dL AST 21 (10-42) IU/L ALT 11 (10-60) IU/L Alkaline Phosphatase 175 H (42-121) IU/L CK-MB (CK-2) (0.4-4.7) ng/mL Troponin I 0.05 H* (0.00-0.02) ng/ml B-Natriuretic Peptide 3130 H (0-100) pg/ml Total Protein 6.9 (6.7-8.2) g/dl Albumin 3.4 (3.2-5.5) g/dl Globulin 3.5 Albumin/Globulin Ratio 0.97 /01/15 Range/Units 23:50 WBC (5.0-10.0) 10^3/uL RBC (4.2-5.4) 10^6/uL Hgb (12.0-16.0) g/dL Hct (37.0-47.0) % MCV (80-100) fL MCH (27.0-34.0) pg MCHC (33.0-35.0) g/dL Plt Count (150-450) 10^3/uL Neut % (Auto) (42.2-75.2) % Lymph % (Auto) (20.5-50.1) % Gordon % (Auto) (2-8) % Eos % (Auto) (1.0-3.0) % Baso % (Auto) (0.0-1.0) % PT (9.0-12.0) SEC INR (0.9-1.2) Sodium (135-145) mmol/L Potassium (3.6-5.0) mmol/L Chloride (101-111) mmol/L Carbon Dioxide (21.0-31.0) mmol/L Anion Gap BUN (7-18) mg/dL Creatinine (0.6-1.3) mg/dL Est Cr Clr Drug Dosing mL/min Estimated GFR (MDRD) BUN/Creatinine Ratio Glucose (74-105) mg/dL Calcium (8.4-10.2) mg/dl Total Bilirubin (0.2-1.0) mg/dL AST (10-42) IU/L ALT (10-60) IU/L Alkaline Phosphatase (42-121) IU/L CK-MB (CK-2) 2.70 (0.4-4.7) ng/mL Troponin I (0.00-0.02) ng/ml B-Natriuretic Peptide (0-100) pg/ml Total Protein (6.7-8.2) g/dl Albumin (3.2-5.5) g/dl Globulin Albumin/Globulin Ratio Meds: Medications Discontinued Medications Generic Name Dose Route Start Last Admin Trade Name Freq PRN Reason Stop Dose Admin Aspirin 324 mg 03/01/19 23:39 03/02/19 00:06 Aspirin PO 03/01/19 23:40 Not Given ONETIME ONE Lorazepam 1 mg 03/01/19 23:38 03/02/19 00:05 Ativan IVPUSH 03/01/19 23:39 1 mg ONETIME ONE Administration - Radiology Interpretation Free Text/Narrative:: [facility] Final Radiology Report Call: [phone] assistance Online chat: [email or web address] Name: MARINA GORDON Age: 63Years F Date: 03/02/2019 SSN: -- : 1955 Study: XR CHEST 1 VIEW FRONTAL Requesting Physician: TONY PARKS Images: 1 Addl Studies: Provided Clinical History: Contrast: Contrast Medium: Contrast Amount: Contrast Method: CONFIDENTIALITY STATEMENT This report is intended only for use by the referring physician, and only in accordance with law. If you received this in error, call [phone]. Page 1 of 1 EXAM: XR Chest, 1 View EXAM DATE/TIME: 03/02/2019 12:10 AM CLINICAL HISTORY: 63 years old, female; Signs and symptoms; Other: Chest pain TECHNIQUE: Imaging protocol: XR of the chest, 1 view. COMPARISON: CR Chest 1V Frontal 02/16/2019 6:22 PM FINDINGS: Lungs: Small amount of airspace disease in the bases. Pleural space: Costophrenic angles blunted. Heart/Mediastinum: Unremarkable. Heart size within normal limits for technique. Bones/joints: Unremarkable. Pacemaker. IMPRESSION: Basilar lung opacities are unchanged and likely represent a combination of airspace disease and pleural fluid. Thank you for allowing us to participate in the care - Re-Assessments/Exams Free Text/Narrative Re-Assessment/Exam: 03/02/19 04:03 Calmer and resting follow ing ativan, arouses easily, c/o pain with minimal movement. Non specific to area. Family reports noticing increased abdominal girth. Departure - Departure Time of Disposition: 03:55 Disposition: DC/Tfer to Acute Hospital 02 Condition: Fair Clinical Impression: Hyponatremia, Pain, SOB (shortness of breath), Elevated brain natriuretic peptide (BNP) level, CKD (chronic kidney disease) stage 4, GFR 15-29 ml/min, Anxiety Dyspnea Qualifiers: Dyspnea type: shortness of breath Qualified Code(s): R06.02 - Shortness of breath Abdominal pain Qualifiers: Abdominal location: generalized Qualified Code(s): R10.84 - Generalized abdominal pain Diarrhea Qualifiers: Diarrhea type: unspecified type Qualified Code(s): R19.7 - Diarrhea, unspecified - Discharge Information *PRESCRIPTION DRUG MONITORING PROGRAM REVIEWED*: No *COPY OF PRESCRIPTION DRUG MONITORING REPORT IN PATIENT BIENVENIDO: No Referrals: PCP,None [Primary Care Provider] - Forms: ED Department Discharge - My Orders Last 24 Hours: My Active Orders 03/02/19 00:05 Chest 1V Frontal [CR] Urgent - Assessment/Plan Last 24 Hours: My Active Orders 03/02/19 00:05 Chest 1V Frontal [CR] Urgent
== END 2019-03-02 04:06 ==
LOC: DL.ED 23:29
DX: R19.7 Diarrhea, unspecified (principal); R06.02 Shortness of breath; F41.9 Anxiety disorder, unspecified; R10.84 Generalized abdominal pain; E87.1 Hypo-osmolality and hyponatremia; I13.0 Hypertensive heart and chronic kidney disease with heart failure and stage 1 through stage 4 chronic kidney disease, or unspecified chronic kidney disease; E11.22 Type 2 diabetes mellitus with diabetic chronic kidney disease; N18.4 Chronic kidney disease, stage 4 (severe); I50.9 Heart failure, unspecified; R79.89 Other specified abnormal findings of blood chemistry; Z88.8 Allergy status to other drugs, medicaments and biological substances; Z88.1 Allergy status to other antibiotic agents; Z91.040 Latex allergy status; Z79.4 Long term (current) use of insulin; I11.0 Hypertensive heart disease with heart failure; I48.91 Unspecified atrial fibrillation; Z79.82 Long term (current) use of aspirin; Z79.899 Other long term (current) drug therapy
CPT/HCPCS: 36415; 71045; 80053; 82272; 82553; 83880; 84484; 85025; 85610; 96374; 99285; J2060; 99284

== ENCOUNTER 2019-03-18 11:35 | Emergency (ER) | payer MEDICARE, MEDICAID ==
[2019-03-18] MEDS ORDERED: Sodium Chloride 0.9% 10 ML Syringe FLUSH PRN (11:51)
[2019-03-18 12:01] VITALS: BP 147/55
--- NOTE | 2019-03-18 12:06 | CR ---
Clinical history: 63-year-old female with chest pain and history of "dyspnea, hypoxia, CHF". Interpretation: Abnormal. Relative increase venous congestion with cephalization of vascular flow since 02 mar 2019 (comparable AP film). Cardiac pacemaker on the right (leads intact and unchanged). External monitoring manager leads. Large bibasilar dependent subpulmonic pleural effusions that were evident in early February and on previous exam 16 February 2019. No new lung mass, hilar lymphadenopathy or focal lobar pneumonia.
--- NOTE | 2019-03-18 12:16 | EDM.PDOC ---
ED HPI GENERAL MEDICAL PROBLEM - General Chief Complaint: General Stated Complaint: AMBULANCE Time Seen by Provider: 03/18/19 11:43 Source of Information: Reports: Patient, RN, RN Notes Reviewed History Limitations: Reports: No Limitations - History of Present Illness INITIAL COMMENTS - FREE TEXT/NARRATIVE: Patient presents to ER per [facility] with complaint of sharp chest pain, abdominal pain and increased shortness of breath beginning at 0600 today. He was to have dialysis today in [place]. She has chest pain, shortness of breath, nausea, fever and chills. No diarrhea or vomiting. Her last dialysis was Monday. Onset: Today Duration: Getting Worse Location: Reports: Chest Quality: Reports: Ache Severity: Severe Improves with: Reports: None Worsens with: Reports: None Associated Symptoms: Reports: No Other Symptoms Left Lower Abdomen Pain Score (Numeric/FACES): 10 Middle Chest Pain Score (Numeric/FACES): 10 - Related Data Allergies Allergy/AdvReac Type Severity Reaction Status Date / Time lidocaine Allergy Intermediate Swelling Verified 03/18/19 11:57 amoxicillin trihydrate Allergy Rash Verified 03/18/19 11:57 [From Amoxil] latex Allergy Rash Verified 03/18/19 11:57 lisinopril Allergy Headache Verified 03/18/19 11:57 Home Meds: Home Meds Insulin Aspart [Novolog Flexpen] 5 unit SQ ASDIRECTED PRN 05/17/16 [History] Acetaminophen [Tylenol] 1,000 mg PO Q6H PRN 11/03/16 [History] Aspirin [Halfprin] 81 mg PO DAILY 01/08/18 [History] Carvedilol [Coreg] 12.5 mg PO BIDMEALS 10/01/18 [History] Sevelamer Carbonate [Renvela] 800 mg PO TIDMEALS 10/01/18 [History] rOPINIRole [Requip] 0.25 mg PO TID 10/01/18 [History] Past Medical History HEENT History: Reports: Cataract Cardiovascular History: Reports: Afib, CAD, Heart Failure, High Cholesterol, Hypertension, Pacemaker, Other (See Below) Other Cardiovascular History: hx of bilateral lower extremity edema Respiratory History: Reports: Pneumonia, Recurrent, SOB Other Respiratory History: From CHF Gastrointestinal History: Reports: Other (See Below) Other Gastrointestinal History: gastroparesis diabeticorum, ascites Genitourinary History: Reports: Dialysis, Diabetic Nephropathy, Dialysis, Peritoneal, Other (See Below) Other Genitourinary History: chronic kidney disease stage 4, nephrotic syndrome , is on dialysis 3 days a week, Monday, Monday, Monday in [place] R[place]MAN History: Reports: Other RAGMAN History: 5 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 lower leg. Dry and scaley about 3inches in diameter. Non draining. Also has dry area to left marie area. 1 diameter to left marie area. - Infectious Disease History Infectious Disease History: Reports: Chicken Pox Other Infectious Disease History: patient unsure - Past Surgical History HEENT Surgical History: Reports: Cataract Surgery Other Cardiovascular Surgeries/Procedures: Angiogram 2014 GI Surgical History: Reports: Appendectomy Oncologic Surgical History: Reports: None Dermatological Surgical History: Reports: Skin Biopsy Social & Family History - Family History Family Medical History: Noncontributory Cardiac: Reports: [place] Other Cardiac Family History: father from [place] in his 50s Endocrine/Metabolic: Reports: Diabetes, type II Other Hematologic Family History: mother has h/o DVT and is on blood thinners - per pt report - Caffeine Use Caffeine Use: Reports: None - Living Situation & Occupation Living situation: Reports: with Family Occupation: Employed ED ROS GENERAL - Review of Systems Review Of Systems: ROS reveals no pertinent complaints other than HPI. ED EXAM, GENERAL - Physical Exam Exam: See Below Exam Limited By: No Limitations General Appearance: Moderate Distress Eye Exam: Bilateral Eye: EOMI, Normal Inspection, PERRL Ears: Normal External Exam, Normal Canal, Hearing Grossly Normal, Normal TMs Nose: Normal Inspection, Normal Mucosa, No Blood Throat/Mouth: Normal Inspection, Normal Lips, Normal Teeth, Normal Gums, Normal Oropharynx, Normal Voice, No Airway Compromise Head: Atraumatic, Normocephalic Neck: Normal Inspection, Supple, Non-Tender, Full Range of Motion Respiratory/Chest: Crackles (diminished crackles at bases bilateral) Cardiovascular: Normal Peripheral Pulses, Regular Rate, Rhythm, No Edema, No Gallop, No JVD, No Murmur, No Rub GI/Abdominal: Tender (generaized. ), Other (Positive bowel sounds. ) (Female) Exam: Deferred Rectal (Female) Exam: Deferred Back Exam: Normal Inspection, Full Range of Motion, NT Extremities: Normal Inspection, Normal Range of Motion, Non-Tender, Normal Capillary Refill, No Pedal Edema Neurological: Alert Psychiatric: Anxious, Tearful Skin Exam: Other (various stages of healing on lesions all over the body.) Lymphatic: No Adenopathy Course - Vital Signs Last Recorded V/S: Last Vital Signs Temp 97.4 F 03/18/19 11:58 Pulse 86 03/18/19 11:58 Resp 24 H 03/18/19 11:58 BP 147/55 H 03/18/19 11:58 Pulse Ox 94 L 03/18/19 11:58 - Orders/Labs/Meds Orders: Active Orders 24 hr Category Date Time Status EKG Documentation Completion [RC] STAT Care 03/18/19 11:51 Active Peripheral IV Care [RC] . DIRECTED Care 03/18/19 11:52 Active CULTURE BLOOD [BC] Stat Lab 03/18/19 12:24 Received CULTURE BLOOD [BC] Stat Lab 03/18/19 12:30 Results Blood Culture x2 Reflex Set [OM.PC] Stat Oth 03/18/19 11:51 Ordered Peripheral IV Insertion Adult [OM.PC] Stat Oth 03/18/19 11:51 Ordered Labs: Laboratory Tests 03/18/19 03/18/19 03/18/19 Range/Units 12:24 12:24 12:24 WBC 5.1 (5.0-10.0) 10^3/uL RBC 3.67 L (4.2-5.4) 10^6/uL Hgb 10.8 L (12.0-16.0) g/dL Hct 33.6 L (37.0-47.0) % MCV 91.6 D (80-100) fL MCH 29.4 (27.0-34.0) pg MCHC 32.1 L (33.0-35.0) g/dL Plt Count 202 (150-450) 10^3/uL Neut % (Auto) 84.1 H (42.2-75.2) % Lymph % (Auto) 6.6 L (20.5-50.1) % [place] % (Auto) 7.0 (2-8) % Eos % (Auto) 1.9 (1.0-3.0) % Baso % (Auto) 0.4 (0.0-1.0) % Sodium 136 (135-145) mmol/L Potassium 5.5 H D (3.6-5.0) mmol/L Chloride 96 L (101-111) mmol/L Carbon Dioxide 19.0 L (21.0-31.0) mmol/L Anion Gap 26.5 BUN 93 H D (7-18) mg/dL Creatinine 9.3 H D (0.6-1.3) mg/dL Est Cr Clr Drug Dosing TNP Estimated GFR (MDRD) 4 BUN/Creatinine Ratio 10.00 Glucose 92 (74-105) mg/dL Lactic Acid 1.1 (0.5-2.2) mmol/L Calcium 7.7 L (8.4-10.2) mg/dl Total Bilirubin 2.3 H (0.2-1.0) mg/dL AST 24 (10-42) IU/L ALT 13 (10-60) IU/L Alkaline Phosphatase 174 H (42-121) IU/L Troponin I 0.03 H* (0.00-0.02) ng/ml B-Natriuretic Peptide 4120 H (0-100) pg/ml Total Protein 7.7 (6.7-8.2) g/dl Albumin 3.8 (3.2-5.5) g/dl Globulin 3.9 Albumin/Globulin Ratio 0.97 Meds: Medications Discontinued Medications Generic Name Dose Route Start Last Admin Trade Name Freq PRN Reason Stop Dose Admin Hydromorphone HCl 1 mg 03/18/19 12:32 03/18/19 12:45 Dilaudid IVPUSH 03/18/19 12:33 1 mg ONETIME ONE Administration Ondansetron HCl 4 mg 03/18/19 13:44 03/18/19 13:50 Zofran IV 03/18/19 13:45 4 mg ONETIME ONE Administration Sodium Chloride 10 ml 03/18/19 11:51 03/18/19 12:30 Saline Flush FLUSH 10 ml ASDIRECTED PRN Administration Keep Vein Open - Radiology Interpretation Free Text/Narrative:: Chest xray: Relative increase venous congestion with cephalization of vascular flow since 02 Mar 2019 film. Cardiac pacemaker on the right, leads intact and unchanged. External radiation monitor leads. Large bibasilar dependent subpulmonic pleural effusions that were evident in early February and on previous exam 16 February 2019. No new lung mass, hilar lymphadenopathy or focal lobar pneumonia. See rad report Departure - Departure Time of Disposition: 14:05 Disposition: DC/Tfer to Acute Hospital 02 Condition: Poor Clinical Impression: Anxiety, CKD (chronic kidney disease) stage 5, GFR less than 15 ml/min, Hyperkalemia, SOB (shortness of breath), Pleural effusion Acute exacerbation of CHF (congestive heart failure) Qualifiers: Heart failure type: unspecified Qualified Code(s): I50.9 - Heart failure, unspecified Abdominal pain Qualifiers: Abdominal location: generalized Qualified Code(s): R10.84 - Generalized abdominal pain - Discharge Information *PRESCRIPTION DRUG MONITORING PROGRAM REVIEWED*: No *COPY OF PRESCRIPTION DRUG MONITORING REPORT IN PATIENT BIENVENIDO: No Referrals: PCP,None [Primary Care Provider] - Forms: ED Department Discharge, Interfacility Transfer EMTALA - My Orders Last 24 Hours: My Active Orders 03/18/19 11:51 EKG Documentation Completion [RC] STAT Blood Culture x2 Reflex Set [OM.PC] Stat Peripheral IV Insertion Adult [OM.PC] Stat 03/18/19 11:52 Peripheral IV Care [RC] . DIRECTED 03/18/19 12:24 CULTURE BLOOD [BC] Stat 03/18/19 12:30 CULTURE BLOOD [BC] Stat - Assessment/Plan Last 24 Hours: My Active Orders 03/18/19 11:51 EKG Documentation Completion [RC] STAT Blood Culture x2 Reflex Set [OM.PC] Stat Peripheral IV Insertion Adult [OM.PC] Stat 03/18/19 11:52 Peripheral IV Care [RC] . DIRECTED 03/18/19 12:24 CULTURE BLOOD [BC] Stat 03/18/19 12:30 CULTURE BLOOD [BC] Stat
[2019-03-18] MEDS ORDERED: HYDROmorphone 1 MG/ML Syringe IVPUSH ONE (12:32)
[2019-03-18 12:57] LABS: ANION GAP 26.5; CHLORIDE,CL 96 mmol/L (101-111); SODIUM,NA 136 mmol/L (135-145)
[2019-03-18] MEDS ORDERED: Ondansetron 4 MG/2 ML SDV IV ONE (13:44)
== END 2019-03-18 14:11 ==
LOC: DL.ED 11:35
DX: I13.11 Hypertensive heart and chronic kidney disease without heart failure, with stage 5 chronic kidney disease, or end stage renal disease (principal); E11.22 Type 2 diabetes mellitus with diabetic chronic kidney disease; N18.5 Chronic kidney disease, stage 5; I50.9 Heart failure, unspecified; F41.9 Anxiety disorder, unspecified; E87.5 Hyperkalemia; J90 Pleural effusion, not elsewhere classified; E78.00 Pure hypercholesterolemia, unspecified; Z88.8 Allergy status to other drugs, medicaments and biological substances; Z88.1 Allergy status to other antibiotic agents; Z91.040 Latex allergy status; Z79.4 Long term (current) use of insulin; Z79.899 Other long term (current) drug therapy; Z99.2 Dependence on renal dialysis
CPT/HCPCS: 36415; 71045; 80053; 83605; 83880; 84484; 85025; 87040; 93005; 96374; 96375; 99285; J1170; J2405

== ENCOUNTER 2019-03-26 21:56 | Emergency (ER) | payer MEDICARE, MEDICAID ==
[2019-03-26] MEDS ORDERED: HYDROmorphone 1 MG/ML Syringe IVPUSH ONE (22:02)
[2019-03-26] MEDS ORDERED: Ondansetron 4 MG/2 ML SDV IV ONE (22:02)
[2019-03-26] MEDS ORDERED: LORazepam 2 MG/ML Syringe IVPUSH ONE (22:02)
[2019-03-26 22:09] VITALS: BP 137/57
[2019-03-26 22:44] LABS: ANION GAP 18.1
[2019-03-27] MEDS ORDERED: HYDROmorphone 1 MG/ML Syringe IVPUSH ONE (00:06)
== END 2019-03-27 01:10 ==
LOC: DL.ED 21:56
DX: J90 Pleural effusion, not elsewhere classified (principal); R07.9 Chest pain, unspecified; Z99.2 Dependence on renal dialysis
CPT/HCPCS: 36415; 71045; 74018; 80053; 82140; 83605; 83880; 84484; 85025; 93005; 96374; 96375; 96376; 99285; J1170; J2060; J2405

== ENCOUNTER 2019-07-10 20:52 | Emergency (ER) | payer MEDICARE, MEDICAID ==
--- NOTE | 2019-07-10 21:38 | EDM.PDOC ---
ED HPI GENERAL MEDICAL PROBLEM - General Chief Complaint: Gastrointestinal Problem Stated Complaint: AMBULANCE Time Seen by Provider: 07/10/19 21:20 Source of Information: Reports: Patient History Limitations: Reports: No Limitations - History of Present Illness INITIAL COMMENTS - FREE TEXT/NARRATIVE: This 63 yo female patient reports to the ED with a 2 week history of diarrhea and a 1 week history of increased shortness of breath. The patient reports she has not had dialysis since last Monday due to the diarrhea. The patient reports she has not been to the clinic due to diarrhea. Duration: Week(s):, Constant, Getting Worse Location: Reports: Generalized Quality: Reports: Other Severity: Severe Improves with: Reports: None Worsens with: Reports: None Context: Reports: Other Associated Symptoms: Reports: Weakness - Related Data Allergies Allergy/AdvReac Type Severity Reaction Status Date / Time lidocaine Allergy Intermediate Swelling Verified 06/08/19 17:09 amoxicillin trihydrate Allergy Rash Verified 06/08/19 17:09 [From Amoxil] latex Allergy Rash Verified 06/08/19 17:09 lisinopril Allergy Headache Verified 06/08/19 17:09 Home Meds: Home Meds Acetaminophen [Tylenol] 1,000 mg PO Q6H PRN 11/03/16 [History] Aspirin [Halfprin] 81 mg PO DAILY 01/08/18 [History] Carvedilol [Coreg] 12.5 mg PO BIDMEALS 10/01/18 [History] Sevelamer Carbonate [Renvela] 800 mg PO TIDMEALS 10/01/18 [History] rOPINIRole [Requip] 0.25 mg PO TID 10/01/18 [History] Past Medical History HEENT History: Reports: Cataract Cardiovascular History: Reports: Afib, CAD, Heart Failure, High Cholesterol, Hypertension, Pacemaker, Other (See Below) Other Cardiovascular History: hx of bilateral lower extremity edema Respiratory History: Reports: Pneumonia, Recurrent, SOB Other Respiratory History: From CHF Gastrointestinal History: Reports: Other (See Below) Other Gastrointestinal History: gastroparesis diabeticorum, ascites Genitourinary History: Reports: Dialysis, Diabetic Nephropathy, Dialysis, Peritoneal, Other (See Below) Other Genitourinary History: chronic kidney disease stage 4, nephrotic syndrome , is on dialysis 3 days a week, Monday, Monday, Monday in [place] 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 lower leg. Dry and scaley about 3inches in diameter. Non draining. Also has dry area to left marie area. 1 diameter to left marie area. - Infectious Disease History Infectious Disease History: Reports: Chicken Pox Other Infectious Disease History: patient unsure - Past Surgical History HEENT Surgical History: Reports: Cataract Surgery Other Cardiovascular Surgeries/Procedures: Angiogram 2014 GI Surgical History: Reports: Appendectomy Oncologic Surgical History: Reports: None Dermatological Surgical History: Reports: Skin Biopsy Social & Family History - Family History Family Medical History: Noncontributory Cardiac: Reports: [place] Other Cardiac Family History: father from [place] in his 50s Endocrine/Metabolic: Reports: Diabetes, type II Other Hematologic Family History: mother has h/o DVT and is on blood thinners - per pt report - Tobacco Use Smoking Status *Q: Former Smoker Used Tobacco, but Quit: Yes Month/Year Tobacco Last Used: 06/2014 Second Hand Smoke Exposure: No - Caffeine Use Caffeine Use: Reports: None - Recreational Drug Use Recreational Drug Use: No - Living Situation & Occupation Living situation: Reports: with Family Occupation: Employed ED ROS GENERAL - Review of Systems Review Of Systems: ROS reveals no pertinent complaints other than HPI. ED EXAM, GENERAL - Physical Exam Exam: See Below Exam Limited By: No Limitations General Appearance: Alert, WD/WN, Moderate Distress Eye Exam: Bilateral Eye: EOMI, Normal Inspection, PERRL Ears: Normal External Exam, Normal Canal, Hearing Grossly Normal, Normal TMs Nose: Normal Inspection, Normal Mucosa, No Blood Throat/Mouth: Normal Inspection, Normal Lips, Normal Teeth, Normal Gums, Normal Oropharynx, Normal Voice, No Airway Compromise Head: Atraumatic, Normocephalic Neck: Normal Inspection, Supple, Non-Tender, Full Range of Motion Respiratory/Chest: No Respiratory Distress, Lungs Clear, Normal Breath Sounds, No Accessory Muscle Use, Chest Non-Tender Cardiovascular: Normal Peripheral Pulses, Regular Rate, Rhythm, No Edema, No Gallop, No JVD, No Murmur, No Rub GI/Abdominal: Normal Bowel Sounds, Soft, Non-Tender, No Organomegaly, No Distention, No Abnormal Bruit, No Mass (Female) Exam: Deferred Rectal (Female) Exam: Deferred Back Exam: Normal Inspection, Full Range of Motion, NT Extremities: Normal Inspection, Normal Range of Motion, Non-Tender, Normal Capillary Refill, No Pedal Edema Neurological: Alert, Oriented, CN II-XII Intact, Normal Cognition Psychiatric: Depressed Mood, Flat Affect Skin Exam: Warm, Dry, Normal Color, No Rash Lymphatic: No Adenopathy Course - Vital Signs Last Recorded V/S: Last Vital Signs Temp 35.5 C 07/10/19 21:18 Pulse 77 07/10/19 22:05 Resp 22 H 07/10/19 22:05 BP 123/50 L 07/10/19 22:05 Pulse Ox 100 07/10/19 21:18 - Orders/Labs/Meds Orders: Active Orders 24 hr Category Date Time Status EKG Documentation Completion [RC] URGENT Care 07/10/19 20:53 Ordered Glucose [Blood Glucose Check, Bedside] [RC] ONETIME Care 07/10/19 20:54 Ordered DRUG SCREEN URINE BIORAD [URCHEM] Stat Lab 07/10/19 20:54 Ordered UA RFX RIGO AND CULT IF INDIC [URIN] Urgent Lab 07/10/19 20:54 Ordered Labs: Laboratory Tests 07/10/19 07/10/19 07/10/19 Range/Units 21:16 21:16 21:16 WBC 10.0 (5.0-10.0) 10^3/uL RBC 3.31 L (4.2-5.4) 10^6/uL Hgb 10.2 L (12.0-16.0) g/dL Hct 31.1 L (37.0-47.0) % MCV 94.0 (80-100) fL MCH 30.8 (27.0-34.0) pg MCHC 32.8 L (33.0-35.0) g/dL Plt Count 112 L D (150-450) 10^3/uL Neut % (Auto) 88.1 H (42.2-75.2) % Lymph % (Auto) 4.2 L (20.5-50.1) % [place] % (Auto) 7.0 (2-8) % Eos % (Auto) 0.3 L (1.0-3.0) % Baso % (Auto) 0.4 (0.0-1.0) % Sodium 139 (135-145) mmol/L Potassium 6.1 H (3.6-5.0) mmol/L Chloride 105 (101-111) mmol/L Carbon Dioxide 6.0 L* D (21.0-31.0) mmol/L Anion Gap 34.1 BUN 181 H D (7-18) mg/dL Creatinine 17.9 H D (0.6-1.3) mg/dL Est Cr Clr Drug Dosing 2.81 mL/min Estimated GFR (MDRD) 2 BUN/Creatinine Ratio 10.11 Glucose 192 H (74-105) mg/dL Lactic Acid (0.5-2.2) mmol/L Calcium 5.7 L* D (8.4-10.2) mg/dl Magnesium 2.5 (1.8-2.5) mg/dL Total Bilirubin 1.1 H (0.2-1.0) mg/dL AST 19 (10-42) IU/L ALT 13 (10-60) IU/L Alkaline Phosphatase 160 H (42-121) IU/L Ammonia 38 H (11-35) umol/L Troponin I 0.06 H* (0.00-0.02) ng/ml B-Natriuretic Peptide (0-100) pg/ml Total Protein 6.7 (6.7-8.2) g/dl Albumin 3.4 (3.2-5.5) g/dl Globulin 3.3 Albumin/Globulin Ratio 1.03 Amylase 84 (28-100) U/L Lipase 64 H (22-51) U/L 07/10/19 07/10/19 Range/Units 21:16 21:16 WBC (5.0-10.0) 10^3/uL RBC (4.2-5.4) 10^6/uL Hgb (12.0-16.0) g/dL Hct (37.0-47.0) % MCV (80-100) fL MCH (27.0-34.0) pg MCHC (33.0-35.0) g/dL Plt Count (150-450) 10^3/uL Neut % (Auto) (42.2-75.2) % Lymph % (Auto) (20.5-50.1) % [place] % (Auto) (2-8) % Eos % (Auto) (1.0-3.0) % Baso % (Auto) (0.0-1.0) % Sodium (135-145) mmol/L Potassium (3.6-5.0) mmol/L Chloride (101-111) mmol/L Carbon Dioxide (21.0-31.0) mmol/L Anion Gap BUN (7-18) mg/dL Creatinine (0.6-1.3) mg/dL Est Cr Clr Drug Dosing mL/min Estimated GFR (MDRD) BUN/Creatinine Ratio Glucose (74-105) mg/dL Lactic Acid 0.9 (0.5-2.2) mmol/L Calcium (8.4-10.2) mg/dl Magnesium (1.8-2.5) mg/dL Total Bilirubin (0.2-1.0) mg/dL AST (10-42) IU/L ALT (10-60) IU/L Alkaline Phosphatase (42-121) IU/L Ammonia (11-35) umol/L Troponin I (0.00-0.02) ng/ml B-Natriuretic Peptide 3180 H (0-100) pg/ml Total Protein (6.7-8.2) g/dl Albumin (3.2-5.5) g/dl Globulin Albumin/Globulin Ratio Amylase (28-100) U/L Lipase (22-51) U/L Departure - Departure Time of Disposition: 22:21 Disposition: Home, Self-Care 01 Condition: Fair Clinical Impression: SOB (shortness of breath) Chronic kidney disease (CKD) Qualifiers: Chronic kidney disease stage: on chronic dialysis Qualified Code(s): N18.6 - End stage renal disease - Discharge Information *PRESCRIPTION DRUG MONITORING PROGRAM REVIEWED*: Not Applicable *COPY OF PRESCRIPTION DRUG MONITORING REPORT IN PATIENT BIENVENIDO: Not Applicable Forms: Interfacility Transfer EMTALA Care Plan Goals: Discussed the patient's history, lab and EKG results with Dr. Mims. Dr. Mims accepted the patient for continued evaluation and management. The patient will be transported by [facility]. - My Orders Last 24 Hours: My Active Orders 07/10/19 20:53 EKG Documentation Completion [RC] URGENT 07/10/19 20:54 Glucose [Blood Glucose Check, Bedside] [RC] ONETIME DRUG SCREEN URINE BIORAD [URCHEM] Stat UA RFX RIGO AND CULT IF INDIC [URIN] Urgent - Assessment/Plan Last 24 Hours: My Active Orders 07/10/19 20:53 EKG Documentation Completion [RC] URGENT 07/10/19 20:54 Glucose [Blood Glucose Check, Bedside] [RC] ONETIME DRUG SCREEN URINE BIORAD [URCHEM] Stat UA RFX RIGO AND CULT IF INDIC [URIN] Urgent
[2019-07-10 21:49] LABS: ANION GAP 34.1
[2019-07-10 22:06] VITALS: BP 123/50; PULSE 77
== END 2019-07-10 23:09 | disposition home or self-care (01) ==
LOC: DL.ED 20:52
DX: I13.2 Hypertensive heart and chronic kidney disease with heart failure and with stage 5 chronic kidney disease, or end stage renal disease (principal); E11.22 Type 2 diabetes mellitus with diabetic chronic kidney disease; N18.6 End stage renal disease; I50.9 Heart failure, unspecified; E11.21 Type 2 diabetes mellitus with diabetic nephropathy; Z86.2 Personal history of diseases of the blood and blood-forming organs and certain disorders involving the immune mechanism; Z91.040 Latex allergy status; Z88.1 Allergy status to other antibiotic agents; Z79.82 Long term (current) use of aspirin; Z88.8 Allergy status to other drugs, medicaments and biological substances; Z87.891 Personal history of nicotine dependence; Z79.899 Other long term (current) drug therapy; Z90.49 Acquired absence of other specified parts of digestive tract
CPT/HCPCS: 36415; 80053; 82140; 82150; 82272; 82962; 83605; 83690; 83735; 83880; 84484; 85025; 93005; 99285

== ENCOUNTER 2019-08-07 19:52 | Emergency (ER) | payer MEDICARE, MEDICAID ==
[2019-08-07] MEDS ORDERED: LORazepam 2 MG/ML Syringe IVPUSH ONE (20:25)
[2019-08-07] MEDS ORDERED: Morphine 2 MG/ML Syringe IVPUSH ONE (20:26)
[2019-08-07 20:56] LABS: ANION GAP 28.1
[2019-08-07 21:22] VITALS: BP 143/58; PULSE 76
[2019-08-07] MEDS ORDERED: Glucagon,Human Recombinant 1 MG Vial IVPUSH ONE (21:57)
[2019-08-07] MEDS ORDERED: 50% Dextrose in Water 50 ML Syringe IVPUSH ONE (21:58)
--- NOTE | 2019-08-07 21:58 | EDM.PDOC ---
ED HPI GENERAL MEDICAL PROBLEM - General Chief Complaint: Abdominal Pain Stated Complaint: AMBULANCE Time Seen by Provider: 08/07/19 22:01 Source of Information: Reports: Patient History Limitations: Reports: No Limitations - History of Present Illness INITIAL COMMENTS - FREE TEXT/NARRATIVE: ED via [facility] with c/o Right upper abdominal and lateral rib pain, Diarrhea x 2 weeks, rectal area sore, getting some SOB, No chest pain, On dialysis missed 3 runs last week and 2 this week. States due to diarrhea. Has been eating some, no vomiting. Hx C-diff 3 months ago, reported to have completed antibiotic. Diarrhea problem in June but had improved. No fevers. - Related Data Allergies Allergy/AdvReac Type Severity Reaction Status Date / Time lidocaine Allergy Intermediate Swelling Verified 08/07/19 20:00 amoxicillin trihydrate Allergy Rash Verified 08/07/19 20:00 [From Amoxil] latex Allergy Rash Verified 08/07/19 20:00 lisinopril Allergy Headache Verified 08/07/19 20:00 Home Meds: Home Meds Acetaminophen [Tylenol] 1,000 mg PO Q6H PRN 11/03/16 [History] Aspirin [Halfprin] 81 mg PO DAILY 01/08/18 [History] Carvedilol [Coreg] 12.5 mg PO BIDMEALS 10/01/18 [History] Sevelamer Carbonate [Renvela] 800 mg PO TIDMEALS 10/01/18 [History] rOPINIRole [Requip] 0.25 mg PO TID 10/01/18 [History] Past Medical History HEENT History: Reports: Cataract Cardiovascular History: Reports: Afib, CAD, Heart Failure, High Cholesterol, Hypertension, Pacemaker, Other (See Below) Other Cardiovascular History: hx of bilateral lower extremity edema Respiratory History: Reports: Pneumonia, Recurrent, SOB Other Respiratory History: From CHF Gastrointestinal History: Reports: Other (See Below) Other Gastrointestinal History: gastroparesis diabeticorum, ascites Genitourinary History: Reports: Dialysis, Diabetic Nephropathy, Dialysis, Peritoneal, Other (See Below) Other Genitourinary History: chronic kidney disease stage 4, nephrotic syndrome , is on dialysis 3 days a week, Monday, Monday, Monday in [place] MUSEUM PREPARATOR History: Reports: Other MUSEUM PREPARATOR History: 5 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 lower leg. Dry and scaley about 3inches in diameter. Non draining. Also has dry area to left marie area. 1 diameter to left marie area. - Infectious Disease History Infectious Disease History: Reports: Chicken Pox Other Infectious Disease History: patient unsure - Past Surgical History HEENT Surgical History: Reports: Cataract Surgery Other Cardiovascular Surgeries/Procedures: Angiogram 2014 GI Surgical History: Reports: Appendectomy Oncologic Surgical History: Reports: None Dermatological Surgical History: Reports: Skin Biopsy Social & Family History - Family History Family Medical History: Noncontributory Cardiac: Reports: [place] Other Cardiac Family History: father from [place] in his 50s Endocrine/Metabolic: Reports: Diabetes, type II Other Hematologic Family History: mother has h/o DVT and is on blood thinners - per pt report - Tobacco Use Smoking Status *Q: Never Smoker - Caffeine Use Caffeine Use: Reports: None - Recreational Drug Use Recreational Drug Use: No - Living Situation & Occupation Living situation: Reports: with Family Occupation: Employed ED ROS GENERAL - Review of Systems Review Of Systems: ROS reveals no pertinent complaints other than HPI. ED EXAM, GENERAL - Physical Exam Exam: See Below Exam Limited By: No Limitations General Appearance: Alert, Moderate Distress Eye Exam: Bilateral Eye: EOMI, PERRL Ears: Normal External Exam, Hearing Grossly Normal Nose: Normal Inspection Throat/Mouth: Normal Inspection Head: Atraumatic, Normocephalic Neck: Normal Inspection Respiratory/Chest: No Respiratory Distress, Decreased Breath Sounds, Crackles ( bilateral mid to base) Cardiovascular: Normal Peripheral Pulses, Regular Rate, Rhythm GI/Abdominal: Normal Bowel Sounds, Soft, Tender (RUQ), Other (Ascites per hx, abdomen does not appear greater than her usual) Extremities: No: Pedal Edema Neurological: Alert, Oriented, Normal Cognition Psychiatric: Normal Affect, Anxious Skin Exam: Warm, Dry, Intact Course - Vital Signs Last Recorded V/S: Last Vital Signs Temp 97.6 F 08/07/19 21:15 Pulse 76 08/07/19 21:21 Resp 2 L 08/07/19 21:21 BP 143/58 H 08/07/19 21:21 Pulse Ox 93 L 08/07/19 21:21 - Orders/Labs/Meds Orders: Active Orders 24 hr Category Date Time Status EKG Documentation Completion [RC] ROUTINE Care 08/07/19 19:53 Active CULTURE BLOOD [BC] Stat Lab 08/07/19 20:27 Received Isolation [COMM] Stat Oth 08/07/19 19:55 Ordered Labs: Laboratory Tests 08/07/19 08/07/19 08/07/19 Range/Units 20:27 20:27 20:27 WBC 6.7 (5.0-10.0) 10^3/uL RBC 3.39 L (4.2-5.4) 10^6/uL Hgb 10.3 L (12.0-16.0) g/dL Hct 31.4 L (37.0-47.0) % MCV 92.6 (80-100) fL MCH 30.4 (27.0-34.0) pg MCHC 32.8 L (33.0-35.0) g/dL Plt Count 271 D (150-450) 10^3/uL Neut % (Auto) 82.1 H (42.2-75.2) % Lymph % (Auto) 5.8 L (20.5-50.1) % [place] % (Auto) 8.9 H (2-8) % Eos % (Auto) 2.8 (1.0-3.0) % Baso % (Auto) 0.4 (0.0-1.0) % PT (9.0-12.0) SEC INR (0.9-1.2) Sodium 140 (135-145) mmol/L Potassium 6.1 H (3.6-5.0) mmol/L Chloride 103 (101-111) mmol/L Carbon Dioxide 15.0 L (21.0-31.0) mmol/L Anion Gap 28.1 BUN 148 H D (7-18) mg/dL Creatinine 13.1 H D (0.6-1.3) mg/dL Est Cr Clr Drug Dosing 3.84 mL/min Estimated GFR (MDRD) 3 BUN/Creatinine Ratio 11.29 Glucose 140 H (74-105) mg/dL POC Glucose (70-105) mg/dl Lactic Acid 1.1 (0.5-2.2) mmol/L Calcium 6.1 L (8.4-10.2) mg/dl Magnesium (1.8-2.5) mg/dL Total Bilirubin 1.4 H (0.2-1.0) mg/dL AST 18 (10-42) IU/L ALT 12 (10-60) IU/L Alkaline Phosphatase 170 H (42-121) IU/L Troponin I 0.04 H* (0.00-0.02) ng/ml B-Natriuretic Peptide 4300 H (0-100) pg/ml Total Protein 6.9 (6.7-8.2) g/dl Albumin 3.2 (3.2-5.5) g/dl Globulin 3.7 Albumin/Globulin Ratio 0.86 Amylase 73 (28-100) U/L Lipase 53 H (22-51) U/L 08/07/19 08/07/19 08/07/19 Range/Units 20:27 20:27 21:57 WBC (5.0-10.0) 10^3/uL RBC (4.2-5.4) 10^6/uL Hgb (12.0-16.0) g/dL Hct (37.0-47.0) % MCV (80-100) fL MCH (27.0-34.0) pg MCHC (33.0-35.0) g/dL Plt Count (150-450) 10^3/uL Neut % (Auto) (42.2-75.2) % Lymph % (Auto) (20.5-50.1) % [place] % (Auto) (2-8) % Eos % (Auto) (1.0-3.0) % Baso % (Auto) (0.0-1.0) % PT 11.9 (9.0-12.0) SEC INR 1.2 (0.9-1.2) Sodium (135-145) mmol/L Potassium (3.6-5.0) mmol/L Chloride (101-111) mmol/L Carbon Dioxide (21.0-31.0) mmol/L Anion Gap BUN (7-18) mg/dL Creatinine (0.6-1.3) mg/dL Est Cr Clr Drug Dosing mL/min Estimated GFR (MDRD) BUN/Creatinine Ratio Glucose (74-105) mg/dL POC Glucose 122 H (70-105) mg/dl Lactic Acid (0.5-2.2) mmol/L Calcium (8.4-10.2) mg/dl Magnesium 2.2 (1.8-2.5) mg/dL Total Bilirubin (0.2-1.0) mg/dL AST (10-42) IU/L ALT (10-60) IU/L Alkaline Phosphatase (42-121) IU/L Troponin I (0.00-0.02) ng/ml B-Natriuretic Peptide (0-100) pg/ml Total Protein (6.7-8.2) g/dl Albumin (3.2-5.5) g/dl Globulin Albumin/Globulin Ratio Amylase (28-100) U/L Lipase (22-51) U/L Meds: Medications Discontinued Medications Generic Name Dose Route Start Last Admin Trade Name Freq PRN Reason Stop Dose Admin Dextrose/Water 50 ml 08/07/19 21:58 08/07/19 22:06 Dextrose 50% In Water IVPUSH 08/07/19 21:59 50 ml ONETIME ONE Administration Glucagon 1 mg 08/07/19 21:57 Glucagen IVPUSH 08/07/19 21:58 ONETIME ONE Insulin Human Regular 5 unit 08/07/19 21:59 08/07/19 22:12 Humulin R IV 08/07/19 22:00 5 unit ONETIME ONE Administration Lorazepam 1 mg 08/07/19 20:25 08/07/19 20:48 Ativan IVPUSH 08/07/19 20:26 1 mg ONETIME ONE Administration Morphine Sulfate 2 mg 08/07/19 20:26 08/07/19 20:34 Morphine IVPUSH 08/07/19 20:27 2 mg ONETIME ONE Administration - Radiology Interpretation Free Text/Narrative:: [facility] Final Radiology Report Call: [phone] assistance Online chat: [email or web address] Name: MARINA GORDON Age: 63Years F Date: 08/07/2019 SSN: -- : [id number] Study: XR CHEST 1 VIEW FRONTAL Requesting Physician: TONY PARKS Images: 1 Addl Studies: Provided Clinical History: Contrast: Contrast Medium: Contrast Amount: Contrast Method: CONFIDENTIALITY STATEMENT This report is intended only for use by the referring physician, and only in accordance with law. If you received this in error, call [phone]. Page 1 of 1 PROCEDURE INFORMATION: Exam: XR Chest, 1 View Exam date and time: 08/07/2019 8:10 PM Clinical history: 63 years old, female; Shortness of breath TECHNIQUE: Imaging protocol: XR of the chest Views: 1 view. COMPARISON: CR Chest 1V Frontal 05/12/2019 10:39 PM FINDINGS: Tubes, catheters and devices: Pacemaker in expected location. Lungs: Bibasilar pulmonary opacities do not appear significantly changed. Pleural space: Stable right greater than left pleural effusions. Heart/Mediastinum: Stable cardiomegaly. Bones/joints: Unremarkable. IMPRESSION: Stable chest. No new abnormalities or significant interval change. Thank you for allowing us to participate in the care of your patient. Dictated and Authenticated by: William Hernandez MD 08/07/2019 9:00 PM Central Time ([place] & [place]) - Re-Assessments/Exams Free Text/Narrative Re-Assessment/Exam: 08/07/19 22:06 Dr Christopher Lassiter accepting of patient.. Patient does usually dialyze in [place] but [facility] currently on diversion. Tx via [facility] Departure - Departure Time of Disposition: 22:30 Disposition: DC/Tfer to Acute Hospital 02 Condition: Fair Clinical Impression: Anxiety, Bilateral pleural effusion, CHF, Congestive heart failure, End stage renal disease on dialysis, Noncompliance with renal dialysis Ascites Qualifiers: Ascites type: other type Qualified Code(s): R18.8 - Other ascites Diarrhea Qualifiers: Diarrhea type: unspecified type Qualified Code(s): R19.7 - Diarrhea, unspecified - Discharge Information *PRESCRIPTION DRUG MONITORING PROGRAM REVIEWED*: Not Applicable *COPY OF PRESCRIPTION DRUG MONITORING REPORT IN PATIENT BIENVENIDO: Not Applicable Referrals: PCP,None [Primary Care Provider] - Forms: ED Department Discharge - My Orders Last 24 Hours: My Active Orders 08/07/19 19:53 EKG Documentation Completion [RC] ROUTINE 08/07/19 19:55 Isolation [COMM] Stat 08/07/19 20:27 CULTURE BLOOD [BC] Stat - Assessment/Plan Last 24 Hours: My Active Orders 08/07/19 19:53 EKG Documentation Completion [RC] ROUTINE 08/07/19 19:55 Isolation [COMM] Stat 08/07/19 20:27 CULTURE BLOOD [BC] Stat
[2019-08-07] MEDS ORDERED: Insulin Regular, Human 100 Units/ML 3 ML Vial IV ONE (21:59)
== END 2019-08-07 22:30 ==
LOC: DL.ED 19:52
DX: I13.2 Hypertensive heart and chronic kidney disease with heart failure and with stage 5 chronic kidney disease, or end stage renal disease (principal); I50.9 Heart failure, unspecified; N18.6 End stage renal disease; E11.22 Type 2 diabetes mellitus with diabetic chronic kidney disease; D63.1 Anemia in chronic kidney disease; E11.21 Type 2 diabetes mellitus with diabetic nephropathy; F41.9 Anxiety disorder, unspecified; R18.8 Other ascites; R19.7 Diarrhea, unspecified; Z91.14 Patient's other noncompliance with medication regimen; I25.10 Atherosclerotic heart disease of native coronary artery without angina pectoris; I48.91 Unspecified atrial fibrillation; Z98.49 Cataract extraction status, unspecified eye; Z90.49 Acquired absence of other specified parts of digestive tract; Z79.82 Long term (current) use of aspirin; Z91.040 Latex allergy status; Z88.8 Allergy status to other drugs, medicaments and biological substances
CPT/HCPCS: 36415; 71045; 80053; 82150; 82272; 82962; 83605; 83690; 83735; 83880; 84484; 85025; 85610; 87040; 93005; 96374; 96375; 99285-25; J1815-GY; J2060; J2270; J7060

== ENCOUNTER 2019-08-30 12:27 | Emergency (ER) | payer MEDICARE, MEDICAID ==
--- NOTE | 2019-08-30 12:35 | EDM.PDOC ---
ED HPI GENERAL MEDICAL PROBLEM - General Chief Complaint: Abdominal Pain Stated Complaint: ABDOMINAL PAIN Time Seen by Provider: 08/30/19 12:34 Source of Information: Reports: Patient, Old Records, RN, RN Notes Reviewed History Limitations: Reports: No Limitations - History of Present Illness INITIAL COMMENTS - FREE TEXT/NARRATIVE: Pt presents to ER from home by POV with c/o severe upper abdominal pain with feeling of abdominal bloating and distention with nausea. Denies fever, or vomiting. Pt reports Hx of ESRD on dialysis, and gallbladder disease. Pt states that she began to feel unwell last evening, but only with vague nausea. Today she was on her way to dialysis, when she suddenly had onset of upper abdominal pain. Currently the pain is worse at the RUQ of the abdomen. She describes that pain as a severe ache with cramping and pressure. Pt rates the pain 8.5/10. Pt states that it hurts under the right rib cage, and around to the right upper back. Pt was incontinent of brownish liquid stool x1 as she arrived to the ER. Pt states had a normal BM yesterday. Onset: Today Duration: Constant Location: Reports: Abdomen Quality: Reports: Ache, Pressure Severity: Severe Improves with: Reports: None Worsens with: Reports: None Associated Symptoms: Reports: No Other Symptoms - Related Data Allergies Allergy/AdvReac Type Severity Reaction Status Date / Time lidocaine Allergy Intermediate Swelling Verified 08/30/19 12:52 amoxicillin trihydrate Allergy Rash Verified 08/30/19 12:52 [From Amoxil] latex Allergy Rash Verified 08/30/19 12:52 lisinopril Allergy Headache Verified 08/30/19 12:52 Home Meds: Home Meds Acetaminophen [Tylenol] 1,000 mg PO Q6H PRN 11/03/16 [History] Aspirin [Halfprin] 81 mg PO DAILY 01/08/18 [History] Carvedilol [Coreg] 12.5 mg PO BIDMEALS 10/01/18 [History] Sevelamer Carbonate [Renvela] 800 mg PO TIDMEALS 10/01/18 [History] rOPINIRole [Requip] 0.25 mg PO TID 10/01/18 [History] Past Medical History HEENT History: Reports: Cataract Cardiovascular History: Reports: Afib, CAD, Heart Failure, High Cholesterol, Hypertension, Pacemaker, Other (See Below) Other Cardiovascular History: hx of bilateral lower extremity edema Respiratory History: Reports: Pneumonia, Recurrent, SOB Other Respiratory History: From CHF Gastrointestinal History: Reports: Other (See Below) Other Gastrointestinal History: gastroparesis diabeticorum, ascites Genitourinary History: Reports: Dialysis, Diabetic Nephropathy, Dialysis, Peritoneal, Other (See Below) Other Genitourinary History: chronic kidney disease stage 4, nephrotic syndrome , is on dialysis 3 days a week, Monday, Monday, Monday in [place] HL7 DEVELOPER History: Reports: Other HL7 DEVELOPER History: 5 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 lower leg. Dry and scaley about 3inches in diameter. Non draining. Also has dry area to left marie area. 1 diameter to left marie area. - Infectious Disease History Infectious Disease History: Reports: Chicken Pox Other Infectious Disease History: patient unsure - Past Surgical History HEENT Surgical History: Reports: Cataract Surgery Other Cardiovascular Surgeries/Procedures: Angiogram 2014 GI Surgical History: Reports: Appendectomy Oncologic Surgical History: Reports: None Dermatological Surgical History: Reports: Skin Biopsy Social & Family History - Family History Family Medical History: Noncontributory Cardiac: Reports: [place] Other Cardiac Family History: father from [place] in his 50s Endocrine/Metabolic: Reports: Diabetes, type II Other Hematologic Family History: mother has h/o DVT and is on blood thinners - per pt report - Caffeine Use Caffeine Use: Reports: None - Living Situation & Occupation Living situation: Reports: with Family Occupation: Employed ED ROS GENERAL - Review of Systems Review Of Systems: ROS reveals no pertinent complaints other than HPI. ED EXAM, GENERAL - Physical Exam Exam: See Below Exam Limited By: No Limitations General Appearance: Alert, Moderate Distress (Due to pain.), Other (Chronically ill appearing.) Eye Exam: Bilateral Eye: EOMI, Normal Inspection, PERRL Ears: Hearing Grossly Normal Nose: Normal Inspection, No Blood Throat/Mouth: Normal Inspection, Normal Lips, Normal Voice, No Airway Compromise Head: Atraumatic, Normocephalic Neck: Normal Inspection, Non-Tender, Full Range of Motion Respiratory/Chest: No Respiratory Distress, Lungs Clear, No Accessory Muscle Use , Chest Non-Tender, Decreased Breath Sounds Cardiovascular: Regular Rate, Rhythm GI/Abdominal: Pelvis Stable, Distended, Tender (RUQ), Abnormal Bowel Sounds ( Hypoactive). No: Guarding, Rigid (Female) Exam: Deferred Rectal (Female) Exam: Deferred Back Exam: Normal Inspection Extremities: Normal Range of Motion, Non-Tender, No Pedal Edema Neurological: Alert, Oriented, Normal Cognition, No Motor/Sensory Deficits Psychiatric: Anxious, Tearful Course - Vital Signs Last Recorded V/S: Last Vital Signs Temp 98.1 F 08/30/19 12:45 Pulse 86 08/30/19 12:45 Resp 20 08/30/19 12:45 BP 145/64 H 08/30/19 12:45 Pulse Ox 94 L 08/30/19 12:45 - Orders/Labs/Meds Orders: Active Orders 24 hr Category Date Time Status Peripheral IV Care [RC] . DIRECTED Care 08/30/19 13:13 Active Sodium Chloride 0.9% [Saline Flush] Med 08/30/19 13:13 Active 10 ml FLUSH ASDIRECTED PRN Peripheral IV Insertion Adult [OM.PC] Stat Oth 08/30/19 13:12 Ordered Medication Orders Sodium Chloride (Saline Flush) 10 ml FLUSH ASDIRECTED PRN PRN Reason: Keep Vein Open Last Admin: 08/30/19 13:18 Dose: 10 ml Admin: 08/30/19 13:17 Dose: 10 ml Labs: Laboratory Tests 08/30/19 08/30/19 08/30/19 Range/Units 14:06 14:06 14:06 WBC 5.0 (5.0-10.0) 10^3/uL RBC 2.86 L (4.2-5.4) 10^6/uL Hgb 8.7 L D (12.0-16.0) g/dL Hct 28.4 L (37.0-47.0) % MCV 99.3 D (80-100) fL MCH 30.4 (27.0-34.0) pg MCHC 30.6 L (33.0-35.0) g/dL Plt Count 215 (150-450) 10^3/uL Neut % (Auto) 79.4 H (42.2-75.2) % Lymph % (Auto) 6.8 L (20.5-50.1) % [place] % (Auto) 9.6 H (2-8) % Eos % (Auto) 3.4 H (1.0-3.0) % Baso % (Auto) 0.8 (0.0-1.0) % Sodium 139 (135-145) mmol/L Potassium 4.0 D (3.6-5.0) mmol/L Chloride 96 L (101-111) mmol/L Carbon Dioxide 30.0 D (21.0-31.0) mmol/L Anion Gap 17.0 BUN 41 H D (7-18) mg/dL Creatinine 4.8 H D (0.6-1.3) mg/dL Est Cr Clr Drug Dosing TNP Estimated GFR (MDRD) 9 BUN/Creatinine Ratio 8.54 Glucose 121 H (74-105) mg/dL Lactic Acid 1.1 (0.5-2.2) mmol/L Calcium 7.0 L (8.4-10.2) mg/dl Phosphorus 5.9 H (2.5-4.6) mg/dL Magnesium 1.5 L (1.8-2.5) mg/dL Total Bilirubin 1.6 H (0.2-1.0) mg/dL AST 32 (10-42) IU/L ALT 17 (10-60) IU/L Alkaline Phosphatase 199 H (42-121) IU/L Total Protein 6.8 (6.7-8.2) g/dl Albumin 3.1 L (3.2-5.5) g/dl Globulin 3.7 Albumin/Globulin Ratio 0.84 Amylase 92 (28-100) U/L Lipase 57 H (22-51) U/L Meds: Medications Generic Name Dose Route Start Last Admin Trade Name Freq PRN Reason Stop Dose Admin Sodium Chloride 10 ml 08/30/19 13:13 08/30/19 13:18 Saline Flush FLUSH 10 ml ASDIRECTED PRN Administration Keep Vein Open Discontinued Medications Generic Name Dose Route Start Last Admin Trade Name Freq PRN Reason Stop Dose Admin Hydromorphone HCl 1 mg 08/30/19 13:11 08/30/19 13:19 Dilaudid IVPUSH 08/30/19 13:12 1 mg ONETIME ONE Administration Iopamidol 75 ml 08/30/19 13:11 Isovue-300 (61%) IVPUSH 08/30/19 13:12 ONETIME ONE Ondansetron HCl 4 mg 08/30/19 13:11 08/30/19 13:18 Zofran IV 08/30/19 13:12 4 mg ONETIME ONE Administration - Radiology Interpretation Free Text/Narrative:: CT Abd/Pelvis: large ascites, possible cholecystitis per Rad. report. Departure - Departure Time of Disposition: 14:55 Disposition: DC/Tfer to Acute Hospital 02 Condition: Fair, Serious Clinical Impression: Pleural effusion, End stage renal disease on dialysis Ascites Qualifiers: Ascites type: other type Qualified Code(s): R18.8 - Other ascites Cholecystitis with cholelithiasis Qualifiers: Cholelithiasis location: gallbladder Cholecystitis acuity: acute and chronic Biliary obstruction: without biliary obstruction Qualified Code(s): K80.12 - Calculus of gallbladder with acute and chronic cholecystitis without obstruction - Discharge Information *PRESCRIPTION DRUG MONITORING PROGRAM REVIEWED*: No *COPY OF PRESCRIPTION DRUG MONITORING REPORT IN PATIENT BIENVENIDO: No Forms: ED Department Discharge, Interfacility Transfer EMTALA - My Orders Last 24 Hours: My Active Orders 08/30/19 13:12 Peripheral IV Insertion Adult [OM.PC] Stat 08/30/19 13:13 Peripheral IV Care [RC] . DIRECTED Sodium Chloride 0.9% [Saline Flush] 10 ml FLUSH ASDIRECTED PRN - Assessment/Plan Last 24 Hours: My Active Orders 08/30/19 13:12 Peripheral IV Insertion Adult [OM.PC] Stat 08/30/19 13:13 Peripheral IV Care [RC] . DIRECTED Sodium Chloride 0.9% [Saline Flush] 10 ml FLUSH ASDIRECTED PRN
[2019-08-30 12:50] VITALS: BP 145/64; PULSE 86
[2019-08-30] MEDS ORDERED: Ondansetron 4 MG/2 ML SDV IV ONE (13:11)
[2019-08-30] MEDS ORDERED: Iopamidol 612 MG/ML 75 ML Bottle IVPUSH ONE (13:11)
[2019-08-30] MEDS ORDERED: HYDROmorphone 1 MG/ML Syringe IVPUSH ONE (13:11)
[2019-08-30] MEDS: Sodium Chloride 0.9% 10 ML Syringe FLUSH PRN ×2 (13:17→13:18)
--- NOTE | 2019-08-30 14:19 | CT ---
EXAMINATION: Abdomen Pelvis w Cont SEX: Female AGE: 63 years CLINICAL HISTORY: 63-year-old 140 pound diabetic female experiencing UPPER ABDOMINAL PAIN. Previous appendectomy. "Cardiomegaly, bilateral pleural effusions, cholelithiasis and ascites" reported on CT exam 08 June 2019. Follow-up evaluation please. Scan technique: Volume acquisition of data from the abdomen and pelvis obtained without oral contrast but during intravenous ministration 75 cc nonionic Isovue contrast while patient was lying supine on the Siemens multislice scanner [place], [place]. All data archived in the PACS system for storage, reformatting axial/sagittal/coronal planes and study. Interpretation: 1. Dependent right pleural effusion with underlying lower lobe atelectasis and large volume ASCITES as noted 08 June. 2. Calcified "Gallstone" distended gallbladder with thickened wall. No abnormal new dilatation of the intrahepatic biliary ducts. 3. Stomach, spleen, pancreas, adrenal glands and kidneys unremarkable and unchanged. Subcutaneous edema (anasarca). 4. Extensively calcified uterus. No sign of mechanical small or large bowel obstruction. No free intraperitoneal air. 5. Densely calcified "cast" small caliber aortoiliac vessels. No aneurysm. Chronic L4-5 disc disease. 6. Cardiomegaly. Dense coronary artery calcifications. Pacemaker. CONCLUSION: Possible cholecystitis but general appearance gallbladder (and stone) unchanged since 08 June 2019. Massive ascites. Cardiomegaly and pleural effusion.
[2019-08-30 14:36] LABS: CHLORIDE,CL 96 mmol/L (101-111); SODIUM,NA 139 mmol/L (135-145)
== END 2019-08-30 15:20 ==
LOC: DL.ED 12:27
DX: K80.12 Calculus of gallbladder with acute and chronic cholecystitis without obstruction (principal); R18.8 Other ascites; J90 Pleural effusion, not elsewhere classified; I13.2 Hypertensive heart and chronic kidney disease with heart failure and with stage 5 chronic kidney disease, or end stage renal disease; I50.9 Heart failure, unspecified; E11.22 Type 2 diabetes mellitus with diabetic chronic kidney disease; N18.6 End stage renal disease; E11.43 Type 2 diabetes mellitus with diabetic autonomic (poly)neuropathy; K31.84 Gastroparesis; I25.10 Atherosclerotic heart disease of native coronary artery without angina pectoris; Z79.82 Long term (current) use of aspirin; Z79.899 Other long term (current) drug therapy; Z88.1 Allergy status to other antibiotic agents; Z88.4 Allergy status to anesthetic agent; Z88.8 Allergy status to other drugs, medicaments and biological substances; Z91.040 Latex allergy status; Z99.2 Dependence on renal dialysis
CPT/HCPCS: 36415; 74177; 80053; 82150; 83605; 83690; 83735; 84100; 85025; 96374; 96375; 99285; J1170; J2405; Q9967